=== PATIENT | female | born 1945 | race Caucasian/White ===

== ENCOUNTER → 2017-10-12 16:55 | Outpatient (CLI) | payer MEDICARE, SELFPAY | PROVIDERS: Visit Provider Physician Assistant | DX: N39.0 Urinary tract infection, site not specified (principal) | CPT/HCPCS: 87077; 87086; 87186 ==

== ENCOUNTER → 2018-02-18 16:15 | Outpatient (CLI) | payer MEDICARE, SELFPAY | PROVIDERS: Visit Provider Physician Assistant | DX: R52 Pain, unspecified (principal) | CPT/HCPCS: 87077; 87086; 87186 ==

== ENCOUNTER 2018-09-14 14:30 | Outpatient (RCR) | payer MEDICARE, SELFPAY ==
--- NOTE | 2018-06-19 09:57 | PT.OIE ---
Current Diagnoses Lymphedema, not elsewhere classified (06/19/18) Difficulty in walking, not elsewhere classified (06/19/18) Dizziness and giddiness (06/19/18) Provider Visit Care Team Role Provider Type Amadeo Jaimes Primary Care Provider Non-Staff Specialty: Internal Medicine Address: [address] [place] [address], [facility] Email: Attending Provider Specialty: Address: Phone: Fax: Email: Physical Therapy Initial Evaluation PT-OP-A Visit Information Start: 06/21/18 09:09 Freq: Status: Active Protocol: Document 06/19/18 08:15 [facility] (Rec: 06/21/18 09:54 [facility] [id number]) Out-Patient Physical Therapy Visit Information Visit Information Visit Type Initial Evaluation Visit Start Time 08:15 Visit Stop Time 09:00 Total Visit Minutes 45 Visit Number 1 Number of PROPERTY HANDLER Visits 0 Evaluation Information Evaluation Date 06/19/18 Precautions Precautions hx breast cancer with lumpectomy left. PT-OP-B Current Condition Start: 06/21/18 09:09 Freq: Status: Active Protocol: Document 06/19/18 08:15 [facility]AK (Rec: 06/21/18 09:54 [facility] [id number]) Current Condition History of Current Condition Onset Date 1 yr Current Complaints c/o front/back balance difficulty x 1 yr History of Current Condition No known cause, denies falls, but reports she feels her balance has been worsening. Had brain scan (negative), hearing test (WNL), eye motion test (negative). Denies sensation of spinning with change in position. Additionally patient reports recent sensation of numbness and tightness left armpit and has some concerns about lymphedema. 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 History of sinus surgery 2017, breast surgery 2018, scoliosis. Prior Treatments and Tests as above Future Testing and Treatments Planned non planned at this time Treatment Goals Patient/Caregiver Goals Improve balance, screen for lymphedema and receive treatment as indicated. Prior Functional Status Baseline Function- ADL's Independent Baseline Function- Mobility Independent Baseline Function- Work/School retired Baseline Function- Recreation/Hobbies no limitations Current Functional Impairments (Reported) Functional Limitations- ADL's reports balance difficulty, has to sit to put pans on Functional Limitations- Mobility/Gait independent Functional Limitations- Work/School retired Functional Limitations- Recreation/ States has to be more careful, Hobbies fearful of falling PT-OP-C Subjective Start: 06/21/18 09:09 Freq: Status: Active Protocol: Document 06/19/18 08:15 [facility] (Rec: 06/21/18 09:54 [facility] [id number]) Patient Questionnaires ABC- Activity Specific Balance Confidence Scale ABC Score 63% OP-PT Pain Assessment Pain Assessment Grid Paper Pain Assessment Grid Completed Yes Location left axilla Intensity 2 Description Aching Tightness PT-OP-E Functional Tests Start: 06/21/18 09:09 Freq: Status: Active Protocol: Document 06/19/18 08:15 [facility] (Rec: 06/21/18 09:54 [facility] [id number]) Functional Tests Dynamic Gait Index (DGI) Score 16 Timed Up and Go (TUG) Score 9 Tinetti Balance and Gait Assessment Balance Score 25 Other De Los Santos Balance Score Score 41/56 PT-OP-G Mobility & Gait Start: 06/21/18 09:09 Freq: Status: Active Protocol: Document 06/19/18 08:15 [facility] (Rec: 06/21/18 09:54 [facility] [id number]) OP Mobility Evaluation Bed Mobility Rolling indep no dizziness Supine to and from Sit indep no dizziness Transfers Sit to Stand indep Bed to Chair Transfers indep OP Gait Assessment Gait Gait Assistance Required: Independent Distance (Feet) 100 Assistive Devices Assistive Device None Gait Deviations General Gait Pattern Decreased Stride Length Decreased Feet Clearance Stair Climbing Evaluation Devices Stair Climbing Assistive Devices Left Railing Right Railing Technique/Endurance Stair Climbing Technique Step Over Step PT-OP-J Posture/Palpation/Skin Start: 06/21/18 09:09 Freq: Status: Active Protocol: Document 06/19/18 08:15 [facility] (Rec: 06/21/18 09:54 [facility] [id number]) Palpation Assessment Location left axilla Palpation Details axillary cording left axilla 3 long with mild tenderness reported PT-OP-K Range of Motion Start: 06/21/18 09:09 Freq: Status: Active Protocol: Document 06/19/18 08:15 [facility] (Rec: 06/21/18 09:54 [facility] [id number]) Cervical Spine Range of Motion Cervical Spine Active Comments WNL Shoulder Goniometric Range of Motion Shoulder Measured in Degrees left Shoulder ROM WFL No Shoulder ROM Limitations Shoulder ROM Limitations Soft Tissue Tightness Comments tightness with elevation, limited to 170 flex PT-OP-N Lymphedema Start: 06/21/18 09:09 Freq: Status: Active Protocol: Document 06/19/18 08:15 [facility] (Rec: 06/21/18 09:54 [facility] [id number]) Lymphedema Measurements Upper Extremity Circumference Measurements left MCP 17.2 cm Wrist 15.2 cm 5 cm From Distal Crease 17.1 cm 10 cm From Distal Crease 20 cm 15 cm From Distal Crease 22.4 cm 20 cm From Distal Crease 23.6 cm 25 cm From Distal Crease 25.2 cm 30 cm From Distal Crease 27.8 cm 35 cm From Distal Crease 30.3 cm 40 cm From Distal Crease 31.2 cm 45 cm From Distal Crease 31 cm Axilla 33.5 cm right MCP 17.9 cm Wrist 15.5 cm 5 cm From Distal Crease 17.4 cm 10 cm From Distal Crease 20.6 cm 15 cm From Distal Crease 22.5 cm 20 cm From Distal Crease 23.8 cm 25 cm From Distal Crease 25 cm 30 cm From Distal Crease 27 cm 35 cm From Distal Crease 29.2 cm 40 cm From Distal Crease 30.1 cm 45 cm From Distal Crease 30.2 cm Axilla 32 cm Comments Lymphedema Comments axillary cording 3 left axilla PT-OP-T Assessment and Plan Start: 06/21/18 09:09 Freq: Status: Active Protocol: Document 06/19/18 08:15 [facility] (Rec: 06/21/18 09:54 [facility] [id number]) Physical Therapy Assessment Rehab Potential Rehabilitation Potential Good Evaluation Complexity Number of Personal Factors/Comorbidities 3 or More Number of Body Systems Impaired 3 Clinical Presentation at Evaluation Evolving Impairments Impairments Activity Tolerance Balance Edema Goals lymphedema with axillary cording left Short Term Goal (STG) Decrease circumferential measurements left upper arm and axilla by 1/2 cm and axillary cording by 50%. Instruct in self-massage, sequential lymphedema exercises, and give information about compression sleeves. STG Duration 4 wks Fire Fighter Goal (LTG) Eliminate axillary cording, patient to be independent with self care for lymphedema to include self-massage, sequential lymphedema exercises, and wearing of appropriate compression garment LTG Duration 12 wks 2 Impairment activity tolerance Snf Goal (LTG) Patient able to resume all usual activities without balance difficulty LTG Duration 12 wks 1 Impairment balance dysfunction: De [place] Santos Balance score 41/56 Short Term Goal (STG) Decrease fall risk by improving De [place] Balance score to 47/56 STG Duration 4 wks Fire Fighter Goal (LTG) Decrease fall risk by improving De [place] Balance score to 54/56 LTG Duration 12 wks Assessment Summary Assessment Patient presents with balance dysfunction of unknown origin but demonstrates difficulty with high level balance tasks. No numbness or tingling or other evidence for neurological involvement. She is highly motivated and would benefit from PT for balance- focused therapeutic exercises. Additionally patient presents today with signs and symptoms consistent with lymphedema left UE with circumferential measurements larger by at least 1 cm left upper arm and axilla as well as the presence of axillary cording. She would benefit from PT for lymphedema management. Physical Therapy Plan Frequency and Duration Frequency of Treatment 2-3x/wk Duration of Treatment 12 wks Plan of Care Start Date 06/19/18 Plan of Care End Date 09/18/18 Therapeutic Interventions Therapeutic Interventions Home Exercise Program Lymphedema Management Manual Therapy Neuromuscular Re-education Patient/Caregiver Education Self-Care/Home Management Therapeutic Activities Therapeutic Exercises Next Visit Focus/Plan Next Note Type Treatment Note Next Visit Plan Review HEP, progress balance ex. Initiate treatment for lymphedema
--- NOTE | 2018-06-19 09:57 | PT.OPPOC ---
Current Diagnoses Lymphedema, not elsewhere classified (06/19/18) Difficulty in walking, not elsewhere classified (06/19/18) Dizziness and giddiness (06/19/18) Provider Visit Care Team Role Provider Type Amadeo Jaimes Primary Care Provider Non-Staff Specialty: Internal Medicine Address: [address] [place] [address], [facility] Email: Attending Provider Specialty: Address: Phone: Fax: Email: Plan Of Care PT-OP-T Assessment and Plan Start: 06/21/18 09:09 Freq: Status: Active Protocol: Document 06/19/18 08:15 [facility] (Rec: 06/21/18 09:54 [facility] [id number]) Physical Therapy Assessment Rehab Potential Rehabilitation Potential Good Evaluation Complexity Number of Personal Factors/Comorbidities 3 or More Number of Body Systems Impaired 3 Clinical Presentation at Evaluation Evolving Impairments Impairments Activity Tolerance Balance Edema Goals lymphedema with axillary cording left Short Term Goal (STG) Decrease circumferential measurements left upper arm and axilla by 1/2 cm and axillary cording by 50%. Instruct in self-massage, sequential lymphedema exercises, and give information about compression sleeves. STG Duration 4 wks Chcf Goal (LTG) Eliminate axillary cording, patient to be independent with self care for lymphedema to include self-massage, sequential lymphedema exercises, and wearing of appropriate compression garment LTG Duration 12 wks 2 Impairment activity tolerance Services Clerk Goal (LTG) Patient able to resume all usual activities without balance difficulty LTG Duration 12 wks 1 Impairment balance dysfunction: De [place] Santos Balance score 41/56 Short Term Goal (STG) Decrease fall risk by improving De [place] Balance score to 47/56 STG Duration 4 wks Services Clerk Goal (LTG) Decrease fall risk by improving De [place] Santos Balance score to 54/56 LTG Duration 12 wks Assessment Summary Assessment Patient presents with balance dysfunction of unknown origin but demonstrates difficulty with high level balance tasks. No numbness or tingling or other evidence for neurological involvement. She is highly motivated and would benefit from PT for balance- focused therapeutic exercises. Additionally patient presents today with signs and symptoms consistent with lymphedema left UE with circumferential measurements larger by at least 1 cm left upper arm and axilla as well as the presence of axillary cording. She would benefit from PT for lymphedema management. Physical Therapy Plan Frequency and Duration Frequency of Treatment 2-3x/wk Duration of Treatment 12 wks Plan of Care Start Date 06/19/18 Plan of Care End Date 09/18/18 Therapeutic Interventions Therapeutic Interventions Home Exercise Program Lymphedema Management Manual Therapy Neuromuscular Re-education Patient/Caregiver Education Self-Care/Home Management Therapeutic Activities Therapeutic Exercises Next Visit Focus/Plan Next Note Type Treatment Note Next Visit Plan Review HEP, progress balance ex. Initiate treatment for lymphedema Plan of Care Dates Plan of Care Start Date 06/19/18 Plan of Care End Date 09/18/18 Please Sign and Return: I have reviewed this Plan of Care and certify that the skilled therapy services above are required to meet the patient?s needs. Physician Signature Date Printed Name and Credentials Clinical Instructor Signature Printed Name and Credentials
--- NOTE | 2018-06-22 10:11 | PT.OTN ---
Current Diagnoses Dizziness and giddiness (06/22/18) Physical Therapy Treatment Note PT-OP-A Visit Information Start: 06/21/18 09:09 Freq: Status: Active Protocol: Document 06/22/18 08:57 [facility] (Rec: 06/22/18 08:58 [facility] [id number]) Out-Patient Physical Therapy Visit Information Visit Information Visit Type Initial Evaluation Visit Start Time 09:00 Visit Stop Time 09:47 Total Visit Minutes 47 Visit Number 2 Number of SIGNAL OPERATOR TECHNICAL Visits 0 Evaluation Information Evaluation Date 06/19/18 Precautions Precautions hx breast cancer with lumpectomy left. PT-OP-B Current Condition Start: 06/21/18 09:09 Freq: Status: Active Protocol: Document 06/19/18 08:15 [facility] (Rec: 06/21/18 09:54 [facility] [id number]) Current Condition History of Current Condition Onset Date 1 yr Current Complaints c/o front/back balance difficulty x 1 yr History of Current Condition No known cause, denies falls, but reports she feels her balance has been worsening. Had brain scan (negative), hearing test (WNL), eye motion test (negative). Denies sensation of spinning with change in position. Additionally patient reports recent sensation of numbness and tightness left armpit and has some concerns about lymphedema. 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 History of sinus surgery 2017, breast surgery 2018, scoliosis. Prior Treatments and Tests as above Future Testing and Treatments Planned non planned at this time Treatment Goals Patient/Caregiver Goals Improve balance, screen for lymphedema and receive treatment as indicated. Prior Functional Status Baseline Function- ADL's Independent Baseline Function- Mobility Independent Baseline Function- Work/School retired Baseline Function- Recreation/Hobbies no limitations Current Functional Impairments (Reported) Functional Limitations- ADL's reports balance difficulty, has to sit to put pans on Functional Limitations- Mobility/Gait independent Functional Limitations- Work/School retired Functional Limitations- Recreation/ States has to be more careful, Hobbies fearful of falling PT-OP-C Subjective Start: 06/21/18 09:09 Freq: Status: Active Protocol: Document 06/22/18 08:57 [facility] (Rec: 06/22/18 10:11 [facility] [id number]) OP-PT Subjective Patient Comments Patient Comments States she now remembers that my eye doctor wanted a PT to look at my vestibular system related to my front to back balance difficulty. Has looked at compression sleeves online, wants to discuss. PT-OP-E Functional Tests Start: 06/21/18 09:09 Freq: Status: Active Protocol: Document 06/19/18 08:15 [facility] (Rec: 06/21/18 09:54 [facility] [id number]) Functional Tests Dynamic Gait Index (DGI) Score 16 Timed Up and Go (TUG) Score 9 Tinetti Balance and Gait Assessment Balance Score 25 Other De [place] Santos Balance Score Score 41/56 PT-OP-G Mobility & Gait Start: 06/21/18 09:09 Freq: Status: Active Protocol: Document 06/19/18 08:15 [facility] (Rec: 06/21/18 09:54 [facility] [id number]) OP Mobility Evaluation Bed Mobility Rolling indep no dizziness Supine to and from Sit indep no dizziness Transfers Sit to Stand indep Bed to Chair Transfers indep OP Gait Assessment Gait Gait Assistance Required: Independent Distance (Feet) 100 Assistive Devices Assistive Device None Gait Deviations General Gait Pattern Decreased Stride Length Decreased Feet Clearance Stair Climbing Evaluation Devices Stair Climbing Assistive Devices Left Railing Right Railing Technique/Endurance Stair Climbing Technique Step Over Step PT-OP-J Posture/Palpation/Skin Start: 06/21/18 09:09 Freq: Status: Active Protocol: Document 06/19/18 08:15 [facility] (Rec: 06/21/18 09:54 [facility] [id number]) Palpation Assessment Location left axilla Palpation Details axillary cording left axilla 3 long with mild tenderness reported PT-OP-K Range of Motion Start: 06/21/18 09:09 Freq: Status: Active Protocol: Document 06/19/18 08:15 [facility] (Rec: 06/21/18 09:54 [facility] [id number]) Cervical Spine Range of Motion Cervical Spine Active Comments WNL Shoulder Goniometric Range of Motion Shoulder Measured in Degrees left Shoulder ROM WFL No Shoulder ROM Limitations Shoulder ROM Limitations Soft Tissue Tightness Comments tightness with elevation, limited to 170 flex PT-OP-N Lymphedema Start: 06/21/18 09:09 Freq: Status: Active Protocol: Document 06/19/18 08:15 [facility] (Rec: 06/21/18 09:54 [facility] [id number]) Lymphedema Measurements Upper Extremity Circumference Measurements left MCP 17.2 cm Wrist 15.2 cm 5 cm From Distal Crease 17.1 cm 10 cm From Distal Crease 20 cm 15 cm From Distal Crease 22.4 cm 20 cm From Distal Crease 23.6 cm 25 cm From Distal Crease 25.2 cm 30 cm From Distal Crease 27.8 cm 35 cm From Distal Crease 30.3 cm 40 cm From Distal Crease 31.2 cm 45 cm From Distal Crease 31 cm Axilla 33.5 cm right MCP 17.9 cm Wrist 15.5 cm 5 cm From Distal Crease 17.4 cm 10 cm From Distal Crease 20.6 cm 15 cm From Distal Crease 22.5 cm 20 cm From Distal Crease 23.8 cm 25 cm From Distal Crease 25 cm 30 cm From Distal Crease 27 cm 35 cm From Distal Crease 29.2 cm 40 cm From Distal Crease 30.1 cm 45 cm From Distal Crease 30.2 cm Axilla 32 cm Comments Lymphedema Comments axillary cording 3 left axilla PT-OP-Q Treatments Start: 06/21/18 09:09 Freq: Status: Active Protocol: Document 06/22/18 08:57 [facility] (Rec: 06/22/18 10:11 [facility] [id number]) Gym Equipment Shuttle Balance chains green Details with perturbations Comments START NEXT SESSION chains red Details EO front/back bal WBOS, staggered, EC Reps/Duration 10 min Neuro Re-Education Treatment Balance Activities tandem stand Details EO, with head turns SLS Details EO, with head turns Surface level Lymphedema Treatment Manual Lymphatic Drainage Location left UE Duration 10 min Patient Education Lymphedema Pathology verbally, with use of posters Lymphedema Prevention handout issued and discussed Lymphedema Precautions handout issued and discussed Compression Garments type discussed, patient to look further at options online Self Manual Lymphatic Drainage instructed and handout issued Sequential Lymphedema Exercises instructed and handout issued PT-OP-T Assessment and Plan Start: 06/21/18 09:09 Freq: Status: Active Protocol: Document 06/22/18 08:57 [facility] (Rec: 06/22/18 10:11 [facility] [id number]) Physical Therapy Assessment Goals lymphedema with axillary cording left Short Term Goal (STG) Decrease circumferential measurements left upper arm and axilla by 1/2 cm and axillary cording by 50%. Instruct in self-massage, sequential lymphedema exercises, and give information about compression sleeves. STG Duration 4 wks Labor Representative Goal (LTG) Eliminate axillary cording, patient to be independent with self care for lymphedema to include self-massage, sequential lymphedema exercises, and wearing of appropriate compression garment LTG Duration 12 wks 2 Impairment activity tolerance Labor Representative Goal (LTG) Patient able to resume all usual activities without balance difficulty LTG Duration 12 wks 1 Impairment balance dysfunction: De [place] Balance score 41/56 Short Term Goal (STG) Decrease fall risk by improving De [place] Balance score to 47/56 STG Duration 4 wks Labor Representative Goal (LTG) Decrease fall risk by improving [place] Balance score to 54/56 LTG Duration 12 wks Assessment Summary Assessment Demonstrated good understanding of advancement of HEP balance exercises by adding head turns. Initiated shuttle balance with emphasis on AP balance. Noted while standing to show patient lymphedema education posters patient flailed a couple times due to feeling off balance but was able to self-correct. Will benefit from screening by PT with vestibular specialization. Physical Therapy Plan Frequency and Duration Frequency of Treatment 2-3x/wk Duration of Treatment 12 wks Plan of Care Start Date 06/19/18 Plan of Care End Date 09/18/18 Therapeutic Interventions Therapeutic Interventions Home Exercise Program Lymphedema Management Manual Therapy Neuromuscular Re-education Patient/Caregiver Education Self-Care/Home Management Therapeutic Activities Therapeutic Exercises Next Visit Focus/Plan Next Note Type Treatment Note Next Visit Plan Progress with balance retraining and lymphedema treatment. Patient to schedule for screening with vestibular specialist PT.
--- NOTE | 2018-06-27 16:51 | PT.OTN ---
Current Diagnoses Dizziness and giddiness (06/27/18) Physical Therapy Treatment Note PT-OP-A Visit Information Start: 06/21/18 09:09 Freq: Status: Active Protocol: Document 06/27/18 09:56 [facility] (Rec: 06/27/18 09:58 [facility] [id number]) Out-Patient Physical Therapy Visit Information Visit Information Visit Type Treatment Note Visit Start Time 09:00 Visit Stop Time 09:45 Total Visit Minutes 45 Visit Number 2 Number of FIRE CONTROLMAN Visits 0 Evaluation Information Evaluation Date 06/19/18 Precautions Precautions hx breast cancer with lumpectomy left. PT-OP-B Current Condition Start: 06/21/18 09:09 Freq: Status: Active Protocol: Document 06/19/18 08:15 [facility] (Rec: 06/21/18 09:54 [facility] [id number]) Current Condition History of Current Condition Onset Date 1 yr Current Complaints c/o front/back balance difficulty x 1 yr History of Current Condition No known cause, denies falls, but reports she feels her balance has been worsening. Had brain scan (negative), hearing test (WNL), eye motion test (negative). Denies sensation of spinning with change in position. Additionally patient reports recent sensation of numbness and tightness left armpit and has some concerns about lymphedema. 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 History of sinus surgery 2017, breast surgery 2018, scoliosis. Prior Treatments and Tests as above Future Testing and Treatments Planned non planned at this time Treatment Goals Patient/Caregiver Goals Improve balance, screen for lymphedema and receive treatment as indicated. Prior Functional Status Baseline Function- ADL's Independent Baseline Function- Mobility Independent Baseline Function- Work/School retired Baseline Function- Recreation/Hobbies no limitations Current Functional Impairments (Reported) Functional Limitations- ADL's reports balance difficulty, has to sit to put pans on Functional Limitations- Mobility/Gait independent Functional Limitations- Work/School retired Functional Limitations- Recreation/ States has to be more careful, Hobbies fearful of falling PT-OP-C Subjective Start: 06/21/18 09:09 Freq: Status: Active Protocol: Document 06/27/18 09:56 [facility] (Rec: 06/27/18 09:58 [facility] [id number]) OP-PT Subjective Patient Comments Patient Comments Reports she measured her arm but wants some help in assuring measurements are correct. Was shown a maneuver of laying on bed with head hanging over for a few minutes and reports she feels she has a little less dizziness PT-OP-E Functional Tests Start: 06/21/18 09:09 Freq: Status: Active Protocol: Document 06/19/18 08:15 [facility] (Rec: 06/21/18 09:54 [facility] [id number]) Functional Tests Dynamic Gait Index (DGI) Score 16 Timed Up and Go (TUG) Score 9 Tinetti Balance and Gait Assessment Balance Score 25 Other De Los Santos Balance Score Score 41/56 PT-OP-G Mobility & Gait Start: 06/21/18 09:09 Freq: Status: Active Protocol: Document 06/19/18 08:15 [facility] (Rec: 06/21/18 09:54 [facility] [id number]) OP Mobility Evaluation Bed Mobility Rolling indep no dizziness Supine to and from Sit indep no dizziness Transfers Sit to Stand indep Bed to Chair Transfers indep OP Gait Assessment Gait Gait Assistance Required: Independent Distance (Feet) 100 Assistive Devices Assistive Device None Gait Deviations General Gait Pattern Decreased Stride Length Decreased Feet Clearance Stair Climbing Evaluation Devices Stair Climbing Assistive Devices Left Railing Right Railing Technique/Endurance Stair Climbing Technique Step Over Step PT-OP-J Posture/Palpation/Skin Start: 06/21/18 09:09 Freq: Status: Active Protocol: Document 06/19/18 08:15 [facility] (Rec: 06/21/18 09:54 [facility] [id number]) Palpation Assessment Location left axilla Palpation Details axillary cording left axilla 3 long with mild tenderness reported PT-OP-K Range of Motion Start: 06/21/18 09:09 Freq: Status: Active Protocol: Document 06/19/18 08:15 [facility] (Rec: 06/21/18 09:54 [facility] [id number]) Cervical Spine Range of Motion Cervical Spine Active Comments WNL Shoulder Goniometric Range of Motion Shoulder Measured in Degrees left Shoulder ROM WFL No Shoulder ROM Limitations Shoulder ROM Limitations Soft Tissue Tightness Comments tightness with elevation, limited to 170 flex PT-OP-N Lymphedema Start: 06/21/18 09:09 Freq: Status: Active Protocol: Document 06/19/18 08:15 [facility] (Rec: 06/21/18 09:54 [facility] [id number]) Lymphedema Measurements Upper Extremity Circumference Measurements left MCP 17.2 cm Wrist 15.2 cm 5 cm From Distal Crease 17.1 cm 10 cm From Distal Crease 20 cm 15 cm From Distal Crease 22.4 cm 20 cm From Distal Crease 23.6 cm 25 cm From Distal Crease 25.2 cm 30 cm From Distal Crease 27.8 cm 35 cm From Distal Crease 30.3 cm 40 cm From Distal Crease 31.2 cm 45 cm From Distal Crease 31 cm Axilla 33.5 cm right MCP 17.9 cm Wrist 15.5 cm 5 cm From Distal Crease 17.4 cm 10 cm From Distal Crease 20.6 cm 15 cm From Distal Crease 22.5 cm 20 cm From Distal Crease 23.8 cm 25 cm From Distal Crease 25 cm 30 cm From Distal Crease 27 cm 35 cm From Distal Crease 29.2 cm 40 cm From Distal Crease 30.1 cm 45 cm From Distal Crease 30.2 cm Axilla 32 cm Comments Lymphedema Comments axillary cording 3 left axilla PT-OP-Q Treatments Start: 06/21/18 09:09 Freq: Status: Active Protocol: Document 06/27/18 09:56 [facility] (Rec: 06/27/18 16:51 [facility] [id number]) Lymphedema Treatment Manual Lymphatic Drainage Location left UE Duration 35 min Comments minimal axillary cording palpable; dec to 1/2 Other Other Circumferential measurements for compression sleeve taken. PT-OP-T Assessment and Plan Start: 06/21/18 09:09 Freq: Status: Active Protocol: Document 06/27/18 09:56 [facility] (Rec: 06/27/18 16:51 [facility] [id number]) Physical Therapy Assessment Goals lymphedema with axillary cording left Short Term Goal (STG) Decrease circumferential measurements left upper arm and axilla by 1/2 cm and axillary cording by 50%. Instruct in self-massage, sequential lymphedema exercises, and give information about compression sleeves. STG Duration 4 wks [facility] Goal (LTG) Eliminate axillary cording, patient to be independent with self care for lymphedema to include self-massage, sequential lymphedema exercises, and wearing of appropriate compression garment LTG Duration 12 wks 2 Impairment activity tolerance Multi Share Program Coordinator Goal (LTG) Patient able to resume all usual activities without balance difficulty LTG Duration 12 wks 1 Impairment balance dysfunction: De [place] Santos Balance score 41/56 Short Term Goal (STG) Decrease fall risk by improving De [place] Santos Balance score to 47/56 STG Duration 4 wks [facility] Goal (LTG) Decrease fall risk by improving De [place] Santos Balance score to 54/56 LTG Duration 12 wks Assessment Summary Assessment Urged caution with self- treatment for vestibular issues; patient agreeable. Significant decrease in axillary cording, patient compliant to self-massage and sequential lymphedema exercises and is planning to order compression sleeve. Physical Therapy Plan Frequency and Duration Frequency of Treatment 2-3x/wk Duration of Treatment 12 wks Plan of Care Start Date 06/19/18 Plan of Care End Date 09/18/18 Therapeutic Interventions Therapeutic Interventions Home Exercise Program Lymphedema Management Manual Therapy Neuromuscular Re-education Patient/Caregiver Education Self-Care/Home Management Therapeutic Activities Therapeutic Exercises Next Visit Focus/Plan Next Note Type Treatment Note Next Visit Plan Remeasure upper arm circumferential measurements as compared to evaluation, continue treatment for lymphedema, balance retraining . Patient has future appointments scheduled with vestibular specialist PT.
--- NOTE | 2018-07-03 19:16 | PT.OTN ---
Current Diagnoses Dizziness and giddiness (06/30/18) Physical Therapy Treatment Note PT-OP-A Visit Information Start: 06/21/18 09:09 Freq: Status: Active Protocol: Document 06/30/18 09:00 [facility] (Rec: 06/30/18 15:11 [facility] [id number]) Out-Patient Physical Therapy Visit Information Visit Information Visit Type Treatment Note Visit Start Time 09:00 Visit Stop Time 09:45 Total Visit Minutes 45 Visit Number 3 Number of NIGHT AUDITOR Visits 0 Evaluation Information Evaluation Date 06/19/18 Precautions Precautions hx breast cancer with lumpectomy left. PT-OP-B Current Condition Start: 06/21/18 09:09 Freq: Status: Active Protocol: Document 06/19/18 08:15 [facility] (Rec: 06/21/18 09:54 [facility] [id number]) Current Condition History of Current Condition Onset Date 1 yr Current Complaints c/o front/back balance difficulty x 1 yr History of Current Condition No known cause, denies falls, but reports she feels her balance has been worsening. Had brain scan (negative), hearing test (WNL), eye motion test (negative). Denies sensation of spinning with change in position. Additionally patient reports recent sensation of numbness and tightness left armpit and has some concerns about lymphedema. 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 History of sinus surgery 2017, breast surgery 2018, scoliosis. Prior Treatments and Tests as above Future Testing and Treatments Planned non planned at this time Treatment Goals Patient/Caregiver Goals Improve balance, screen for lymphedema and receive treatment as indicated. Prior Functional Status Baseline Function- ADL's Independent Baseline Function- Mobility Independent Baseline Function- Work/School retired Baseline Function- Recreation/Hobbies no limitations Current Functional Impairments (Reported) Functional Limitations- ADL's reports balance difficulty, has to sit to put pans on Functional Limitations- Mobility/Gait independent Functional Limitations- Work/School retired Functional Limitations- Recreation/ States has to be more careful, Hobbies fearful of falling PT-OP-C Subjective Start: 06/21/18 09:09 Freq: Status: Active Protocol: Document 06/30/18 09:00 [facility] (Rec: 06/30/18 15:11 [facility] [id number]) OP-PT Subjective Patient Comments Patient Comments Hasn't ordered compression sleeve yet. States she feels her dizziness and balance is getting some better, PT-OP-E Functional Tests Start: 06/21/18 09:09 Freq: Status: Active Protocol: Document 06/19/18 08:15 [facility] (Rec: 06/21/18 09:54 [facility] [id number]) Functional Tests Dynamic Gait Index (DGI) Score 16 Timed Up and Go (TUG) Score 9 Tinetti Balance and Gait Assessment Balance Score 25 Other De [place] Balance Score Score 41/56 PT-OP-G Mobility & Gait Start: 06/21/18 09:09 Freq: Status: Active Protocol: Document 06/19/18 08:15 [facility] (Rec: 06/21/18 09:54 [facility] [id number]) OP Mobility Evaluation Bed Mobility Rolling indep no dizziness Supine to and from Sit indep no dizziness Transfers Sit to Stand indep Bed to Chair Transfers indep OP Gait Assessment Gait Gait Assistance Required: Independent Distance (Feet) 100 Assistive Devices Assistive Device None Gait Deviations General Gait Pattern Decreased Stride Length Decreased Feet Clearance Stair Climbing Evaluation Devices Stair Climbing Assistive Devices Left Railing Right Railing Technique/Endurance Stair Climbing Technique Step Over Step PT-OP-J Posture/Palpation/Skin Start: 06/21/18 09:09 Freq: Status: Active Protocol: Document 06/19/18 08:15 [facility] (Rec: 06/21/18 09:54 [facility] [id number]) Palpation Assessment Location left axilla Palpation Details axillary cording left axilla 3 long with mild tenderness reported PT-OP-K Range of Motion Start: 06/21/18 09:09 Freq: Status: Active Protocol: Document 06/19/18 08:15 [facility] (Rec: 06/21/18 09:54 [facility] [id number]) Cervical Spine Range of Motion Cervical Spine Active Comments WNL Shoulder Goniometric Range of Motion Shoulder Measured in Degrees left Shoulder ROM WFL No Shoulder ROM Limitations Shoulder ROM Limitations Soft Tissue Tightness Comments tightness with elevation, limited to 170 flex PT-OP-N Lymphedema Start: 06/21/18 09:09 Freq: Status: Active Protocol: Document 06/19/18 08:15 [facility] (Rec: 06/21/18 09:54 [facility] [id number]) Lymphedema Measurements Upper Extremity Circumference Measurements left MCP 17.2 cm Wrist 15.2 cm 5 cm From Distal Crease 17.1 cm 10 cm From Distal Crease 20 cm 15 cm From Distal Crease 22.4 cm 20 cm From Distal Crease 23.6 cm 25 cm From Distal Crease 25.2 cm 30 cm From Distal Crease 27.8 cm 35 cm From Distal Crease 30.3 cm 40 cm From Distal Crease 31.2 cm 45 cm From Distal Crease 31 cm Axilla 33.5 cm right MCP 17.9 cm Wrist 15.5 cm 5 cm From Distal Crease 17.4 cm 10 cm From Distal Crease 20.6 cm 15 cm From Distal Crease 22.5 cm 20 cm From Distal Crease 23.8 cm 25 cm From Distal Crease 25 cm 30 cm From Distal Crease 27 cm 35 cm From Distal Crease 29.2 cm 40 cm From Distal Crease 30.1 cm 45 cm From Distal Crease 30.2 cm Axilla 32 cm Comments Lymphedema Comments axillary cording 3 left axilla PT-OP-Q Treatments Start: 06/21/18 09:09 Freq: Status: Active Protocol: Document 06/30/18 09:00 [facility] (Rec: 06/30/18 15:11 [facility] [id number]) Gym Equipment Shuttle Balance chains green Details with perturbations chains red Details EO front/back bal WBOS, staggered, EC Reps/Duration 10 min Comments added head turns, nods, head and arm turns Neuro Re-Education Treatment Balance Activities foam stand Details EC Equipment grullon foam Comments CGA heel toe walk Comments CGA tandem stand Details EO, with head turns Lymphedema Treatment Manual Lymphatic Drainage Location left UE Duration 20 min PT-OP-T Assessment and Plan Start: 06/21/18 09:09 Freq: Status: Active Protocol: Document 06/30/18 09:00 [facility] (Rec: 07/03/18 19:16 [facility] [id number]) Physical Therapy Assessment Goals lymphedema with axillary cording left Short Term Goal (STG) Decrease circumferential measurements left upper arm and axilla by 1/2 cm and axillary cording by 50%. Instruct in self-massage, sequential lymphedema exercises, and give information about compression sleeves. STG Duration 4 wks Print Production Coordinator Goal (LTG) Eliminate axillary cording, patient to be independent with self care for lymphedema to include self-massage, sequential lymphedema exercises, and wearing of appropriate compression garment LTG Duration 12 wks 2 Impairment activity tolerance Care Home Goal (LTG) Patient able to resume all usual activities without balance difficulty LTG Duration 12 wks 1 Impairment balance dysfunction: De [place] Santos Balance score 41/56 Short Term Goal (STG) Decrease fall risk by improving De [place] Balance score to 47/56 STG Duration 4 wks Care Home Goal (LTG) Decrease fall risk by improving De [place] Balance score to 54/56 LTG Duration 12 wks Assessment Summary Assessment Good compliance to HEP, self- massage. No further chance in axillary cording, initially, though noted decrease at end of session. Patient has not ordered compression sleeve yet but is planning to. Physical Therapy Plan Frequency and Duration Frequency of Treatment 2-3x/wk Duration of Treatment 12 wks Plan of Care Start Date 06/19/18 Plan of Care End Date 09/18/18 Therapeutic Interventions Therapeutic Interventions Home Exercise Program Lymphedema Management Manual Therapy Neuromuscular Re-education Patient/Caregiver Education Self-Care/Home Management Therapeutic Activities Therapeutic Exercises Next Visit Focus/Plan Next Note Type Treatment Note Next Visit Plan Continue PT per POC
--- NOTE | 2018-07-04 13:34 | PT.OTN ---
Current Diagnoses Lymphedema, not elsewhere classified (07/04/18) Dizziness and giddiness (07/04/18) Physical Therapy Treatment Note PT-OP-A Visit Information Start: 06/21/18 09:09 Freq: Status: Active Protocol: Document 07/04/18 08:13 [facility] (Rec: 07/04/18 09:00 [facility] [id number]) Out-Patient Physical Therapy Visit Information Visit Information Visit Type Treatment Note Visit Start Time 08:15 Visit Stop Time 09:00 Total Visit Minutes 45 Visit Number 4 Number of CAFE HELPER Visits 0 Evaluation Information Evaluation Date 06/19/18 Precautions Precautions hx breast cancer with lumpectomy left. PT-OP-B Current Condition Start: 06/21/18 09:09 Freq: Status: Active Protocol: Document 06/19/18 08:15 [facility] (Rec: 06/21/18 09:54 [facility] [id number]) Current Condition History of Current Condition Onset Date 1 yr Current Complaints c/o front/back balance difficulty x 1 yr History of Current Condition No known cause, denies falls, but reports she feels her balance has been worsening. Had brain scan (negative), hearing test (WNL), eye motion test (negative). Denies sensation of spinning with change in position. Additionally patient reports recent sensation of numbness and tightness left armpit and has some concerns about lymphedema. 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 History of sinus surgery 2017, breast surgery 2018, scoliosis. Prior Treatments and Tests as above Future Testing and Treatments Planned non planned at this time Treatment Goals Patient/Caregiver Goals Improve balance, screen for lymphedema and receive treatment as indicated. Prior Functional Status Baseline Function- ADL's Independent Baseline Function- Mobility Independent Baseline Function- Work/School retired Baseline Function- Recreation/Hobbies no limitations Current Functional Impairments (Reported) Functional Limitations- ADL's reports balance difficulty, has to sit to put pans on Functional Limitations- Mobility/Gait independent Functional Limitations- Work/School retired Functional Limitations- Recreation/ States has to be more careful, Hobbies fearful of falling PT-OP-C Subjective Start: 06/21/18 09:09 Freq: Status: Active Protocol: Document 07/04/18 08:13 SAK (Rec: 07/04/18 09:00 [facility] [id number]) OP-PT Subjective Patient Comments Patient Comments Reports she had some spinning sensations with her dizziness recently, hoping to get into the vestibular specialist PT sooner. Has ordered 2 compression sleeves; 1 with and 1 without gauntlet. PT-OP-E Functional Tests Start: 06/21/18 09:09 Freq: Status: Active Protocol: Document 06/19/18 08:15 SAK (Rec: 06/21/18 09:54 [facility] [id number]) Functional Tests Dynamic Gait Index (DGI) Score 16 Timed Up and Go (TUG) Score 9 Tinetti Balance and Gait Assessment Balance Score 25 Other De Los Santos Balance Score Score 41/56 PT-OP-G Mobility & Gait Start: 06/21/18 09:09 Freq: Status: Active Protocol: Document 06/19/18 08:15 SAK (Rec: 06/21/18 09:54 [facility] [id number]) OP Mobility Evaluation Bed Mobility Rolling indep no dizziness Supine to and from Sit indep no dizziness Transfers Sit to Stand indep Bed to Chair Transfers indep OP Gait Assessment Gait Gait Assistance Required: Independent Distance (Feet) 100 Assistive Devices Assistive Device None Gait Deviations General Gait Pattern Decreased Stride Length Decreased Feet Clearance Stair Climbing Evaluation Devices Stair Climbing Assistive Devices Left Railing Right Railing Technique/Endurance Stair Climbing Technique Step Over Step PT-OP-J Posture/Palpation/Skin Start: 06/21/18 09:09 Freq: Status: Active Protocol: Document 06/19/18 08:15 [facility] (Rec: 06/21/18 09:54 [facility] [id number]) Palpation Assessment Location left axilla Palpation Details axillary cording left axilla 3 long with mild tenderness reported PT-OP-K Range of Motion Start: 06/21/18 09:09 Freq: Status: Active Protocol: Document 06/19/18 08:15 [facility] (Rec: 06/21/18 09:54 [facility] [id number]) Cervical Spine Range of Motion Cervical Spine Active Comments WNL Shoulder Goniometric Range of Motion Shoulder Measured in Degrees left Shoulder ROM WFL No Shoulder ROM Limitations Shoulder ROM Limitations Soft Tissue Tightness Comments tightness with elevation, limited to 170 flex PT-OP-N Lymphedema Start: 06/21/18 09:09 Freq: Status: Active Protocol: Document 06/19/18 08:15 SAK (Rec: 06/21/18 09:54 [facility] [id number]) Lymphedema Measurements Upper Extremity Circumference Measurements left MCP 17.2 cm Wrist 15.2 cm 5 cm From Distal Crease 17.1 cm 10 cm From Distal Crease 20 cm 15 cm From Distal Crease 22.4 cm 20 cm From Distal Crease 23.6 cm 25 cm From Distal Crease 25.2 cm 30 cm From Distal Crease 27.8 cm 35 cm From Distal Crease 30.3 cm 40 cm From Distal Crease 31.2 cm 45 cm From Distal Crease 31 cm Axilla 33.5 cm right MCP 17.9 cm Wrist 15.5 cm 5 cm From Distal Crease 17.4 cm 10 cm From Distal Crease 20.6 cm 15 cm From Distal Crease 22.5 cm 20 cm From Distal Crease 23.8 cm 25 cm From Distal Crease 25 cm 30 cm From Distal Crease 27 cm 35 cm From Distal Crease 29.2 cm 40 cm From Distal Crease 30.1 cm 45 cm From Distal Crease 30.2 cm Axilla 32 cm Comments Lymphedema Comments axillary cording 3 left axilla PT-OP-Q Treatments Start: 06/21/18 09:09 Freq: Status: Active Protocol: Document 07/04/18 08:13 [facility] (Rec: 07/04/18 09:00 [facility] [id number]) Therapeutic Exercises Sidelying Exercises shoulder abd from 90 to full abd Sidelying Exercise Name end-range stretch Reps/Minutes 5x ea Comments manual facilitation reach and roll Sidelying Exercise Name end-range stretch Reps/Minutes 5x each side Comments manual facilitation Sitting Exercises pulleys shoulder flex and scaption Reps/Minutes 10x ea Lymphedema Treatment Manual Lymphatic Drainage Location left UE Duration 30 min PT-OP-T Assessment and Plan Start: 06/21/18 09:09 Freq: Status: Active Protocol: Document 07/04/18 08:13 [facility] (Rec: 07/04/18 09:00 [facility] [id number]) Physical Therapy Assessment Goals lymphedema with axillary cording left Short Term Goal (STG) Decrease circumferential measurements left upper arm and axilla by 1/2 cm and axillary cording by 50%. Instruct in self-massage, sequential lymphedema exercises, and give information about compression sleeves. STG Duration 4 wks Automatic Packer Operator Goal (LTG) Eliminate axillary cording, patient to be independent with self care for lymphedema to include self-massage, sequential lymphedema exercises, and wearing of appropriate compression garment LTG Duration 12 wks 2 Impairment activity tolerance Chcf Goal (LTG) Patient able to resume all usual activities without balance difficulty LTG Duration 12 wks 1 Impairment balance dysfunction: De Los Santos Balance score 41/56 Short Term Goal (STG) Decrease fall risk by improving De Los Santos Balance score to 47/56 STG Duration 4 wks Chcf Goal (LTG) Decrease fall risk by improving De Los Santos Balance score to 54/56 LTG Duration 12 wks Assessment Summary Assessment Axillary cording present but decreased. Has ordered compression sleeves. Compliant to self-massage and sequential lymphedema exercises. Should have compression sleeves by next session. Physical Therapy Plan Frequency and Duration Frequency of Treatment 2-3x/wk Duration of Treatment 12 wks Plan of Care Start Date 06/19/18 Plan of Care End Date 09/18/18 Therapeutic Interventions Therapeutic Interventions Home Exercise Program Lymphedema Management Manual Therapy Neuromuscular Re-education Patient/Caregiver Education Self-Care/Home Management Therapeutic Activities Therapeutic Exercises Next Visit Focus/Plan Next Note Type Treatment Note Next Visit Plan Continue PT per POC
--- NOTE | 2018-07-11 08:15 | PT.OTRE ---
Current Diagnoses Other abnormalities of gait and mobility (07/13/18) Dizziness and giddiness (07/13/18) Provider Visit Care Team Role Provider Type Amadeo Jaimes Primary Care Provider Non-Staff Specialty: Internal Medicine Address: [address] [place] [address], [facility] Email: Attending Provider Specialty: Address: Phone: Fax: Email: Physical Therapy Re-Evaluation PT-OP-A Visit Information Start: 06/21/18 09:09 Freq: Status: Active Protocol: Document 07/11/18 08:15 DLM (Rec: 07/13/18 09:32 DLM [id number]) Out-Patient Physical Therapy Visit Information Visit Information Visit Type Re-Evaluation Visit Note For dizziness and decreased balance Visit Start Time 08:15 Visit Stop Time 09:05 Total Visit Minutes 50 Visit Number 5 Number of BUSINESS CONTINUITY PLANNER Visits 0 Evaluation Information Evaluation Date 06/19/18 Precautions Precautions hx breast cancer with lumpectomy left. PT-OP-B Current Condition Start: 06/21/18 09:09 Freq: Status: Active Protocol: Document 07/11/18 08:15 DLM (Rec: 07/13/18 09:32 DLM [id number]) Current Condition History of Current Condition Onset Date 1 yr Current Complaints c/o front/back balance difficulty x 1 yr History of Current Condition No known cause, denies falls, but reports she feels her balance has been worsening. Had brain scan (negative), hearing test (WNL), eye motion test (negative). Denies sensation of spinning with change in position. Additionally patient reports recent sensation of numbness and tightness left armpit and has some concerns about lymphedema. 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 History of sinus surgery 2017, breast surgery 2018, scoliosis. Prior Treatments and Tests as above Future Testing and Treatments Planned non planned at this time Treatment Goals Patient/Caregiver Goals resolve her dizziness Personal Factors Other Personal Factors That May Effect She has difficulty sleeping at Therapy/Recovery night, takes sleeping pill intermittently when gets too tired. She has tendonitis in lower legs for which she is seeing an MD. PT-OP-C Subjective Start: 06/21/18 09:09 Freq: Status: Active Protocol: Document 07/11/18 08:15 DLM (Rec: 07/13/18 09:32 DL [id number]) OP-PT Subjective Patient Comments Patient Comments She has received her compression sleeve for left UE . She describes her dizziness as typically a ant/post sense of motion and decreased balance. Her dizziness started around the time of her breast surgery and radiation. Her dizziness gets worse when she is tired or stressed. PT-OP-D Balance Start: 06/21/18 09:09 Freq: Status: Active Protocol: Document 07/11/18 08:15 DLM (Rec: 07/13/18 09:32 DLM [id number]) OP-PT Balance Assessment Sitting Balance Static Sitting Balance Ability Normal Dynamic Sitting Balance Ability Normal Balance Tests De Los Santos Balance Test De Los Santos Balance Test Score 54/56 De Los Santos Impairment Rating 1 to 19% Impaired (Score 45-55 ) Romberg Romberg losses of balance right Single Limb Standing Single Limb- Right 5 seconds Single Limb- Left 9 seconds Tandem Tandem Standing needs UE support to get into tandem position PT-OP-E Functional Tests Start: 06/21/18 09:09 Freq: Status: Active Protocol: Document 07/11/18 08:15 DLM (Rec: 07/13/18 09:42 DLM [id number]) Functional Tests Dynamic Gait Index (DGI) Score 17/24 DGI Impairment Rating 20 to <40% Impaired (Score 15- 19) PT-OP-G Mobility & Gait Start: 06/21/18 09:09 Freq: Status: Active Protocol: Document 06/19/18 08:15 SAK (Rec: 06/21/18 09:54 SAK [id number]) OP Mobility Evaluation Bed Mobility Rolling indep no dizziness Supine to and from Sit indep no dizziness Transfers Sit to Stand indep Bed to Chair Transfers indep OP Gait Assessment Gait Gait Assistance Required: Independent Distance (Feet) 100 Assistive Devices Assistive Device None Gait Deviations General Gait Pattern Decreased Stride Length Decreased Feet Clearance Stair Climbing Evaluation Devices Stair Climbing Assistive Devices Left Railing Right Railing Technique/Endurance Stair Climbing Technique Step Over Step PT-OP-J Posture/Palpation/Skin Start: 06/21/18 09:09 Freq: Status: Active Protocol: Document 06/19/18 08:15 SAK (Rec: 06/21/18 09:54 SAK [id number]) Palpation Assessment Location left axilla Palpation Details axillary cording left axilla 3 long with mild tenderness reported PT-OP-K Range of Motion Start: 06/21/18 09:09 Freq: Status: Active Protocol: Document 06/19/18 08:15 SAK (Rec: 06/21/18 09:54 SAK [id number]) Cervical Spine Range of Motion Cervical Spine Active Comments WNL Shoulder Goniometric Range of Motion Shoulder Measured in Degrees left Shoulder ROM WFL No Shoulder ROM Limitations Shoulder ROM Limitations Soft Tissue Tightness Comments tightness with elevation, limited to 170 flex PT-OP-M Strength Start: 06/21/18 09:09 Freq: Status: Active Protocol: Document 07/11/18 08:15 DLM (Rec: 07/13/18 09:47 DLM [id number]) Hip Strength Hip Manual Muscle Testing Right Flexion (L2) 5 Normal Left Flexion (L2) 5 Normal Knee Strength Knee Manual Muscle Testing Right Flexion (S2) 5 Normal Extension (L3) 5 Normal Left Flexion (S2) 5 Normal Extension (L3) 5 Normal Ankle/Foot Strength Ankle and Foot Manual Muscle Testing Right Dorsiflexion (L4) 5 Normal Left Dorsiflexion (L4) 5 Normal PT-OP-N Lymphedema Start: 06/21/18 09:09 Freq: Status: Active Protocol: Document 06/19/18 08:15 SAK (Rec: 06/21/18 09:54 SAK [id number]) Lymphedema Measurements Upper Extremity Circumference Measurements left MCP 17.2 cm Wrist 15.2 cm 5 cm From Distal Crease 17.1 cm 10 cm From Distal Crease 20 cm 15 cm From Distal Crease 22.4 cm 20 cm From Distal Crease 23.6 cm 25 cm From Distal Crease 25.2 cm 30 cm From Distal Crease 27.8 cm 35 cm From Distal Crease 30.3 cm 40 cm From Distal Crease 31.2 cm 45 cm From Distal Crease 31 cm Axilla 33.5 cm right MCP 17.9 cm Wrist 15.5 cm 5 cm From Distal Crease 17.4 cm 10 cm From Distal Crease 20.6 cm 15 cm From Distal Crease 22.5 cm 20 cm From Distal Crease 23.8 cm 25 cm From Distal Crease 25 cm 30 cm From Distal Crease 27 cm 35 cm From Distal Crease 29.2 cm 40 cm From Distal Crease 30.1 cm 45 cm From Distal Crease 30.2 cm Axilla 32 cm Comments Lymphedema Comments axillary cording 3 left axilla PT-OP-O Vestibular Start: 06/21/18 09:09 Freq: Status: Active Protocol: Document 07/11/18 08:15 DLM (Rec: 07/13/18 16:22 DLM [id number]) Vestibular Assessment Screening Tests Vestibular Artery Screen Negative Visual Testing Smooth Pursuits Horizontal WNL Smooth Pursuits Vertical WNL Saccades Horizontal WNL Saccades Vertical WNL Gaze Evoked Nystagmus With Fixation Negative Gaze Evoked Nystagmus Without Fixation Negative Spontaneous Nystagmus Negative Vestibulo-Ocular Reflex (VOR1) Negative Vestibulo-Ocular Reflex (VOR2) Negative Positional Testing Ricki-Hallpike Negative Left Negative Right Rolling Test Negative Left Negative Right Sidelying Test Negative Left Negative Right Supine to Sit Negative Sit to Supine Negative Vestibular Function Tests Fukuda Test positive with right turn Comments Vestibular Comments Mild sense of ant/post motion with roll to right side (no nystagmus) that resolves, symptoms decrease with 3 repetitions of the motion. She describes her dizziness as an ant/post motion when upright but no spinning. She had a dizzy episode when she was about 40 years old that was treated as left BPPV. The symptoms fully resolved at that time. PT-OP-Q Treatments Start: 06/21/18 09:09 Freq: Status: Active Protocol: Document 07/11/18 08:15 DLM (Rec: 07/13/18 16:30 DLM [id number]) Neuro Re-Education Treatment Balance Activities SLS Details single limb standing, eyes open Surface firm Reps/Duration x 3 reps bilaterally Other Activities 1 Details rolling on bed Reps/Duration 3 each side Comments mild symptoms with right roll that decrease in intensity by 3rd reps Self-Care/Home Management Treatment Education Patient Education Home Exercise Program Other Education pt has been hanging her head off the end of the bed, requested she stop this home exercise PT-OP-T Assessment and Plan Start: 06/21/18 09:09 Freq: Status: Active Protocol: Document 07/11/18 08:15 DLM (Rec: 07/13/18 16:45 DLM [id number]) Physical Therapy Assessment Impairments Impairments Activity Tolerance Balance Edema Other Impairments vestibular hypofunction Goals Four Impairment Dynamic gait Index score 17/24 Short Term Goal (STG) Improve DGI score to 20/24 STG Duration 08/08/18 Intermediate Goal (LTG) Improve DGI score to 22/24 to decrease her fall risks. LTG Duration 09/18/18 Three Impairment Dizziness Short Term Goal (STG) Resolve dizziness when rolling right in bed STG Duration 08/08/18 Intermediate Goal (LTG) Resolve her dizziness when upright LTG Duration 09/18/18 lymphedema with axillary cording left Short Term Goal (STG) Decrease circumferential measurements left upper arm and axilla by 1/2 cm and axillary cording by 50%. Instruct in self-massage, sequential lymphedema exercises, and give information about compression sleeves. STG Duration 4 wks Intermediate Goal (LTG) Eliminate axillary cording, patient to be independent with self care for lymphedema to include self-massage, sequential lymphedema exercises, and wearing of appropriate compression garment LTG Duration 12 wks 2 Impairment activity tolerance Intermediate Goal (LTG) Patient able to resume all usual activities without balance difficulty LTG Duration 12 wks 1 Intermediate Goal (LTG) Met Goal: De Los Santos score is 54/56 Progress Towards Goals Progress Towards Goals Progressing Toward Goals Progress Comments Added vestibular/balance goals this visit following vestibular assessment Assessment Summary Assessment Vestibular assessment completed this visit. Clinical testing is negative for BPPV at this time but positive for a vestibular hypofunction. She presents with right sided losses of balance with balance challenges. She demonstrates increased visual dependence for her balance. Able to reproduce her dizziness with rolling to her right side with mild symptoms that resolve quickly. She is a good candidate for vestibular rehab at this time in addition to her lymphadema treatments. Will continue with her current POC timeline set on initial evaluation. Physical Therapy Plan Frequency and Duration Frequency of Treatment 2-3x/wk Duration of Treatment 12 wks Plan of Care Start Date 06/19/18 Plan of Care End Date 09/18/18 Therapeutic Interventions Therapeutic Interventions Balance Training Home Exercise Program Lymphedema Management Manual Therapy Neuromuscular Re-education Patient/Caregiver Education Self-Care/Home Management Therapeutic Activities Therapeutic Exercises Vestibular Rehabilitation Next Visit Focus/Plan Next Note Type Treatment Note Next Visit Plan add vestibular rehab activities to treatment
--- NOTE | 2018-07-11 08:15 | PT.OPPOC ---
Current Diagnoses Other abnormalities of gait and mobility (07/13/18) Dizziness and giddiness (07/13/18) Provider Visit Care Team Role Provider Type Amadeo Jaimes Primary Care Provider Non-Staff Specialty: Internal Medicine Address: [address] [place] [address], [place], [address] Email: Attending Provider Specialty: Address: Phone: Fax: Email: Plan Of Care PT-OP-T Assessment and Plan Start: 06/21/18 09:09 Freq: Status: Active Protocol: Document 07/11/18 08:15 DLM (Rec: 07/13/18 16:45 DLM [id number]) Physical Therapy Assessment Impairments Impairments Activity Tolerance Balance Edema Other Impairments vestibular hypofunction Goals Four Impairment Dynamic gait Index score 17/24 Short Term Goal (STG) Improve DGI score to 20/24 STG Duration 08/08/18 Field Artillery Officer Goal (LTG) Improve DGI score to 22/24 to decrease her fall risks. LTG Duration 09/18/18 Three Impairment Dizziness Short Term Goal (STG) Resolve dizziness when rolling right in bed STG Duration 08/08/18 Field Artillery Officer Goal (LTG) Resolve her dizziness when upright LTG Duration 09/18/18 lymphedema with axillary cording left Short Term Goal (STG) Decrease circumferential measurements left upper arm and axilla by 1/2 cm and axillary cording by 50%. Instruct in self-massage, sequential lymphedema exercises, and give information about compression sleeves. STG Duration 4 wks Field Artillery Officer Goal (LTG) Eliminate axillary cording, patient to be independent with self care for lymphedema to include self-massage, sequential lymphedema exercises, and wearing of appropriate compression garment LTG Duration 12 wks 2 Impairment activity tolerance Senior Care Goal (LTG) Patient able to resume all usual activities without balance difficulty LTG Duration 12 wks 1 Field Artillery Officer Goal (LTG) Met Goal: De Los Santos score is 54/56 Progress Towards Goals Progress Towards Goals Progressing Toward Goals Progress Comments Added vestibular/balance goals this visit following vestibular assessment Assessment Summary Assessment Vestibular assessment completed this visit. Clinical testing is negative for BPPV at this time but positive for a vestibular hypofunction. She presents with right sided losses of balance with balance challenges. She demonstrates increased visual dependence for her balance. Able to reproduce her dizziness with rolling to her right side with mild symptoms that resolve quickly. She is a good candidate for vestibular rehab at this time in addition to her lymphedema treatments. Will continue with her current POC timeline set on initial evaluation. Physical Therapy Plan Frequency and Duration Frequency of Treatment 2-3x/wk Duration of Treatment 12 wks Plan of Care Start Date 06/19/18 Plan of Care End Date 09/18/18 Therapeutic Interventions Therapeutic Interventions Balance Training Home Exercise Program Lymphedema Management Manual Therapy Neuromuscular Re-education Patient/Caregiver Education Self-Care/Home Management Therapeutic Activities Therapeutic Exercises Vestibular Rehabilitation Next Visit Focus/Plan Next Note Type Treatment Note Next Visit Plan add vestibular rehab activities to treatment Plan of Care Dates Plan of Care Start Date 06/19/18 Plan of Care End Date 09/18/18 Please Sign and Return: I have reviewed this Plan of Care and certify that the skilled therapy services above are required to meet the patient?s needs. Physician Signature Date
--- NOTE | 2018-07-13 08:15 | PT.OTN ---
Current Diagnoses Other abnormalities of gait and mobility (07/13/18) Dizziness and giddiness (07/13/18) Physical Therapy Treatment Note PT-OP-A Visit Information Start: 06/21/18 09:09 Freq: Status: Active Protocol: Document 07/13/18 08:15 DLM (Rec: 07/13/18 17:10 DLM [id number]) Out-Patient Physical Therapy Visit Information Visit Information Visit Type Treatment Note Visit Note vestibular/balance treatment Visit Start Time 08:15 Visit Stop Time 09:00 Total Visit Minutes 45 Visit Number 6 Number of PRESS TECHNICIAN Visits 0 Evaluation Information Evaluation Date 06/19/18 Precautions Precautions hx breast cancer with lumpectomy left, tendonitis in distal LE's PT-OP-B Current Condition Start: 06/21/18 09:09 Freq: Status: Active Protocol: Document 07/11/18 08:15 DLM (Rec: 07/13/18 09:32 DLM [id number]) Current Condition History of Current Condition Onset Date 1 yr Current Complaints c/o front/back balance difficulty x 1 yr History of Current Condition No known cause, denies falls, but reports she feels her balance has been worsening. Had brain scan (negative), hearing test (WNL), eye motion test (negative). Denies sensation of spinning with change in position. Additionally patient reports recent sensation of numbness and tightness left armpit and has some concerns about lymphedema. 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 History of sinus surgery 2017, breast surgery 2018, scoliosis. Prior Treatments and Tests as above Future Testing and Treatments Planned non planned at this time Treatment Goals Patient/Caregiver Goals resolve her dizziness Personal Factors Other Personal Factors That May Effect She has difficulty sleeping at Therapy/Recovery night, takes sleeping pill intermittently when gets too tired. She has tendonitis in lower legs for which she is seeing an MD. PT-OP-C Subjective Start: 06/21/18 09:09 Freq: Status: Active Protocol: Document 07/13/18 08:15 DLM (Rec: 07/13/18 17:10 DLM [id number]) OP-PT Subjective Patient Comments Patient Comments She has been doing her rolling at home with good tolerance. She wore her compression sleeve while working out at the gym and it helped. PT-OP-D Balance Start: 06/21/18 09:09 Freq: Status: Active Protocol: Document 07/11/18 08:15 DLM (Rec: 07/13/18 09:32 DLM [id number]) OP-PT Balance Assessment Sitting Balance Static Sitting Balance Ability Normal Dynamic Sitting Balance Ability Normal Balance Tests De Los Santos Balance Test [place] Balance Test Score 54/56 [place] Impairment Rating 1 to 19% Impaired (Score 45-55 ) Romberg Romberg losses of balance right Single Limb Standing Single Limb- Right 5 seconds Single Limb- Left 9 seconds Tandem Tandem Standing needs UE support to get into tandem position Nura Fall Scale Copyright Permission Nura JM, Nura RM, Guanaco SJ. Development of a scale to identify the fall- prone patient. Can J Aging 1989;8;366-7. Starr Lyman (2009). Preventing patient falls. (2nd ed). [place]: [place]. PT-OP-E Functional Tests Start: 06/21/18 09:09 Freq: Status: Active Protocol: Document 07/11/18 08:15 DLM (Rec: 07/13/18 09:42 DLM [id number]) Functional Tests Dynamic Gait Index (DGI) Score 17/24 DGI Impairment Rating 20 to <40% Impaired (Score 15- 19) PT-OP-G Mobility & Gait Start: 06/21/18 09:09 Freq: Status: Active Protocol: Document 06/19/18 08:15 SAK (Rec: 06/21/18 09:54 SAK [id number]) OP Mobility Evaluation Bed Mobility Rolling indep no dizziness Supine to and from Sit indep no dizziness Transfers Sit to Stand indep Bed to Chair Transfers indep OP Gait Assessment Gait Gait Assistance Required: Independent Distance (Feet) 100 Assistive Devices Assistive Device None Gait Deviations General Gait Pattern Decreased Stride Length Decreased Feet Clearance Stair Climbing Evaluation Devices Stair Climbing Assistive Devices Left Railing Right Railing Technique/Endurance Stair Climbing Technique Step Over Step PT-OP-J Posture/Palpation/Skin Start: 06/21/18 09:09 Freq: Status: Active Protocol: Document 06/19/18 08:15 SAK (Rec: 06/21/18 09:54 SAK [id number]) Palpation Assessment Location left axilla Palpation Details axillary cording left axilla 3 long with mild tenderness reported PT-OP-K Range of Motion Start: 06/21/18 09:09 Freq: Status: Active Protocol: Document 06/19/18 08:15 SAK (Rec: 06/21/18 09:54 SAK [id number]) Cervical Spine Range of Motion Cervical Spine Active Comments WNL Shoulder Goniometric Range of Motion Shoulder Measured in Degrees left Shoulder ROM WFL No Shoulder ROM Limitations Shoulder ROM Limitations Soft Tissue Tightness Comments tightness with elevation, limited to 170 flex PT-OP-M Strength Start: 06/21/18 09:09 Freq: Status: Active Protocol: Document 07/11/18 08:15 DLM (Rec: 07/13/18 09:47 DLM [id number]) Hip Strength Hip Manual Muscle Testing Right Flexion (L2) 5 Normal Left Flexion (L2) 5 Normal Knee Strength Knee Manual Muscle Testing Right Flexion (S2) 5 Normal Extension (L3) 5 Normal Left Flexion (S2) 5 Normal Extension (L3) 5 Normal Ankle/Foot Strength Ankle and Foot Manual Muscle Testing Right Dorsiflexion (L4) 5 Normal Left Dorsiflexion (L4) 5 Normal PT-OP-N Lymphedema Start: 06/21/18 09:09 Freq: Status: Active Protocol: Document 06/19/18 08:15 SAK (Rec: 06/21/18 09:54 SAK [id number]) Lymphedema Measurements Upper Extremity Circumference Measurements left MCP 17.2 cm Wrist 15.2 cm 5 cm From Distal Crease 17.1 cm 10 cm From Distal Crease 20 cm 15 cm From Distal Crease 22.4 cm 20 cm From Distal Crease 23.6 cm 25 cm From Distal Crease 25.2 cm 30 cm From Distal Crease 27.8 cm 35 cm From Distal Crease 30.3 cm 40 cm From Distal Crease 31.2 cm 45 cm From Distal Crease 31 cm Axilla 33.5 cm right MCP 17.9 cm Wrist 15.5 cm 5 cm From Distal Crease 17.4 cm 10 cm From Distal Crease 20.6 cm 15 cm From Distal Crease 22.5 cm 20 cm From Distal Crease 23.8 cm 25 cm From Distal Crease 25 cm 30 cm From Distal Crease 27 cm 35 cm From Distal Crease 29.2 cm 40 cm From Distal Crease 30.1 cm 45 cm From Distal Crease 30.2 cm Axilla 32 cm Comments Lymphedema Comments axillary cording 3 left axilla PT-OP-O Vestibular Start: 06/21/18 09:09 Freq: Status: Active Protocol: Document 07/11/18 08:15 [facility] (Rec: 07/13/18 16:22 [facility] [id number]) Vestibular Assessment Screening Tests Vestibular Artery Screen Negative Visual Testing Smooth Pursuits Horizontal WNL Smooth Pursuits Vertical WNL Saccades Horizontal WNL Saccades Vertical WNL Gaze Evoked Nystagmus With Fixation Negative Gaze Evoked Nystagmus Without Fixation Negative Spontaneous Nystagmus Negative Vestibulo-Ocular Reflex (VOR1) Negative Vestibulo-Ocular Reflex (VOR2) Negative Positional Testing [place]-Hallpike Negative Left Negative Right Rolling Test Negative Left Negative Right Sidelying Test Negative Left Negative Right Supine to Sit Negative Sit to Supine Negative Vestibular Function Tests Fukuda Test positive with right turn Comments Vestibular Comments Mild sense of ant/post motion with roll to right side (no nystagmus) that resolves, symptoms decrease with 3 repetitions of the motion. She describes her dizziness as an ant/post motion when upright but no spinning. She had a dizzy episode when she was about 40 years old that was treated as left BPPV. The symptoms fully resolved at that time. PT-OP-Q Treatments Start: 06/21/18 09:09 Freq: Status: Active Protocol: Document 07/13/18 08:15 [facility] (Rec: 07/13/18 17:10 [facility] [id number]) Neuro Re-Education Treatment Balance Activities Staggered Stance Details one foot on 6 Step Equipment parallel bars Reps/Duration 5 reps each, 2 sets Comments head motions (rotation and up/ down), eyes closed Stepping Details placing foot on/off 6 step Equipment parallel bars Reps/Duration x 10 reps, 2 sets Balance Board Details eyes open and closed Equipment parallel bars, wobble board Reps/Duration 3 reps each Comments ant/post and left/right, right drift noted tandem stand Details eyes open Surface firm Equipment parallel bars Reps/Duration x 3 bilateral Comments needs UE support to get into position SLS Details single limb standing, eyes open Surface firm Reps/Duration x 3 reps bilaterally Comments eyes open Other Activities 3 Details Seated bounce with horizontal VOR Reps/Duration 2 x 10 reps Comments slow pace, mild symptoms at end of each set that resolve with rest 2 Details Seated bounce on ball Reps/Duration 2 x 10 reps Comments habituation activity, added gaze fixation 1 Details rolling on bed Reps/Duration 3 each side Comments mild symptoms with right roll that decrease in intensity by 3rd reps Self-Care/Home Management Treatment Education Patient Education Home Exercise Program Other Education HEP:rolling in bed and standing in doorway with eyes closed to balance PT-OP-T Assessment and Plan Start: 06/21/18 09:09 Freq: Status: Active Protocol: Document 07/13/18 08:15 DLM (Rec: 07/13/18 17:10 DLM [id number]) Physical Therapy Assessment Goals Four Impairment Dynamic gait Index score Short Term Goal (STG) Improve DGI score to 20/24 STG Duration 08/08/18 Shelter Goal (LTG) Improve DGI score to 22/24 to decrease her fall risks. LTG Duration 09/18/18 Three Impairment Dizziness Short Term Goal (STG) Resolve dizziness when rolling right in bed STG Duration 08/08/18 Assistant Curator Goal (LTG) Resolve her dizziness when upright LTG Duration 09/18/18 lymphedema with axillary cording left Short Term Goal (STG) Decrease circumferential measurements left upper arm and axilla by 1/2 cm and axillary cording by 50%. Instruct in self-massage, sequential lymphedema exercises, and give information about compression sleeves. STG Duration 4 wks Shelter Goal (LTG) Eliminate axillary cording, patient to be independent with self care for lymphedema to include self-massage, sequential lymphedema exercises, and wearing of appropriate compression garment LTG Duration 12 wks 2 Impairment activity tolerance Assistant Curator Goal (LTG) Patient able to resume all usual activities without balance difficulty LTG Duration 12 wks 1 Assistant Curator Goal (LTG) Met Goal: [place] score is 54/56 Progress Towards Goals Progress Towards Goals Progressing Toward Goals Assessment Summary Assessment She tolerated new vestibular rehab activities well this visit. Mild dizziness stimulated this visit with good recovery with rest breaks . Her balance shows improvement with repetition of activities. Physical Therapy Plan Frequency and Duration Frequency of Treatment 2-3x/wk Duration of Treatment 12 wks Plan of Care Start Date 06/19/18 Plan of Care End Date 09/18/18 Next Visit Focus/Plan Next Note Type Treatment Note Next Visit Plan slowly progress vestibular exercises
--- NOTE | 2018-07-18 08:15 | PT.OTN ---
Current Diagnoses Dizziness and giddiness (07/18/18) lymphedema left UE Physical Therapy Treatment Note PT-OP-A Visit Information Start: 06/21/18 09:09 Freq: Status: Active Protocol: Document 07/18/18 08:15 DLM (Rec: 07/18/18 10:16 DLM [id number]) Out-Patient Physical Therapy Visit Information Visit Information Visit Type Treatment Note Visit Start Time 08:15 Visit Stop Time 09:00 Total Visit Minutes 45 Visit Number 7 Number of CHEMICAL TREATMENT OPERATOR Visits 0 Evaluation Information Evaluation Date 06/19/18 Precautions Precautions hx breast cancer with lumpectomy left, tendonitis in distal LE's PT-OP-B Current Condition Start: 06/21/18 09:09 Freq: Status: Active Protocol: Document 07/11/18 08:15 DLM (Rec: 07/13/18 09:32 DLM [id number]) Current Condition History of Current Condition Onset Date 1 yr Current Complaints c/o front/back balance difficulty x 1 yr History of Current Condition No known cause, denies falls, but reports she feels her balance has been worsening. Had brain scan (negative), hearing test (WNL), eye motion test (negative). Denies sensation of spinning with change in position. Additionally patient reports recent sensation of numbness and tightness left armpit and has some concerns about lymphedema. 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 History of sinus surgery 2017, breast surgery 2018, scoliosis. Prior Treatments and Tests as above Future Testing and Treatments Planned non planned at this time Treatment Goals Patient/Caregiver Goals resolve her dizziness Personal Factors Other Personal Factors That May Effect She has difficulty sleeping at Therapy/Recovery night, takes sleeping pill intermittently when gets too tired. She has tendonitis in lower legs for which she is seeing an MD. PT-OP-C Subjective Start: 06/21/18 09:09 Freq: Status: Active Protocol: Document 07/18/18 08:15 DLM (Rec: 07/18/18 10:16 DLM [id number]) OP-PT Subjective Patient Comments Patient Comments She is careful when she first gets up out of bed to sit on the edge and make sure she feels ok before getting up. Minimal symptoms when rolling at home now. PT-OP-D Balance Start: 06/21/18 09:09 Freq: Status: Active Protocol: Document 07/11/18 08:15 DLM (Rec: 07/13/18 09:32 DLM [id number]) OP-PT Balance Assessment Sitting Balance Static Sitting Balance Ability Normal Dynamic Sitting Balance Ability Normal Balance Tests De Los Santos Balance Test [place] Balance Test Score 54/56 [place] Impairment Rating 1 to 19% Impaired (Score 45-55 ) Romberg Romberg losses of balance right Single Limb Standing Single Limb- Right 5 seconds Single Limb- Left 9 seconds Tandem Tandem Standing needs UE support to get into tandem position Lyman Fall Scale Copyright Permission Nura JM, Nura RM, [place] SJ. Development of a scale to identify the fall- prone patient. Can J Aging 1989;8;366-7. Starr Lyman (2009). Preventing patient falls. (2nd ed). [place]: [place]. PT-OP-E Functional Tests Start: 06/21/18 09:09 Freq: Status: Active Protocol: Document 07/11/18 08:15 DLM (Rec: 07/13/18 09:42 DLM [id number]) Functional Tests Dynamic Gait Index (DGI) Score 17/24 DGI Impairment Rating 20 to <40% Impaired (Score 15- 19) PT-OP-G Mobility & Gait Start: 06/21/18 09:09 Freq: Status: Active Protocol: Document 06/19/18 08:15 SAK (Rec: 06/21/18 09:54 SAK [id number]) OP Mobility Evaluation Bed Mobility Rolling indep no dizziness Supine to and from Sit indep no dizziness Transfers Sit to Stand indep Bed to Chair Transfers indep OP Gait Assessment Gait Gait Assistance Required: Independent Distance (Feet) 100 Assistive Devices Assistive Device None Gait Deviations General Gait Pattern Decreased Stride Length Decreased Feet Clearance Stair Climbing Evaluation Devices Stair Climbing Assistive Devices Left Railing Right Railing Technique/Endurance Stair Climbing Technique Step Over Step PT-OP-J Posture/Palpation/Skin Start: 06/21/18 09:09 Freq: Status: Active Protocol: Document 06/19/18 08:15 SAK (Rec: 06/21/18 09:54 SAK [id number]) Palpation Assessment Location left axilla Palpation Details axillary cording left axilla 3 long with mild tenderness reported PT-OP-K Range of Motion Start: 06/21/18 09:09 Freq: Status: Active Protocol: Document 06/19/18 08:15 SAK (Rec: 06/21/18 09:54 SAK [id number]) Cervical Spine Range of Motion Cervical Spine Active Comments WNL Shoulder Goniometric Range of Motion Shoulder Measured in Degrees left Shoulder ROM WFL No Shoulder ROM Limitations Shoulder ROM Limitations Soft Tissue Tightness Comments tightness with elevation, limited to 170 flex PT-OP-M Strength Start: 06/21/18 09:09 Freq: Status: Active Protocol: Document 07/11/18 08:15 DLM (Rec: 07/13/18 09:47 DLM [id number]) Hip Strength Hip Manual Muscle Testing Right Flexion (L2) 5 Normal Left Flexion (L2) 5 Normal Knee Strength Knee Manual Muscle Testing Right Flexion (S2) 5 Normal Extension (L3) 5 Normal Left Flexion (S2) 5 Normal Extension (L3) 5 Normal Ankle/Foot Strength Ankle and Foot Manual Muscle Testing Right Dorsiflexion (L4) 5 Normal Left Dorsiflexion (L4) 5 Normal PT-OP-N Lymphedema Start: 06/21/18 09:09 Freq: Status: Active Protocol: Document 06/19/18 08:15 SAK (Rec: 06/21/18 09:54 SAK [id number]) Lymphedema Measurements Upper Extremity Circumference Measurements left MCP 17.2 cm Wrist 15.2 cm 5 cm From Distal Crease 17.1 cm 10 cm From Distal Crease 20 cm 15 cm From Distal Crease 22.4 cm 20 cm From Distal Crease 23.6 cm 25 cm From Distal Crease 25.2 cm 30 cm From Distal Crease 27.8 cm 35 cm From Distal Crease 30.3 cm 40 cm From Distal Crease 31.2 cm 45 cm From Distal Crease 31 cm Axilla 33.5 cm right MCP 17.9 cm Wrist 15.5 cm 5 cm From Distal Crease 17.4 cm 10 cm From Distal Crease 20.6 cm 15 cm From Distal Crease 22.5 cm 20 cm From Distal Crease 23.8 cm 25 cm From Distal Crease 25 cm 30 cm From Distal Crease 27 cm 35 cm From Distal Crease 29.2 cm 40 cm From Distal Crease 30.1 cm 45 cm From Distal Crease 30.2 cm Axilla 32 cm Comments Lymphedema Comments axillary cording 3 left axilla PT-OP-O Vestibular Start: 06/21/18 09:09 Freq: Status: Active Protocol: Document 07/11/18 08:15 [facility] (Rec: 07/13/18 16:22 [facility] [id number]) Vestibular Assessment Screening Tests Vestibular Artery Screen Negative Visual Testing Smooth Pursuits Horizontal WNL Smooth Pursuits Vertical WNL Saccades Horizontal WNL Saccades Vertical WNL Gaze Evoked Nystagmus With Fixation Negative Gaze Evoked Nystagmus Without Fixation Negative Spontaneous Nystagmus Negative Vestibulo-Ocular Reflex (VOR1) Negative Vestibulo-Ocular Reflex (VOR2) Negative Positional Testing [place]-Hallpike Negative Left Negative Right Rolling Test Negative Left Negative Right Sidelying Test Negative Left Negative Right Supine to Sit Negative Sit to Supine Negative Vestibular Function Tests Fukuda Test positive with right turn Comments Vestibular Comments Mild sense of ant/post motion with roll to right side (no nystagmus) that resolves, symptoms decrease with 3 repetitions of the motion. She describes her dizziness as an ant/post motion when upright but no spinning. She had a dizzy episode when she was about 40 years old that was treated as left BPPV. The symptoms fully resolved at that time. PT-OP-Q Treatments Start: 06/21/18 09:09 Freq: Status: Active Protocol: Document 07/18/18 08:15 [facility] (Rec: 07/18/18 10:16 [facility] [id number]) Therapeutic Exercises Sitting Exercises pulleys shoulder flex and scaption Sitting Exercise Name seated with back to wall Side left Equipment Used wall pulleys Reps/Minutes 10x ea Neuro Re-Education Treatment Balance Activities Staggered Stance Details one foot on 6 Step Equipment parallel bars Reps/Duration 5 reps each, 2 sets Comments head motions (rotation and up/ down), eyes closed Stepping Details placing foot on/off 6 step Equipment parallel bars Reps/Duration x 10 reps, 2 sets Balance Board Details eyes open and closed Equipment parallel bars, wobble board Reps/Duration 3 reps each Comments ant/post and left/right, right drift noted foam stand Details Eyes open/eyes closed Equipment grullon foam Comments // bars tandem stand Details eyes open Surface firm Equipment parallel bars Reps/Duration x 3 bilateral Comments without UE support to get into position Other Activities 3 Details Seated bounce with horizontal VOR Reps/Duration 2 x 10 reps Comments slow pace, mild symptoms at end of each set that resolve with rest 2 Details Seated bounce on ball Reps/Duration 2 x 10 reps Comments habituation activity, added gaze fixation 1 Details rolling on bed Comments pt doing as HEP PT-OP-T Assessment and Plan Start: 06/21/18 09:09 Freq: Status: Active Protocol: Document 07/18/18 08:15 DLM (Rec: 07/18/18 10:16 DLM [id number]) Physical Therapy Assessment Goals Four Impairment Dynamic gait Index score 17/24 Short Term Goal (STG) Improve DGI score to 20/24 STG Duration 08/08/18 Prison Goal (LTG) Improve DGI score to 22/24 to decrease her fall risks. LTG Duration 09/18/18 Three Impairment Dizziness Short Term Goal (STG) Resolve dizziness when rolling right in bed STG Duration 08/08/18 Prison Goal (LTG) Resolve her dizziness when upright LTG Duration 09/18/18 lymphedema with axillary cording left Short Term Goal (STG) Decrease circumferential measurements left upper arm and axilla by 1/2 cm and axillary cording by 50%. Instruct in self-massage, sequential lymphedema exercises, and give information about compression sleeves. STG Duration 4 wks Prison Goal (LTG) Eliminate axillary cording, patient to be independent with self care for lymphedema to include self-massage, sequential lymphedema exercises, and wearing of appropriate compression garment LTG Duration 12 wks 2 Impairment activity tolerance Prison Goal (LTG) Patient able to resume all usual activities without balance difficulty LTG Duration 12 wks 1 Frickertron Checker Goal (LTG) Met Goal: De [place] Santos score is 54/56 Progress Towards Goals Progress Towards Goals Progressing Toward Goals Assessment Summary Assessment She tolerated treatment session well. She reports she has been wearing her lymphedema sleeve with good tolerance. Mild increase staggering noted during balance training today. Less dizziness after ball activities. Right drift continues in standing. Physical Therapy Plan Frequency and Duration Frequency of Treatment 2-3x/wk Duration of Treatment 12 wks Plan of Care Start Date 06/19/18 Plan of Care End Date 09/18/18 Therapeutic Interventions Therapeutic Interventions Balance Training Home Exercise Program Lymphedema Management Manual Therapy Neuromuscular Re-education Patient/Caregiver Education Self-Care/Home Management Therapeutic Activities Therapeutic Exercises Vestibular Rehabilitation Next Visit Focus/Plan Next Note Type Treatment Note Next Visit Plan slowly progress vestibular exercises, include UE exercises for lymphema
--- NOTE | 2018-07-27 10:29 | PT.OTN ---
Current Diagnoses Dizziness and giddiness (07/27/18) Physical Therapy Treatment Note PT-OP-A Visit Information Start: 06/21/18 09:09 Freq: Status: Active Protocol: Document 07/27/18 09:45 DCW (Rec: 07/27/18 10:29 DCW [id number]) Out-Patient Physical Therapy Visit Information Visit Information Visit Type Treatment Note Visit Start Time 09:45 Visit Stop Time 10:30 Total Visit Minutes 45 Visit Number 8 Number of BOILER TENDER Visits 0 Evaluation Information Evaluation Date 06/19/18 Precautions Precautions hx breast cancer with lumpectomy left, tendonitis in distal LE's PT-OP-B Current Condition Start: 06/21/18 09:09 Freq: Status: Active Protocol: Document 07/11/18 08:15 DLM (Rec: 07/13/18 09:32 DLM [id number]) Current Condition History of Current Condition Onset Date 1 yr Current Complaints c/o front/back balance difficulty x 1 yr History of Current Condition No known cause, denies falls, but reports she feels her balance has been worsening. Had brain scan (negative), hearing test (WNL), eye motion test (negative). Denies sensation of spinning with change in position. Additionally patient reports recent sensation of numbness and tightness left armpit and has some concerns about lymphedema. 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 History of sinus surgery 2017, breast surgery 2018, scoliosis. Prior Treatments and Tests as above Future Testing and Treatments Planned non planned at this time Treatment Goals Patient/Caregiver Goals resolve her dizziness Personal Factors Other Personal Factors That May Effect She has difficulty sleeping at Therapy/Recovery night, takes sleeping pill intermittently when gets too tired. She has tendonitis in lower legs for which she is seeing an MD. PT-OP-C Subjective Start: 06/21/18 09:09 Freq: Status: Active Protocol: Document 07/27/18 09:45 DCW (Rec: 07/27/18 10:29 DCW [id number]) OP-PT Subjective Patient Comments Patient Comments I'm pretty much my normal right now, a little wobbly. PT-OP-D Balance Start: 06/21/18 09:09 Freq: Status: Active Protocol: Document 07/11/18 08:15 DLM (Rec: 07/13/18 09:32 DLM [id number]) OP-PT Balance Assessment Sitting Balance Static Sitting Balance Ability Normal Dynamic Sitting Balance Ability Normal Balance Tests De Los Santos Balance Test De Los Santos Balance Test Score 54/56 De Los Santos Impairment Rating 1 to 19% Impaired (Score 45-55 ) Romberg Romberg losses of balance right Single Limb Standing Single Limb- Right 5 seconds Single Limb- Left 9 seconds Tandem Tandem Standing needs UE support to get into tandem position Lyman Fall Scale Copyright Permission Nura JM, Nura RM, [place] SJ. Development of a scale to identify the fall- prone patient. Can J Aging 1989;8;366-7. Starr Lyman (2009). Preventing patient falls. (2nd ed). [place]: [place]. PT-OP-E Functional Tests Start: 06/21/18 09:09 Freq: Status: Active Protocol: Document 07/11/18 08:15 DLM (Rec: 07/13/18 09:42 DLM [id number]) Functional Tests Dynamic Gait Index (DGI) Score 17/24 DGI Impairment Rating 20 to <40% Impaired (Score 15- 19) PT-OP-G Mobility & Gait Start: 06/21/18 09:09 Freq: Status: Active Protocol: Document 06/19/18 08:15 SAK (Rec: 06/21/18 09:54 SAK [id number]) OP Mobility Evaluation Bed Mobility Rolling indep no dizziness Supine to and from Sit indep no dizziness Transfers Sit to Stand indep Bed to Chair Transfers indep OP Gait Assessment Gait Gait Assistance Required: Independent Distance (Feet) 100 Assistive Devices Assistive Device None Gait Deviations General Gait Pattern Decreased Stride Length Decreased Feet Clearance Stair Climbing Evaluation Devices Stair Climbing Assistive Devices Left Railing Right Railing Technique/Endurance Stair Climbing Technique Step Over Step PT-OP-J Posture/Palpation/Skin Start: 06/21/18 09:09 Freq: Status: Active Protocol: Document 06/19/18 08:15 SAK (Rec: 06/21/18 09:54 SAK [id number]) Palpation Assessment Location left axilla Palpation Details axillary cording left axilla 3 long with mild tenderness reported PT-OP-K Range of Motion Start: 06/21/18 09:09 Freq: Status: Active Protocol: Document 06/19/18 08:15 SAK (Rec: 06/21/18 09:54 SAK [id number]) Cervical Spine Range of Motion Cervical Spine Active Comments WNL Shoulder Goniometric Range of Motion Shoulder Measured in Degrees left Shoulder ROM WFL No Shoulder ROM Limitations Shoulder ROM Limitations Soft Tissue Tightness Comments tightness with elevation, limited to 170 flex PT-OP-M Strength Start: 06/21/18 09:09 Freq: Status: Active Protocol: Document 07/11/18 08:15 DLM (Rec: 07/13/18 09:47 DLM [id number]) Hip Strength Hip Manual Muscle Testing Right Flexion (L2) 5 Normal Left Flexion (L2) 5 Normal Knee Strength Knee Manual Muscle Testing Right Flexion (S2) 5 Normal Extension (L3) 5 Normal Left Flexion (S2) 5 Normal Extension (L3) 5 Normal Ankle/Foot Strength Ankle and Foot Manual Muscle Testing Right Dorsiflexion (L4) 5 Normal Left Dorsiflexion (L4) 5 Normal PT-OP-N Lymphedema Start: 06/21/18 09:09 Freq: Status: Active Protocol: Document 06/19/18 08:15 SAK (Rec: 06/21/18 09:54 SAK [id number]) Lymphedema Measurements Upper Extremity Circumference Measurements left MCP 17.2 cm Wrist 15.2 cm 5 cm From Distal Crease 17.1 cm 10 cm From Distal Crease 20 cm 15 cm From Distal Crease 22.4 cm 20 cm From Distal Crease 23.6 cm 25 cm From Distal Crease 25.2 cm 30 cm From Distal Crease 27.8 cm 35 cm From Distal Crease 30.3 cm 40 cm From Distal Crease 31.2 cm 45 cm From Distal Crease 31 cm Axilla 33.5 cm right MCP 17.9 cm Wrist 15.5 cm 5 cm From Distal Crease 17.4 cm 10 cm From Distal Crease 20.6 cm 15 cm From Distal Crease 22.5 cm 20 cm From Distal Crease 23.8 cm 25 cm From Distal Crease 25 cm 30 cm From Distal Crease 27 cm 35 cm From Distal Crease 29.2 cm 40 cm From Distal Crease 30.1 cm 45 cm From Distal Crease 30.2 cm Axilla 32 cm Comments Lymphedema Comments axillary cording 3 left axilla PT-OP-O Vestibular Start: 06/21/18 09:09 Freq: Status: Active Protocol: Document 07/11/18 08:15 DLM (Rec: 07/13/18 16:22 [facility] [id number]) Vestibular Assessment Screening Tests Vestibular Artery Screen Negative Visual Testing Smooth Pursuits Horizontal WNL Smooth Pursuits Vertical WNL Saccades Horizontal WNL Saccades Vertical WNL Gaze Evoked Nystagmus With Fixation Negative Gaze Evoked Nystagmus Without Fixation Negative Spontaneous Nystagmus Negative Vestibulo-Ocular Reflex (VOR1) Negative Vestibulo-Ocular Reflex (VOR2) Negative Positional Testing Blackstone-Hallpike Negative Left Negative Right Rolling Test Negative Left Negative Right Sidelying Test Negative Left Negative Right Supine to Sit Negative Sit to Supine Negative Vestibular Function Tests Fukuda Test positive with right turn Comments Vestibular Comments Mild sense of ant/post motion with roll to right side (no nystagmus) that resolves, symptoms decrease with 3 repetitions of the motion. She describes her dizziness as an ant/post motion when upright but no spinning. She had a dizzy episode when she was about 40 years old that was treated as left BPPV. The symptoms fully resolved at that time. PT-OP-Q Treatments Start: 06/21/18 09:09 Freq: Status: Active Protocol: Document 07/27/18 09:45 DCW (Rec: 07/27/18 10:29 DCW [id number]) Gym Equipment Shuttle Balance chains red Details Wide DARNELL (EO/EC, HEad Turns), Staggered Stance, Lateral Weight Shift Therapeutic Exercises Sitting Exercises pulleys shoulder flex and scaption Sitting Exercise Name seated with back to wall Side left Equipment Used wall pulleys Reps/Minutes 10x ea Neuro Re-Education Treatment Balance Activities Turning to target Details Turn to target with eyes closed Eyes closed amb Details Eyes closed ambulation Staggered Stance Details one foot on 6 Step Equipment parallel bars Reps/Duration 5 reps each, 2 sets Comments head motions (rotation and up/ down), eyes closed foam stand Details Long stride stance Surface Blue foam heel toe walk Details Heel-toe ambulation Surface firm tandem stand Details eyes open, head turns Surface firm Equipment parallel bars Reps/Duration x 3 bilateral Comments without UE support to get into position PT-OP-T Assessment and Plan Start: 06/21/18 09:09 Freq: Status: Active Protocol: Document 07/27/18 09:45 DCW (Rec: 07/27/18 10:29 DCW [id number]) Physical Therapy Assessment Impairments Impairments Activity Tolerance Balance Edema Other Impairments vestibular hypofunction Goals Four Impairment Dynamic gait Index score 17/24 Short Term Goal (STG) Improve DGI score to 20/24 STG Duration 08/08/18 Poultry Eviscerator Goal (LTG) Improve DGI score to 22/24 to decrease her fall risks. LTG Duration 09/18/18 Three Impairment Dizziness Short Term Goal (STG) Resolve dizziness when rolling right in bed STG Duration 08/08/18 Poultry Eviscerator Goal (LTG) Resolve her dizziness when upright LTG Duration 09/18/18 lymphedema with axillary cording left Short Term Goal (STG) Decrease circumferential measurements left upper arm and axilla by 1/2 cm and axillary cording by 50%. Instruct in self-massage, sequential lymphedema exercises, and give information about compression sleeves. STG Duration 4 wks Poultry Eviscerator Goal (LTG) Eliminate axillary cording, patient to be independent with self care for lymphedema to include self-massage, sequential lymphedema exercises, and wearing of appropriate compression garment LTG Duration 12 wks 2 Impairment activity tolerance Poultry Eviscerator Goal (LTG) Patient able to resume all usual activities without balance difficulty LTG Duration 12 wks 1 Intermediate Goal (LTG) Met Goal: De Los Santos score is 54/56 Progress Towards Goals Progress Towards Goals Progressing Toward Goals Progress Comments Added vestibular/balance goals this visit following vestibular assessment Assessment Summary Assessment Pt will likely benefit from increased visits focusing on vestibular treatment. Pt's thrust/heave tests suggestive of mild decrease in right vestibular function, will likely benefit from further vestibular rehabilitation. Physical Therapy Plan Frequency and Duration Frequency of Treatment 2-3x/wk Duration of Treatment 12 wks Plan of Care Start Date 06/19/18 Plan of Care End Date 09/18/18 Therapeutic Interventions Therapeutic Interventions Balance Training Home Exercise Program Lymphedema Management Manual Therapy Neuromuscular Re-education Patient/Caregiver Education Self-Care/Home Management Therapeutic Activities Therapeutic Exercises Vestibular Rehabilitation Next Visit Focus/Plan Next Note Type Treatment Note Next Visit Plan slowly progress vestibular exercises, include UE exercises for lymphedema
--- NOTE | 2018-08-15 17:35 | PT.OTN ---
Current Diagnoses Dizziness and giddiness (08/15/18) Physical Therapy Treatment Note PT-OP-A Visit Information Start: 06/21/18 09:09 Freq: Status: Active Protocol: Document 08/15/18 16:45 DCW (Rec: 08/15/18 17:33 DCW [id number]) Out-Patient Physical Therapy Visit Information Visit Information Visit Type Treatment Note Visit Start Time 16:45 Visit Stop Time 17:30 Total Visit Minutes 45 Visit Number 9 Number of INSPECTOR RETURNED MATERIALS Visits 0 Evaluation Information Evaluation Date 06/19/18 Precautions Precautions hx breast cancer with lumpectomy left, tendonitis in distal LE's PT-OP-B Current Condition Start: 06/21/18 09:09 Freq: Status: Active Protocol: Document 07/11/18 08:15 DLM (Rec: 07/13/18 09:32 DLM [id number]) Current Condition History of Current Condition Onset Date 1 yr Current Complaints c/o front/back balance difficulty x 1 yr History of Current Condition No known cause, denies falls, but reports she feels her balance has been worsening. Had brain scan (negative), hearing test (WNL), eye motion test (negative). Denies sensation of spinning with change in position. Additionally patient reports recent sensation of numbness and tightness left armpit and has some concerns about lymphedema. 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 History of sinus surgery 2017, breast surgery 2018, scoliosis. Prior Treatments and Tests as above Future Testing and Treatments Planned non planned at this time Treatment Goals Patient/Caregiver Goals resolve her dizziness Personal Factors Other Personal Factors That May Effect She has difficulty sleeping at Therapy/Recovery night, takes sleeping pill intermittently when gets too tired. She has tendonitis in lower legs for which she is seeing an MD. PT-OP-C Subjective Start: 06/21/18 09:09 Freq: Status: Active Protocol: Document 08/15/18 16:45 DCW (Rec: 08/15/18 17:35 DCW [id number]) OP-PT Subjective Patient Comments Patient Comments Pt reports he dizziness has been pretty well controlled, but is normally worse when she is tired, so she doesn't know how she'll do with this later appointment time. PT-OP-D Balance Start: 06/21/18 09:09 Freq: Status: Active Protocol: Document 07/11/18 08:15 DLM (Rec: 07/13/18 09:32 DL [id number]) OP-PT Balance Assessment Sitting Balance Static Sitting Balance Ability Normal Dynamic Sitting Balance Ability Normal Balance Tests De Los Santos Balance Test De Los Santos Balance Test Score 54/56 De [place] Impairment Rating 1 to 19% Impaired (Score 45-55 ) Romberg Romberg losses of balance right Single Limb Standing Single Limb- Right 5 seconds Single Limb- Left 9 seconds Tandem Tandem Standing needs UE support to get into tandem position Lmyan Fall Scale Copyright Permission PT-OP-E Functional Tests Start: 06/21/18 09:09 Freq: Status: Active Protocol: Document 07/11/18 08:15 DL (Rec: 07/13/18 09:42 DL [id number]) Functional Tests Dynamic Gait Index (DGI) Score 17/24 DGI Impairment Rating 20 to <40% Impaired (Score 15- 19) PT-OP-G Mobility & Gait Start: 06/21/18 09:09 Freq: Status: Active Protocol: Document 06/19/18 08:15 [facility] (Rec: 06/21/18 09:54 [facility] [id number]) OP Mobility Evaluation Bed Mobility Rolling indep no dizziness Supine to and from Sit indep no dizziness Transfers Sit to Stand indep Bed to Chair Transfers indep OP Gait Assessment Gait Gait Assistance Required: Independent Distance (Feet) 100 Assistive Devices Assistive Device None Gait Deviations General Gait Pattern Decreased Stride Length Decreased Feet Clearance Stair Climbing Evaluation Devices Stair Climbing Assistive Devices Left Railing Right Railing Technique/Endurance Stair Climbing Technique Step Over Step PT-OP-J Posture/Palpation/Skin Start: 06/21/18 09:09 Freq: Status: Active Protocol: Document 06/19/18 08:15 SAK (Rec: 06/21/18 09:54 [facility] [id number]) Palpation Assessment Location left axilla Palpation Details axillary cording left axilla 3 long with mild tenderness reported PT-OP-K Range of Motion Start: 06/21/18 09:09 Freq: Status: Active Protocol: Document 06/19/18 08:15 SAK (Rec: 06/21/18 09:54 SAK [id number]) Cervical Spine Range of Motion Cervical Spine Active Comments WNL Shoulder Goniometric Range of Motion Shoulder left Shoulder ROM WFL No Shoulder ROM Limitations Shoulder ROM Limitations Soft Tissue Tightness Comments tightness with elevation, limited to 170 flex PT-OP-M Strength Start: 06/21/18 09:09 Freq: Status: Active Protocol: Document 07/11/18 08:15 DLM (Rec: 07/13/18 09:47 DLM [id number]) Hip Strength Hip Manual Muscle Testing Right Flexion (L2) 5 Normal Left Flexion (L2) 5 Normal Knee Strength Knee Manual Muscle Testing Right Flexion (S2) 5 Normal Extension (L3) 5 Normal Left Flexion (S2) 5 Normal Extension (L3) 5 Normal Ankle/Foot Strength Ankle and Foot Manual Muscle Testing Right Dorsiflexion (L4) 5 Normal Left Dorsiflexion (L4) 5 Normal PT-OP-N Lymphedema Start: 06/21/18 09:09 Freq: Status: Active Protocol: Document 06/19/18 08:15 SAK (Rec: 06/21/18 09:54 SAK [id number]) Lymphedema Measurements Upper Extremity Circumference Measurements left MCP 17.2 cm Wrist 15.2 cm 5 cm From Distal Crease 17.1 cm 10 cm From Distal Crease 20 cm 15 cm From Distal Crease 22.4 cm 20 cm From Distal Crease 23.6 cm 25 cm From Distal Crease 25.2 cm 30 cm From Distal Crease 27.8 cm 35 cm From Distal Crease 30.3 cm 40 cm From Distal Crease 31.2 cm 45 cm From Distal Crease 31 cm Axilla 33.5 cm right MCP 17.9 cm Wrist 15.5 cm 5 cm From Distal Crease 17.4 cm 10 cm From Distal Crease 20.6 cm 15 cm From Distal Crease 22.5 cm 20 cm From Distal Crease 23.8 cm 25 cm From Distal Crease 25 cm 30 cm From Distal Crease 27 cm 35 cm From Distal Crease 29.2 cm 40 cm From Distal Crease 30.1 cm 45 cm From Distal Crease 30.2 cm Axilla 32 cm Comments Lymphedema Comments axillary cording 3 left axilla PT-OP-O Vestibular Start: 06/21/18 09:09 Freq: Status: Active Protocol: Document 07/11/18 08:15 DLM (Rec: 07/13/18 16:22 DLM [id number]) Vestibular Assessment Screening Tests Vestibular Artery Screen Negative Visual Testing Smooth Pursuits Horizontal WNL Smooth Pursuits Vertical WNL Saccades Horizontal WNL Saccades Vertical WNL Gaze Evoked Nystagmus With Fixation Negative Gaze Evoked Nystagmus Without Fixation Negative Spontaneous Nystagmus Negative Vestibulo-Ocular Reflex (VOR1) Negative Vestibulo-Ocular Reflex (VOR2) Negative Positional Testing Vancourt-Hallpike Negative Left Negative Right Rolling Test Negative Left Negative Right Sidelying Test Negative Left Negative Right Supine to Sit Negative Sit to Supine Negative Vestibular Function Tests Fukuda Test positive with right turn Comments Vestibular Comments Mild sense of ant/post motion with roll to right side (no nystagmus) that resolves, symptoms decrease with 3 repetitions of the motion. She describes her dizziness as an ant/post motion when upright but no spinning. She had a dizzy episode when she was about 40 years old that was treated as left BPPV. The symptoms fully resolved at that time. PT-OP-Q Treatments Start: 06/21/18 09:09 Freq: Status: Active Protocol: Document 08/15/18 16:45 DCW (Rec: 08/15/18 17:33 DCW [id number]) Gym Equipment Shuttle Balance chains red Details Wide DARNELL (EO/EC, Head Turns), Staggered Stance, Lateral Weight Shift Therapeutic Exercises Sitting Exercises pulleys shoulder flex and scaption Sitting Exercise Name seated with back to wall Side left Equipment Used wall pulleys Reps/Minutes 10x ea Neuro Re-Education Treatment Balance Activities Visual Conflict Details Foam stance /c visual conflict board Surface Marcano foam Turning to target Details Turn to target with eyes closed Eyes closed amb Details Eyes closed ambulation foam stand Details Long stride stance Surface Blue foam heel toe walk Details Heel-toe ambulation Surface firm tandem stand Details eyes open, head turns Surface firm Equipment parallel bars Reps/Duration x 3 bilateral Comments without UE support to get into position PT-OP-T Assessment and Plan Start: 06/21/18 09:09 Freq: Status: Active Protocol: Document 08/15/18 16:45 DCW (Rec: 08/15/18 17:33 DCW [id number]) Physical Therapy Assessment Impairments Impairments Activity Tolerance Balance Edema Other Impairments vestibular hypofunction Goals Four Impairment Dynamic gait Index score 17/24 Short Term Goal (STG) Improve DGI score to 20/24 STG Duration 08/08/18 Mcc Goal (LTG) Improve DGI score to 22/24 to decrease her fall risks. LTG Duration 09/18/18 Three Impairment Dizziness Short Term Goal (STG) Resolve dizziness when rolling right in bed STG Duration 08/08/18 Car Wiper Goal (LTG) Resolve her dizziness when upright LTG Duration 09/18/18 lymphedema with axillary cording left Short Term Goal (STG) Decrease circumferential measurements left upper arm and axilla by 1/2 cm and axillary cording by 50%. Instruct in self-massage, sequential lymphedema exercises, and give information about compression sleeves. STG Duration 4 wks Car Wiper Goal (LTG) Eliminate axillary cording, patient to be independent with self care for lymphedema to include self-massage, sequential lymphedema exercises, and wearing of appropriate compression garment LTG Duration 12 wks 2 Impairment activity tolerance Mcc Goal (LTG) Patient able to resume all usual activities without balance difficulty LTG Duration 12 wks 1 Car Wiper Goal (LTG) Met Goal: De Los Santos score is 54/56 Progress Towards Goals Progress Towards Goals Progressing Toward Goals Progress Comments Added vestibular/balance goals this visit following vestibular assessment Assessment Summary Assessment Pt did very well, despite being worried that her balance would be poor due to a later appointment time. Pt may be approaching discharge if she continues to display improved balance with no complaints of dizziness. Physical Therapy Plan Frequency and Duration Frequency of Treatment 2-3x/wk Duration of Treatment 12 wks Plan of Care Start Date 06/19/18 Plan of Care End Date 09/18/18 Therapeutic Interventions Therapeutic Interventions Balance Training Home Exercise Program Lymphedema Management Manual Therapy Neuromuscular Re-education Patient/Caregiver Education Self-Care/Home Management Therapeutic Activities Therapeutic Exercises Vestibular Rehabilitation Next Visit Focus/Plan Next Note Type Treatment Note Next Visit Plan slowly progress vestibular exercises, include UE exercises for lymphema
--- NOTE | 2018-08-22 14:29 | PT.OTN ---
Current Diagnoses Dizziness and giddiness (08/22/18) Physical Therapy Treatment Note PT-OP-A Visit Information Start: 06/21/18 09:09 Freq: Status: Active Protocol: Document 08/22/18 13:45 DCW (Rec: 08/22/18 14:28 DCW [id number]) Out-Patient Physical Therapy Visit Information Visit Information Visit Type Treatment Note Visit Start Time 13:45 Visit Stop Time 14:30 Total Visit Minutes 45 Visit Number 10 Number of INDUSTRIAL MACHINERY MECHANIC Visits 0 Evaluation Information Evaluation Date 06/19/18 Precautions Precautions hx breast cancer with lumpectomy left, tendonitis in distal LE's PT-OP-B Current Condition Start: 06/21/18 09:09 Freq: Status: Active Protocol: Document 07/11/18 08:15 DLM (Rec: 07/13/18 09:32 DLM [id number]) Current Condition History of Current Condition Onset Date 1 yr Current Complaints c/o front/back balance difficulty x 1 yr History of Current Condition No known cause, denies falls, but reports she feels her balance has been worsening. Had brain scan (negative), hearing test (WNL), eye motion test (negative). Denies sensation of spinning with change in position. Additionally patient reports recent sensation of numbness and tightness left armpit and has some concerns about lymphedema. 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 History of sinus surgery 2017, breast surgery 2018, scoliosis. Prior Treatments and Tests as above Future Testing and Treatments Planned non planned at this time Treatment Goals Patient/Caregiver Goals resolve her dizziness Personal Factors Other Personal Factors That May Effect She has difficulty sleeping at Therapy/Recovery night, takes sleeping pill intermittently when gets too tired. She has tendonitis in lower legs for which she is seeing an MD. PT-OP-C Subjective Start: 06/21/18 09:09 Freq: Status: Active Protocol: Document 08/22/18 13:45 DCW (Rec: 08/22/18 14:29 DCW [id number]) OP-PT Subjective Patient Comments Patient Comments Pt notes she may have tweaked something in her back earlier today at the gym, but thinks she'll be okay for her PT session. PT-OP-D Balance Start: 06/21/18 09:09 Freq: Status: Active Protocol: Document 07/11/18 08:15 DLM (Rec: 07/13/18 09:32 DL [id number]) OP-PT Balance Assessment Sitting Balance Static Sitting Balance Ability Normal Dynamic Sitting Balance Ability Normal Balance Tests De Los Santos Balance Test De Los Santos Balance Test Score 54/56 De [place] Impairment Rating 1 to 19% Impaired (Score 45-55 ) Romberg Romberg losses of balance right Single Limb Standing Single Limb- Right 5 seconds Single Limb- Left 9 seconds Tandem Tandem Standing needs UE support to get into tandem position Lyman Fall Scale Copyright Permission PT-OP-E Functional Tests Start: 06/21/18 09:09 Freq: Status: Active Protocol: Document 07/11/18 08:15 DL (Rec: 07/13/18 09:42 DL [id number]) Functional Tests Dynamic Gait Index (DGI) Score 17/24 DGI Impairment Rating 20 to <40% Impaired (Score 15- 19) PT-OP-G Mobility & Gait Start: 06/21/18 09:09 Freq: Status: Active Protocol: Document 06/19/18 08:15 [facility] (Rec: 06/21/18 09:54 [facility] [id number]) OP Mobility Evaluation Bed Mobility Rolling indep no dizziness Supine to and from Sit indep no dizziness Transfers Sit to Stand indep Bed to Chair Transfers indep OP Gait Assessment Gait Gait Assistance Required: Independent Distance (Feet) 100 Assistive Devices Assistive Device None Gait Deviations General Gait Pattern Decreased Stride Length Decreased Feet Clearance Stair Climbing Evaluation Devices Stair Climbing Assistive Devices Left Railing Right Railing Technique/Endurance Stair Climbing Technique Step Over Step PT-OP-J Posture/Palpation/Skin Start: 06/21/18 09:09 Freq: Status: Active Protocol: Document 06/19/18 08:15 [facility] (Rec: 06/21/18 09:54 [facility] [id number]) Palpation Assessment Location left axilla Palpation Details axillary cording left axilla 3 long with mild tenderness reported PT-OP-K Range of Motion Start: 06/21/18 09:09 Freq: Status: Active Protocol: Document 06/19/18 08:15 SAK (Rec: 06/21/18 09:54 [facility] [id number]) Cervical Spine Range of Motion Cervical Spine Active Comments WNL Shoulder Goniometric Range of Motion Shoulder left Shoulder ROM WFL No Shoulder ROM Limitations Shoulder ROM Limitations Soft Tissue Tightness Comments tightness with elevation, limited to 170 flex PT-OP-M Strength Start: 06/21/18 09:09 Freq: Status: Active Protocol: Document 07/11/18 08:15 DLM (Rec: 07/13/18 09:47 DLM [id number]) Hip Strength Hip Manual Muscle Testing Right Flexion (L2) 5 Normal Left Flexion (L2) 5 Normal Knee Strength Knee Manual Muscle Testing Right Flexion (S2) 5 Normal Extension (L3) 5 Normal Left Flexion (S2) 5 Normal Extension (L3) 5 Normal Ankle/Foot Strength Ankle and Foot Manual Muscle Testing Right Dorsiflexion (L4) 5 Normal Left Dorsiflexion (L4) 5 Normal PT-OP-N Lymphedema Start: 06/21/18 09:09 Freq: Status: Active Protocol: Document 06/19/18 08:15 SAK (Rec: 06/21/18 09:54 SAK [id number]) Lymphedema Measurements Upper Extremity Circumference Measurements left MCP 17.2 cm Wrist 15.2 cm 5 cm From Distal Crease 17.1 cm 10 cm From Distal Crease 20 cm 15 cm From Distal Crease 22.4 cm 20 cm From Distal Crease 23.6 cm 25 cm From Distal Crease 25.2 cm 30 cm From Distal Crease 27.8 cm 35 cm From Distal Crease 30.3 cm 40 cm From Distal Crease 31.2 cm 45 cm From Distal Crease 31 cm Axilla 33.5 cm right MCP 17.9 cm Wrist 15.5 cm 5 cm From Distal Crease 17.4 cm 10 cm From Distal Crease 20.6 cm 15 cm From Distal Crease 22.5 cm 20 cm From Distal Crease 23.8 cm 25 cm From Distal Crease 25 cm 30 cm From Distal Crease 27 cm 35 cm From Distal Crease 29.2 cm 40 cm From Distal Crease 30.1 cm 45 cm From Distal Crease 30.2 cm Axilla 32 cm Comments Lymphedema Comments axillary cording 3 left axilla PT-OP-O Vestibular Start: 06/21/18 09:09 Freq: Status: Active Protocol: Document 07/11/18 08:15 DLM (Rec: 07/13/18 16:22 DLM [id number]) Vestibular Assessment Screening Tests Vestibular Artery Screen Negative Visual Testing Smooth Pursuits Horizontal WNL Smooth Pursuits Vertical WNL Saccades Horizontal WNL Saccades Vertical WNL Gaze Evoked Nystagmus With Fixation Negative Gaze Evoked Nystagmus Without Fixation Negative Spontaneous Nystagmus Negative Vestibulo-Ocular Reflex (VOR1) Negative Vestibulo-Ocular Reflex (VOR2) Negative Positional Testing Ricki-Hallpike Negative Left Negative Right Rolling Test Negative Left Negative Right Sidelying Test Negative Left Negative Right Supine to Sit Negative Sit to Supine Negative Vestibular Function Tests Fukuda Test positive with right turn Comments Vestibular Comments Mild sense of ant/post motion with roll to right side (no nystagmus) that resolves, symptoms decrease with 3 repetitions of the motion. She describes her dizziness as an ant/post motion when upright but no spinning. She had a dizzy episode when she was about 40 years old that was treated as left BPPV. The symptoms fully resolved at that time. PT-OP-Q Treatments Start: 06/21/18 09:09 Freq: Status: Active Protocol: Document 08/22/18 13:45 DCW (Rec: 08/22/18 14:28 DCW [id number]) Gym Equipment Shuttle Balance chains red Details Wide DARNELL (EO/EC, Head Turns), Staggered Stance, Lateral Weight Shift Neuro Re-Education Treatment Balance Activities Balance Beam Details Fwd, Bkwd, Side-stepping, Turns Visual Conflict Details Foam stance /c visual conflict board Surface Marcano foam Balance Board Details SLS Equipment // Bars foam stand Details Long stride stance Surface Blue foam heel toe walk Details Heel-toe ambulation Surface firm Comments /c bow and head turns tandem stand Details eyes open, head turns Surface firm Equipment parallel bars Reps/Duration x 3 bilateral Comments without UE support to get into position SLS Details single limb standing, eyes open Surface firm/ blue foam Reps/Duration x 3 reps bilaterally Comments eyes open PT-OP-T Assessment and Plan Start: 06/21/18 09:09 Freq: Status: Active Protocol: Document 08/22/18 13:45 DCW (Rec: 08/22/18 14:28 DCW [id number]) Physical Therapy Assessment Impairments Impairments Activity Tolerance Balance Edema Other Impairments vestibular hypofunction Goals Four Impairment Dynamic gait Index score 17/24 Short Term Goal (STG) Improve DGI score to 20/24 STG Duration 08/08/18 [facility] Goal (LTG) Improve DGI score to 22/24 to decrease her fall risks. LTG Duration 09/18/18 Three Impairment Dizziness Short Term Goal (STG) Resolve dizziness when rolling right in bed STG Duration 08/08/18 Wholesaler Goal (LTG) Resolve her dizziness when upright LTG Duration 09/18/18 lymphedema with axillary cording left Short Term Goal (STG) Decrease circumferential measurements left upper arm and axilla by 1/2 cm and axillary cording by 50%. Instruct in self-massage, sequential lymphedema exercises, and give information about compression sleeves. STG Duration 4 wks Wholesaler Goal (LTG) Eliminate axillary cording, patient to be independent with self care for lymphedema to include self-massage, sequential lymphedema exercises, and wearing of appropriate compression garment LTG Duration 12 wks 2 Impairment activity tolerance [facility] Goal (LTG) Patient able to resume all usual activities without balance difficulty LTG Duration 12 wks 1 Wholesaler Goal (LTG) Met Goal: De Los Santos score is 54/56 Progress Towards Goals Progress Towards Goals Progressing Toward Goals Progress Comments Added vestibular/balance goals this visit following vestibular assessment Assessment Summary Assessment Pt tolerated treatment well, appears to be starting to be limited more from her LE injuries than her balance. Physical Therapy Plan Frequency and Duration Frequency of Treatment 2-3x/wk Duration of Treatment 12 wks Plan of Care Start Date 06/19/18 Plan of Care End Date 09/18/18 Therapeutic Interventions Therapeutic Interventions Balance Training Home Exercise Program Lymphedema Management Manual Therapy Neuromuscular Re-education Patient/Caregiver Education Self-Care/Home Management Therapeutic Activities Therapeutic Exercises Vestibular Rehabilitation Next Visit Focus/Plan Next Note Type Treatment Note Next Visit Plan slowly progress vestibular exercises, include UE exercises for lymphema
--- NOTE | 2018-08-29 14:29 | PT.OTN ---
Current Diagnoses Dizziness and giddiness (08/29/18) Physical Therapy Treatment Note PT-OP-A Visit Information Start: 06/21/18 09:09 Freq: Status: Active Protocol: Document 08/29/18 13:45 DCW (Rec: 08/29/18 14:29 DCW [id number]) Out-Patient Physical Therapy Visit Information Visit Information Visit Type Treatment Note Visit Start Time 13:45 Visit Stop Time 14:30 Total Visit Minutes 45 Visit Number 11 Number of TABLE OPERATOR Visits 0 Evaluation Information Evaluation Date 06/19/18 Precautions Precautions hx breast cancer with lumpectomy left, tendonitis in distal LE's PT-OP-B Current Condition Start: 06/21/18 09:09 Freq: Status: Active Protocol: Document 07/11/18 08:15 DLM (Rec: 07/13/18 09:32 DLM [id number]) Current Condition History of Current Condition Onset Date 1 yr Current Complaints c/o front/back balance difficulty x 1 yr History of Current Condition No known cause, denies falls, but reports she feels her balance has been worsening. Had brain scan (negative), hearing test (WNL), eye motion test (negative). Denies sensation of spinning with change in position. Additionally patient reports recent sensation of numbness and tightness left armpit and has some concerns about lymphedema. 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 History of sinus surgery 2017, breast surgery 2018, scoliosis. Prior Treatments and Tests as above Future Testing and Treatments Planned non planned at this time Treatment Goals Patient/Caregiver Goals resolve her dizziness Personal Factors Other Personal Factors That May Effect She has difficulty sleeping at Therapy/Recovery night, takes sleeping pill intermittently when gets too tired. She has tendonitis in lower legs for which she is seeing an MD. PT-OP-C Subjective Start: 06/21/18 09:09 Freq: Status: Active Protocol: Document 08/29/18 13:45 DCW (Rec: 08/29/18 14:29 DCW [id number]) OP-PT Subjective Patient Comments Patient Comments Pt continues to report that her balance seems to be at its worst when she is tired, and potentially when her allergies are bad. PT-OP-D Balance Start: 06/21/18 09:09 Freq: Status: Active Protocol: Document 07/11/18 08:15 DLM (Rec: 07/13/18 09:32 DL [id number]) OP-PT Balance Assessment Sitting Balance Static Sitting Balance Ability Normal Dynamic Sitting Balance Ability Normal Balance Tests De Los Santos Balance Test De Los Santos Balance Test Score 54/56 [place] Impairment Rating 1 to 19% Impaired (Score 45-55 ) Romberg Romberg losses of balance right Single Limb Standing Single Limb- Right 5 seconds Single Limb- Left 9 seconds Tandem Tandem Standing needs UE support to get into tandem position Lyman Fall Scale Copyright Permission PT-OP-E Functional Tests Start: 06/21/18 09:09 Freq: Status: Active Protocol: Document 07/11/18 08:15 DLM (Rec: 07/13/18 09:42 DL [id number]) Functional Tests Dynamic Gait Index (DGI) Score 17/24 DGI Impairment Rating 20 to <40% Impaired (Score 15- 19) PT-OP-G Mobility & Gait Start: 06/21/18 09:09 Freq: Status: Active Protocol: Document 06/19/18 08:15 [facility] (Rec: 06/21/18 09:54 [facility] [id number]) OP Mobility Evaluation Bed Mobility Rolling indep no dizziness Supine to and from Sit indep no dizziness Transfers Sit to Stand indep Bed to Chair Transfers indep OP Gait Assessment Gait Gait Assistance Required: Independent Distance (Feet) 100 Assistive Devices Assistive Device None Gait Deviations General Gait Pattern Decreased Stride Length Decreased Feet Clearance Stair Climbing Evaluation Devices Stair Climbing Assistive Devices Left Railing Right Railing Technique/Endurance Stair Climbing Technique Step Over Step PT-OP-J Posture/Palpation/Skin Start: 06/21/18 09:09 Freq: Status: Active Protocol: Document 06/19/18 08:15 [facility] (Rec: 06/21/18 09:54 [facility] [id number]) Palpation Assessment Location left axilla Palpation Details axillary cording left axilla 3 long with mild tenderness reported PT-OP-K Range of Motion Start: 06/21/18 09:09 Freq: Status: Active Protocol: Document 06/19/18 08:15 SAK (Rec: 06/21/18 09:54 [facility] [id number]) Cervical Spine Range of Motion Cervical Spine Active Comments WNL Shoulder Goniometric Range of Motion Shoulder left Shoulder ROM WFL No Shoulder ROM Limitations Shoulder ROM Limitations Soft Tissue Tightness Comments tightness with elevation, limited to 170 flex PT-OP-M Strength Start: 06/21/18 09:09 Freq: Status: Active Protocol: Document 07/11/18 08:15 DLM (Rec: 07/13/18 09:47 DLM [id number]) Hip Strength Hip Manual Muscle Testing Right Flexion (L2) 5 Normal Left Flexion (L2) 5 Normal Knee Strength Knee Manual Muscle Testing Right Flexion (S2) 5 Normal Extension (L3) 5 Normal Left Flexion (S2) 5 Normal Extension (L3) 5 Normal Ankle/Foot Strength Ankle and Foot Manual Muscle Testing Right Dorsiflexion (L4) 5 Normal Left Dorsiflexion (L4) 5 Normal PT-OP-N Lymphedema Start: 06/21/18 09:09 Freq: Status: Active Protocol: Document 06/19/18 08:15 SAK (Rec: 06/21/18 09:54 SAK [id number]) Lymphedema Measurements Upper Extremity Circumference Measurements left MCP 17.2 cm Wrist 15.2 cm 5 cm From Distal Crease 17.1 cm 10 cm From Distal Crease 20 cm 15 cm From Distal Crease 22.4 cm 20 cm From Distal Crease 23.6 cm 25 cm From Distal Crease 25.2 cm 30 cm From Distal Crease 27.8 cm 35 cm From Distal Crease 30.3 cm 40 cm From Distal Crease 31.2 cm 45 cm From Distal Crease 31 cm Axilla 33.5 cm right MCP 17.9 cm Wrist 15.5 cm 5 cm From Distal Crease 17.4 cm 10 cm From Distal Crease 20.6 cm 15 cm From Distal Crease 22.5 cm 20 cm From Distal Crease 23.8 cm 25 cm From Distal Crease 25 cm 30 cm From Distal Crease 27 cm 35 cm From Distal Crease 29.2 cm 40 cm From Distal Crease 30.1 cm 45 cm From Distal Crease 30.2 cm Axilla 32 cm Comments Lymphedema Comments axillary cording 3 left axilla PT-OP-O Vestibular Start: 06/21/18 09:09 Freq: Status: Active Protocol: Document 07/11/18 08:15 DLM (Rec: 07/13/18 16:22 DLM [id number]) Vestibular Assessment Screening Tests Vestibular Artery Screen Negative Visual Testing Smooth Pursuits Horizontal WNL Smooth Pursuits Vertical WNL Saccades Horizontal WNL Saccades Vertical WNL Gaze Evoked Nystagmus With Fixation Negative Gaze Evoked Nystagmus Without Fixation Negative Spontaneous Nystagmus Negative Vestibulo-Ocular Reflex (VOR1) Negative Vestibulo-Ocular Reflex (VOR2) Negative Positional Testing Rciki-Hallpike Negative Left Negative Right Rolling Test Negative Left Negative Right Sidelying Test Negative Left Negative Right Supine to Sit Negative Sit to Supine Negative Vestibular Function Tests Fukuda Test positive with right turn Comments Vestibular Comments Mild sense of ant/post motion with roll to right side (no nystagmus) that resolves, symptoms decrease with 3 repetitions of the motion. She describes her dizziness as an ant/post motion when upright but no spinning. She had a dizzy episode when she was about 40 years old that was treated as left BPPV. The symptoms fully resolved at that time. PT-OP-Q Treatments Start: 06/21/18 09:09 Freq: Status: Active Protocol: Document 08/29/18 13:45 DCW (Rec: 08/29/18 14:29 DCW [id number]) Gym Equipment Shuttle Balance chains red Details Wide DARNELL (EO/EC, Head Turns), Staggered Stance, Ball toss Neuro Re-Education Treatment Balance Activities Balance Beam Details Ball-cone transfer, backward stepping Visual Conflict Details Foam stance /c visual conflict board Surface Marcano foam foam stand Details Long stride stance Surface Green/Black foam SLS Details SLS Surface Marcano foam Comments EO PT-OP-T Assessment and Plan Start: 06/21/18 09:09 Freq: Status: Active Protocol: Document 08/29/18 13:45 DCW (Rec: 08/29/18 14:29 DCW [id number]) Physical Therapy Assessment Impairments Impairments Activity Tolerance Balance Edema Other Impairments vestibular hypofunction Goals Four Impairment Dynamic gait Index score 17/24 Short Term Goal (STG) Improve DGI score to 20/24 STG Duration 08/08/18 Mental Health Worker Goal (LTG) Improve DGI score to 22/24 to decrease her fall risks. LTG Duration 09/18/18 Three Impairment Dizziness Short Term Goal (STG) Resolve dizziness when rolling right in bed STG Duration 08/08/18 Mental Health Worker Goal (LTG) Resolve her dizziness when upright LTG Duration 09/18/18 lymphedema with axillary cording left Short Term Goal (STG) Decrease circumferential measurements left upper arm and axilla by 1/2 cm and axillary cording by 50%. Instruct in self-massage, sequential lymphedema exercises, and give information about compression sleeves. STG Duration 4 wks Mental Health Worker Goal (LTG) Eliminate axillary cording, patient to be independent with self care for lymphedema to include self-massage, sequential lymphedema exercises, and wearing of appropriate compression garment LTG Duration 12 wks 2 Impairment activity tolerance Mental Health Worker Goal (LTG) Patient able to resume all usual activities without balance difficulty LTG Duration 12 wks 1 Mental Health Worker Goal (LTG) Met Goal: De Los Santos score is 54/56 Progress Towards Goals Progress Towards Goals Progressing Toward Goals Progress Comments Added vestibular/balance goals this visit following vestibular assessment Assessment Summary Assessment Pt balance showing improvement overall Physical Therapy Plan Frequency and Duration Frequency of Treatment 2-3x/wk Duration of Treatment 12 wks Plan of Care Start Date 06/19/18 Plan of Care End Date 09/18/18 Therapeutic Interventions Therapeutic Interventions Balance Training Home Exercise Program Lymphedema Management Manual Therapy Neuromuscular Re-education Patient/Caregiver Education Self-Care/Home Management Therapeutic Activities Therapeutic Exercises Vestibular Rehabilitation Next Visit Focus/Plan Next Note Type Treatment Note Next Visit Plan slowly progress vestibular exercises, include UE exercises for lymphema
--- NOTE | 2018-09-01 15:13 | PT.OTN ---
Current Diagnoses Dizziness and giddiness (09/01/18) Physical Therapy Treatment Note PT-OP-A Visit Information Start: 06/21/18 09:09 Freq: Status: Active Protocol: Document 09/01/18 14:30 DCW (Rec: 09/01/18 15:13 DCW [id number]) Out-Patient Physical Therapy Visit Information Visit Information Visit Type Treatment Note Visit Start Time 14:30 Visit Stop Time 15:15 Total Visit Minutes 45 Visit Number 12 Number of INSPECTOR COLD WORKING Visits 0 Evaluation Information Evaluation Date 06/19/18 Precautions Precautions hx breast cancer with lumpectomy left, tendonitis in distal LE's PT-OP-B Current Condition Start: 06/21/18 09:09 Freq: Status: Active Protocol: Document 07/11/18 08:15 DLM (Rec: 07/13/18 09:32 DLM [id number]) Current Condition History of Current Condition Onset Date 1 yr Current Complaints c/o front/back balance difficulty x 1 yr History of Current Condition No known cause, denies falls, but reports she feels her balance has been worsening. Had brain scan (negative), hearing test (WNL), eye motion test (negative). Denies sensation of spinning with change in position. Additionally patient reports recent sensation of numbness and tightness left armpit and has some concerns about lymphedema. 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 History of sinus surgery 2017, breast surgery 2018, scoliosis. Prior Treatments and Tests as above Future Testing and Treatments Planned non planned at this time Treatment Goals Patient/Caregiver Goals resolve her dizziness Personal Factors Other Personal Factors That May Effect She has difficulty sleeping at Therapy/Recovery night, takes sleeping pill intermittently when gets too tired. She has tendonitis in lower legs for which she is seeing an MD. PT-OP-C Subjective Start: 06/21/18 09:09 Freq: Status: Active Protocol: Document 09/01/18 14:30 DCW (Rec: 09/01/18 15:13 DCW [id number]) OP-PT Subjective Patient Comments Patient Comments Pt notes that she is not too bad today. PT-OP-D Balance Start: 06/21/18 09:09 Freq: Status: Active Protocol: Document 07/11/18 08:15 DLM (Rec: 07/13/18 09:32 DLM [id number]) OP-PT Balance Assessment Sitting Balance Static Sitting Balance Ability Normal Dynamic Sitting Balance Ability Normal Balance Tests De Los Santos Balance Test De [place] Balance Test Score 54/56 [place] Impairment Rating 1 to 19% Impaired (Score 45-55 ) Romberg Romberg losses of balance right Single Limb Standing Single Limb- Right 5 seconds Single Limb- Left 9 seconds Tandem Tandem Standing needs UE support to get into tandem position Lyman Fall Scale Copyright Permission PT-OP-E Functional Tests Start: 06/21/18 09:09 Freq: Status: Active Protocol: Document 07/11/18 08:15 DLM (Rec: 07/13/18 09:42 DLM [id number]) Functional Tests Dynamic Gait Index (DGI) Score 17/24 DGI Impairment Rating 20 to <40% Impaired (Score 15- 19) PT-OP-G Mobility & Gait Start: 06/21/18 09:09 Freq: Status: Active Protocol: Document 06/19/18 08:15 SAK (Rec: 06/21/18 09:54 SAK [id number]) OP Mobility Evaluation Bed Mobility Rolling indep no dizziness Supine to and from Sit indep no dizziness Transfers Sit to Stand indep Bed to Chair Transfers indep OP Gait Assessment Gait Gait Assistance Required: Independent Distance (Feet) 100 Assistive Devices Assistive Device None Gait Deviations General Gait Pattern Decreased Stride Length Decreased Feet Clearance Stair Climbing Evaluation Devices Stair Climbing Assistive Devices Left Railing Right Railing Technique/Endurance Stair Climbing Technique Step Over Step PT-OP-J Posture/Palpation/Skin Start: 06/21/18 09:09 Freq: Status: Active Protocol: Document 06/19/18 08:15 SAK (Rec: 06/21/18 09:54 [facility] [id number]) Palpation Assessment Location left axilla Palpation Details axillary cording left axilla 3 long with mild tenderness reported PT-OP-K Range of Motion Start: 06/21/18 09:09 Freq: Status: Active Protocol: Document 06/19/18 08:15 SAK (Rec: 06/21/18 09:54 SAK [id number]) Cervical Spine Range of Motion Cervical Spine Active Comments WNL Shoulder Goniometric Range of Motion Shoulder left Shoulder ROM WFL No Shoulder ROM Limitations Shoulder ROM Limitations Soft Tissue Tightness Comments tightness with elevation, limited to 170 flex PT-OP-M Strength Start: 06/21/18 09:09 Freq: Status: Active Protocol: Document 07/11/18 08:15 DLM (Rec: 07/13/18 09:47 DLM [id number]) Hip Strength Hip Manual Muscle Testing Right Flexion (L2) 5 Normal Left Flexion (L2) 5 Normal Knee Strength Knee Manual Muscle Testing Right Flexion (S2) 5 Normal Extension (L3) 5 Normal Left Flexion (S2) 5 Normal Extension (L3) 5 Normal Ankle/Foot Strength Ankle and Foot Manual Muscle Testing Right Dorsiflexion (L4) 5 Normal Left Dorsiflexion (L4) 5 Normal PT-OP-N Lymphedema Start: 06/21/18 09:09 Freq: Status: Active Protocol: Document 06/19/18 08:15 SAK (Rec: 06/21/18 09:54 SAK [id number]) Lymphedema Measurements Upper Extremity Circumference Measurements left MCP 17.2 cm Wrist 15.2 cm 5 cm From Distal Crease 17.1 cm 10 cm From Distal Crease 20 cm 15 cm From Distal Crease 22.4 cm 20 cm From Distal Crease 23.6 cm 25 cm From Distal Crease 25.2 cm 30 cm From Distal Crease 27.8 cm 35 cm From Distal Crease 30.3 cm 40 cm From Distal Crease 31.2 cm 45 cm From Distal Crease 31 cm Axilla 33.5 cm right MCP 17.9 cm Wrist 15.5 cm 5 cm From Distal Crease 17.4 cm 10 cm From Distal Crease 20.6 cm 15 cm From Distal Crease 22.5 cm 20 cm From Distal Crease 23.8 cm 25 cm From Distal Crease 25 cm 30 cm From Distal Crease 27 cm 35 cm From Distal Crease 29.2 cm 40 cm From Distal Crease 30.1 cm 45 cm From Distal Crease 30.2 cm Axilla 32 cm Comments Lymphedema Comments axillary cording 3 left axilla PT-OP-O Vestibular Start: 06/21/18 09:09 Freq: Status: Active Protocol: Document 07/11/18 08:15 DLM (Rec: 07/13/18 16:22 DLM [id number]) Vestibular Assessment Screening Tests Vestibular Artery Screen Negative Visual Testing Smooth Pursuits Horizontal WNL Smooth Pursuits Vertical WNL Saccades Horizontal WNL Saccades Vertical WNL Gaze Evoked Nystagmus With Fixation Negative Gaze Evoked Nystagmus Without Fixation Negative Spontaneous Nystagmus Negative Vestibulo-Ocular Reflex (VOR1) Negative Vestibulo-Ocular Reflex (VOR2) Negative Positional Testing Ransom-Hallpike Negative Left Negative Right Rolling Test Negative Left Negative Right Sidelying Test Negative Left Negative Right Supine to Sit Negative Sit to Supine Negative Vestibular Function Tests Fukuda Test positive with right turn Comments Vestibular Comments Mild sense of ant/post motion with roll to right side (no nystagmus) that resolves, symptoms decrease with 3 repetitions of the motion. She describes her dizziness as an ant/post motion when upright but no spinning. She had a dizzy episode when she was about 40 years old that was treated as left BPPV. The symptoms fully resolved at that time. PT-OP-Q Treatments Start: 06/21/18 09:09 Freq: Status: Active Protocol: Document 09/01/18 14:30 DCW (Rec: 09/01/18 15:13 DCW [id number]) Gym Equipment Shuttle Balance chains red Details Wide DARNELL (EO/EC, Head Turns), Staggered Stance, Ball toss Neuro Re-Education Treatment Balance Activities Laser targeting on Visual conflict board Details Signing name, moving between targets, X1 viewing Surface Marcano Foam Balance Beam Details Ball-cone transfer, backward stepping Visual Conflict Details Foam stance /c visual conflict board Surface Marcano foam SLS Details SLS Surface Marcano foam Comments EO PT-OP-T Assessment and Plan Start: 06/21/18 09:09 Freq: Status: Active Protocol: Document 09/01/18 14:30 DCW (Rec: 09/01/18 15:13 DCW [id number]) Physical Therapy Assessment Impairments Impairments Activity Tolerance Balance Edema Other Impairments vestibular hypofunction Goals Four Impairment Dynamic gait Index score 17/24 Short Term Goal (STG) Improve DGI score to 20/24 STG Duration 08/08/18 [facility] Goal (LTG) Improve DGI score to 22/24 to decrease her fall risks. LTG Duration 09/18/18 Three Impairment Dizziness Short Term Goal (STG) Resolve dizziness when rolling right in bed STG Duration 08/08/18 [facility] Goal (LTG) Resolve her dizziness when upright LTG Duration 09/18/18 lymphedema with axillary cording left Short Term Goal (STG) Decrease circumferential measurements left upper arm and axilla by 1/2 cm and axillary cording by 50%. Instruct in self-massage, sequential lymphedema exercises, and give information about compression sleeves. STG Duration 4 wks Application Design Engineer Goal (LTG) Eliminate axillary cording, patient to be independent with self care for lymphedema to include self-massage, sequential lymphedema exercises, and wearing of appropriate compression garment LTG Duration 12 wks 2 Impairment activity tolerance [facility] Goal (LTG) Patient able to resume all usual activities without balance difficulty LTG Duration 12 wks 1 [facility] Goal (LTG) Met Goal: De Los Santos score is 54/56 Progress Towards Goals Progress Towards Goals Progressing Toward Goals Progress Comments Added vestibular/balance goals this visit following vestibular assessment Assessment Summary Assessment Pt had increased difficulty today with bending over to hop picker ball off cones when standing on the balance beam today, notes she felt her increased allergies were making her feel more off balance today. Physical Therapy Plan Frequency and Duration Frequency of Treatment 2-3x/wk Duration of Treatment 12 wks Plan of Care Start Date 06/19/18 Plan of Care End Date 09/18/18 Therapeutic Interventions Therapeutic Interventions Balance Training Home Exercise Program Lymphedema Management Manual Therapy Neuromuscular Re-education Patient/Caregiver Education Self-Care/Home Management Therapeutic Activities Therapeutic Exercises Vestibular Rehabilitation Next Visit Focus/Plan Next Note Type Treatment Note Next Visit Plan slowly progress vestibular exercises, include UE exercises for lymphema
--- NOTE | 2018-09-05 14:31 | PT.OTN ---
Current Diagnoses Dizziness and giddiness (09/05/18) Physical Therapy Treatment Note PT-OP-A Visit Information Start: 06/21/18 09:09 Freq: Status: Active Protocol: Document 09/05/18 13:45 DCW (Rec: 09/05/18 14:31 DCW [id number]) Out-Patient Physical Therapy Visit Information Visit Information Visit Type Treatment Note Visit Start Time 14:30 Visit Stop Time 15:15 Total Visit Minutes 45 Visit Number 12 Number of NIGHTCLUB MANAGER Visits 0 Evaluation Information Evaluation Date 06/19/18 Precautions Precautions hx breast cancer with lumpectomy left, tendonitis in distal LE's PT-OP-B Current Condition Start: 06/21/18 09:09 Freq: Status: Active Protocol: Document 07/11/18 08:15 DLM (Rec: 07/13/18 09:32 DLM [id number]) Current Condition History of Current Condition Onset Date 1 yr Current Complaints c/o front/back balance difficulty x 1 yr History of Current Condition No known cause, denies falls, but reports she feels her balance has been worsening. Had brain scan (negative), hearing test (WNL), eye motion test (negative). Denies sensation of spinning with change in position. Additionally patient reports recent sensation of numbness and tightness left armpit and has some concerns about lymphedema. 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 History of sinus surgery 2017, breast surgery 2018, scoliosis. Prior Treatments and Tests as above Future Testing and Treatments Planned non planned at this time Treatment Goals Patient/Caregiver Goals resolve her dizziness Personal Factors Other Personal Factors That May Effect She has difficulty sleeping at Therapy/Recovery night, takes sleeping pill intermittently when gets too tired. She has tendonitis in lower legs for which she is seeing an MD. PT-OP-C Subjective Start: 06/21/18 09:09 Freq: Status: Active Protocol: Document 09/05/18 13:45 DCW (Rec: 09/05/18 14:31 DCW [id number]) OP-PT Subjective Patient Comments Patient Comments Pt reports she was working out at the gym earlier today. PT-OP-D Balance Start: 06/21/18 09:09 Freq: Status: Active Protocol: Document 07/11/18 08:15 DLM (Rec: 07/13/18 09:32 DLM [id number]) OP-PT Balance Assessment Sitting Balance Static Sitting Balance Ability Normal Dynamic Sitting Balance Ability Normal Balance Tests De Los Santos Balance Test De [place] Balance Test Score 54/56 [place] Impairment Rating 1 to 19% Impaired (Score 45-55 ) Romberg Romberg losses of balance right Single Limb Standing Single Limb- Right 5 seconds Single Limb- Left 9 seconds Tandem Tandem Standing needs UE support to get into tandem position Lyman Fall Scale Copyright Permission PT-OP-E Functional Tests Start: 06/21/18 09:09 Freq: Status: Active Protocol: Document 07/11/18 08:15 DLM (Rec: 07/13/18 09:42 DLM [id number]) Functional Tests Dynamic Gait Index (DGI) Score 17/24 DGI Impairment Rating 20 to <40% Impaired (Score 15- 19) PT-OP-G Mobility & Gait Start: 06/21/18 09:09 Freq: Status: Active Protocol: Document 06/19/18 08:15 SAK (Rec: 06/21/18 09:54 [facility] [id number]) OP Mobility Evaluation Bed Mobility Rolling indep no dizziness Supine to and from Sit indep no dizziness Transfers Sit to Stand indep Bed to Chair Transfers indep OP Gait Assessment Gait Gait Assistance Required: Independent Distance (Feet) 100 Assistive Devices Assistive Device None Gait Deviations General Gait Pattern Decreased Stride Length Decreased Feet Clearance Stair Climbing Evaluation Devices Stair Climbing Assistive Devices Left Railing Right Railing Technique/Endurance Stair Climbing Technique Step Over Step PT-OP-J Posture/Palpation/Skin Start: 06/21/18 09:09 Freq: Status: Active Protocol: Document 06/19/18 08:15 SAK (Rec: 06/21/18 09:54 [facility] [id number]) Palpation Assessment Location left axilla Palpation Details axillary cording left axilla 3 long with mild tenderness reported PT-OP-K Range of Motion Start: 06/21/18 09:09 Freq: Status: Active Protocol: Document 06/19/18 08:15 SAK (Rec: 06/21/18 09:54 [facility] [id number]) Cervical Spine Range of Motion Cervical Spine Active Comments WNL Shoulder Goniometric Range of Motion Shoulder left Shoulder ROM WFL No Shoulder ROM Limitations Shoulder ROM Limitations Soft Tissue Tightness Comments tightness with elevation, limited to 170 flex PT-OP-M Strength Start: 05/01/19 09:09 Freq: Status: Active Protocol: Document 07/11/18 08:15 DLM (Rec: 07/13/18 09:47 DLM [id number]) Hip Strength Hip Manual Muscle Testing Right Flexion (L2) 5 Normal Left Flexion (L2) 5 Normal Knee Strength Knee Manual Muscle Testing Right Flexion (S2) 5 Normal Extension (L3) 5 Normal Left Flexion (S2) 5 Normal Extension (L3) 5 Normal Ankle/Foot Strength Ankle and Foot Manual Muscle Testing Right Dorsiflexion (L4) 5 Normal Left Dorsiflexion (L4) 5 Normal PT-OP-N Lymphedema Start: 06/21/18 09:09 Freq: Status: Active Protocol: Document 06/19/18 08:15 SAK (Rec: 06/21/18 09:54 SAK [id number]) Lymphedema Measurements Upper Extremity Circumference Measurements left MCP 17.2 cm Wrist 15.2 cm 5 cm From Distal Crease 17.1 cm 10 cm From Distal Crease 20 cm 15 cm From Distal Crease 22.4 cm 20 cm From Distal Crease 23.6 cm 25 cm From Distal Crease 25.2 cm 30 cm From Distal Crease 27.8 cm 35 cm From Distal Crease 30.3 cm 40 cm From Distal Crease 31.2 cm 45 cm From Distal Crease 31 cm Axilla 33.5 cm right MCP 17.9 cm Wrist 15.5 cm 5 cm From Distal Crease 17.4 cm 10 cm From Distal Crease 20.6 cm 15 cm From Distal Crease 22.5 cm 20 cm From Distal Crease 23.8 cm 25 cm From Distal Crease 25 cm 30 cm From Distal Crease 27 cm 35 cm From Distal Crease 29.2 cm 40 cm From Distal Crease 30.1 cm 45 cm From Distal Crease 30.2 cm Axilla 32 cm Comments Lymphedema Comments axillary cording 3 left axilla PT-OP-O Vestibular Start: 06/21/18 09:09 Freq: Status: Active Protocol: Document 07/11/18 08:15 DLM (Rec: 07/13/18 16:22 DLM [id number]) Vestibular Assessment Screening Tests Vestibular Artery Screen Negative Visual Testing Smooth Pursuits Horizontal WNL Smooth Pursuits Vertical WNL Saccades Horizontal WNL Saccades Vertical WNL Gaze Evoked Nystagmus With Fixation Negative Gaze Evoked Nystagmus Without Fixation Negative Spontaneous Nystagmus Negative Vestibulo-Ocular Reflex (VOR1) Negative Vestibulo-Ocular Reflex (VOR2) Negative Positional Testing Chestnut-Hallpike Negative Left Negative Right Rolling Test Negative Left Negative Right Sidelying Test Negative Left Negative Right Supine to Sit Negative Sit to Supine Negative Vestibular Function Tests Fukuda Test positive with right turn Comments Vestibular Comments Mild sense of ant/post motion with roll to right side (no nystagmus) that resolves, symptoms decrease with 3 repetitions of the motion. She describes her dizziness as an ant/post motion when upright but no spinning. She had a dizzy episode when she was about 40 years old that was treated as left BPPV. The symptoms fully resolved at that time. PT-OP-Q Treatments Start: 06/21/18 09:09 Freq: Status: Active Protocol: Document 09/05/18 13:45 DCW (Rec: 09/05/18 14:31 DCW [id number]) Gym Equipment Shuttle Balance chains red Details Wide DARNELL (EO/EC, Head Turns, Perturbations), Staggered Stance, Ball toss Neuro Re-Education Treatment Balance Activities Laser targeting on Visual conflict board Details X1 viewing at visualconflict board Surface Marcano Foam Balance Beam Details Ball-cone transfer, backward stepping Visual Conflict Details Foam stance /c visual conflict board Surface Marcano foam SLS Details SLS Surface Marcano foam Comments EO/EC PT-OP-T Assessment and Plan Start: 06/21/18 09:09 Freq: Status: Active Protocol: Document 09/05/18 13:45 DCW (Rec: 09/05/18 14:31 DCW [id number]) Physical Therapy Assessment Impairments Impairments Activity Tolerance Balance Edema Other Impairments vestibular hypofunction Goals Four Impairment Dynamic gait Index score 17/24 Short Term Goal (STG) Improve DGI score to 20/24 STG Duration 08/08/18 Assisted Goal (LTG) Improve DGI score to 22/24 to decrease her fall risks. LTG Duration 09/18/18 Three Impairment Dizziness Short Term Goal (STG) Resolve dizziness when rolling right in bed STG Duration 08/08/18 [facility] Goal (LTG) Resolve her dizziness when upright LTG Duration 09/18/18 lymphedema with axillary cording left Short Term Goal (STG) Decrease circumferential measurements left upper arm and axilla by 1/2 cm and axillary cording by 50%. Instruct in self-massage, sequential lymphedema exercises, and give information about compression sleeves. STG Duration 4 wks Assisted Goal (LTG) Eliminate axillary cording, patient to be independent with self care for lymphedema to include self-massage, sequential lymphedema exercises, and wearing of appropriate compression garment LTG Duration 12 wks 2 Impairment activity tolerance [facility] Goal (LTG) Patient able to resume all usual activities without balance difficulty LTG Duration 12 wks 1 Assisted Goal (LTG) Met Goal: De Los Santos score is 54/56 Progress Towards Goals Progress Towards Goals Progressing Toward Goals Progress Comments Added vestibular/balance goals this visit following vestibular assessment Assessment Summary Assessment Pt did very well today, much improvement with her stability on the balance beam and with visual conflict. Physical Therapy Plan Frequency and Duration Frequency of Treatment 2-3x/wk Duration of Treatment 12 wks Plan of Care Start Date 06/19/18 Plan of Care End Date 09/18/18 Therapeutic Interventions Therapeutic Interventions Balance Training Home Exercise Program Lymphedema Management Manual Therapy Neuromuscular Re-education Patient/Caregiver Education Self-Care/Home Management Therapeutic Activities Therapeutic Exercises Vestibular Rehabilitation Next Visit Focus/Plan Next Note Type Treatment Note Next Visit Plan slowly progress vestibular exercises, include UE exercises for lymphema
--- NOTE | 2018-09-07 14:30 | PT.OTN ---
Current Diagnoses Dizziness and giddiness (09/07/18) Physical Therapy Treatment Note PT-OP-A Visit Information Start: 06/21/18 09:09 Freq: Status: Active Protocol: Document 09/07/18 13:45 DCW (Rec: 09/07/18 14:30 DCW [id number]) Out-Patient Physical Therapy Visit Information Visit Information Visit Type Treatment Note Visit Start Time 13:45 Visit Stop Time 14:30 Total Visit Minutes 45 Visit Number 13 Number of INSECTICIDE SUPERVISOR Visits 0 Evaluation Information Evaluation Date 06/19/18 Precautions Precautions hx breast cancer with lumpectomy left, tendonitis in distal LE's PT-OP-B Current Condition Start: 06/21/18 09:09 Freq: Status: Active Protocol: Document 07/11/18 08:15 DLM (Rec: 07/13/18 09:32 DLM [id number]) Current Condition History of Current Condition Onset Date 1 yr Current Complaints c/o front/back balance difficulty x 1 yr History of Current Condition No known cause, denies falls, but reports she feels her balance has been worsening. Had brain scan (negative), hearing test (WNL), eye motion test (negative). Denies sensation of spinning with change in position. Additionally patient reports recent sensation of numbness and tightness left armpit and has some concerns about lymphedema. 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 History of sinus surgery 2017, breast surgery 2018, scoliosis. Prior Treatments and Tests as above Future Testing and Treatments Planned non planned at this time Treatment Goals Patient/Caregiver Goals resolve her dizziness Personal Factors Other Personal Factors That May Effect She has difficulty sleeping at Therapy/Recovery night, takes sleeping pill intermittently when gets too tired. She has tendonitis in lower legs for which she is seeing an MD. PT-OP-C Subjective Start: 06/21/18 09:09 Freq: Status: Active Protocol: Document 09/07/18 13:45 DCW (Rec: 09/07/18 14:30 DCW [id number]) OP-PT Subjective Patient Comments Patient Comments Pt notes she is very tired today after staying up too late last night. PT-OP-D Balance Start: 06/21/18 09:09 Freq: Status: Active Protocol: Document 07/11/18 08:15 DLM (Rec: 07/13/18 09:32 DLM [id number]) OP-PT Balance Assessment Sitting Balance Static Sitting Balance Ability Normal Dynamic Sitting Balance Ability Normal Balance Tests De Los Santos Balance Test [place] Balance Test Score 54/56 [place] Impairment Rating 1 to 19% Impaired (Score 45-55 ) Romberg Romberg losses of balance right Single Limb Standing Single Limb- Right 5 seconds Single Limb- Left 9 seconds Tandem Tandem Standing needs UE support to get into tandem position Lyman Fall Scale Copyright Permission PT-OP-E Functional Tests Start: 06/21/18 09:09 Freq: Status: Active Protocol: Document 07/11/18 08:15 DLM (Rec: 07/13/18 09:42 DL [id number]) Functional Tests Dynamic Gait Index (DGI) Score 17/24 DGI Impairment Rating 20 to <40% Impaired (Score 15- 19) PT-OP-G Mobility & Gait Start: 06/21/18 09:09 Freq: Status: Active Protocol: Document 06/19/18 08:15 [facility] (Rec: 06/21/18 09:54 [facility] [id number]) OP Mobility Evaluation Bed Mobility Rolling indep no dizziness Supine to and from Sit indep no dizziness Transfers Sit to Stand indep Bed to Chair Transfers indep OP Gait Assessment Gait Gait Assistance Required: Independent Distance (Feet) 100 Assistive Devices Assistive Device None Gait Deviations General Gait Pattern Decreased Stride Length Decreased Feet Clearance Stair Climbing Evaluation Devices Stair Climbing Assistive Devices Left Railing Right Railing Technique/Endurance Stair Climbing Technique Step Over Step PT-OP-J Posture/Palpation/Skin Start: 06/21/18 09:09 Freq: Status: Active Protocol: Document 06/19/18 08:15 [facility] (Rec: 06/21/18 09:54 [facility] [id number]) Palpation Assessment Location left axilla Palpation Details axillary cording left axilla 3 long with mild tenderness reported PT-OP-K Range of Motion Start: 06/21/18 09:09 Freq: Status: Active Protocol: Document 06/19/18 08:15 SAK (Rec: 06/21/18 09:54 [facility] [id number]) Cervical Spine Range of Motion Cervical Spine Active Comments WNL Shoulder Goniometric Range of Motion Shoulder left Shoulder ROM WFL No Shoulder ROM Limitations Shoulder ROM Limitations Soft Tissue Tightness Comments tightness with elevation, limited to 170 flex PT-OP-M Strength Start: 06/21/18 09:09 Freq: Status: Active Protocol: Document 07/11/18 08:15 DLM (Rec: 07/13/18 09:47 DLM [id number]) Hip Strength Hip Manual Muscle Testing Right Flexion (L2) 5 Normal Left Flexion (L2) 5 Normal Knee Strength Knee Manual Muscle Testing Right Flexion (S2) 5 Normal Extension (L3) 5 Normal Left Flexion (S2) 5 Normal Extension (L3) 5 Normal Ankle/Foot Strength Ankle and Foot Manual Muscle Testing Right Dorsiflexion (L4) 5 Normal Left Dorsiflexion (L4) 5 Normal PT-OP-N Lymphedema Start: 06/21/18 09:09 Freq: Status: Active Protocol: Document 06/19/18 08:15 SAK (Rec: 06/21/18 09:54 SAK [id number]) Lymphedema Measurements Upper Extremity Circumference Measurements left MCP 17.2 cm Wrist 15.2 cm 5 cm From Distal Crease 17.1 cm 10 cm From Distal Crease 20 cm 15 cm From Distal Crease 22.4 cm 20 cm From Distal Crease 23.6 cm 25 cm From Distal Crease 25.2 cm 30 cm From Distal Crease 27.8 cm 35 cm From Distal Crease 30.3 cm 40 cm From Distal Crease 31.2 cm 45 cm From Distal Crease 31 cm Axilla 33.5 cm right MCP 17.9 cm Wrist 15.5 cm 5 cm From Distal Crease 17.4 cm 10 cm From Distal Crease 20.6 cm 15 cm From Distal Crease 22.5 cm 20 cm From Distal Crease 23.8 cm 25 cm From Distal Crease 25 cm 30 cm From Distal Crease 27 cm 35 cm From Distal Crease 29.2 cm 40 cm From Distal Crease 30.1 cm 45 cm From Distal Crease 30.2 cm Axilla 32 cm Comments Lymphedema Comments axillary cording 3 left axilla PT-OP-O Vestibular Start: 06/21/18 09:09 Freq: Status: Active Protocol: Document 07/11/18 08:15 DLM (Rec: 07/13/18 16:22 DLM [id number]) Vestibular Assessment Screening Tests Vestibular Artery Screen Negative Visual Testing Smooth Pursuits Horizontal WNL Smooth Pursuits Vertical WNL Saccades Horizontal WNL Saccades Vertical WNL Gaze Evoked Nystagmus With Fixation Negative Gaze Evoked Nystagmus Without Fixation Negative Spontaneous Nystagmus Negative Vestibulo-Ocular Reflex (VOR1) Negative Vestibulo-Ocular Reflex (VOR2) Negative Positional Testing [place]-Hallpike Negative Left Negative Right Rolling Test Negative Left Negative Right Sidelying Test Negative Left Negative Right Supine to Sit Negative Sit to Supine Negative Vestibular Function Tests Fukuda Test positive with right turn Comments Vestibular Comments Mild sense of ant/post motion with roll to right side (no nystagmus) that resolves, symptoms decrease with 3 repetitions of the motion. She describes her dizziness as an ant/post motion when upright but no spinning. She had a dizzy episode when she was about 40 years old that was treated as left BPPV. The symptoms fully resolved at that time. PT-OP-Q Treatments Start: 06/21/18 09:09 Freq: Status: Active Protocol: Document 09/07/18 13:45 DCW (Rec: 09/07/18 14:30 DCW [id number]) Gym Equipment Shuttle Balance chains red Details Wide DARNELL (EO/EC, Head Turns, Perturbations), Staggered Stance, Ball toss Neuro Re-Education Treatment Balance Activities Toe-taps Details Stance leg on Blue foam Equipment 16 step Balance Beam Details Ball-cone transfer, backward stepping Eyes closed amb Details Eyes closed ambulation Balance Board Details Lateral tilt /c EC heel toe walk Details Heel-toe ambulation Surface firm Comments /c bow and head turns tandem stand Details eyes open, head turns Surface firm Equipment parallel bars Reps/Duration x 3 bilateral Comments without UE support to get into position SLS Details SLS Surface Blue foam Comments EO PT-OP-T Assessment and Plan Start: 06/21/18 09:09 Freq: Status: Active Protocol: Document 09/07/18 13:45 DCW (Rec: 09/07/18 14:30 DCW [id number]) Physical Therapy Assessment Impairments Impairments Activity Tolerance Balance Edema Other Impairments vestibular hypofunction Goals Four Impairment Dynamic gait Index score 17/24 Short Term Goal (STG) Improve DGI score to 20/24 STG Duration 08/08/18 Longterm Goal (LTG) Improve DGI score to 22/24 to decrease her fall risks. LTG Duration 09/18/18 Three Impairment Dizziness Short Term Goal (STG) Resolve dizziness when rolling right in bed STG Duration 08/08/18 Longterm Goal (LTG) Resolve her dizziness when upright LTG Duration 09/18/18 lymphedema with axillary cording left Short Term Goal (STG) Decrease circumferential measurements left upper arm and axilla by 1/2 cm and axillary cording by 50%. Instruct in self-massage, sequential lymphedema exercises, and give information about compression sleeves. STG Duration 4 wks Longterm Goal (LTG) Eliminate axillary cording, patient to be independent with self care for lymphedema to include self-massage, sequential lymphedema exercises, and wearing of appropriate compression garment LTG Duration 12 wks 2 Impairment activity tolerance Longterm Goal (LTG) Patient able to resume all usual activities without balance difficulty LTG Duration 12 wks 1 Longterm Goal (LTG) Met Goal: De Los Santos score is 54/56 Progress Towards Goals Progress Towards Goals Progressing Toward Goals Assessment Summary Assessment Pt continues to show progress with her balance, will reassess next week to determine objective progress. Physical Therapy Plan Frequency and Duration Frequency of Treatment 2-3x/wk Duration of Treatment 12 wks Plan of Care Start Date 06/19/18 Plan of Care End Date 09/18/18 Therapeutic Interventions Therapeutic Interventions Balance Training Home Exercise Program Lymphedema Management Manual Therapy Neuromuscular Re-education Patient/Caregiver Education Self-Care/Home Management Therapeutic Activities Therapeutic Exercises Vestibular Rehabilitation Next Visit Focus/Plan Next Note Type Treatment Note Next Visit Plan slowly progress vestibular exercises, include UE exercises for lymphema
--- NOTE | 2018-09-11 15:15 | PT.OTN ---
Current Diagnoses Dizziness and giddiness (09/11/18) Physical Therapy Treatment Note PT-OP-A Visit Information Start: 06/21/18 09:09 Freq: Status: Active Protocol: Document 09/11/18 14:30 DCW (Rec: 09/11/18 15:15 DCW [id number]) Out-Patient Physical Therapy Visit Information Visit Information Visit Type Treatment Note Visit Start Time 13:45 Visit Stop Time 14:30 Total Visit Minutes 45 Visit Number 13 Number of STONEWORK SUPERVISOR Visits 0 Evaluation Information Evaluation Date 06/19/18 Precautions Precautions hx breast cancer with lumpectomy left, tendonitis in distal LE's PT-OP-B Current Condition Start: 06/21/18 09:09 Freq: Status: Active Protocol: Document 07/11/18 08:15 DLM (Rec: 07/13/18 09:32 DLM [id number]) Current Condition History of Current Condition Onset Date 1 yr Current Complaints c/o front/back balance difficulty x 1 yr History of Current Condition No known cause, denies falls, but reports she feels her balance has been worsening. Had brain scan (negative), hearing test (WNL), eye motion test (negative). Denies sensation of spinning with change in position. Additionally patient reports recent sensation of numbness and tightness left armpit and has some concerns about lymphedema. 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 History of sinus surgery 2017, breast surgery 2018, scoliosis. Prior Treatments and Tests as above Future Testing and Treatments Planned non planned at this time Treatment Goals Patient/Caregiver Goals resolve her dizziness Personal Factors Other Personal Factors That May Effect She has difficulty sleeping at Therapy/Recovery night, takes sleeping pill intermittently when gets too tired. She has tendonitis in lower legs for which she is seeing an MD. PT-OP-C Subjective Start: 06/21/18 09:09 Freq: Status: Active Protocol: Document 09/11/18 14:30 DCW (Rec: 09/11/18 15:15 DCW [id number]) OP-PT Subjective Patient Comments Patient Comments Pt complains that she has constantly been very tired recently, and is planning on going to see her PCP in a few weeks to discuss. Pt also notes an increase in posterior left hip pain when trying to perform her balance HEP. PT-OP-D Balance Start: 06/21/18 09:09 Freq: Status: Active Protocol: Document 07/11/18 08:15 DLM (Rec: 07/13/18 09:32 DLM [id number]) OP-PT Balance Assessment Sitting Balance Static Sitting Balance Ability Normal Dynamic Sitting Balance Ability Normal Balance Tests De Los Santos Balance Test [place] Balance Test Score 54/56 [place] Impairment Rating 1 to 19% Impaired (Score 45-55 ) Romberg Romberg losses of balance right Single Limb Standing Single Limb- Right 5 seconds Single Limb- Left 9 seconds Tandem Tandem Standing needs UE support to get into tandem position Lyman Fall Scale Copyright Permission PT-OP-E Functional Tests Start: 06/21/18 09:09 Freq: Status: Active Protocol: Document 07/11/18 08:15 DLM (Rec: 07/13/18 09:42 DLM [id number]) Functional Tests Dynamic Gait Index (DGI) Score 17/24 DGI Impairment Rating 20 to <40% Impaired (Score 15- 19) PT-OP-G Mobility & Gait Start: 06/21/18 09:09 Freq: Status: Active Protocol: Document 06/19/18 08:15 SAK (Rec: 06/21/18 09:54 [facility] [id number]) OP Mobility Evaluation Bed Mobility Rolling indep no dizziness Supine to and from Sit indep no dizziness Transfers Sit to Stand indep Bed to Chair Transfers indep OP Gait Assessment Gait Gait Assistance Required: Independent Distance (Feet) 100 Assistive Devices Assistive Device None Gait Deviations General Gait Pattern Decreased Stride Length Decreased Feet Clearance Stair Climbing Evaluation Devices Stair Climbing Assistive Devices Left Railing Right Railing Technique/Endurance Stair Climbing Technique Step Over Step PT-OP-J Posture/Palpation/Skin Start: 06/21/18 09:09 Freq: Status: Active Protocol: Document 06/19/18 08:15 SAK (Rec: 06/21/18 09:54 SAK [id number]) Palpation Assessment Location left axilla Palpation Details axillary cording left axilla 3 long with mild tenderness reported PT-OP-K Range of Motion Start: 06/21/18 09:09 Freq: Status: Active Protocol: Document 06/19/18 08:15 SAK (Rec: 06/21/18 09:54 SAK [id number]) Cervical Spine Range of Motion Cervical Spine Active Comments WNL Shoulder Goniometric Range of Motion Shoulder left Shoulder ROM WFL No Shoulder ROM Limitations Shoulder ROM Limitations Soft Tissue Tightness Comments tightness with elevation, limited to 170 flex PT-OP-M Strength Start: 06/21/18 09:09 Freq: Status: Active Protocol: Document 07/11/18 08:15 DLM (Rec: 07/13/18 09:47 DLM [id number]) Hip Strength Hip Manual Muscle Testing Right Flexion (L2) 5 Normal Left Flexion (L2) 5 Normal Knee Strength Knee Manual Muscle Testing Right Flexion (S2) 5 Normal Extension (L3) 5 Normal Left Flexion (S2) 5 Normal Extension (L3) 5 Normal Ankle/Foot Strength Ankle and Foot Manual Muscle Testing Right Dorsiflexion (L4) 5 Normal Left Dorsiflexion (L4) 5 Normal PT-OP-N Lymphedema Start: 06/21/18 09:09 Freq: Status: Active Protocol: Document 06/19/18 08:15 SAK (Rec: 06/21/18 09:54 SAK [id number]) Lymphedema Measurements Upper Extremity Circumference Measurements left MCP 17.2 cm Wrist 15.2 cm 5 cm From Distal Crease 17.1 cm 10 cm From Distal Crease 20 cm 15 cm From Distal Crease 22.4 cm 20 cm From Distal Crease 23.6 cm 25 cm From Distal Crease 25.2 cm 30 cm From Distal Crease 27.8 cm 35 cm From Distal Crease 30.3 cm 40 cm From Distal Crease 31.2 cm 45 cm From Distal Crease 31 cm Axilla 33.5 cm right MCP 17.9 cm Wrist 15.5 cm 5 cm From Distal Crease 17.4 cm 10 cm From Distal Crease 20.6 cm 15 cm From Distal Crease 22.5 cm 20 cm From Distal Crease 23.8 cm 25 cm From Distal Crease 25 cm 30 cm From Distal Crease 27 cm 35 cm From Distal Crease 29.2 cm 40 cm From Distal Crease 30.1 cm 45 cm From Distal Crease 30.2 cm Axilla 32 cm Comments Lymphedema Comments axillary cording 3 left axilla PT-OP-O Vestibular Start: 06/21/18 09:09 Freq: Status: Active Protocol: Document 07/11/18 08:15 DLM (Rec: 07/13/18 16:22 DLM [id number]) Vestibular Assessment Screening Tests Vestibular Artery Screen Negative Visual Testing Smooth Pursuits Horizontal WNL Smooth Pursuits Vertical WNL Saccades Horizontal WNL Saccades Vertical WNL Gaze Evoked Nystagmus With Fixation Negative Gaze Evoked Nystagmus Without Fixation Negative Spontaneous Nystagmus Negative Vestibulo-Ocular Reflex (VOR1) Negative Vestibulo-Ocular Reflex (VOR2) Negative Positional Testing [place]-Hallpike Negative Left Negative Right Rolling Test Negative Left Negative Right Sidelying Test Negative Left Negative Right Supine to Sit Negative Sit to Supine Negative Vestibular Function Tests Fukuda Test positive with right turn Comments Vestibular Comments Mild sense of ant/post motion with roll to right side (no nystagmus) that resolves, symptoms decrease with 3 repetitions of the motion. She describes her dizziness as an ant/post motion when upright but no spinning. She had a dizzy episode when she was about 40 years old that was treated as left BPPV. The symptoms fully resolved at that time. PT-OP-Q Treatments Start: 06/21/18 09:09 Freq: Status: Active Protocol: Document 09/11/18 14:30 DCW (Rec: 09/11/18 15:15 DCW [id number]) Gym Equipment Shuttle Balance chains red Details Wide DARNELL (EO/EC, Head Turns, Perturbations), Staggered Stance, Ball toss Therapeutic Exercises Supine Exercises Piriformis Stretch Supine Exercise Name [id number] shoulder, Figure 4 Side left Sitting Exercises Piriformis Stretch Sitting Exercise Name Seated Figure-4 Neuro Re-Education Treatment Balance Activities Gait with head turns Details Horiz/Vert head turns Balance Beam Details Ball-cone transfer, backward stepping heel toe walk Details Heel-toe ambulation Surface firm Comments horizontal head turns PT-OP-T Assessment and Plan Start: 06/21/18 09:09 Freq: Status: Active Protocol: Document 09/11/18 14:30 DCW (Rec: 09/11/18 15:15 DCW [id number]) Physical Therapy Assessment Impairments Impairments Activity Tolerance Balance Edema Other Impairments vestibular hypofunction Goals Four Impairment Dynamic gait Index score 17/24 Short Term Goal (STG) Improve DGI score to 20/24 STG Duration 08/08/18 Field Machinist Goal (LTG) Improve DGI score to 22/24 to decrease her fall risks. LTG Duration 09/18/18 Three Impairment Dizziness Short Term Goal (STG) Resolve dizziness when rolling right in bed STG Duration 08/08/18 Field Machinist Goal (LTG) Resolve her dizziness when upright LTG Duration 09/18/18 lymphedema with axillary cording left Short Term Goal (STG) Decrease circumferential measurements left upper arm and axilla by 1/2 cm and axillary cording by 50%. Instruct in self-massage, sequential lymphedema exercises, and give information about compression sleeves. STG Duration 4 wks Long-Term Goal (LTG) Eliminate axillary cording, patient to be independent with self care for lymphedema to include self-massage, sequential lymphedema exercises, and wearing of appropriate compression garment LTG Duration 12 wks 2 Impairment activity tolerance Field Machinist Goal (LTG) Patient able to resume all usual activities without balance difficulty LTG Duration 12 wks 1 Field Machinist Goal (LTG) Met Goal: De [place] Santos score is 54/56 Progress Towards Goals Progress Towards Goals Progressing Toward Goals Assessment Summary Assessment Pt had sensitivity to palpation of L piriformis, noted substantial improvement after stretching, pt instructed in home Piriformis stretching techniques. Physical Therapy Plan Frequency and Duration Frequency of Treatment 2-3x/wk Duration of Treatment 12 wks Plan of Care Start Date 06/19/18 Plan of Care End Date 09/18/18 Therapeutic Interventions Therapeutic Interventions Balance Training Home Exercise Program Lymphedema Management Manual Therapy Neuromuscular Re-education Patient/Caregiver Education Self-Care/Home Management Therapeutic Activities Therapeutic Exercises Vestibular Rehabilitation Next Visit Focus/Plan Next Note Type Treatment Note Next Visit Plan slowly progress vestibular exercises, include UE exercises for lymphema
--- NOTE | 2018-09-14 15:20 | PT.OTN ---
Current Diagnoses Dizziness and giddiness (09/14/18) Physical Therapy Treatment Note PT-OP-A Visit Information Start: 06/21/18 09:09 Freq: Status: Active Protocol: Document 09/14/18 14:30 DCW (Rec: 09/14/18 15:19 DCW [id number]) Out-Patient Physical Therapy Visit Information Visit Information Visit Type Treatment Note Visit Start Time 13:45 Visit Stop Time 14:30 Total Visit Minutes 45 Visit Number 17 Number of SWAGING MACHINE ADJUSTER Visits 0 Evaluation Information Evaluation Date 06/19/18 Precautions Precautions hx breast cancer with lumpectomy left, tendonitis in distal LE's PT-OP-B Current Condition Start: 06/21/18 09:09 Freq: Status: Active Protocol: Document 07/11/18 08:15 DLM (Rec: 07/13/18 09:32 DLM [id number]) Current Condition History of Current Condition Onset Date 1 yr Current Complaints c/o front/back balance difficulty x 1 yr History of Current Condition No known cause, denies falls, but reports she feels her balance has been worsening. Had brain scan (negative), hearing test (WNL), eye motion test (negative). Denies sensation of spinning with change in position. Additionally patient reports recent sensation of numbness and tightness left armpit and has some concerns about lymphedema. 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 History of sinus surgery 2017, breast surgery 2018, scoliosis. Prior Treatments and Tests as above Future Testing and Treatments Planned non planned at this time Treatment Goals Patient/Caregiver Goals resolve her dizziness Personal Factors Other Personal Factors That May Effect She has difficulty sleeping at Therapy/Recovery night, takes sleeping pill intermittently when gets too tired. She has tendonitis in lower legs for which she is seeing an MD. PT-OP-C Subjective Start: 06/21/18 09:09 Freq: Status: Active Protocol: Document 09/14/18 14:30 DCW (Rec: 09/14/18 15:19 DCW [id number]) OP-PT Subjective Patient Comments Patient Comments Pt doing well today. PT-OP-D Balance Start: 06/21/18 09:09 Freq: Status: Active Protocol: Document 07/11/18 08:15 DLM (Rec: 07/13/18 09:32 DLM [id number]) OP-PT Balance Assessment Sitting Balance Static Sitting Balance Ability Normal Dynamic Sitting Balance Ability Normal Balance Tests De Los Santos Balance Test [place] Balance Test Score 54/56 [place] Impairment Rating 1 to 19% Impaired (Score 45-55 ) Romberg Romberg losses of balance right Single Limb Standing Single Limb- Right 5 seconds Single Limb- Left 9 seconds Tandem Tandem Standing needs UE support to get into tandem position Lyman Fall Scale Copyright Permission PT-OP-E Functional Tests Start: 06/21/18 09:09 Freq: Status: Active Protocol: Document 07/11/18 08:15 DLM (Rec: 07/13/18 09:42 DLM [id number]) Functional Tests Dynamic Gait Index (DGI) Score 17/24 DGI Impairment Rating 20 to <40% Impaired (Score 15- 19) PT-OP-G Mobility & Gait Start: 06/21/18 09:09 Freq: Status: Active Protocol: Document 06/19/18 08:15 SAK (Rec: 06/21/18 09:54 SAK [id number]) OP Mobility Evaluation Bed Mobility Rolling indep no dizziness Supine to and from Sit indep no dizziness Transfers Sit to Stand indep Bed to Chair Transfers indep OP Gait Assessment Gait Gait Assistance Required: Independent Distance (Feet) 100 Assistive Devices Assistive Device None Gait Deviations General Gait Pattern Decreased Stride Length Decreased Feet Clearance Stair Climbing Evaluation Devices Stair Climbing Assistive Devices Left Railing Right Railing Technique/Endurance Stair Climbing Technique Step Over Step PT-OP-J Posture/Palpation/Skin Start: 06/21/18 09:09 Freq: Status: Active Protocol: Document 06/19/18 08:15 SAK (Rec: 06/21/18 09:54 SAK [id number]) Palpation Assessment Location left axilla Palpation Details axillary cording left axilla 3 long with mild tenderness reported PT-OP-K Range of Motion Start: 06/21/18 09:09 Freq: Status: Active Protocol: Document 06/19/18 08:15 SAK (Rec: 06/21/18 09:54 SAK [id number]) Cervical Spine Range of Motion Cervical Spine Active Comments WNL Shoulder Goniometric Range of Motion Shoulder left Shoulder ROM WFL No Shoulder ROM Limitations Shoulder ROM Limitations Soft Tissue Tightness Comments tightness with elevation, limited to 170 flex PT-OP-M Strength Start: 06/21/18 09:09 Freq: Status: Active Protocol: Document 07/11/18 08:15 DLM (Rec: 07/13/18 09:47 DLM [id number]) Hip Strength Hip Manual Muscle Testing Right Flexion (L2) 5 Normal Left Flexion (L2) 5 Normal Knee Strength Knee Manual Muscle Testing Right Flexion (S2) 5 Normal Extension (L3) 5 Normal Left Flexion (S2) 5 Normal Extension (L3) 5 Normal Ankle/Foot Strength Ankle and Foot Manual Muscle Testing Right Dorsiflexion (L4) 5 Normal Left Dorsiflexion (L4) 5 Normal PT-OP-N Lymphedema Start: 06/21/18 09:09 Freq: Status: Active Protocol: Document 06/19/18 08:15 SAK (Rec: 06/21/18 09:54 SAK [id number]) Lymphedema Measurements Upper Extremity Circumference Measurements left MCP 17.2 cm Wrist 15.2 cm 5 cm From Distal Crease 17.1 cm 10 cm From Distal Crease 20 cm 15 cm From Distal Crease 22.4 cm 20 cm From Distal Crease 23.6 cm 25 cm From Distal Crease 25.2 cm 30 cm From Distal Crease 27.8 cm 35 cm From Distal Crease 30.3 cm 40 cm From Distal Crease 31.2 cm 45 cm From Distal Crease 31 cm Axilla 33.5 cm right MCP 17.9 cm Wrist 15.5 cm 5 cm From Distal Crease 17.4 cm 10 cm From Distal Crease 20.6 cm 15 cm From Distal Crease 22.5 cm 20 cm From Distal Crease 23.8 cm 25 cm From Distal Crease 25 cm 30 cm From Distal Crease 27 cm 35 cm From Distal Crease 29.2 cm 40 cm From Distal Crease 30.1 cm 45 cm From Distal Crease 30.2 cm Axilla 32 cm Comments Lymphedema Comments axillary cording 3 left axilla PT-OP-O Vestibular Start: 06/21/18 09:09 Freq: Status: Active Protocol: Document 07/11/18 08:15 DLM (Rec: 07/13/18 16:22 DLM [id number]) Vestibular Assessment Screening Tests Vestibular Artery Screen Negative Visual Testing Smooth Pursuits Horizontal WNL Smooth Pursuits Vertical WNL Saccades Horizontal WNL Saccades Vertical WNL Gaze Evoked Nystagmus With Fixation Negative Gaze Evoked Nystagmus Without Fixation Negative Spontaneous Nystagmus Negative Vestibulo-Ocular Reflex (VOR1) Negative Vestibulo-Ocular Reflex (VOR2) Negative Positional Testing [place]-Hallpike Negative Left Negative Right Rolling Test Negative Left Negative Right Sidelying Test Negative Left Negative Right Supine to Sit Negative Sit to Supine Negative Vestibular Function Tests Fukuda Test positive with right turn Comments Vestibular Comments Mild sense of ant/post motion with roll to right side (no nystagmus) that resolves, symptoms decrease with 3 repetitions of the motion. She describes her dizziness as an ant/post motion when upright but no spinning. She had a dizzy episode when she was about 40 years old that was treated as left BPPV. The symptoms fully resolved at that time. PT-OP-Q Treatments Start: 06/21/18 09:09 Freq: Status: Active Protocol: Document 09/14/18 14:30 DCW (Rec: 09/14/18 15:19 DCW [id number]) Gym Equipment Shuttle Balance chains red Details Wide DARNELL (EO/EC, Head Turns, Perturbations), Staggered Stance, Ball toss Neuro Re-Education Treatment Balance Activities Gait with head turns Details Horiz/Vert head turns Balance Beam Details Ball-cone transfer, backward stepping Eyes closed amb Details Eyes closed ambulation tandem stand Details eyes open Surface blue foam Reps/Duration x 3 bilateral Comments without UE support to get into position SLS Details SLS Surface Blue foam Comments EO PT-OP-T Assessment and Plan Start: 06/21/18 09:09 Freq: Status: Active Protocol: Document 09/14/18 14:30 DCW (Rec: 09/14/18 15:19 DCW [id number]) Physical Therapy Assessment Impairments Impairments Activity Tolerance Balance Edema Other Impairments vestibular hypofunction Goals Four Impairment Dynamic gait Index score 17/24 Short Term Goal (STG) Improve DGI score to 20/24 STG Duration 08/08/18 Slot Machine Key Person Goal (LTG) Improve DGI score to 22/24 to decrease her fall risks. LTG Duration 09/18/18 Three Impairment Dizziness Short Term Goal (STG) Resolve dizziness when rolling right in bed STG Duration 08/08/18 Slot Machine Key Person Goal (LTG) Resolve her dizziness when upright LTG Duration 09/18/18 lymphedema with axillary cording left Short Term Goal (STG) Decrease circumferential measurements left upper arm and axilla by 1/2 cm and axillary cording by 50%. Instruct in self-massage, sequential lymphedema exercises, and give information about compression sleeves. STG Duration 4 wks Slot Machine Key Person Goal (LTG) Eliminate axillary cording, patient to be independent with self care for lymphedema to include self-massage, sequential lymphedema exercises, and wearing of appropriate compression garment LTG Duration 12 wks 2 Impairment activity tolerance Slot Machine Key Person Goal (LTG) Patient able to resume all usual activities without balance difficulty LTG Duration 12 wks 1 Senior Living Goal (LTG) Met Goal: De Los Santos score is 54/56 Progress Towards Goals Progress Towards Goals Progressing Toward Goals Assessment Summary Assessment Pt doing very well, today is likely her last visit, however therapist agreeable to leaving her chart open for the next month before actual discharge. Physical Therapy Plan Frequency and Duration Frequency of Treatment 2-3x/wk Duration of Treatment 12 wks Plan of Care Start Date 06/19/18 Plan of Care End Date 09/18/18 Therapeutic Interventions Therapeutic Interventions Balance Training Home Exercise Program Lymphedema Management Manual Therapy Neuromuscular Re-education Patient/Caregiver Education Self-Care/Home Management Therapeutic Activities Therapeutic Exercises Vestibular Rehabilitation Next Visit Focus/Plan Next Note Type Treatment Note Next Visit Plan slowly progress vestibular exercises, include UE exercises for lymphema
--- NOTE | 2018-10-19 15:38 | PT.OPDS ---
Current Diagnoses Dizziness and giddiness (09/14/18) Visit Care Team Role Provider Type Amadeo Theodore Primary Care Provider Non-Staff Specialty: Internal Medicine Address: [address] [place] [address], [place], [place], [facility] Email: Attending Provider Specialty: Address: Phone: Fax: Email: Visit Number Visit Number 17 Discharge Summary PT-OP-B Current Condition Start: 06/21/18 09:09 Freq: Status: Active Protocol: Document 07/11/18 08:15 DLM (Rec: 07/13/18 09:32 DLM [id number]) Current Condition History of Current Condition Onset Date 1 yr Current Complaints c/o front/back balance difficulty x 1 yr History of Current Condition No known cause, denies falls, but reports she feels her balance has been worsening. Had brain scan (negative), hearing test (WNL), eye motion test (negative). Denies sensation of spinning with change in position. Additionally patient reports recent sensation of numbness and tightness left armpit and has some concerns about lymphedema. 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 History of sinus surgery 2017, breast surgery 2018, scoliosis. Prior Treatments and Tests as above Future Testing and Treatments Planned non planned at this time Treatment Goals Patient/Caregiver Goals resolve her dizziness Personal Factors Other Personal Factors That May Effect She has difficulty sleeping at Therapy/Recovery night, takes sleeping pill intermittently when gets too tired. She has tendonitis in lower legs for which she is seeing an MD. PT-OP-C Subjective Start: 06/21/18 09:09 Freq: Status: Active Protocol: Document 09/14/18 14:30 DCW (Rec: 09/14/18 15:19 DCW [id number]) OP-PT Subjective Patient Comments Patient Comments Pt doing well today. PT-OP-D Balance Start: 06/21/18 09:09 Freq: Status: Active Protocol: Document 07/11/18 08:15 DLM (Rec: 07/13/18 09:32 DLM [id number]) OP-PT Balance Assessment Sitting Balance Static Sitting Balance Ability Normal Dynamic Sitting Balance Ability Normal Balance Tests De Los Santos Balance Test [place] Balance Test Score 54/56 [place] Impairment Rating 1 to 19% Impaired (Score 45-55 ) Romberg Romberg losses of balance right Single Limb Standing Single Limb- Right 5 seconds Single Limb- Left 9 seconds Tandem Tandem Standing needs UE support to get into tandem position Lyman Fall Scale Copyright Permission PT-OP-E Functional Tests Start: 06/21/18 09:09 Freq: Status: Active Protocol: Document 07/11/18 08:15 DLM (Rec: 07/13/18 09:42 DLM [id number]) Functional Tests Dynamic Gait Index (DGI) Score 17/24 DGI Impairment Rating 20 to <40% Impaired (Score 15- 19) PT-OP-G Mobility & Gait Start: 06/21/18 09:09 Freq: Status: Active Protocol: Document 06/19/18 08:15 SAK (Rec: 06/21/18 09:54 SAK [id number]) OP Mobility Evaluation Bed Mobility Rolling indep no dizziness Supine to and from Sit indep no dizziness Transfers Sit to Stand indep Bed to Chair Transfers indep OP Gait Assessment Gait Gait Assistance Required: Independent Distance (Feet) 100 Assistive Devices Assistive Device None Gait Deviations General Gait Pattern Decreased Stride Length, Decreased Feet Clearance Stair Climbing Evaluation Devices Stair Climbing Assistive Devices Left Railing,Right Railing Technique/Endurance Stair Climbing Technique Step Over Step PT-OP-J Posture/Palpation/Skin Start: 06/21/18 09:09 Freq: Status: Active Protocol: Document 06/19/18 08:15 SAK (Rec: 06/21/18 09:54 SAK [id number]) Palpation Assessment Location left axilla Palpation Details axillary cording left axilla 3 long with mild tenderness reported PT-OP-K Range of Motion Start: 06/21/18 09:09 Freq: Status: Active Protocol: Document 06/19/18 08:15 SAK (Rec: 06/21/18 09:54 SAK [id number]) Cervical Spine Range of Motion Cervical Spine Active Comments WNL Shoulder Goniometric Range of Motion Shoulder left Shoulder ROM WFL No Shoulder ROM Limitations Shoulder ROM Limitations Soft Tissue Tightness Comments tightness with elevation, limited to 170 flex PT-OP-M Strength Start: 06/21/18 09:09 Freq: Status: Active Protocol: Document 07/11/18 08:15 DLM (Rec: 07/13/18 09:47 DLM [id number]) Hip Strength Hip Manual Muscle Testing Right Flexion (L2) 5 Normal Left Flexion (L2) 5 Normal Knee Strength Knee Manual Muscle Testing Right Flexion (S2) 5 Normal Extension (L3) 5 Normal Left Flexion (S2) 5 Normal Extension (L3) 5 Normal Ankle/Foot Strength Ankle and Foot Manual Muscle Testing Right Dorsiflexion (L4) 5 Normal Left Dorsiflexion (L4) 5 Normal PT-OP-N Lymphedema Start: 06/21/18 09:09 Freq: Status: Active Protocol: Document 06/19/18 08:15 SAK (Rec: 06/21/18 09:54 SAK [id number]) Lymphedema Measurements Upper Extremity Circumference Measurements left MCP 17.2 cm Wrist 15.2 cm 5 cm From Distal Crease 17.1 cm 10 cm From Distal Crease 20 cm 15 cm From Distal Crease 22.4 cm 20 cm From Distal Crease 23.6 cm 25 cm From Distal Crease 25.2 cm 30 cm From Distal Crease 27.8 cm 35 cm From Distal Crease 30.3 cm 40 cm From Distal Crease 31.2 cm 45 cm From Distal Crease 31 cm Axilla 33.5 cm right MCP 17.9 cm Wrist 15.5 cm 5 cm From Distal Crease 17.4 cm 10 cm From Distal Crease 20.6 cm 15 cm From Distal Crease 22.5 cm 20 cm From Distal Crease 23.8 cm 25 cm From Distal Crease 25 cm 30 cm From Distal Crease 27 cm 35 cm From Distal Crease 29.2 cm 40 cm From Distal Crease 30.1 cm 45 cm From Distal Crease 30.2 cm Axilla 32 cm Comments Lymphedema Comments axillary cording 3 left axilla PT-OP-O Vestibular Start: 06/21/18 09:09 Freq: Status: Active Protocol: Document 07/11/18 08:15 DLM (Rec: 07/13/18 16:22 DLM [id number]) Vestibular Assessment Screening Tests Vestibular Artery Screen Negative Visual Testing Smooth Pursuits Horizontal WNL Smooth Pursuits Vertical WNL Saccades Horizontal WNL Saccades Vertical WNL Gaze Evoked Nystagmus With Fixation Negative Gaze Evoked Nystagmus Without Fixation Negative Spontaneous Nystagmus Negative Vestibulo-Ocular Reflex (VOR1) Negative Vestibulo-Ocular Reflex (VOR2) Negative Positional Testing [place]i-Hallpike Negative Left,Negative Right Rolling Test Negative Left,Negative Right Sidelying Test Negative Left,Negative Right Supine to Sit Negative Sit to Supine Negative Vestibular Function Tests Fukuda Test positive with right turn Comments Vestibular Comments Mild sense of ant/post motion with roll to right side (no nystagmus) that resolves, symptoms decrease with 3 repetitions of the motion. She describes her dizziness as an ant/post motion when upright but no spinning. She had a dizzy episode when she was about 40 years old that was treated as left BPPV. The symptoms fully resolved at that time. PT-OP-T Assessment and Plan Start: 06/21/18 09:09 Freq: Status: Active Protocol: Document 10/19/18 15:34 DCW (Rec: 10/19/18 15:38 DCW [id number]) Physical Therapy Assessment Goals Four Impairment Dynamic gait Index score 17/24 Short Term Goal (STG) Improve DGI score to 20/24 STG Duration 08/08/18 Wireline Supervisor Goal (LTG) Improve DGI score to 22/24 to decrease her fall risks. LTG Duration 09/18/18 Three Impairment Dizziness Short Term Goal (STG) Resolve dizziness when rolling right in bed STG Duration 08/08/18 Wireline Supervisor Goal (LTG) Resolve her dizziness when upright LTG Duration 09/18/18 lymphedema with axillary cording left Short Term Goal (STG) Decrease circumferential measurements left upper arm and axilla by 1/2 cm and axillary cording by 50%. Instruct in self-massage, sequential lymphedema exercises, and give information about compression sleeves. STG Duration 4 wks Wireline Supervisor Goal (LTG) Eliminate axillary cording, patient to be independent with self care for lymphedema to include self-massage, sequential lymphedema exercises, and wearing of appropriate compression garment LTG Duration 12 wks 2 Impairment activity tolerance Senior Care Goal (LTG) Patient able to resume all usual activities without balance difficulty LTG Duration 12 wks 1 Senior Care Goal (LTG) Met Goal: De Los Santos score is 54/56 Assessment Summary Assessment Per pt request, chart remained open for one month following her final appointment. Pt has not called to schedule any further visits, and she will be discharged at this time. Pt will need a new referral in order to return to skilled therapy. Physical Therapy Plan Frequency and Duration Frequency of Treatment 2-3x/wk Duration of Treatment 12 wks Plan of Care Start Date 06/19/18 Plan of Care End Date 07/29/19 Therapeutic Interventions Therapeutic Interventions Balance Training,Home Exercise Program,Lymphedema Management ,Manual Therapy,Neuromuscular Re-education,Patient/Caregiver Education,Self-Care/Home Management,Therapeutic Activities,Therapeutic Exercises,Vestibular Rehabilitation Discharge Physical Therapy Discharge Reasons Goals Met Next Visit Focus/Plan Next Note Type Discharge Summary
== END 2018-10-20 08:13 | disposition home or self-care (01) ==
LOC: PHYS 14:30
PROVIDERS: PCP Internal Medicine
DX: R42 Dizziness and giddiness (principal)
CPT/HCPCS: 97110; 97112; 97140; 97162; 97164; 97535

== ENCOUNTER 2019-08-27 16:00 | Outpatient (RCR) | payer MEDICARE, SELFPAY ==
--- NOTE | 2019-03-27 14:30 | PT.OIE ---
Current Diagnoses Pain in right shoulder (03/27/19) Stiffness of right shoulder, not elsewhere classified (03/27/19) Unspecified rotator cuff tear or rupture of unspecified shoulder, not specified as traumatic (03/27/19) Visit Care Team Role Provider Type Amadeo Jaimes Attending Provider Non-Staff Primary Care Provider Referring Provider Specialty: Internal Medicine Address: [address] [place] [address], [facility] Email: Physical Therapy Initial Evaluation PT-OP-A Visit Information Start: 03/27/19 16:41 Freq: Status: Active Protocol: Document 03/27/19 13:45 DCW (Rec: 03/28/19 11:13 DCW [id number]) Out-Patient Physical Therapy Visit Information Visit Information Visit Type Initial Evaluation Visit Start Time 13:45 Visit Stop Time 14:30 Total Visit Minutes 45 Visit Number 1 Number of LANDSCAPE CREW LEADER Visits 0 Evaluation Information Evaluation Date 03/27/19 PT-OP-B Current Condition Start: 03/27/19 16:41 Freq: Status: Active Protocol: Document 03/27/19 13:45 DCW (Rec: 03/28/19 11:13 DCW [id number]) Current Condition History of Current Condition Onset Date s/p 4.5 months Current Complaints R shoulder injured in fall History of Current Condition Pt is a 73 year old female presenting with a 4.5 month history of right shoulder pain following a fall. Pt notes that near the end of October , [place], caught her toe on a little nub, and fell onto her outstretched right arm. Pt immediately had pain in her right shoulder, but ignored it because I had a 5 week cruise coming up in December. Pt reports she finally had it looked at last week at a sports medicine clinic in [place], and a diagnostic ultrasound uncovered multiple mild tears. Pt notes that her shoulder has been trending better over the last four months, and notes that she is already performing a lot of strengthening exercises with her Desk Clerk. Pt was told she should do PT for a few weeks, go back for an MRI, and figure out what to do from there. Prior Treatments and Tests Referral from [facility] : Dx is partial thickness SST and Subscap tear. - Igor Jean MD Treatment Goals Patient/Caregiver Goals Pt's goal is to improve strength and mobility, and decrease her current struggle with vacuuming, washing her car, performing housework, and decrease pain while stitching /writing. PT-OP-C Subjective Start: 03/27/19 16:41 Freq: Status: Active Protocol: Document 03/27/19 13:45 DCW (Rec: 03/28/19 11:13 DCW [id number]) OP-PT Subjective Patient Comments Patient Comments It's trending better. Patient Reported Progress Improving Patient Questionnaires Quick Dash- Upper Extremity Quick Dash UE Score 29.55% Quick Dash UE Impairment 20 to 39% Impaired (Score 20- 39) OP-PT Pain Assessment Pain Assessment Grid Paper Pain Assessment Grid Completed Yes Location Right superior shoulder Intensity 5 Scale Used Numeric (1 - 10) PT-OP-E Functional Tests Start: 03/27/19 16:41 Freq: Status: Active Protocol: Document 03/27/19 13:45 DCW (Rec: 03/28/19 11:13 DCW [id number]) Functional Tests Apley's Scratch Test Action 1- Left Posterior opposite shoulder Action 1- Right Posterior opposite shoulder Action 2- Left T4 Action 2- Right T4 Action 3- Left T6 Action 3- Right T12 PT-OP-F Manual Assessment Start: 03/27/19 16:41 Freq: Status: Active Protocol: Document 03/27/19 13:45 DCW (Rec: 03/28/19 11:13 DCW [id number]) Manual Assessments Soft Tissue Assessment Soft Tissue Mobility Assessment Increased tone along right upper trap, tenderness 2/4: pain with wincing along right supraspinatus and subscap PT-OP-K Range of Motion Start: 03/27/19 16:41 Freq: Status: Active Protocol: Document 03/27/19 13:45 DCW (Rec: 03/28/19 11:13 DCW [id number]) Shoulder Goniometric Range of Motion Shoulder Right Active Shoulder ROM WFL No Internal Rotation Behind Back (text) T12 left Shoulder ROM WFL Yes Shoulder ROM Limitations Comments R ROM all WNL except IR. Pt does exhibit painful arc of motion during abduction, between 40?-120? PT-OP-L Special Tests Start: 03/27/19 16:41 Freq: Status: Active Protocol: Document 03/27/19 13:45 DCW (Rec: 03/28/19 17:09 DCW [id number]) Special Tests Shoulder Special Tests Passive ER Rotator Cuff Test Results Positive R Painful Arc Test Results Positive R Lift-Off Rotator Cuff Test Results R pain Belly Press Test Results Positive R PT-OP-Q Treatments Start: 03/27/19 16:41 Freq: Status: Active Protocol: Document 03/27/19 13:45 DCW (Rec: 03/28/19 17:09 DCW [id number]) Therapeutic Exercises Sitting Exercises pulleys shoulder flex and scaption Sitting Exercise Name Shoulder PROM Side right Equipment Used wall pulleys Standing Exercises Walk walk Standing Exercise Name Finger wall walk-up Side right Comments Flexion, Abduction Pendulums Standing Exercise Name Pendulums Side right PT-OP-T Assessment and Plan Start: 03/27/19 16:41 Freq: Status: Active Protocol: Document 03/27/19 13:45 DCW (Rec: 03/28/19 17:09 [facility] [id number]) Physical Therapy Assessment Rehab Potential Rehabilitation Potential Good Evaluation Complexity Number of Personal Factors/Comorbidities 1-2 Number of Body Systems Impaired 1-2 Clinical Presentation at Evaluation Stable Impairments Impairments Pain,ROM,Soft Tissue Mobility, Strength Goals 2 Impairment Pt experiences increased pain with housework Short Term Goal (STG) Pt to be able to perform her hobbies of stitching and writing with <3/10 pain in her R shoulder STG Duration 04/26/19 Facilities Technician Goal (LTG) Pt to vacuum house with <3/10 pain in her R shoulder LTG Duration 05/27/19 1 Impairment Pt does not have an appropriate home exercise program Short Term Goal (STG) Pt will be independent and compliant with an appropriate HEP STG Duration 04/26/19 Assessment Summary Assessment Pt presents with signs and symptoms consistent with her referring diagnosis of mild supraspinatus and subscapularis tears. Pt has relatively WNL ROM, demonstrates some shoulder weakness secondary to pain, and is slightly limited with her daily function, especially with activities such as vacuuming, stitching, and housework. Pt has already made substantial progress since her initial injury in October, and should benefit from skilled therapy focusing on shoulder strengthening, ROM , decreased tone, and pain control. Physical Therapy Plan Frequency and Duration Frequency of Treatment 1x/Week Duration of Treatment 8 weeks Plan of Care Start Date 03/27/19 Plan of Care End Date 05/22/19 Therapeutic Interventions Therapeutic Interventions Home Exercise Program,Joint Mobilizations,Manual Therapy, Patient/Caregiver Education, Self-Care/Home Management,Soft Tissue Mobilization, Therapeutic Exercises Modalities Cold Pack/Ice Massage,Electric Stimulation,Hot Packs, Ultrasound Next Visit Focus/Plan Next Note Type Treatment Note Next Visit Plan Shoulder strengthening and ROM
--- NOTE | 2019-03-27 14:30 | PT.OPPOC ---
Physical, Occupational & Speech Therapy At [facility] Current Diagnoses Pain in right shoulder (03/27/19) Stiffness of right shoulder, not elsewhere classified (03/27/19) Unspecified rotator cuff tear or rupture of unspecified shoulder, not specified as traumatic (03/27/19) Visit Care Team Role Provider Type Amadeo Jaimes Attending Provider Non-Staff Primary Care Provider Referring Provider Specialty: Internal Medicine Address: [address] [place] [address], [facility] Email: Plan Of Care PT-OP-T Assessment and Plan Start: 03/27/19 16:41 Freq: Status: Active Protocol: Document 03/27/19 13:45 DCW (Rec: 03/28/19 17:09 DCW [id number]) Physical Therapy Assessment Rehab Potential Rehabilitation Potential Good Evaluation Complexity Number of Personal Factors/Comorbidities 1-2 Number of Body Systems Impaired 1-2 Clinical Presentation at Evaluation Stable Impairments Impairments Pain,ROM,Soft Tissue Mobility, Strength Goals 2 Impairment Pt experiences increased pain with housework Short Term Goal (STG) Pt to be able to perform her hobbies of stitching and writing with <3/10 pain in her R shoulder STG Duration 04/26/19 Racing Board Marker Goal (LTG) Pt to vacuum house with <3/10 pain in her R shoulder LTG Duration 05/27/19 1 Impairment Pt does not have an appropriate home exercise program Short Term Goal (STG) Pt will be independent and compliant with an appropriate HEP STG Duration 04/26/19 Assessment Summary Assessment Pt presents with signs and symptoms consistent with her referring diagnosis of mild supraspinatus and subscapularis tears. Pt has relatively WNL ROM, demonstrates some shoulder weakness secondary to pain, and is slightly limited with her daily function, especially with activities such as vacuuming, stitching, and housework. Pt has already made substantial progress since her initial injury in October, and should benefit from skilled therapy focusing on shoulder strengthening, ROM , decreased tone, and pain control. Physical Therapy Plan Frequency and Duration Frequency of Treatment 1x/Week Duration of Treatment 8 weeks Plan of Care Start Date 03/27/19 Plan of Care End Date 05/22/19 Therapeutic Interventions Therapeutic Interventions Home Exercise Program,Joint Mobilizations,Manual Therapy, Patient/Caregiver Education, Self-Care/Home Management,Soft Tissue Mobilization, Therapeutic Exercises Modalities Cold Pack/Ice Massage,Electric Stimulation,Hot Packs, Ultrasound Next Visit Focus/Plan Next Note Type Treatment Note Next Visit Plan Shoulder strengthening and ROM Plan of Care Dates Plan of Care Start Date 03/27/19 Plan of Care End Date 05/22/19 Electronically Signed by: Anibal Barker, PT 03/28/19 [id number] Please Sign and Return: I have reviewed this Plan of Care and certify that the skilled therapy services above are required to meet the patient?s needs. Physician Signature Date Printed Name and Credentials Clinical Instructor Signature Printed Name and Credentials
--- NOTE | 2019-04-10 16:22 | PT.OTN ---
Current Diagnoses Pain in right shoulder (04/10/19) Stiffness of right shoulder, not elsewhere classified (04/10/19) Unspecified rotator cuff tear or rupture of unspecified shoulder, not specified as traumatic (04/10/19) Physical Therapy Treatment Note PT-OP-A Visit Information Start: 03/27/19 16:41 Freq: Status: Active Protocol: Document 04/10/19 15:15 DCW (Rec: 04/10/19 16:22 DCW [id number]) Out-Patient Physical Therapy Visit Information Visit Information Visit Type Treatment Note Visit Start Time 15:15 Visit Stop Time 16:00 Total Visit Minutes 45 Visit Number 2 Number of ETL DATABASE DEVELOPER Visits 0 Evaluation Information Evaluation Date 03/27/19 PT-OP-B Current Condition Start: 03/27/19 16:41 Freq: Status: Active Protocol: Document 03/27/19 13:45 DCW (Rec: 03/28/19 11:13 DCW [id number]) Current Condition History of Current Condition Onset Date s/p 4.5 months Current Complaints R shoulder injured in fall History of Current Condition Pt is a 73 year old female presenting with a 4.5 month history of right shoulder pain following a fall. Pt notes that near the end of October , [place], caught her toe on a little nub, and fell onto her outstretched right arm. Pt immediately had pain in her right shoulder, but ignored it because I had a 5 week cruise coming up in December. Pt reports she finally had it looked at last week at a sports medicine clinic in [place], and a diagnostic ultrasound uncovered multiple mild tears. Pt notes that her shoulder has been trending better over the last four months, and notes that she is already performing a lot of strengthening exercises with her Behavioral Science Chair. Pt was told she should do PT for a few weeks, go back for an MRI, and figure out what to do from there. Prior Treatments and Tests Referral from [facility] : Dx is partial thickness SST and Subscap tear. - Igor Jean MD Treatment Goals Patient/Caregiver Goals Pt's goal is to improve strength and mobility, and decrease her current struggle with vacuuming, washing her car, performing housework, and decrease pain while stitching /writing. PT-OP-C Subjective Start: 03/27/19 16:41 Freq: Status: Active Protocol: Document 04/10/19 15:15 DCW (Rec: 04/10/19 16:22 DCW [id number]) OP-PT Subjective Patient Comments Patient Comments Pt reports that her shoulder has some pain with exercise, more like a muscle soreness, but it is improving. PT-OP-E Functional Tests Start: 03/27/19 16:41 Freq: Status: Active Protocol: Document 03/27/19 13:45 DCW (Rec: 03/28/19 11:13 DCW [id number]) Functional Tests Apley's Scratch Test Action 1- Left Posterior opposite shoulder Action 1- Right Posterior opposite shoulder Action 2- Left T4 Action 2- Right T4 Action 3- Left T6 Action 3- Right T12 PT-OP-F Manual Assessment Start: 03/27/19 16:41 Freq: Status: Active Protocol: Document 03/27/19 13:45 DCW (Rec: 03/28/19 11:13 DCW [id number]) Manual Assessments Soft Tissue Assessment Soft Tissue Mobility Assessment Increased tone along right upper trap, tenderness 2/4: pain with wincing along right supraspinatus and subscap PT-OP-K Range of Motion Start: 03/27/19 16:41 Freq: Status: Active Protocol: Document 03/27/19 13:45 DCW (Rec: 03/28/19 11:13 DCW [id number]) Shoulder Goniometric Range of Motion Shoulder Right Active Shoulder ROM WFL No Internal Rotation Behind Back (text) T12 left Shoulder ROM WFL Yes Shoulder ROM Limitations Comments R ROM all WNL except IR. Pt does exhibit painful arc of motion during abduction, between 40?-120? PT-OP-L Special Tests Start: 03/27/19 16:41 Freq: Status: Active Protocol: Document 03/27/19 13:45 DCW (Rec: 03/28/19 17:09 DCW [id number]) Special Tests Shoulder Special Tests Passive ER Rotator Cuff Test Results Positive R Painful Arc Test Results Positive R Lift-Off Rotator Cuff Test Results R pain Belly Press Test Results Positive R PT-OP-Q Treatments Start: 03/27/19 16:41 Freq: Status: Active Protocol: Document 04/10/19 15:15 DCW (Rec: 04/10/19 16:22 DCW [id number]) Cardio Equipment Upper Body Ergometer (UBE) Duration (Minutes) 5 RPM 60 Seat Position 12 Height 3 Therapeutic Exercises Supine Exercises Serratus Punch Supine Exercise Name Serratus Punch Side bilateral Flexion Supine Exercise Name Shoulder Flexion /c PVC Side bilateral Sitting Exercises pulleys shoulder flex and scaption Sitting Exercise Name Shoulder PROM Side right Equipment Used wall pulleys Standing Exercises Abduction Standing Exercise Name Shoulder Abduction Side bilateral Resistance 2# Flexion Standing Exercise Name Shoulder Flexion Side bilateral Resistance 2# Manual Therapy Treatment Soft Tissue Mobilization Parascapulars Body Location Parascapular musculature Mobilization Type Strumming,Sustained Pressure Body Position Supine Joint Mobilizations GH Joint GH Direction Inferior Grade III Scapulothoracic Joint Scapulothopracic Direction Lateral Grade III PT-OP-T Assessment and Plan Start: 03/27/19 16:41 Freq: Status: Active Protocol: Document 04/10/19 15:15 DCW (Rec: 04/10/19 16:22 DCW [id number]) Physical Therapy Assessment Impairments Impairments Pain,ROM,Soft Tissue Mobility, Strength Goals 2 Impairment Pt experiences increased pain with housework Short Term Goal (STG) Pt to be able to perform her hobbies of stitching and writing with <3/10 pain in her R shoulder STG Duration 04/26/19 Long-Term Goal (LTG) Pt to vacuum house with <3/10 pain in her R shoulder LTG Duration 05/27/19 1 Impairment Pt does not have an appropriate home exercise program Short Term Goal (STG) Pt will be independent and compliant with an appropriate HEP STG Duration 04/26/19 Assessment Summary Assessment Pt improving with function and mobility in right shoulder, improving pain levels. Pt doing well following HEP, working hard with her quality review trainer to increase strength and stability. Physical Therapy Plan Frequency and Duration Frequency of Treatment 1x/Week Duration of Treatment 8 weeks Plan of Care Start Date 03/27/19 Plan of Care End Date 05/22/19 Therapeutic Interventions Therapeutic Interventions Home Exercise Program,Joint Mobilizations,Manual Therapy, Patient/Caregiver Education, Self-Care/Home Management,Soft Tissue Mobilization, Therapeutic Exercises Modalities Cold Pack/Ice Massage,Electric Stimulation,Hot Packs, Ultrasound Next Visit Focus/Plan Next Note Type Treatment Note Next Visit Plan Shoulder strengthening and ROM
--- NOTE | 2019-04-17 17:11 | PT.OTN ---
Current Diagnoses Pain in right shoulder (04/17/19) Stiffness of right shoulder, not elsewhere classified (04/17/19) Unspecified rotator cuff tear or rupture of unspecified shoulder, not specified as traumatic (04/17/19) Physical Therapy Treatment Note PT-OP-A Visit Information Start: 03/27/19 16:41 Freq: Status: Active Protocol: Document 04/17/19 12:00 DCW (Rec: 04/17/19 17:11 DCW [id number]) Out-Patient Physical Therapy Visit Information Visit Information Visit Type Treatment Note Visit Start Time 12:00 Visit Stop Time 12:45 Total Visit Minutes 45 Visit Number 3 Number of RIP MACHINE OPERATOR Visits 0 Evaluation Information Evaluation Date 03/27/19 PT-OP-B Current Condition Start: 03/27/19 16:41 Freq: Status: Active Protocol: Document 03/27/19 13:45 DCW (Rec: 03/28/19 11:13 DCW [id number]) Current Condition History of Current Condition Onset Date s/p 4.5 months Current Complaints R shoulder injured in fall History of Current Condition Pt is a 73 year old female presenting with a 4.5 month history of right shoulder pain following a fall. Pt notes that near the end of October , [place] was [place], caught her toe on a little nub, and fell onto her outstretched right arm. Pt immediately had pain in her right shoulder, but ignored it because I had a 5 week cruise coming up in December. Pt reports she finally had it looked at last week at a sports medicine clinic in [place], and a diagnostic ultrasound uncovered multiple mild tears. Pt notes that her shoulder has been trending better over the last four months, and notes that she is already performing a lot of strengthening exercises with her Food Preparation Kitchen Aide. Pt was told she should do PT for a few weeks, go back for an MRI, and figure out what to do from there. Prior Treatments and Tests Referral from [facility] : Dx is partial thickness SST and Subscap tear. - Igor Jean MD Treatment Goals Patient/Caregiver Goals Pt's goal is to improve strength and mobility, and decrease her current struggle with vacuuming, washing her car, performing housework, and decrease pain while stitching /writing. PT-OP-C Subjective Start: 02/04/20 16:41 Freq: Status: Active Protocol: Document 04/17/19 12:00 DCW (Rec: 04/17/19 17:11 DCW [id number]) OP-PT Subjective Patient Comments Patient Comments Pt reports she is coming from a workout with her personal caregiver this morning. Notes she is doing well, but stil stiffnes up, mostly in the morning. PT-OP-E Functional Tests Start: 03/27/19 16:41 Freq: Status: Active Protocol: Document 03/27/19 13:45 DCW (Rec: 03/28/19 11:13 DCW [id number]) Functional Tests Apley's Scratch Test Action 1- Left Posterior opposite shoulder Action 1- Right Posterior opposite shoulder Action 2- Left T4 Action 2- Right T4 Action 3- Left T6 Action 3- Right T12 PT-OP-F Manual Assessment Start: 03/27/19 16:41 Freq: Status: Active Protocol: Document 03/27/19 13:45 DCW (Rec: 03/28/19 11:13 DCW [id number]) Manual Assessments Soft Tissue Assessment Soft Tissue Mobility Assessment Increased tone along right upper trap, tenderness 2/4: pain with wincing along right supraspinatus and subscap PT-OP-K Range of Motion Start: 03/27/19 16:41 Freq: Status: Active Protocol: Document 03/27/19 13:45 DCW (Rec: 03/28/19 11:13 DCW [id number]) Shoulder Goniometric Range of Motion Shoulder Right Active Shoulder ROM WFL No Internal Rotation Behind Back (text) T12 left Shoulder ROM WFL Yes Shoulder ROM Limitations Comments R ROM all WNL except IR. Pt does exhibit painful arc of motion during abduction, between 40?-120? PT-OP-L Special Tests Start: 03/27/19 16:41 Freq: Status: Active Protocol: Document 03/27/19 13:45 DCW (Rec: 03/28/19 17:09 DCW [id number]) Special Tests Shoulder Special Tests Passive ER Rotator Cuff Test Results Positive R Painful Arc Test Results Positive R Lift-Off Rotator Cuff Test Results R pain Belly Press Test Results Positive R PT-OP-Q Treatments Start: 03/27/19 16:41 Freq: Status: Active Protocol: Document 04/17/19 12:00 [facility] (Rec: 04/17/19 17:11 [facility] [id number]) Cardio Equipment Upper Body Ergometer (UBE) Duration (Minutes) 5 RPM 60 Seat Position 10 Height 3.5 Therapeutic Exercises Supine Exercises Serratus Punch Supine Exercise Name Serratus Punch Side bilateral Resistance 5# on PVC Flexion Supine Exercise Name Shoulder Flexion /c PVC Side bilateral Sitting Exercises pulleys shoulder flex and scaption Sitting Exercise Name Shoulder PROM Side right Equipment Used wall pulleys Standing Exercises IR/ER Standing Exercise Name IR/ER Side bilateral Resistance Lv 2 Equipment Used T-band Shoulder press Standing Exercise Name Shoulder press Side bilateral Resistance 2# Abduction Standing Exercise Name Shoulder Abduction Side bilateral Resistance 2# Flexion Standing Exercise Name Shoulder Flexion Side bilateral Resistance 2# Manual Therapy Treatment Joint Mobilizations Scapulothoracic Joint Scapulothopracic Direction Lateral Grade III PT-OP-T Assessment and Plan Start: 03/27/19 16:41 Freq: Status: Active Protocol: Document 04/17/19 12:00 [facility] (Rec: 04/17/19 17:11 [facility] [id number]) Physical Therapy Assessment Impairments Impairments Pain,ROM,Soft Tissue Mobility, Strength Goals 2 Impairment Pt experiences increased pain with housework Short Term Goal (STG) Pt to be able to perform her hobbies of stitching and writing with <3/10 pain in her R shoulder STG Duration 04/26/19 Interactive Developer Goal (LTG) Pt to vacuum house with <3/10 pain in her R shoulder LTG Duration 05/27/19 1 Impairment Pt does not have an appropriate home exercise program Short Term Goal (STG) Pt will be independent and compliant with an appropriate HEP STG Duration 04/26/19 Assessment Summary Assessment Pt showing improvement with pain levels and mobility. Appears to be performing all recommended HEP and tolerates personal caregiver activities well. Physical Therapy Plan Frequency and Duration Frequency of Treatment 1x/Week Duration of Treatment 8 weeks Plan of Care Start Date 03/27/19 Plan of Care End Date 05/22/19 Therapeutic Interventions Therapeutic Interventions Home Exercise Program,Joint Mobilizations,Manual Therapy, Patient/Caregiver Education, Self-Care/Home Management,Soft Tissue Mobilization, Therapeutic Exercises Modalities Cold Pack/Ice Massage,Electric Stimulation,Hot Packs, Ultrasound Next Visit Focus/Plan Next Note Type Treatment Note Next Visit Plan Shoulder strengthening and ROM
--- NOTE | 2019-04-24 12:46 | PT.OTN ---
Current Diagnoses Pain in right shoulder (04/24/19) Stiffness of right shoulder, not elsewhere classified (04/24/19) Unspecified rotator cuff tear or rupture of unspecified shoulder, not specified as traumatic (04/24/19) Physical Therapy Treatment Note PT-OP-A Visit Information Start: 03/27/19 16:41 Freq: Status: Active Protocol: Document 04/24/19 12:00 DCW (Rec: 04/24/19 12:46 DCW [id number]) Out-Patient Physical Therapy Visit Information Visit Information Visit Type Treatment Note Visit Start Time 12:00 Visit Stop Time 12:45 Total Visit Minutes 45 Visit Number 4 Number of ASIC VERIFICATION ENGINEER Visits 0 Evaluation Information Evaluation Date 03/27/19 PT-OP-B Current Condition Start: 03/27/19 16:41 Freq: Status: Active Protocol: Document 03/27/19 13:45 DCW (Rec: 03/28/19 11:13 DCW [id number]) Current Condition History of Current Condition Onset Date s/p 4.5 months Current Complaints R shoulder injured in fall History of Current Condition Pt is a 73 year old female presenting with a 4.5 month history of right shoulder pain following a fall. Pt notes that near the end of October , [place], caught her toe on a little nub, and fell onto her outstretched right arm. Pt immediately had pain in her right shoulder, but ignored it because I had a 5 week cruise coming up in December. Pt reports she finally had it looked at last week at a sports medicine clinic in [place], and a diagnostic ultrasound uncovered multiple mild tears. Pt notes that her shoulder has been trending better over the last four months, and notes that she is already performing a lot of strengthening exercises with her Spinning Mule Tender. Pt was told she should do PT for a few weeks, go back for an MRI, and figure out what to do from there. Prior Treatments and Tests Referral from [facility] : Dx is partial thickness SST and Subscap tear. - Igor Jean MD Treatment Goals Patient/Caregiver Goals Pt's goal is to improve strength and mobility, and decrease her current struggle with vacuuming, washing her car, performing housework, and decrease pain while stitching /writing. PT-OP-C Subjective Start: 03/27/19 16:41 Freq: Status: Active Protocol: Document 04/24/19 12:00 DCW (Rec: 04/24/19 12:46 DCW [id number]) OP-PT Subjective Patient Comments Patient Comments It's getting less sore. Pt spent quite a bit of time yesterday doing her stitching with no increased shoulder pain, although she still is unable to vacuum without increased pain. Patient Reported Progress Improving PT-OP-E Functional Tests Start: 03/27/19 16:41 Freq: Status: Active Protocol: Document 03/27/19 13:45 DCW (Rec: 03/28/19 11:13 DCW [id number]) Functional Tests Apley's Scratch Test Action 1- Left Posterior opposite shoulder Action 1- Right Posterior opposite shoulder Action 2- Left T4 Action 2- Right T4 Action 3- Left T6 Action 3- Right T12 PT-OP-F Manual Assessment Start: 03/27/19 16:41 Freq: Status: Active Protocol: Document 03/27/19 13:45 DCW (Rec: 03/28/19 11:13 DCW [id number]) Manual Assessments Soft Tissue Assessment Soft Tissue Mobility Assessment Increased tone along right upper trap, tenderness 2/4: pain with wincing along right supraspinatus and subscap PT-OP-K Range of Motion Start: 03/27/19 16:41 Freq: Status: Active Protocol: Document 03/27/19 13:45 DCW (Rec: 03/28/19 11:13 DCW [id number]) Shoulder Goniometric Range of Motion Shoulder Right Active Shoulder ROM WFL No Internal Rotation Behind Back (text) T12 left Shoulder ROM WFL Yes Shoulder ROM Limitations Comments R ROM all WNL except IR. Pt does exhibit painful arc of motion during abduction, between 40?-120? PT-OP-L Special Tests Start: 03/27/19 16:41 Freq: Status: Active Protocol: Document 03/27/19 13:45 DCW (Rec: 03/28/19 17:09 DCW [id number]) Special Tests Shoulder Special Tests Passive ER Rotator Cuff Test Results Positive R Painful Arc Test Results Positive R Lift-Off Rotator Cuff Test Results R pain Belly Press Test Results Positive R PT-OP-Q Treatments Start: 03/27/19 16:41 Freq: Status: Active Protocol: Document 04/24/19 12:00 DCW (Rec: 04/24/19 12:46 DCW [id number]) Cardio Equipment Upper Body Ergometer (UBE) Duration (Minutes) 5 RPM 60 Seat Position 10 Height 3.5 Therapeutic Exercises Supine Exercises Flexion Supine Exercise Name Shoulder Flexion /c PVC Side bilateral Sitting Exercises pulleys shoulder flex and scaption Sitting Exercise Name Shoulder PROM Side right Equipment Used wall pulleys Standing Exercises PNF D1/D2 Flexion Standing Exercise Name PNF D1/D2 Flexion Side right Resistance 2# Wall push-ups Standing Exercise Name Wall push-ups Comments <> and W hand positions Serratus Punch Standing Exercise Name Standing serratus punch Manual Therapy Treatment Soft Tissue Mobilization Parascapulars Body Location Parascapular musculature Mobilization Type Strumming,Sustained Pressure Body Position Supine Joint Mobilizations GH Joint GH Direction Inferior Grade III Scapulothoracic Joint Scapulothopracic Direction Lateral Grade III PT-OP-T Assessment and Plan Start: 03/27/19 16:41 Freq: Status: Active Protocol: Document 04/24/19 12:00 DCW (Rec: 04/24/19 12:46 DCW [id number]) Physical Therapy Assessment Impairments Impairments Pain,ROM,Soft Tissue Mobility, Strength Goals 2 Impairment Pt experiences increased pain with housework Short Term Goal (STG) Pt to be able to perform her hobbies of stitching and writing with <3/10 pain in her R shoulder STG Duration [place] Editor Goal (LTG) Pt to vacuum house with <3/10 pain in her R shoulder LTG Duration 05/27/19 1 Impairment Pt does not have an appropriate home exercise program Short Term Goal (STG) Pt will be independent and compliant with an appropriate HEP STG Duration 04/26/19 Assessment Summary Assessment Pt is now able to participate in her hobbies with no increased pain, still has some pain with it applications developer. Doing very well with her HEP and strengthening with her management trainer. Physical Therapy Plan Frequency and Duration Frequency of Treatment 1x/Week Duration of Treatment 8 weeks Plan of Care Start Date 03/27/19 Plan of Care End Date 05/22/19 Therapeutic Interventions Therapeutic Interventions Home Exercise Program,Joint Mobilizations,Manual Therapy, Patient/Caregiver Education, Self-Care/Home Management,Soft Tissue Mobilization, Therapeutic Exercises Modalities Cold Pack/Ice Massage,Electric Stimulation,Hot Packs, Ultrasound Next Visit Focus/Plan Next Note Type Treatment Note Next Visit Plan Shoulder strengthening and ROM
--- NOTE | 2019-05-08 16:01 | PT.OTN ---
Current Diagnoses Pain in right shoulder (05/08/19) Stiffness of right shoulder, not elsewhere classified (05/08/19) Unspecified rotator cuff tear or rupture of unspecified shoulder, not specified as traumatic (05/08/19) Physical Therapy Treatment Note PT-OP-A Visit Information Start: 03/27/19 16:41 Freq: Status: Active Protocol: Document 05/08/19 15:15 DCW (Rec: 05/08/19 16:01 DCW [id number]) Out-Patient Physical Therapy Visit Information Visit Information Visit Type Treatment Note Visit Start Time 15:15 Visit Stop Time 16:00 Total Visit Minutes 45 Visit Number 5 Number of PHARMACEUTICAL SALES REPRESENTATIVE Visits 0 Evaluation Information Evaluation Date 03/27/19 PT-OP-B Current Condition Start: 03/27/19 16:41 Freq: Status: Active Protocol: Document 03/27/19 13:45 DCW (Rec: 03/28/19 11:13 DCW [id number]) Current Condition History of Current Condition Onset Date s/p 4.5 months Current Complaints R shoulder injured in fall History of Current Condition Pt is a 73 year old female presenting with a 4.5 month history of right shoulder pain following a fall. Pt notes that near the end of October , she was [place] dock, caught her toe on a little nub, and fell onto her outstretched right arm. Pt immediately had pain in her right shoulder, but ignored it because I had a 5 week cruise coming up in December. Pt reports she finally had it looked at last week at a sports medicine clinic in [place], and a diagnostic ultrasound uncovered multiple mild tears. Pt notes that her shoulder has been trending better over the last four months, and notes that she is already performing a lot of strengthening exercises with her Asbestos Brake Lining Finisher. Pt was told she should do PT for a few weeks, go back for an MRI, and figure out what to do from there. Prior Treatments and Tests Referral from [facility] : Dx is partial thickness SST and Subscap tear. - Igor Jean MD Treatment Goals Patient/Caregiver Goals Pt's goal is to improve strength and mobility, and decrease her current struggle with vacuuming, washing her car, performing housework, and decrease pain while stitching /writing. PT-OP-C Subjective Start: 03/27/19 16:41 Freq: Status: Active Protocol: Document 05/08/19 15:15 DCW (Rec: 05/08/19 16:01 DCW [id number]) OP-PT Subjective Patient Comments Patient Comments Pt reports that she is a little stiff after sitting and stitching for the last hour, but other than that she is doing pretty well. PT-OP-E Functional Tests Start: 03/27/19 16:41 Freq: Status: Active Protocol: Document 03/27/19 13:45 DCW (Rec: 03/28/19 11:13 DCW [id number]) Functional Tests Apley's Scratch Test Action 1- Left Posterior opposite shoulder Action 1- Right Posterior opposite shoulder Action 2- Left T4 Action 2- Right T4 Action 3- Left T6 Action 3- Right T12 PT-OP-F Manual Assessment Start: 03/27/19 16:41 Freq: Status: Active Protocol: Document 03/27/19 13:45 DCW (Rec: 03/28/19 11:13 DCW [id number]) Manual Assessments Soft Tissue Assessment Soft Tissue Mobility Assessment Increased tone along right upper trap, tenderness 2/4: pain with wincing along right supraspinatus and subscap PT-OP-K Range of Motion Start: 03/27/19 16:41 Freq: Status: Active Protocol: Document 03/27/19 13:45 DCW (Rec: 03/28/19 11:13 DCW [id number]) Shoulder Goniometric Range of Motion Shoulder Right Active Shoulder ROM WFL No Internal Rotation Behind Back (text) T12 left Shoulder ROM WFL Yes Shoulder ROM Limitations Comments R ROM all WNL except IR. Pt does exhibit painful arc of motion during abduction, between 40?-120? PT-OP-L Special Tests Start: 03/27/19 16:41 Freq: Status: Active Protocol: Document 03/27/19 13:45 DCW (Rec: 03/28/19 17:09 DCW [id number]) Special Tests Shoulder Special Tests Passive ER Rotator Cuff Test Results Positive R Painful Arc Test Results Positive R Lift-Off Rotator Cuff Test Results R pain Belly Press Test Results Positive R PT-OP-Q Treatments Start: 03/27/19 16:41 Freq: Status: Active Protocol: Document 05/08/19 15:15 DCW (Rec: 03/17/20 16:01 NMW [id number]) Cardio Equipment Upper Body Ergometer (UBE) Duration (Minutes) 5 RPM 60 Seat Position 10 Height 3.5 Therapeutic Exercises Sitting Exercises pulleys shoulder flex and scaption Sitting Exercise Name Shoulder PROM Side right Equipment Used wall pulleys Standing Exercises PNF D1/D2 Flexion Standing Exercise Name PNF D1/D2 Flexion Side right Resistance 2# Wall push-ups Standing Exercise Name Wall push-ups Comments <> and W hand positions Shoulder press Standing Exercise Name Shoulder press Side bilateral Resistance 2# Abduction Standing Exercise Name Shoulder Abduction Side bilateral Resistance 2# Flexion Standing Exercise Name Shoulder Flexion Side bilateral Resistance 2# Manual Therapy Treatment Soft Tissue Mobilization Parascapulars Body Location Parascapular musculature Mobilization Type Strumming,Sustained Pressure Body Position Supine Joint Mobilizations GH Joint GH Direction Inferior Grade III Scapulothoracic Joint Scapulothopracic Direction Lateral Grade III PT-OP-T Assessment and Plan Start: 03/27/19 16:41 Freq: Status: Active Protocol: Document 05/08/19 15:15 DCW (Rec: 05/08/19 16:01 NMW [id number]) Physical Therapy Assessment Impairments Impairments Pain,ROM,Soft Tissue Mobility, Strength Goals 2 Impairment Pt experiences increased pain with housework Short Term Goal (STG) Pt to be able to perform her hobbies of stitching and writing with <3/10 pain in her R shoulder STG Duration Met Property Valuer Goal (LTG) Pt to vacuum house with <3/10 pain in her R shoulder LTG Duration 05/27/19 1 Impairment Pt does not have an appropriate home exercise program Short Term Goal (STG) Pt will be independent and compliant with an appropriate HEP STG Duration 04/26/19 Assessment Summary Assessment Pt continues to make progress. Much less pain with activity, not having any difficulty participating with dog handler or trainer. Physical Therapy Plan Frequency and Duration Frequency of Treatment 1x/Week Duration of Treatment 8 weeks Plan of Care Start Date 03/27/19 Plan of Care End Date 05/22/19 Therapeutic Interventions Therapeutic Interventions Home Exercise Program,Joint Mobilizations,Manual Therapy, Patient/Caregiver Education, Self-Care/Home Management,Soft Tissue Mobilization, Therapeutic Exercises Modalities Cold Pack/Ice Massage,Electric Stimulation,Hot Packs, Ultrasound Next Visit Focus/Plan Next Note Type Treatment Note Next Visit Plan Shoulder strengthening and ROM
--- NOTE | 2019-08-14 16:00 | PT.OPPN ---
Current Diagnoses Pain in right shoulder (08/14/19) Stiffness of right shoulder, not elsewhere classified (08/14/19) Unspecified rotator cuff tear or rupture of unspecified shoulder, not specified as traumatic (08/14/19) Physical Therapy Progress Note PT-OP-A Visit Information Start: 03/27/19 16:41 Freq: Status: Active Protocol: Document 08/14/19 15:15 DCW (Rec: 08/14/19 15:59 DCW [id number]) Out-Patient Physical Therapy Visit Information Visit Information Visit Type Treatment Note Visit Start Time 15:15 Visit Stop Time 16:00 Total Visit Minutes 45 Visit Number 6 Number of ROTATING EQUIPMENT ENGINEER Visits 0 Evaluation Information Evaluation Date 03/27/19 PT-OP-B Current Condition Start: 03/27/19 16:41 Freq: Status: Active Protocol: Document 03/27/19 13:45 DCW (Rec: 03/28/19 11:13 DCW [id number]) Current Condition History of Current Condition Onset Date s/p 4.5 months Current Complaints R shoulder injured in fall History of Current Condition Pt is a 73 year old female presenting with a 4.5 month history of right shoulder pain following a fall. Pt notes that near the end of October , she was [place] dock, caught her toe on a little nub, and fell onto her outstretched right arm. Pt immediately had pain in her right shoulder, but ignored it because I had a 5 week cruise coming up in December. Pt reports she finally had it looked at last week at a sports medicine clinic in [place], and a diagnostic ultrasound uncovered multiple mild tears. Pt notes that her shoulder has been trending better over the last four months, and notes that she is already performing a lot of strengthening exercises with her Senior Financial Analyst. Pt was told she should do PT for a few weeks, go back for an MRI, and figure out what to do from there. Prior Treatments and Tests Referral from [facility] : Dx is partial thickness SST and Subscap tear. - Igor Jean MD Treatment Goals Patient/Caregiver Goals Pt's goal is to improve strength and mobility, and decrease her current struggle with vacuuming, washing her car, performing housework, and decrease pain while stitching /writing. PT-OP-C Subjective Start: 03/27/19 16:41 Freq: Status: Active Protocol: Document 08/14/19 15:15 DCW (Rec: 08/14/19 15:59 DCW [id number]) OP-PT Subjective Patient Comments Patient Comments It has been feeling pretty good. Imagine that, give it three months without being able to do anything, and it starts to heal back up. 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 Pt is really only bothered with sleeping on her right side. PT-OP-E Functional Tests Start: 03/27/19 16:41 Freq: Status: Active Protocol: Document 08/14/19 15:15 DCW (Rec: 08/14/19 15:28 DCW [id number]) Functional Tests Apley's Scratch Test Action 1: The subject is instructed to touch the opposite shoulder with his/her hand. This motion checks Glenohumeral adduction, internal rotation , horizontal adduction and scapular protraction Action 2: The subject is instructed to place his/her arm overhead and reach behind the neck to touch his/her upper back. This motion checks Glenohumeral abduction, external rotation and scapular upward rotation and elevation. Action 3: The subject puts his/her hand on the lower back and reaches upward as far as possible. This motion checks glenohumeral adduction, internal rotation and scapular retraction with downward rotation Action 1- Left Posterior opposite shoulder Action 1- Right Posterior opposite shoulder Action 2- Left T4 Action 2- Right T4 Action 3- Left T4 Action 3- Right T8 PT-OP-F Manual Assessment Start: 03/27/19 16:41 Freq: Status: Active Protocol: Document 08/14/19 15:15 DCW (Rec: 08/14/19 15:28 DCW [id number]) Manual Assessments Soft Tissue Assessment Soft Tissue Mobility Assessment Increased tone along right upper trap, tenderness 2/4: pain with wincing along right supraspinatus and subscap PT-OP-K Range of Motion Start: 03/27/19 16:41 Freq: Status: Active Protocol: Document 08/14/19 15:15 DCW (Rec: 08/14/19 15:28 DCW [id number]) Shoulder Goniometric Range of Motion Shoulder Measured in Degrees Right Active Internal Rotation Behind Back (text) T8 Shoulder ROM Limitations Comments R ROM all WNL except IR. PT-OP-L Special Tests Start: 03/27/19 16:41 Freq: Status: Active Protocol: Document 08/14/19 15:15 DCW (Rec: 08/14/19 15:28 DCW [id number]) Special Tests Shoulder Special Tests Passive ER Rotator Cuff Test Results Negative Painful Arc Test Results Negative Lift-Off Rotator Cuff Test Results Mild R pain Belly Press Test Results Negative PT-OP-T Assessment and Plan Start: 03/27/19 16:41 Freq: Status: Active Protocol: Document 08/14/19 15:15 DCW (Rec: 08/14/19 15:59 DCW [id number]) Physical Therapy Assessment Impairments Impairments Pain,ROM,Soft Tissue Mobility, Strength Goals 2 Impairment Pt experiences increased pain with housework Short Term Goal (STG) Pt to be able to perform her hobbies of stitching and writing with <3/10 pain in her R shoulder STG Duration Met Annual Giving Manager Goal (LTG) Pt to vacuum house with <3/10 pain in her R shoulder LTG Duration 05/27/19 1 Impairment Pt does not have an appropriate home exercise program Short Term Goal (STG) Pt will be independent and compliant with an appropriate HEP STG Duration 04/26/19 Assessment Summary Assessment Pt doing very well following extended layoff secondary to Covid-19 shutdown. Pt shoulder largely WNL, improved strength and ROM, however pt still presenting with increased parascapular and upper trap tone. As pt is already back to working on strengthening with her radio personality, pt may benefit from 1-2 more visits to focus on STM to reduce tone , and then discharge for continued strengthening. Physical Therapy Plan Frequency and Duration Frequency of Treatment 1x/Week Duration of Treatment 4 weeks Plan of Care Start Date 08/14/19 Plan of Care End Date 09/11/19 Therapeutic Interventions Therapeutic Interventions Home Exercise Program,Joint Mobilizations,Manual Therapy, Patient/Caregiver Education, Self-Care/Home Management,Soft Tissue Mobilization, Therapeutic Exercises Modalities Cold Pack/Ice Massage,Electric Stimulation,Hot Packs, Ultrasound Next Visit Focus/Plan Next Note Type Treatment Note Next Visit Plan Shoulder strengthening and ROM
--- NOTE | 2019-08-14 16:00 | PT.OPPOC ---
Physical, Occupational & Speech Therapy At [facility] Current Diagnoses Pain in right shoulder (08/14/19) Stiffness of right shoulder, not elsewhere classified (08/14/19) Unspecified rotator cuff tear or rupture of unspecified shoulder, not specified as traumatic (08/14/19) Visit Care Team Role Provider Type Amadeo Jaimes Attending Provider Non-Staff Primary Care Provider Referring Provider Specialty: Internal Medicine Address: [address] [place] [address], [facility] Email: Plan Of Care PT-OP-T Assessment and Plan Start: 03/27/19 16:41 Freq: Status: Active Protocol: Document 08/14/19 15:15 DCW (Rec: 08/14/19 15:59 DCW [id number]) Physical Therapy Assessment Impairments Impairments Pain,ROM,Soft Tissue Mobility, Strength Goals 2 Impairment Pt experiences increased pain with housework Short Term Goal (STG) Pt to be able to perform her hobbies of stitching and writing with <3/10 pain in her R shoulder STG Duration Met Intermediate Goal (LTG) Pt to vacuum house with <3/10 pain in her R shoulder LTG Duration 05/27/19 1 Impairment Pt does not have an appropriate home exercise program Short Term Goal (STG) Pt will be independent and compliant with an appropriate HEP STG Duration 04/26/19 Assessment Summary Assessment Pt doing very well following extended layoff secondary to Covid-19 shutdown. Pt shoulder largely WNL, improved strength and ROM, however pt still presenting with increased parascapular and upper trap tone. As pt is already back to working on strengthening with her personal lines account executive, pt may benefit from 1-2 more visits to focus on STM to reduce tone , and then discharge for continued strengthening. Physical Therapy Plan Frequency and Duration Frequency of Treatment 1x/Week Duration of Treatment 4 weeks Plan of Care Start Date 08/14/19 Plan of Care End Date 09/11/19 Therapeutic Interventions Therapeutic Interventions Home Exercise Program,Joint Mobilizations,Manual Therapy, Patient/Caregiver Education, Self-Care/Home Management,Soft Tissue Mobilization, Therapeutic Exercises Modalities Cold Pack/Ice Massage,Electric Stimulation,Hot Packs, Ultrasound Next Visit Focus/Plan Next Note Type Treatment Note Next Visit Plan Shoulder strengthening and ROM Plan of Care Dates Plan of Care Start Date 08/14/19 Plan of Care End Date 09/11/19 Electronically Signed by: Anibal Barker, PT 08/14/19 1600 Please Sign and Return: I have reviewed this Plan of Care and certify that the skilled therapy services above are required to meet the patient?s needs. Physician Signature Date Printed Name and Credentials Clinical Instructor Signature Printed Name and Credentials
--- NOTE | 2019-08-23 15:13 | PT.OTN ---
Current Diagnoses Pain in right shoulder (08/23/19) Stiffness of right shoulder, not elsewhere classified (08/23/19) Unspecified rotator cuff tear or rupture of unspecified shoulder, not specified as traumatic (08/23/19) Physical Therapy Treatment Note PT-OP-A Visit Information Start: 03/27/19 16:41 Freq: Status: Active Protocol: Document 08/23/19 14:30 DCW (Rec: 08/23/19 15:13 DCW [id number]) Out-Patient Physical Therapy Visit Information Visit Information Visit Type Treatment Note Visit Start Time 14:30 Visit Stop Time 15:15 Total Visit Minutes 45 Visit Number 7 Number of PROTECTOR PLATE ATTACHER Visits 0 Evaluation Information Evaluation Date 03/27/19 PT-OP-B Current Condition Start: 03/27/19 16:41 Freq: Status: Active Protocol: Document 03/27/19 13:45 DCW (Rec: 03/28/19 11:13 DCW [id number]) Current Condition History of Current Condition Onset Date s/p 4.5 months Current Complaints R shoulder injured in fall History of Current Condition Pt is a 73 year old female presenting with a 4.5 month history of right shoulder pain following a fall. Pt notes that near the end of October , [place], caught her toe on a little nub, and fell onto her outstretched right arm. Pt immediately had pain in her right shoulder, but ignored it because I had a 5 week cruise coming up in December. Pt reports she finally had it looked at last week at a sports medicine clinic in [place], and a diagnostic ultrasound uncovered multiple mild tears. Pt notes that her shoulder has been trending better over the last four months, and notes that she is already performing a lot of strengthening exercises with her Paperhanger Supervisor. Pt was told she should do PT for a few weeks, go back for an MRI, and figure out what to do from there. Prior Treatments and Tests Referral from [facility] : Dx is partial thickness SST and Subscap tear. - Igor Jean MD Treatment Goals Patient/Caregiver Goals Pt's goal is to improve strength and mobility, and decrease her current struggle with vacuuming, washing her car, performing housework, and decrease pain while stitching /writing. PT-OP-C Subjective Start: 03/27/19 16:41 Freq: Status: Active Protocol: Document 08/23/19 14:30 DCW (Rec: 08/23/19 15:13 DCW [id number]) OP-PT Subjective Patient Comments Patient Comments Pt reports that her back is a little tight after doing a lot of strengthening with Andi ( household personal assistant). PT-OP-E Functional Tests Start: 03/27/19 16:41 Freq: Status: Active Protocol: Document 08/14/19 15:15 DCW (Rec: 08/14/19 15:28 DCW [id number]) Functional Tests Apley's Scratch Test Action 1- Left Posterior opposite shoulder Action 1- Right Posterior opposite shoulder Action 2- Left T4 Action 2- Right T4 Action 3- Left T4 Action 3- Right T8 PT-OP-F Manual Assessment Start: 03/27/19 16:41 Freq: Status: Active Protocol: Document 08/14/19 15:15 DCW (Rec: 08/14/19 15:28 DCW [id number]) Manual Assessments Soft Tissue Assessment Soft Tissue Mobility Assessment Increased tone along right upper trap, tenderness 2/4: pain with wincing along right supraspinatus and subscap PT-OP-K Range of Motion Start: 03/27/19 16:41 Freq: Status: Active Protocol: Document 08/14/19 15:15 DCW (Rec: 08/14/19 15:28 DCW [id number]) Shoulder Goniometric Range of Motion Shoulder Right Active Internal Rotation Behind Back (text) T8 Shoulder ROM Limitations Comments R ROM all WNL except IR. PT-OP-L Special Tests Start: 03/27/19 16:41 Freq: Status: Active Protocol: Document 08/14/19 15:15 DCW (Rec: 08/14/19 15:28 DCW [id number]) Special Tests Shoulder Special Tests Passive ER Rotator Cuff Test Results Negative Painful Arc Test Results Negative Lift-Off Rotator Cuff Test Results Mild R pain Belly Press Test Results Negative PT-OP-Q Treatments Start: 03/27/19 16:41 Freq: Status: Active Protocol: Document 08/23/19 14:30 DCW (Rec: 08/23/19 15:13 DCW [id number]) Manual Therapy Treatment Soft Tissue Mobilization Upper Trap Body Location R Upper trap Parascapulars Body Location Parascapular musculature Mobilization Type Strumming,Sustained Pressure Body Position Supine Joint Mobilizations GH Joint GH Direction Inferior Grade III Scapulothoracic Joint Scapulothopracic Direction Lateral Grade III PT-OP-T Assessment and Plan Start: 03/27/19 16:41 Freq: Status: Active Protocol: Document 08/23/19 14:30 DCW (Rec: 08/23/19 15:13 DCW [id number]) Physical Therapy Assessment Impairments Impairments Pain,ROM,Soft Tissue Mobility, Strength Goals 2 Impairment Pt experiences increased pain with housework Short Term Goal (STG) Pt to be able to perform her hobbies of stitching and writing with <3/10 pain in her R shoulder STG Duration Met Merchandise Clerk Goal (LTG) Pt to vacuum house with <3/10 pain in her R shoulder LTG Duration 05/27/19 1 Impairment Pt does not have an appropriate home exercise program Short Term Goal (STG) Pt will be independent and compliant with an appropriate HEP STG Duration 04/26/19 Assessment Summary Assessment Pt continues to do well, tolerated manual therapy today with no complaints of pain or difficulty. Pt will likely discharge following next week' s visit, and will continue to work on strengthening and shoulder stability with her regional sales trainer. Physical Therapy Plan Frequency and Duration Frequency of Treatment 1x/Week Duration of Treatment 4 weeks Plan of Care Start Date 08/14/19 Plan of Care End Date 09/11/19 Therapeutic Interventions Therapeutic Interventions Home Exercise Program,Joint Mobilizations,Manual Therapy, Patient/Caregiver Education, Self-Care/Home Management,Soft Tissue Mobilization, Therapeutic Exercises Modalities Cold Pack/Ice Massage,Electric Stimulation,Hot Packs, Ultrasound Next Visit Focus/Plan Next Note Type Treatment Note Next Visit Plan Shoulder strengthening and ROM
--- NOTE | 2019-08-27 16:47 | PT.OTN ---
Current Diagnoses Pain in right shoulder (08/27/19) Stiffness of right shoulder, not elsewhere classified (08/27/19) Unspecified rotator cuff tear or rupture of unspecified shoulder, not specified as traumatic (08/27/19) Physical Therapy Treatment Note PT-OP-A Visit Information Start: 03/27/19 16:41 Freq: Status: Active Protocol: Document 08/27/19 16:00 DCW (Rec: 08/27/19 16:47 DCW [id number]) Out-Patient Physical Therapy Visit Information Visit Information Visit Type Discharge Summary Visit Start Time 16:00 Visit Stop Time 16:45 Total Visit Minutes 45 Visit Number 8 Number of TARGET NETWORK ANALYST Visits 0 Evaluation Information Evaluation Date 03/27/19 PT-OP-B Current Condition Start: 03/27/19 16:41 Freq: Status: Active Protocol: Document 03/27/19 13:45 DCW (Rec: 03/28/19 11:13 DCW [id number]) Current Condition History of Current Condition Onset Date s/p 4.5 months Current Complaints R shoulder injured in fall History of Current Condition Pt is a 73 year old female presenting with a 4.5 month history of right shoulder pain following a fall. Pt notes that near the end of October , [place] was [place] dock, caught her toe on a little nub, and fell onto her outstretched right arm. Pt immediately had pain in her right shoulder, but ignored it because I had a 5 week cruise coming up in December. Pt reports she finally had it looked at last week at a sports medicine clinic in [place], and a diagnostic ultrasound uncovered multiple mild tears. Pt notes that her shoulder has been trending better over the last four months, and notes that she is already performing a lot of strengthening exercises with her Bird Tender. Pt was told she should do PT for a few weeks, go back for an MRI, and figure out what to do from there. Prior Treatments and Tests Referral from [facility] : Dx is partial thickness SST and Subscap tear. - Igor Jean MD Treatment Goals Patient/Caregiver Goals Pt's goal is to improve strength and mobility, and decrease her current struggle with vacuuming, washing her car, performing housework, and decrease pain while stitching /writing. PT-OP-C Subjective Start: 03/27/19 16:41 Freq: Status: Active Protocol: Document 08/27/19 16:00 DCW (Rec: 08/27/19 16:47 DCW [id number]) OP-PT Subjective Patient Comments Patient Comments Pt notes she has been working on stretching, and has been careful with how she is working out, and is therefore feeling pretty good. PT-OP-E Functional Tests Start: 03/27/19 16:41 Freq: Status: Active Protocol: Document 08/14/19 15:15 DCW (Rec: 08/14/19 15:28 DCW [id number]) Functional Tests Apley's Scratch Test Action 1- Left Posterior opposite shoulder Action 1- Right Posterior opposite shoulder Action 2- Left T4 Action 2- Right T4 Action 3- Left T4 Action 3- Right T8 PT-OP-F Manual Assessment Start: 03/27/19 16:41 Freq: Status: Active Protocol: Document 08/14/19 15:15 DCW (Rec: 08/14/19 15:28 DCW [id number]) Manual Assessments Soft Tissue Assessment Soft Tissue Mobility Assessment Increased tone along right upper trap, tenderness 2/4: pain with wincing along right supraspinatus and subscap PT-OP-K Range of Motion Start: 03/27/19 16:41 Freq: Status: Active Protocol: Document 08/14/19 15:15 DCW (Rec: 08/14/19 15:28 DCW [id number]) Shoulder Goniometric Range of Motion Shoulder Right Active Internal Rotation Behind Back (text) T8 Shoulder ROM Limitations Comments R ROM all WNL except IR. PT-OP-L Special Tests Start: 03/27/19 16:41 Freq: Status: Active Protocol: Document 08/14/19 15:15 DCW (Rec: 08/14/19 15:28 DCW [id number]) Special Tests Shoulder Special Tests Passive ER Rotator Cuff Test Results Negative Painful Arc Test Results Negative Lift-Off Rotator Cuff Test Results Mild R pain Belly Press Test Results Negative PT-OP-Q Treatments Start: 03/27/19 16:41 Freq: Status: Active Protocol: Document 08/27/19 16:00 DCW (Rec: 08/27/19 16:47 DCW [id number]) Manual Therapy Treatment Soft Tissue Mobilization Upper Trap Body Location R Upper trap Parascapulars Body Location Parascapular musculature Mobilization Type Strumming,Sustained Pressure Body Position Supine Joint Mobilizations GH Joint GH Direction Inferior Grade III Scapulothoracic Joint Scapulothopracic Direction Lateral Grade III Manual Traction Cervical Body Position Supine PT-OP-T Assessment and Plan Start: 03/27/19 16:41 Freq: Status: Active Protocol: Document 08/27/19 16:00 DCW (Rec: 08/27/19 16:47 DCW [id number]) Physical Therapy Assessment Impairments Impairments Pain,ROM,Soft Tissue Mobility, Strength Goals 2 Impairment Pt experiences increased pain with housework Short Term Goal (STG) Pt to be able to perform her hobbies of stitching and writing with <3/10 pain in her R shoulder STG Duration Met Chcf Goal (LTG) Pt to vacuum house with <3/10 pain in her R shoulder LTG Duration 05/27/19 1 Impairment Pt does not have an appropriate home exercise program Short Term Goal (STG) Pt will be independent and compliant with an appropriate HEP STG Duration 04/26/19 Progress Towards Goals Progress Towards Goals Goals Met Assessment Summary Assessment Pt doing very well, appropriate for discharge at this time, should continue to work on strengthening and stretching independently and with whale trainer. Physical Therapy Plan Frequency and Duration Frequency of Treatment 1x/Week Duration of Treatment 4 weeks Plan of Care Start Date 08/14/19 Plan of Care End Date 09/11/19 Therapeutic Interventions Therapeutic Interventions Home Exercise Program,Joint Mobilizations,Manual Therapy, Patient/Caregiver Education, Self-Care/Home Management,Soft Tissue Mobilization, Therapeutic Exercises Modalities Cold Pack/Ice Massage,Electric Stimulation,Hot Packs, Ultrasound Discharge Physical Therapy Discharge Reasons Goals Met Next Visit Focus/Plan Next Note Type Discharge Summary
== END 2019-08-28 09:10 ==
LOC: PHYS 16:00
PROVIDERS: PCP Internal Medicine; Referring Provider Internal Medicine; Visit Provider Internal Medicine
DX: M75.100 Unspecified rotator cuff tear or rupture of unspecified shoulder, not specified as traumatic (principal); M25.611 Stiffness of right shoulder, not elsewhere classified; M25.511 Pain in right shoulder
CPT/HCPCS: 97110; 97140; 97161

== ENCOUNTER 2020-06-12 10:30 | Outpatient (RCR) | payer MEDICARE, SELFPAY ==
--- NOTE | 2020-04-17 14:30 | PT.OIE ---
Current Diagnoses Other chronic pain (04/17/20) Pain in left hip (04/17/20) Other idiopathic scoliosis, thoracolumbar region (04/17/20) Spondylosis without myelopathy or radiculopathy, lumbar region (04/17/20) Other intervertebral disc degeneration, lumbar region (04/17/20) Lumbago with sciatica, left side (04/17/20) Trochanteric bursitis, right hip (04/17/20) Trochanteric bursitis, left hip (04/17/20) Visit Care Team Role Provider Type Dandy Jaimes MD Family Provider Non-Staff Primary Care Provider Specialty: Internal Medicine Address: [address] [place] [address], [facility] Email: Sushant Montero MD Attending Provider Non-Staff Referring Provider Specialty: Physical Medicine and Rehab Address: [address] [place] [address] Email: Physical Therapy Initial Evaluation PT-OP-A Visit Information Start: 04/17/20 16:19 Freq: Status: Active Protocol: Document 04/17/20 13:45 DCW (Rec: 04/17/20 16:36 DCW [id number]) Out-Patient Physical Therapy Visit Information Visit Information Visit Type Initial Evaluation Visit Start Time 13:45 Visit Stop Time 14:30 Total Visit Minutes 45 Visit Number 1 Number of CASH VAN SALESPERSON Visits 0 Evaluation Information Evaluation Date 04/17/20 PT-OP-B Current Condition Start: 04/17/20 16:19 Freq: Status: Active Protocol: Document 04/17/20 13:45 DCW (Rec: 04/17/20 16:36 DC [id number]) Current Condition History of Current Condition Onset Date 10 year history Current Complaints Lumbar and hip pain History of Current Condition Pt is a 74 year old female presenting to skilled therapy with a complaint of a ten year history of low back pain. Pt reports that her pain initially presented as left hip pain, and she thought she needed a hip replacement, however after assessment by her doctor, she was informed it was pain originating from her back, and she had worsening scoliosis. Pt reports her radicular pain goes from her low back/ posterior hip down her lateral thigh, and then anteriorly to her knee. Pt has increased pain bending over to pick things up, standing on hard surfaces longer than 20-30 minutes, and feels like her left leg is weaker when exercising at the gym. Laying down and icing helps decrease the pain. Prior Treatments and Tests Lumbar x-ray: 31? dextroconvex scoliosis of the lumbar spine. No thoracolumbar subluxation. per Jesús Santiago MD on 03/27/20 Left hip x-ray: 1. 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 per Wood Russo MD on 03/27/20 PT-OP-C Subjective Start: 04/17/20 16:19 Freq: Status: Active Protocol: Document 04/17/20 13:45 DCW (Rec: 04/17/20 16:36 DCW [id number]) OP-PT Subjective Patient Comments Patient Comments My leg curls are really giving me difficulty at the gym, I just feel weaker in my left leg. Patient Questionnaires Lower Extremity Functional Scale LEFS Score 43/80 = 53.75% LEFS Impairment 40 to 59% Impaired (Score 32- 47) OP-PT Pain Assessment Pain Assessment Grid Paper Pain Assessment Grid Completed Yes Location Left Lower Back Intensity 7 Scale Used Numeric (0 - 10) Radiating Location Low back to left bottock to lateral thigh to anterior knee PT-OP-F Manual Assessment Start: 04/17/20 16:19 Freq: Status: Active Protocol: Document 04/17/20 13:45 DCW (Rec: 04/17/20 17:51 DCW [id number]) Manual Assessments Soft Tissue Assessment Soft Tissue Mobility Assessment Moderate tone with tenderness to palpation 3/4: Wincing and withdraw left paraspinals, left QL, left piriformis, left ITB, left adductors, left psoas Mild-moderate tone with tenderness to palpation 2/4: Pain with Wincing right paraspinals, right QL, right piriformis, right ITB, right adductors, right psoas Joint Mobility Assessment Joint Mobility Assessment Hypomobility of lumbar sline, noticeable dextroconvex scoliosis through lumbar spine PT-OP-K Range of Motion Start: 04/17/20 16:19 Freq: Status: Active Protocol: Document 04/17/20 13:45 DCW (Rec: 04/17/20 17:51 DCW [id number]) Lumbar Spine Range of Motion Lumbar Spine Active Degrees Testing Position Standing Flexion 25 Extension 10 Lateral Flexion Left 51 Lateral Flexion Right 55 Comments lateral flexion measured in cm from tingertip to floor PT-OP-L Special Tests Start: 04/17/20 16:19 Freq: Status: Active Protocol: Document 04/17/20 13:45 DCW (Rec: 04/17/20 17:51 DCW [id number]) Special Tests Lumbar Spine Special Tests Lateral SI Compression Test Results Negative FIDEL Test Results Positive L Straight Leg Raise Test Results Positive L Slump Test Results Positive L Manual Traction Test Results Worsens pain A-P Shearing Test Results Negative Hip Special Tests Scour Test Test Results Negative PT-OP-M Strength Start: 04/17/20 16:19 Freq: Status: Active Protocol: Document 04/17/20 13:45 DCW (Rec: 04/17/20 17:51 DCW [id number]) Hip Strength Hip Manual Muscle Testing Right Flexion (L2) 4+ Good+ Extension (S1) 4+ Good+ Abduction 4+ Good+ Adduction 4+ Good+ External Rotation 4+ Good+ Internal Rotation 4+ Good+ Left Flexion (L2) 4- Good- Extension (S1) 4 Good Abduction 4+ Good+ Adduction 4+ Good+ External Rotation 4+ Good+ Internal Rotation 4+ Good+ Knee Strength Knee Manual Muscle Testing Right Flexion (S2) 4+ Good+ Extension (L3) 4+ Good+ Left Flexion (S2) 4+ Good+ Extension (L3) 4+ Good+ Ankle/Foot Strength Ankle and Foot Manual Muscle Testing Right Dorsiflexion (L4) 4+ Good+ Left Dorsiflexion (L4) 4 Good PT-OP-T Assessment and Plan Start: 04/17/20 16:19 Freq: Status: Active Protocol: Document 04/17/20 13:45 DCW (Rec: 04/18/20 08:49 DCW [id number]) Physical Therapy Assessment Rehab Potential Rehabilitation Potential Good Evaluation Complexity Number of Personal Factors/Comorbidities 1-2 Number of Body Systems Impaired 3 Clinical Presentation at Evaluation Evolving Impairments Impairments Activity Tolerance,Functional Activities,Functional Mobility ,Pain,ROM,Soft Tissue Mobility ,Strength,Tone Goals 3 Impairment 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 LTG Duration 06/15/20 1 Impairment Pt does not have an appropriate home exercise program Short Term Goal (STG) Pt will be independent and compliant with an appropriate HEP STG Duration 05/15/20 Assessment Summary Assessment Pt presents with signs and symptoms consistent with degenerative disc disease, scoliosis, and possible L4 nerve root impingement. Pt has substantial tone and tenderness throughout her low back and hip musculature, worse on the left. Pt radicular pain follows L4 dermatome. Pt also has a 31? dextroconvex scoliosis noted in her x-ray history, which will likely be somewhat of a barrier for rehab. Pt should benefit from skilled therapy focusing on LE strengthening, core strengthening, flexibility, improving ROM, STM to decrease tone, and pain -control modalities. Physical Therapy Plan Frequency and Duration Frequency of Treatment 2x/Week Duration of Treatment Two months Plan of Care Start Date 04/17/20 Plan of Care End Date 06/15/20 Therapeutic Interventions Therapeutic Interventions Home Exercise Program,Joint Mobilizations,Manual Therapy, Neuromuscular Re-education, Patient/Caregiver Education, Self-Care/Home Management,Soft Tissue Mobilization, Therapeutic Activities, Therapeutic Exercises Modalities Cold Pack/Ice Massage,Electric Stimulation,Hot Packs, Ultrasound Next Visit Focus/Plan Next Note Type Treatment Note Next Visit Plan STM, strengthening, joint mobilizations
--- NOTE | 2020-04-17 14:30 | PT.OPPOC ---
Physical, Occupational & Speech Therapy At [facility] Current Diagnoses Other chronic pain (04/17/20) Pain in left hip (04/17/20) Other idiopathic scoliosis, thoracolumbar region (04/17/20) Spondylosis without myelopathy or radiculopathy, lumbar region (04/17/20) Other intervertebral disc degeneration, lumbar region (04/17/20) Lumbago with sciatica, left side (04/17/20) Trochanteric bursitis, right hip (04/17/20) Trochanteric bursitis, left hip (04/17/20) Visit Care Team Role Provider Type Dandy Jaimes MD Family Provider Non-Staff Primary Care Provider Specialty: Internal Medicine Address: [address] [place] [address], [id number] Email: Sushant Montero MD Attending Provider Non-Staff Referring Provider Specialty: Physical Medicine and Rehab Address: [address] [place] [address], [id number] Email: Plan Of Care PT-OP-T Assessment and Plan Start: 04/17/20 16:19 Freq: Status: Active Protocol: Document 04/17/20 13:45 DCW (Rec: 04/18/20 08:49 DCW [id number]) Physical Therapy Assessment Rehab Potential Rehabilitation Potential Good Evaluation Complexity Number of Personal Factors/Comorbidities 1-2 Number of Body Systems Impaired 3 Clinical Presentation at Evaluation Evolving Impairments Impairments Activity Tolerance,Functional Activities,Functional Mobility ,Pain,ROM,Soft Tissue Mobility ,Strength,Tone Goals 3 Impairment 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 LTG Duration 06/15/20 1 Impairment Pt does not have an appropriate home exercise program Short Term Goal (STG) Pt will be independent and compliant with an appropriate HEP STG Duration 05/15/20 Assessment Summary Assessment Pt presents with signs and symptoms consistent with degenerative disc disease, scoliosis, and possible L4 nerve root impingement. Pt has substantial tone and tenderness throughout her low back and hip musculature, worse on the left. Pt radicular pain follows L4 dermatome. Pt also has a 31? dextroconvex scoliosis noted in her x-ray history, which will likely be somewhat of a barrier for rehab. Pt should benefit from skilled therapy focusing on LE strengthening, core strengthening, flexibility, improving ROM, STM to decrease tone, and pain -control modalities. Physical Therapy Plan Frequency and Duration Frequency of Treatment 2x/Week Duration of Treatment Two months Plan of Care Start Date 04/17/20 Plan of Care End Date 06/15/20 Therapeutic Interventions Therapeutic Interventions Home Exercise Program,Joint Mobilizations,Manual Therapy, Neuromuscular Re-education, Patient/Caregiver Education, Self-Care/Home Management,Soft Tissue Mobilization, Therapeutic Activities, Therapeutic Exercises Modalities Cold Pack/Ice Massage,Electric Stimulation,Hot Packs, Ultrasound Next Visit Focus/Plan Next Note Type Treatment Note Next Visit Plan STM, strengthening, joint mobilizations Plan of Care Dates Plan of Care Start Date 04/17/20 Plan of Care End Date 06/15/20 Electronically Signed by: Anibal Barker, PT 04/18/20 2099 Please Sign and Return: I have reviewed this Plan of Care and certify that the skilled therapy services above are required to meet the patient?s needs. Physician Signature Date Printed Name and Credentials Clinical Instructor Signature Printed Name and Credentials
--- NOTE | 2020-04-22 12:00 | PT.OTN ---
Current Diagnoses Other chronic pain (04/22/20) Pain in left hip (04/22/20) Other idiopathic scoliosis, thoracolumbar region (04/22/20) Spondylosis without myelopathy or radiculopathy, lumbar region (04/22/20) Other intervertebral disc degeneration, lumbar region (04/22/20) Lumbago with sciatica, left side (04/22/20) Trochanteric bursitis, right hip (04/22/20) Trochanteric bursitis, left hip (04/22/20) Physical Therapy Treatment Note PT-OP-A Visit Information Start: 04/17/20 16:19 Freq: Status: Active Protocol: Document 04/22/20 11:15 DCW (Rec: 04/22/20 11:59 DCW [id number]) Out-Patient Physical Therapy Visit Information Visit Information Visit Type Treatment Note Visit Start Time 11:15 Visit Stop Time 12:00 Total Visit Minutes 45 Visit Number 2 Number of [employer] HOLD Visits 0 Evaluation Information Evaluation Date 04/17/20 PT-OP-B Current Condition Start: 04/17/20 16:19 Freq: Status: Active Protocol: Document 04/17/20 13:45 DCW (Rec: 04/17/20 16:36 DCW [id number]) Current Condition History of Current Condition Onset Date 10 year history Current Complaints Lumbar and hip pain History of Current Condition Pt is a 74 year old female presenting to skilled therapy with a complaint of a ten year history of low back pain. Pt reports that her pain initially presented as left hip pain, and she thought she needed a hip replacement, however after assessment by her doctor, she was informed it was pain originating from her back, and she had worsening scoliosis. Pt reports her radiculat pain goes from her low back/ posterior hip down her lateral thigh, and then anteriorly to her knee. Pt has increased pain bending ovver to pick things up, standing on hard surfaces longer than 20-30 minutes, and feels like her left leg is weaker when exercising at the gym. Laying down and icing helps decrease the pain. Prior Treatments and Tests Lumbar x-ray: 31? dextroconvex scoliosis of the lumbar spine. No thoracolumbar subluxation. per Jesús Santiago MD on 03/27/20 Left hip x-ray: 1. 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 per Wood Russo MD on 03/27/20 PT-OP-C Subjective Start: 04/17/20 16:19 Freq: Status: Active Protocol: Document 04/22/20 11:15 DCW (Rec: 04/22/20 11:59 DCW [id number]) OP-PT Subjective Patient Comments Patient Comments Pt notes her back is overall doing well, she has been fairly careful, but notes she was busy yesterday. Admits her right knee has been bothering her more recently, and she has been icing it more. PT-OP-F Manual Assessment Start: 04/17/20 16:19 Freq: Status: Active Protocol: Document 04/17/20 13:45 DCW (Rec: 04/17/20 17:51 DCW [id number]) Manual Assessments Soft Tissue Assessment Soft Tissue Mobility Assessment Moderate tone with tenderness to palpation 3/4: Wincing and withdraw left paraspinals, left QL, left piriformis, left ITB, left adductors, left psoas Mild-moderate tone with tenderness to palpation 2/4: Pain with Wincing right paraspinals, right QL, right piriformis, right ITB, right adductors, right psoas Joint Mobility Assessment Joint Mobility Assessment Hypomobility of lumbar sline, noticeable dextroconvex scoliosis through lumbar spine PT-OP-K Range of Motion Start: 04/17/20 16:19 Freq: Status: Active Protocol: Document 04/17/20 13:45 DCW (Rec: 04/17/20 17:51 DCW [id number]) Lumbar Spine Range of Motion Lumbar Spine Active Degrees Testing Position Standing Flexion 25 Extension 10 Lateral Flexion Left 51 Lateral Flexion Right 55 Comments lateral flexion measured in cm from tingertip to floor PT-OP-L Special Tests Start: 04/17/20 16:19 Freq: Status: Active Protocol: Document 04/17/20 13:45 DCW (Rec: 04/17/20 17:51 DCW [id number]) Special Tests Lumbar Spine Special Tests Lateral SI Compression Test Results Negative FIDEL Test Results Positive L Straight Leg Raise Test Results Positive L Slump Test Results Positive L Manual Traction Test Results Worsens pain A-P Shearing Test Results Negative Hip Special Tests Scour Test Test Results Negative PT-OP-M Strength Start: 04/17/20 16:19 Freq: Status: Active Protocol: Document 04/17/20 13:45 DCW (Rec: 04/17/20 17:51 DCW [id number]) Hip Strength Hip Manual Muscle Testing Right Flexion (L2) 4+ Good+ Extension (S1) 4+ Good+ Abduction 4+ Good+ Adduction 4+ Good+ External Rotation 4+ Good+ Internal Rotation 4+ Good+ Left Flexion (L2) 4- Good- Extension (S1) 4 Good Abduction 4+ Good+ Adduction 4+ Good+ External Rotation 4+ Good+ Internal Rotation 4+ Good+ Knee Strength Knee Manual Muscle Testing Right Flexion (S2) 4+ Good+ Extension (L3) 4+ Good+ Left Flexion (S2) 4+ Good+ Extension (L3) 4+ Good+ Ankle/Foot Strength Ankle and Foot Manual Muscle Testing Right Dorsiflexion (L4) 4+ Good+ Left Dorsiflexion (L4) 4 Good PT-OP-Q Treatments Start: 04/17/20 16:19 Freq: Status: Active Protocol: Document 04/22/20 11:15 DCW (Rec: 04/22/20 11:59 DCW [id number]) Cardio Equipment Recumbent Elliptical ([employer]) Duration (Minutes) 5 Resistance 4 Seat Position 5 Gym Equipment Therapeutic Ball 1 Exercise Details Low Trunk Rotations Ball Size/Color Red - 55 cm Body Position Supine Therapeutic Exercises Supine Exercises 3 Supine Exercise Name PPT /c TrA - SLR 2 Supine Exercise Name PPT /c TrA - Marching 1 Supine Exercise Name PPT /c TrA contraction Sidelying Exercises 1 Sidelying Exercise Name Three-way Clamshells Side bilateral Manual Therapy Treatment Soft Tissue Mobilization 3 Body Location Psoas Mobilization Type Strumming,Sustained Pressure Intensity/Depth Moderate Body Position Supine 2 Body Location B Piriformis Mobilization Type Strumming,Sustained Pressure Intensity/Depth Moderate Body Position Sidelying 1 Body Location Lumbar paraspinals, B QL Mobilization Type Strumming,Sustained Pressure Intensity/Depth Moderate Body Position Sidelying PT-OP-T Assessment and Plan Start: 04/17/20 16:19 Freq: Status: Active Protocol: Document 04/22/20 11:15 DCW (Rec: 04/22/20 11:59 DCW [id number]) Physical Therapy Assessment Impairments Impairments Activity Tolerance,Functional Activities,Functional Mobility ,Pain,ROM,Soft Tissue Mobility ,Strength,Tone Goals 3 Impairment Pt unable to pear picker items heavier than 10 pounds due to low back pain Fruit Sprayer Goal (LTG) Pt to lift 20 pounds from ground to waist level using proper body mechanics with no increase in pain LTG Duration 06/15/20 2 Impairment Pt unable to stand more than 30 minutes without pain Fruit Sprayer Goal (LTG) Pt to report ability to stand and walk for 60 minutes without increased pain in order to improve ability to shop for groceries. LTG Duration 06/15/20 1 Impairment Pt does not have an appropriate home exercise program Short Term Goal (STG) Pt will be independent and compliant with an appropriate HEP STG Duration 05/15/20 Assessment Summary Assessment Pt tolerated treatment very well today, although admitted to tenderness with STM. Physical Therapy Plan Frequency and Duration Frequency of Treatment 2x/Week Duration of Treatment Two months Plan of Care Start Date 04/17/20 Plan of Care End Date 06/15/20 Therapeutic Interventions Therapeutic Interventions Home Exercise Program,Joint Mobilizations,Manual Therapy, Neuromuscular Re-education, Patient/Caregiver Education, Self-Care/Home Management,Soft Tissue Mobilization, Therapeutic Activities, Therapeutic Exercises Modalities Cold Pack/Ice Massage,Electric Stimulation,Hot Packs, Ultrasound Next Visit Focus/Plan Next Note Type Treatment Note Next Visit Plan STM, strengthening, joint mobilizations
--- NOTE | 2020-04-24 15:16 | PT.OTN ---
Current Diagnoses Other chronic pain (04/24/20) Pain in left hip (04/24/20) Other idiopathic scoliosis, thoracolumbar region (04/24/20) Spondylosis without myelopathy or radiculopathy, lumbar region (04/24/20) Other intervertebral disc degeneration, lumbar region (04/24/20) Lumbago with sciatica, left side (04/24/20) Trochanteric bursitis, right hip (04/24/20) Trochanteric bursitis, left hip (04/24/20) Physical Therapy Treatment Note PT-OP-A Visit Information Start: 04/17/20 16:19 Freq: Status: Active Protocol: Document 04/24/20 14:30 DCW (Rec: 04/24/20 15:16 DCW [id number]) Out-Patient Physical Therapy Visit Information Visit Information Visit Type Treatment Note Visit Start Time 14:30 Visit Stop Time 15:15 Total Visit Minutes 45 Visit Number 3 Number of AIR [employer] SUPERVISOR Visits 0 Evaluation Information Evaluation Date 04/17/20 PT-OP-B Current Condition Start: 04/17/20 16:19 Freq: Status: Active Protocol: Document 04/17/20 13:45 DCW (Rec: 04/17/20 16:36 DCW [id number]) Current Condition History of Current Condition Onset Date 10 year history Current Complaints Lumbar and hip pain History of Current Condition Pt is a 74 year old female presenting to skilled therapy with a complaint of a ten year history of low back pain. Pt reports that her pain initially presented as left hip pain, and she thought she needed a hip replacement, however after assessment by her doctor, she was informed it was pain originating from her back, and she had worsening scoliosis. Pt reports her radiculat pain goes from her low back/ posterior hip down her lateral thigh, and then anteriorly to her knee. Pt has increased pain bending ovver to pick things up, standing on hard surfaces longer than 20-30 minutes, and feels like her left leg is weaker when exercising at the gym. Laying down and icing helps decrease the pain. Prior Treatments and Tests Lumbar x-ray: 31? dextroconvex scoliosis of the lumbar spine. No thoracolumbar subluxation. per Jesús Santiago MD on 03/27/20 Left hip x-ray: 1. 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 per Wood Russo MD on 03/27/20 PT-OP-C Subjective Start: 04/17/20 16:19 Freq: Status: Active Protocol: Document 04/24/20 14:30 DCW (Rec: 04/24/20 15:16 DCW [id number]) OP-PT Subjective Patient Comments Patient Comments Pt notes she is tired, I didn 't sleep well last night. PT-OP-F Manual Assessment Start: 04/17/20 16:19 Freq: Status: Active Protocol: Document 04/17/20 13:45 DCW (Rec: 04/17/20 17:51 DCW [id number]) Manual Assessments Soft Tissue Assessment Soft Tissue Mobility Assessment Moderate tone with tenderness to palpation 3/4: Wincing and withdraw left paraspinals, left QL, left piriformis, left ITB, left adductors, left psoas Mild-moderate tone with tenderness to palpation 2/4: Pain with Wincing right paraspinals, right QL, right piriformis, right ITB, right adductors, right psoas Joint Mobility Assessment Joint Mobility Assessment Hypomobility of lumbar sline, noticeable dextroconvex scoliosis through lumbar spine PT-OP-K Range of Motion Start: 04/17/20 16:19 Freq: Status: Active Protocol: Document 04/17/20 13:45 DCW (Rec: 04/17/20 17:51 DCW [id number]) Lumbar Spine Range of Motion Lumbar Spine Active Degrees Testing Position Standing Flexion 25 Extension 10 Lateral Flexion Left 51 Lateral Flexion Right 55 Comments lateral flexion measured in cm from tingertip to floor PT-OP-L Special Tests Start: 04/17/20 16:19 Freq: Status: Active Protocol: Document 04/17/20 13:45 DCW (Rec: 04/17/20 17:51 DCW [id number]) Special Tests Lumbar Spine Special Tests Lateral SI Compression Test Results Negative FIDEL Test Results Positive L Straight Leg Raise Test Results Positive L Slump Test Results Positive L Manual Traction Test Results Worsens pain A-P Shearing Test Results Negative Hip Special Tests Scour Test Test Results Negative PT-OP-M Strength Start: 04/17/20 16:19 Freq: Status: Active Protocol: Document 04/17/20 13:45 DCW (Rec: 04/17/20 17:51 DCW [id number]) Hip Strength Hip Manual Muscle Testing Right Flexion (L2) 4+ Good+ Extension (S1) 4+ Good+ Abduction 4+ Good+ Adduction 4+ Good+ External Rotation 4+ Good+ Internal Rotation 4+ Good+ Left Flexion (L2) 4- Good- Extension (S1) 4 Good Abduction 4+ Good+ Adduction 4+ Good+ External Rotation 4+ Good+ Internal Rotation 4+ Good+ Knee Strength Knee Manual Muscle Testing Right Flexion (S2) 4+ Good+ Extension (L3) 4+ Good+ Left Flexion (S2) 4+ Good+ Extension (L3) 4+ Good+ Ankle/Foot Strength Ankle and Foot Manual Muscle Testing Right Dorsiflexion (L4) 4+ Good+ Left Dorsiflexion (L4) 4 Good PT-OP-Q Treatments Start: 04/17/20 16:19 Freq: Status: Active Protocol: Document 04/24/20 14:30 DCW (Rec: 04/24/20 15:16 DCW [id number]) Cardio Equipment Recumbent Elliptical ([employer]) Duration (Minutes) 5 Resistance 4 Seat Position 5 Gym Equipment Therapeutic Ball 2 Exercise Details Pelvic tilts, circles Ball Size/Color Red - 55 cm Body Position Sitting 1 Exercise Details Low Trunk Rotations Ball Size/Color Red - 55 cm Body Position Supine Therapeutic Exercises Supine Exercises 3 Supine Exercise Name PPT /c TrA - SLR 2 Supine Exercise Name PPT /c TrA - Marching 1 Supine Exercise Name PPT /c TrA contraction Sidelying Exercises 1 Sidelying Exercise Name Three-way Clamshells Side bilateral Standing Exercises 1 Standing Exercise Name Hip hiking Side bilateral Manual Therapy Treatment Soft Tissue Mobilization 3 Body Location Psoas Mobilization Type Strumming,Sustained Pressure Intensity/Depth Moderate Body Position Supine 2 Body Location B Piriformis Mobilization Type Strumming,Sustained Pressure Intensity/Depth Moderate Body Position Sidelying 1 Body Location Lumbar paraspinals, B QL Mobilization Type Strumming,Sustained Pressure Intensity/Depth Moderate Body Position Sidelying PT-OP-T Assessment and Plan Start: 04/17/20 16:19 Freq: Status: Active Protocol: Document 04/24/20 14:30 DCW (Rec: 04/24/20 15:16 DCW [id number]) Physical Therapy Assessment Impairments Impairments Activity Tolerance,Functional Activities,Functional Mobility ,Pain,ROM,Soft Tissue Mobility ,Strength,Tone Goals 3 Impairment Pt unable to picking tech items heavier than 10 pounds due to low back pain Group Home Goal (LTG) Pt to lift 20 pounds from ground to waist level using proper body mechanics with no increase in pain LTG Duration 06/15/20 2 Impairment Pt unable to stand more than 30 minutes without pain Foundry Equipment Mechanic Goal (LTG) Pt to report ability to stand and walk for 60 minutes without increased pain in order to improve ability to shop for groceries. LTG Duration 06/15/20 1 Impairment Pt does not have an appropriate home exercise program Short Term Goal (STG) Pt will be independent and compliant with an appropriate HEP STG Duration 05/15/20 Assessment Summary Assessment Pt following HEP closely, tolerating treatment well. Physical Therapy Plan Frequency and Duration Frequency of Treatment 2x/Week Duration of Treatment Two months Plan of Care Start Date 04/17/20 Plan of Care End Date 06/15/20 Therapeutic Interventions Therapeutic Interventions Home Exercise Program,Joint Mobilizations,Manual Therapy, Neuromuscular Re-education, Patient/Caregiver Education, Self-Care/Home Management,Soft Tissue Mobilization, Therapeutic Activities, Therapeutic Exercises Modalities Cold Pack/Ice Massage,Electric Stimulation,Hot Packs, Ultrasound Next Visit Focus/Plan Next Note Type Treatment Note Next Visit Plan STM, strengthening, joint mobilizations
--- NOTE | 2020-04-29 11:59 | PT.OTN ---
Current Diagnoses Other chronic pain (04/29/20) Pain in left hip (04/29/20) Other idiopathic scoliosis, thoracolumbar region (04/29/20) Spondylosis without myelopathy or radiculopathy, lumbar region (04/29/20) Other intervertebral disc degeneration, lumbar region (04/29/20) Lumbago with sciatica, left side (04/29/20) Trochanteric bursitis, right hip (04/29/20) Trochanteric bursitis, left hip (04/29/20) Physical Therapy Treatment Note PT-OP-A Visit Information Start: 04/17/20 16:19 Freq: Status: Active Protocol: Document 04/29/20 11:15 DCW (Rec: 04/29/20 11:59 DCW [id number]) Out-Patient Physical Therapy Visit Information Visit Information Visit Type Treatment Note Visit Start Time 11:15 Visit Stop Time 12:00 Total Visit Minutes 45 Visit Number 4 Number of MOLD CONSTRUCTION SUPERVISOR Visits 0 Evaluation Information Evaluation Date 04/17/20 PT-OP-B Current Condition Start: 04/17/20 16:19 Freq: Status: Active Protocol: Document 04/17/20 13:45 DCW (Rec: 04/17/20 16:36 DCW [id number]) Current Condition History of Current Condition Onset Date 10 year history Current Complaints Lumbar and hip pain History of Current Condition Pt is a 74 year old female presenting to skilled therapy with a complaint of a ten year history of low back pain. Pt reports that her pain initially presented as left hip pain, and she thought she needed a hip replacement, however after assessment by her doctor, she was informed it was pain originating from her back, and she had worsening scoliosis. Pt reports her radiculat pain goes from her low back/ posterior hip down her lateral thigh, and then anteriorly to her knee. Pt has increased pain bending ovver to pick things up, standing on hard surfaces longer than 20-30 minutes, and feels like her left leg is weaker when exercising at the gym. Laying down and icing helps decrease the pain. Prior Treatments and Tests Lumbar x-ray: 31? dextroconvex scoliosis of the lumbar spine. No thoracolumbar subluxation. per Jesús Santiago MD on 03/27/20 Left hip x-ray: 1. 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 per Wood Russo MD on 03/27/20 PT-OP-C Subjective Start: 04/17/20 16:19 Freq: Status: Active Protocol: Document 04/29/20 11:15 DCW (Rec: 04/29/20 11:59 DCW [id number]) OP-PT Subjective Patient Comments Patient Comments My back is really tight today . I had some desk work to do this morning, and my back wasn 't really happy about that. PT-OP-F Manual Assessment Start: 04/17/20 16:19 Freq: Status: Active Protocol: Document 04/17/20 13:45 DCW (Rec: 04/17/20 17:51 DCW [id number]) Manual Assessments Soft Tissue Assessment Soft Tissue Mobility Assessment Moderate tone with tenderness to palpation 3/4: Wincing and withdraw left paraspinals, left QL, left piriformis, left ITB, left adductors, left psoas Mild-moderate tone with tenderness to palpation 2/4: Pain with Wincing right paraspinals, right QL, right piriformis, right ITB, right adductors, right psoas Joint Mobility Assessment Joint Mobility Assessment Hypomobility of lumbar sline, noticeable dextroconvex scoliosis through lumbar spine PT-OP-K Range of Motion Start: 04/17/20 16:19 Freq: Status: Active Protocol: Document 04/17/20 13:45 DCW (Rec: 04/17/20 17:51 DCW [id number]) Lumbar Spine Range of Motion Lumbar Spine Active Degrees Testing Position Standing Flexion 25 Extension 10 Lateral Flexion Left 51 Lateral Flexion Right 55 Comments lateral flexion measured in cm from tingertip to floor PT-OP-L Special Tests Start: 04/17/20 16:19 Freq: Status: Active Protocol: Document 04/17/20 13:45 DCW (Rec: 04/17/20 17:51 DCW [id number]) Special Tests Lumbar Spine Special Tests Lateral SI Compression Test Results Negative FIDEL Test Results Positive L Straight Leg Raise Test Results Positive L Slump Test Results Positive L Manual Traction Test Results Worsens pain A-P Shearing Test Results Negative Hip Special Tests Scour Test Test Results Negative PT-OP-M Strength Start: 04/17/20 16:19 Freq: Status: Active Protocol: Document 04/17/20 13:45 DCW (Rec: 04/17/20 17:51 DCW [id number]) Hip Strength Hip Manual Muscle Testing Right Flexion (L2) 4+ Good+ Extension (S1) 4+ Good+ Abduction 4+ Good+ Adduction 4+ Good+ External Rotation 4+ Good+ Internal Rotation 4+ Good+ Left Flexion (L2) 4- Good- Extension (S1) 4 Good Abduction 4+ Good+ Adduction 4+ Good+ External Rotation 4+ Good+ Internal Rotation 4+ Good+ Knee Strength Knee Manual Muscle Testing Right Flexion (S2) 4+ Good+ Extension (L3) 4+ Good+ Left Flexion (S2) 4+ Good+ Extension (L3) 4+ Good+ Ankle/Foot Strength Ankle and Foot Manual Muscle Testing Right Dorsiflexion (L4) 4+ Good+ Left Dorsiflexion (L4) 4 Good PT-OP-Q Treatments Start: 04/17/20 16:19 Freq: Status: Active Protocol: Document 04/29/20 11:15 DCW (Rec: 04/29/20 11:59 DCW [id number]) Cardio Equipment Recumbent Elliptical ([employer]) Duration (Minutes) 5 Resistance 4 Seat Position 6 Gym Equipment Therapeutic Ball 3 Exercise Details Seated marching Ball Size/Color Red - 55 cm Body Position Sitting 2 Exercise Details Pelvic tilts, circles Ball Size/Color Red - 55 cm Body Position Sitting 1 Exercise Details Low Trunk Rotations Ball Size/Color Red - 55 cm Body Position Supine Manual Therapy Treatment Soft Tissue Mobilization 3 Body Location Psoas Mobilization Type Strumming,Sustained Pressure Intensity/Depth Moderate Body Position Supine 2 Body Location B Piriformis Mobilization Type Strumming,Sustained Pressure Intensity/Depth Moderate Body Position Sidelying 1 Body Location Lumbar paraspinals, B QL Mobilization Type Strumming,Sustained Pressure Intensity/Depth Moderate Body Position Sidelying PT-OP-T Assessment and Plan Start: 04/17/20 16:19 Freq: Status: Active Protocol: Document 04/29/20 11:15 DCW (Rec: 04/29/20 11:59 DCW [id number]) Physical Therapy Assessment Impairments Impairments Activity Tolerance,Functional Activities,Functional Mobility ,Pain,ROM,Soft Tissue Mobility ,Strength,Tone Goals 3 Impairment Pt unable to brain picker items heavier than 10 pounds due to low back pain Alf Goal (LTG) Pt to lift 20 pounds from ground to waist level using proper body mechanics with no increase in pain LTG Duration 06/15/20 2 Impairment Pt unable to stand more than 30 minutes without pain Alf Goal (LTG) Pt to report ability to stand and walk for 60 minutes without increased pain in order to improve ability to shop for groceries. LTG Duration 06/15/20 1 Impairment Pt does not have an appropriate home exercise program Short Term Goal (STG) Pt will be independent and compliant with an appropriate HEP STG Duration 05/15/20 Assessment Summary Assessment Pt reported some increased soreness/stiffness today with STM, however more mobile with less pain afterward. Physical Therapy Plan Frequency and Duration Frequency of Treatment 2x/Week Duration of Treatment Two months Plan of Care Start Date 04/17/20 Plan of Care End Date 06/15/20 Therapeutic Interventions Therapeutic Interventions Home Exercise Program,Joint Mobilizations,Manual Therapy, Neuromuscular Re-education, Patient/Caregiver Education, Self-Care/Home Management,Soft Tissue Mobilization, Therapeutic Activities, Therapeutic Exercises Modalities Cold Pack/Ice Massage,Electric Stimulation,Hot Packs, Ultrasound Next Visit Focus/Plan Next Note Type Treatment Note Next Visit Plan STM, strengthening, joint mobilizations
--- NOTE | 2020-05-01 14:33 | PT.OTN ---
Current Diagnoses Other chronic pain (05/01/20) Pain in left hip (05/01/20) Other idiopathic scoliosis, thoracolumbar region (05/01/20) Spondylosis without myelopathy or radiculopathy, lumbar region (05/01/20) Other intervertebral disc degeneration, lumbar region (05/01/20) Lumbago with sciatica, left side (05/01/20) Trochanteric bursitis, right hip (05/01/20) Trochanteric bursitis, left hip (05/01/20) Physical Therapy Treatment Note PT-OP-A Visit Information Start: 04/17/20 16:19 Freq: Status: Active Protocol: Document 05/01/20 13:45 DCW (Rec: 05/01/20 14:33 DCW [id number]) Out-Patient Physical Therapy Visit Information Visit Information Visit Type Treatment Note Visit Start Time 13:45 Visit Stop Time 14:30 Total Visit Minutes 45 Visit Number 5 Number of COMPLIANCE PROFESSIONAL Visits 0 Evaluation Information Evaluation Date 04/17/20 PT-OP-B Current Condition Start: 04/17/20 16:19 Freq: Status: Active Protocol: Document 04/17/20 13:45 DCW (Rec: 04/17/20 16:36 DCW [id number]) Current Condition History of Current Condition Onset Date 10 year history Current Complaints Lumbar and hip pain History of Current Condition Pt is a 74 year old female presenting to skilled therapy with a complaint of a ten year history of low back pain. Pt reports that her pain initially presented as left hip pain, and she thought she needed a hip replacement, however after assessment by her doctor, she was informed it was pain originating from her back, and she had worsening scoliosis. Pt reports her radiculat pain goes from her low back/ posterior hip down her lateral thigh, and then anteriorly to her knee. Pt has increased pain bending ovver to pick things up, standing on hard surfaces longer than 20-30 minutes, and feels like her left leg is weaker when exercising at the gym. Laying down and icing helps decrease the pain. Prior Treatments and Tests Lumbar x-ray: 31? dextroconvex scoliosis of the lumbar spine. No thoracolumbar subluxation. per Jesús Santiago MD on 03/27/20 Left hip x-ray: 1. 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 per Wood Russo MD on 03/27/20 PT-OP-C Subjective Start: 04/17/20 16:19 Freq: Status: Active Protocol: Document 05/01/20 13:45 DCW (Rec: 05/01/20 14:33 DCW [id number]) OP-PT Subjective Patient Comments Patient Comments Pt notes she is a little sore , but I've been working at my desk more recently. Pt brings in some pictures from her MRI results, reports that her PCP told her to continue with therapy, work on core and back strengthening. PT-OP-F Manual Assessment Start: 04/17/20 16:19 Freq: Status: Active Protocol: Document 04/17/20 13:45 DCW (Rec: 04/17/20 17:51 DCW [id number]) Manual Assessments Soft Tissue Assessment Soft Tissue Mobility Assessment Moderate tone with tenderness to palpation 3/4: Wincing and withdraw left paraspinals, left QL, left piriformis, left ITB, left adductors, left psoas Mild-moderate tone with tenderness to palpation 2/4: Pain with Wincing right paraspinals, right QL, right piriformis, right ITB, right adductors, right psoas Joint Mobility Assessment Joint Mobility Assessment Hypomobility of lumbar sline, noticeable dextroconvex scoliosis through lumbar spine PT-OP-K Range of Motion Start: 04/17/20 16:19 Freq: Status: Active Protocol: Document 04/17/20 13:45 DCW (Rec: 04/17/20 17:51 DCW [id number]) Lumbar Spine Range of Motion Lumbar Spine Active Degrees Testing Position Standing Flexion 25 Extension 10 Lateral Flexion Left 51 Lateral Flexion Right 55 Comments lateral flexion measured in cm from tingertip to floor PT-OP-L Special Tests Start: 04/17/20 16:19 Freq: Status: Active Protocol: Document 04/17/20 13:45 DCW (Rec: 04/17/20 17:51 DCW [id number]) Special Tests Lumbar Spine Special Tests Lateral SI Compression Test Results Negative FIDEL Test Results Positive L Straight Leg Raise Test Results Positive L Slump Test Results Positive L Manual Traction Test Results Worsens pain A-P Shearing Test Results Negative Hip Special Tests Scour Test Test Results Negative PT-OP-M Strength Start: 04/17/20 16:19 Freq: Status: Active Protocol: Document 04/17/20 13:45 DCW (Rec: 04/17/20 17:51 DCW [id number]) Hip Strength Hip Manual Muscle Testing Right Flexion (L2) 4+ Good+ Extension (S1) 4+ Good+ Abduction 4+ Good+ Adduction 4+ Good+ External Rotation 4+ Good+ Internal Rotation 4+ Good+ Left Flexion (L2) 4- Good- Extension (S1) 4 Good Abduction 4+ Good+ Adduction 4+ Good+ External Rotation 4+ Good+ Internal Rotation 4+ Good+ Knee Strength Knee Manual Muscle Testing Right Flexion (S2) 4+ Good+ Extension (L3) 4+ Good+ Left Flexion (S2) 4+ Good+ Extension (L3) 4+ Good+ Ankle/Foot Strength Ankle and Foot Manual Muscle Testing Right Dorsiflexion (L4) 4+ Good+ Left Dorsiflexion (L4) 4 Good PT-OP-Q Treatments Start: 04/17/20 16:19 Freq: Status: Active Protocol: Document 05/01/20 13:45 DCW (Rec: 05/01/20 14:33 DCW [id number]) Cardio Equipment Recumbent Elliptical ([employer]) Duration (Minutes) 5 Resistance 4 Seat Position 6 Gym Equipment Therapeutic Ball 5 Exercise Details Resisted hip/knee flexion Ball Size/Color Red - 55 cm Lv 2 T-band 4 Exercise Details Resisted Trunk Rotation Ball Size/Color Red - 55 cm Lv 2 T-band 2 Exercise Details Pelvic tilts, circles Ball Size/Color Red - 55 cm Body Position Sitting 1 Exercise Details Low Trunk Rotations Ball Size/Color Red - 55 cm Body Position Supine Therapeutic Exercises Standing Exercises 2 Standing Exercise Name Pallof press Side bilateral Resistance Lv 2 Equipment Used T-band Manual Therapy Treatment Soft Tissue Mobilization 2 Body Location B Piriformis Mobilization Type Strumming,Sustained Pressure Intensity/Depth Moderate Body Position Sidelying 1 Body Location Lumbar paraspinals, B QL Mobilization Type Strumming,Sustained Pressure Intensity/Depth Moderate Body Position Sidelying PT-OP-T Assessment and Plan Start: 04/17/20 16:19 Freq: Status: Active Protocol: Document 05/01/20 13:45 DCW (Rec: 05/01/20 14:33 DCW [id number]) Physical Therapy Assessment Impairments Impairments Activity Tolerance,Functional Activities,Functional Mobility ,Pain,ROM,Soft Tissue Mobility ,Strength,Tone Goals 3 Impairment 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 LTG Duration 06/15/20 1 Impairment Pt does not have an appropriate home exercise program Short Term Goal (STG) Pt will be independent and compliant with an appropriate HEP STG Duration 05/15/20 Assessment Summary Assessment Pt worried about her overall activity level after discussing her MRI results with her PCP, but motivated to improve strength and mobility and avoid surgery. Physical Therapy Plan Frequency and Duration Frequency of Treatment 2x/Week Duration of Treatment Two months Plan of Care Start Date 04/17/20 Plan of Care End Date 06/15/20 Therapeutic Interventions Therapeutic Interventions Home Exercise Program,Joint Mobilizations,Manual Therapy, Neuromuscular Re-education, Patient/Caregiver Education, Self-Care/Home Management,Soft Tissue Mobilization, Therapeutic Activities, Therapeutic Exercises Modalities Cold Pack/Ice Massage,Electric Stimulation,Hot Packs, Ultrasound Next Visit Focus/Plan Next Note Type Treatment Note Next Visit Plan STM, strengthening, joint mobilizations
--- NOTE | 2020-05-06 12:04 | PT.OTN ---
Current Diagnoses Other chronic pain (05/06/20) Pain in left hip (05/06/20) Other idiopathic scoliosis, thoracolumbar region (05/06/20) Spondylosis without myelopathy or radiculopathy, lumbar region (05/06/20) Other intervertebral disc degeneration, lumbar region (05/06/20) Lumbago with sciatica, left side (05/06/20) Trochanteric bursitis, right hip (05/06/20) Trochanteric bursitis, left hip (05/06/20) Physical Therapy Treatment Note PT-OP-A Visit Information Start: 04/17/20 16:19 Freq: Status: Active Protocol: Document 05/06/20 11:15 DCW (Rec: 05/06/20 12:04 DCW [id number]) Out-Patient Physical Therapy Visit Information Visit Information Visit Type Treatment Note Visit Start Time 11:15 Visit Stop Time 12:00 Total Visit Minutes 45 Visit Number 6 Number of PROGRAM SCHEDULE CLERK Visits 0 Evaluation Information Evaluation Date 04/17/20 PT-OP-B Current Condition Start: 04/17/20 16:19 Freq: Status: Active Protocol: Document 04/17/20 13:45 DCW (Rec: 04/17/20 16:36 DCW [id number]) Current Condition History of Current Condition Onset Date 10 year history Current Complaints Lumbar and hip pain History of Current Condition Pt is a 74 year old female presenting to skilled therapy with a complaint of a ten year history of low back pain. Pt reports that her pain initially presented as left hip pain, and she thought she needed a hip replacement, however after assessment by her doctor, she was informed it was pain originating from her back, and she had worsening scoliosis. Pt reports her radiculat pain goes from her low back/ posterior hip down her lateral thigh, and then anteriorly to her knee. Pt has increased pain bending ovver to pick things up, standing on hard surfaces longer than 20-30 minutes, and feels like her left leg is weaker when exercising at the gym. Laying down and icing helps decrease the pain. Prior Treatments and Tests Lumbar x-ray: 31? dextroconvex scoliosis of the lumbar spine. No thoracolumbar subluxation. per Jesús Santiago MD on 03/27/20 Left hip x-ray: 1. 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 per Wood Russo MD on 03/27/20 PT-OP-C Subjective Start: 04/17/20 16:19 Freq: Status: Active Protocol: Document 05/06/20 11:15 DCW (Rec: 05/06/20 12:04 DCW [id number]) OP-PT Subjective Patient Comments Patient Comments I woke up a little sore, but after doing my stretching and exercises, I'm feeling better. PT-OP-F Manual Assessment Start: 04/17/20 16:19 Freq: Status: Active Protocol: Document 04/17/20 13:45 DCW (Rec: 04/17/20 17:51 DCW [id number]) Manual Assessments Soft Tissue Assessment Soft Tissue Mobility Assessment Moderate tone with tenderness to palpation 3/4: Wincing and withdraw left paraspinals, left QL, left piriformis, left ITB, left adductors, left psoas Mild-moderate tone with tenderness to palpation 2/4: Pain with Wincing right paraspinals, right QL, right piriformis, right ITB, right adductors, right psoas Joint Mobility Assessment Joint Mobility Assessment Hypomobility of lumbar sline, noticeable dextroconvex scoliosis through lumbar spine PT-OP-K Range of Motion Start: 04/17/20 16:19 Freq: Status: Active Protocol: Document 04/17/20 13:45 DCW (Rec: 04/17/20 17:51 DCW [id number]) Lumbar Spine Range of Motion Lumbar Spine Active Degrees Testing Position Standing Flexion 25 Extension 10 Lateral Flexion Left 51 Lateral Flexion Right 55 Comments lateral flexion measured in cm from tingertip to floor PT-OP-L Special Tests Start: 04/17/20 16:19 Freq: Status: Active Protocol: Document 04/17/20 13:45 DCW (Rec: 04/17/20 17:51 DCW [id number]) Special Tests Lumbar Spine Special Tests Lateral SI Compression Test Results Negative FIDEL Test Results Positive L Straight Leg Raise Test Results Positive L Slump Test Results Positive L Manual Traction Test Results Worsens pain A-P Shearing Test Results Negative Hip Special Tests Scour Test Test Results Negative PT-OP-M Strength Start: 04/17/20 16:19 Freq: Status: Active Protocol: Document 04/17/20 13:45 DCW (Rec: 04/17/20 17:51 DCW [id number]) Hip Strength Hip Manual Muscle Testing Right Flexion (L2) 4+ Good+ Extension (S1) 4+ Good+ Abduction 4+ Good+ Adduction 4+ Good+ External Rotation 4+ Good+ Internal Rotation 4+ Good+ Left Flexion (L2) 4- Good- Extension (S1) 4 Good Abduction 4+ Good+ Adduction 4+ Good+ External Rotation 4+ Good+ Internal Rotation 4+ Good+ Knee Strength Knee Manual Muscle Testing Right Flexion (S2) 4+ Good+ Extension (L3) 4+ Good+ Left Flexion (S2) 4+ Good+ Extension (L3) 4+ Good+ Ankle/Foot Strength Ankle and Foot Manual Muscle Testing Right Dorsiflexion (L4) 4+ Good+ Left Dorsiflexion (L4) 4 Good PT-OP-Q Treatments Start: 04/17/20 16:19 Freq: Status: Active Protocol: Document 05/06/20 11:15 DCW (Rec: 05/06/20 12:04 DCW [id number]) Cardio Equipment Recumbent Elliptical ([employer]) Duration (Minutes) 5 Resistance 4 Seat Position 6 Gym Equipment Therapeutic Ball 6 Exercise Details Bridging /c feet on ball Ball Size/Color Red - 55 cm Body Position Supine 4 Exercise Details Resisted Trunk Rotation Ball Size/Color Red - 55 cm Lv 2 T-band 2 Exercise Details Pelvic tilts, circles Ball Size/Color Red - 55 cm Body Position Sitting 1 Exercise Details Low Trunk Rotations Ball Size/Color Red - 55 cm Body Position Supine Therapeutic Exercises Supine Exercises 3 Supine Exercise Name PPT /c TrA - SLR 2 Supine Exercise Name PPT /c TrA - Marching 1 Supine Exercise Name PPT /c TrA contraction Manual Therapy Treatment Soft Tissue Mobilization 3 Body Location Psoas Mobilization Type Strumming,Sustained Pressure Intensity/Depth Moderate Body Position Supine 2 Body Location B Piriformis Mobilization Type Strumming,Sustained Pressure Intensity/Depth Moderate Body Position Sidelying 1 Body Location Lumbar paraspinals, B QL Mobilization Type Strumming,Sustained Pressure Intensity/Depth Moderate Body Position Sidelying PT-OP-T Assessment and Plan Start: 04/17/20 16:19 Freq: Status: Active Protocol: Document 05/06/20 11:15 DCW (Rec: 05/06/20 12:04 DCW [id number]) Physical Therapy Assessment Impairments Impairments Activity Tolerance,Functional Activities,Functional Mobility ,Pain,ROM,Soft Tissue Mobility ,Strength,Tone Goals 3 Impairment 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 LTG Duration 06/15/20 1 Impairment Pt does not have an appropriate home exercise program Short Term Goal (STG) Pt will be independent and compliant with an appropriate HEP STG Duration 05/15/20 Assessment Summary Assessment Pt feeling like she is moving better and overall having less pain. Improving her core contraction. Physical Therapy Plan Frequency and Duration Frequency of Treatment 2x/Week Duration of Treatment Two months Plan of Care Start Date 04/17/20 Plan of Care End Date 06/15/20 Therapeutic Interventions Therapeutic Interventions Home Exercise Program,Joint Mobilizations,Manual Therapy, Neuromuscular Re-education, Patient/Caregiver Education, Self-Care/Home Management,Soft Tissue Mobilization, Therapeutic Activities, Therapeutic Exercises Modalities Cold Pack/Ice Massage,Electric Stimulation,Hot Packs, Ultrasound Next Visit Focus/Plan Next Note Type Treatment Note Next Visit Plan STM, strengthening, joint mobilizations
--- NOTE | 2020-05-08 14:31 | PT.OTN ---
Current Diagnoses Other chronic pain (05/08/20) Pain in left hip (05/08/20) Other idiopathic scoliosis, thoracolumbar region (05/08/20) Spondylosis without myelopathy or radiculopathy, lumbar region (05/08/20) Other intervertebral disc degeneration, lumbar region (05/08/20) Lumbago with sciatica, left side (05/08/20) Trochanteric bursitis, right hip (05/08/20) Trochanteric bursitis, left hip (05/08/20) Physical Therapy Treatment Note PT-OP-A Visit Information Start: 04/17/20 16:19 Freq: Status: Active Protocol: Document 05/08/20 13:45 DCW (Rec: 05/08/20 14:31 DCW [id number]) Out-Patient Physical Therapy Visit Information Visit Information Visit Type Treatment Note Visit Start Time 13:45 Visit Stop Time 14:30 Total Visit Minutes 45 Visit Number 7 Number of SLOT FLOOR ATTENDANT Visits 0 Evaluation Information Evaluation Date 04/17/20 PT-OP-B Current Condition Start: 04/17/20 16:19 Freq: Status: Active Protocol: Document 04/17/20 13:45 DCW (Rec: 04/17/20 16:36 DCW [id number]) Current Condition History of Current Condition Onset Date 10 year history Current Complaints Lumbar and hip pain History of Current Condition Pt is a 74 year old female presenting to skilled therapy with a complaint of a ten year history of low back pain. Pt reports that her pain initially presented as left hip pain, and she thought she needed a hip replacement, however after assessment by her doctor, she was informed it was pain originating from her back, and she had worsening scoliosis. Pt reports her radiculat pain goes from her low back/ posterior hip down her lateral thigh, and then anteriorly to her knee. Pt has increased pain bending ovver to pick things up, standing on hard surfaces longer than 20-30 minutes, and feels like her left leg is weaker when exercising at the gym. Laying down and icing helps decrease the pain. Prior Treatments and Tests Lumbar x-ray: 31? dextroconvex scoliosis of the lumbar spine. No thoracolumbar subluxation. per Jesús Santiago MD on 03/27/20 Left hip x-ray: 1. 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 per Wood Russo MD on 03/27/20 PT-OP-C Subjective Start: 04/17/20 16:19 Freq: Status: Active Protocol: Document 05/08/20 13:45 DCW (Rec: 05/08/20 14:31 DCW [id number]) OP-PT Subjective Patient Comments Patient Comments Pt reports her back was a little sore earlier today after spending time sitting at her desk, but she is overall feeling much better. PT-OP-F Manual Assessment Start: 04/17/20 16:19 Freq: Status: Active Protocol: Document 04/17/20 13:45 DCW (Rec: 04/17/20 17:51 DCW [id number]) Manual Assessments Soft Tissue Assessment Soft Tissue Mobility Assessment Moderate tone with tenderness to palpation 3/4: Wincing and withdraw left paraspinals, left QL, left piriformis, left ITB, left adductors, left psoas Mild-moderate tone with tenderness to palpation 2/4: Pain with Wincing right paraspinals, right QL, right piriformis, right ITB, right adductors, right psoas Joint Mobility Assessment Joint Mobility Assessment Hypomobility of lumbar sline, noticeable dextroconvex scoliosis through lumbar spine PT-OP-K Range of Motion Start: 04/17/20 16:19 Freq: Status: Active Protocol: Document 04/17/20 13:45 DCW (Rec: 04/17/20 17:51 DCW [id number]) Lumbar Spine Range of Motion Lumbar Spine Active Degrees Testing Position Standing Flexion 25 Extension 10 Lateral Flexion Left 51 Lateral Flexion Right 55 Comments lateral flexion measured in cm from tingertip to floor PT-OP-L Special Tests Start: 04/17/20 16:19 Freq: Status: Active Protocol: Document 04/17/20 13:45 DCW (Rec: 04/17/20 17:51 DCW [id number]) Special Tests Lumbar Spine Special Tests Lateral SI Compression Test Results Negative FIDEL Test Results Positive L Straight Leg Raise Test Results Positive L Slump Test Results Positive L Manual Traction Test Results Worsens pain A-P Shearing Test Results Negative Hip Special Tests Scour Test Test Results Negative PT-OP-M Strength Start: 04/17/20 16:19 Freq: Status: Active Protocol: Document 04/17/20 13:45 DCW (Rec: 04/17/20 17:51 DCW [id number]) Hip Strength Hip Manual Muscle Testing Right Flexion (L2) 4+ Good+ Extension (S1) 4+ Good+ Abduction 4+ Good+ Adduction 4+ Good+ External Rotation 4+ Good+ Internal Rotation 4+ Good+ Left Flexion (L2) 4- Good- Extension (S1) 4 Good Abduction 4+ Good+ Adduction 4+ Good+ External Rotation 4+ Good+ Internal Rotation 4+ Good+ Knee Strength Knee Manual Muscle Testing Right Flexion (S2) 4+ Good+ Extension (L3) 4+ Good+ Left Flexion (S2) 4+ Good+ Extension (L3) 4+ Good+ Ankle/Foot Strength Ankle and Foot Manual Muscle Testing Right Dorsiflexion (L4) 4+ Good+ Left Dorsiflexion (L4) 4 Good PT-OP-Q Treatments Start: 04/17/20 16:19 Freq: Status: Active Protocol: Document 05/08/20 13:45 DCW (Rec: 05/08/20 14:31 DCW [id number]) Cardio Equipment Recumbent Elliptical ([employer]) Duration (Minutes) 5 Resistance 4 Seat Position 6 Gym Equipment Shuttle Balance chains red Details WBOS, Staggered Therapeutic Ball 2 Exercise Details Pelvic tilts, circles Ball Size/Color Red - 55 cm Body Position Sitting Therapeutic Exercises Standing Exercises 1 Standing Exercise Name Hip hiking Side bilateral Manual Therapy Treatment Soft Tissue Mobilization 3 Body Location Psoas Mobilization Type Strumming,Sustained Pressure Intensity/Depth Moderate Body Position Supine 2 Body Location B Piriformis Mobilization Type Strumming,Sustained Pressure Intensity/Depth Moderate Body Position Sidelying 1 Body Location Lumbar paraspinals, B QL Mobilization Type Strumming,Sustained Pressure Intensity/Depth Moderate Body Position Sidelying PT-OP-T Assessment and Plan Start: 04/17/20 16:19 Freq: Status: Active Protocol: Document 05/08/20 13:45 DCW (Rec: 05/08/20 14:31 DCW [id number]) Physical Therapy Assessment Impairments Impairments Activity Tolerance,Functional Activities,Functional Mobility ,Pain,ROM,Soft Tissue Mobility ,Strength,Tone Goals 3 Impairment 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 LTG Duration 06/15/20 1 Impairment Pt does not have an appropriate home exercise program Short Term Goal (STG) Pt will be independent and compliant with an appropriate HEP STG Duration 05/15/20 Assessment Summary Assessment Pt responding well to treatment, some continued tenderness with STM, but improved mobility. Physical Therapy Plan Frequency and Duration Frequency of Treatment 2x/Week Duration of Treatment Two months Plan of Care Start Date 04/17/20 Plan of Care End Date 06/15/20 Therapeutic Interventions Therapeutic Interventions Home Exercise Program,Joint Mobilizations,Manual Therapy, Neuromuscular Re-education, Patient/Caregiver Education, Self-Care/Home Management,Soft Tissue Mobilization, Therapeutic Activities, Therapeutic Exercises Modalities Cold Pack/Ice Massage,Electric Stimulation,Hot Packs, Ultrasound Next Visit Focus/Plan Next Note Type Treatment Note Next Visit Plan STM, strengthening, joint mobilizations
--- NOTE | 2020-05-13 11:18 | PT.OTN ---
Current Diagnoses Other chronic pain (05/13/20) Pain in left hip (05/13/20) Other idiopathic scoliosis, thoracolumbar region (05/13/20) Spondylosis without myelopathy or radiculopathy, lumbar region (05/13/20) Other intervertebral disc degeneration, lumbar region (05/13/20) Lumbago with sciatica, left side (05/13/20) Trochanteric bursitis, right hip (05/13/20) Trochanteric bursitis, left hip (05/13/20) Physical Therapy Treatment Note PT-OP-A Visit Information Start: 04/17/20 16:19 Freq: Status: Active Protocol: Document 05/13/20 10:30 DCW (Rec: 05/13/20 11:18 DCW [id number]) Out-Patient Physical Therapy Visit Information Visit Information Visit Type Treatment Note Visit Start Time 10:30 Visit Stop Time 11:15 Total Visit Minutes 45 Visit Number 8 Number of SHACTOR HELPER Visits 0 Evaluation Information Evaluation Date 04/17/20 PT-OP-B Current Condition Start: 04/17/20 16:19 Freq: Status: Active Protocol: Document 04/17/20 13:45 DCW (Rec: 04/17/20 16:36 DCW [id number]) Current Condition History of Current Condition Onset Date 10 year history Current Complaints Lumbar and hip pain History of Current Condition Pt is a 74 year old female presenting to skilled therapy with a complaint of a ten year history of low back pain. Pt reports that her pain initially presented as left hip pain, and she thought she needed a hip replacement, however after assessment by her doctor, she was informed it was pain originating from her back, and she had worsening scoliosis. Pt reports her radiculat pain goes from her low back/ posterior hip down her lateral thigh, and then anteriorly to her knee. Pt has increased pain bending ovver to pick things up, standing on hard surfaces longer than 20-30 minutes, and feels like her left leg is weaker when exercising at the gym. Laying down and icing helps decrease the pain. Prior Treatments and Tests Lumbar x-ray: 31? dextroconvex scoliosis of the lumbar spine. No thoracolumbar subluxation. per Jesús Santiago MD on 03/27/20 Left hip x-ray: 1. 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 per Wood Russo MD on 03/27/20 PT-OP-C Subjective Start: 04/17/20 16:19 Freq: Status: Active Protocol: Document 05/13/20 10:30 DCW (Rec: 05/13/20 11:18 DCW [id number]) OP-PT Subjective Patient Comments Patient Comments Pt was sore after sleeping weird last night, but feels better after rolling her back out. PT-OP-F Manual Assessment Start: 04/17/20 16:19 Freq: Status: Active Protocol: Document 04/17/20 13:45 DCW (Rec: 04/17/20 17:51 DCW [id number]) Manual Assessments Soft Tissue Assessment Soft Tissue Mobility Assessment Moderate tone with tenderness to palpation 3/4: Wincing and withdraw left paraspinals, left QL, left piriformis, left ITB, left adductors, left psoas Mild-moderate tone with tenderness to palpation 2/4: Pain with Wincing right paraspinals, right QL, right piriformis, right ITB, right adductors, right psoas Joint Mobility Assessment Joint Mobility Assessment Hypomobility of lumbar sline, noticeable dextroconvex scoliosis through lumbar spine PT-OP-K Range of Motion Start: 04/17/20 16:19 Freq: Status: Active Protocol: Document 04/17/20 13:45 DCW (Rec: 04/17/20 17:51 DCW [id number]) Lumbar Spine Range of Motion Lumbar Spine Active Degrees Testing Position Standing Flexion 25 Extension 10 Lateral Flexion Left 51 Lateral Flexion Right 55 Comments lateral flexion measured in cm from tingertip to floor PT-OP-L Special Tests Start: 04/17/20 16:19 Freq: Status: Active Protocol: Document 04/17/20 13:45 DCW (Rec: 04/17/20 17:51 DCW [id number]) Special Tests Lumbar Spine Special Tests Lateral SI Compression Test Results Negative FIDEL Test Results Positive L Straight Leg Raise Test Results Positive L Slump Test Results Positive L Manual Traction Test Results Worsens pain A-P Shearing Test Results Negative Hip Special Tests Scour Test Test Results Negative PT-OP-M Strength Start: 04/17/20 16:19 Freq: Status: Active Protocol: Document 04/17/20 13:45 DCW (Rec: 04/17/20 17:51 DCW [id number]) Hip Strength Hip Manual Muscle Testing Right Flexion (L2) 4+ Good+ Extension (S1) 4+ Good+ Abduction 4+ Good+ Adduction 4+ Good+ External Rotation 4+ Good+ Internal Rotation 4+ Good+ Left Flexion (L2) 4- Good- Extension (S1) 4 Good Abduction 4+ Good+ Adduction 4+ Good+ External Rotation 4+ Good+ Internal Rotation 4+ Good+ Knee Strength Knee Manual Muscle Testing Right Flexion (S2) 4+ Good+ Extension (L3) 4+ Good+ Left Flexion (S2) 4+ Good+ Extension (L3) 4+ Good+ Ankle/Foot Strength Ankle and Foot Manual Muscle Testing Right Dorsiflexion (L4) 4+ Good+ Left Dorsiflexion (L4) 4 Good PT-OP-Q Treatments Start: 04/17/20 16:19 Freq: Status: Active Protocol: Document 05/13/20 10:30 DCW (Rec: 05/13/20 11:18 DCW [id number]) Cardio Equipment Recumbent Elliptical (G-mode) Duration (Minutes) 5 Resistance 4 Seat Position 6 Gym Equipment Shuttle Balance chains red Details Staggered Therapeutic Ball 1 Exercise Details Low Trunk Rotations Ball Size/Color Red - 55 cm Body Position Supine Therapeutic Exercises Standing Exercises 3 Standing Exercise Name Skaters Side bilateral Resistance Yellow Equipment Used T-band 2 Standing Exercise Name Pallof press Side bilateral Resistance 10# Manual Therapy Treatment Soft Tissue Mobilization 3 Body Location Psoas Mobilization Type Strumming,Sustained Pressure Intensity/Depth Moderate Body Position Supine 2 Body Location B Piriformis Mobilization Type Strumming,Sustained Pressure Intensity/Depth Moderate Body Position Sidelying 1 Body Location Lumbar paraspinals, B QL Mobilization Type Strumming,Sustained Pressure Intensity/Depth Moderate Body Position Sidelying PT-OP-T Assessment and Plan Start: 04/17/20 16:19 Freq: Status: Active Protocol: Document 05/13/20 10:30 DCW (Rec: 05/13/20 11:18 DCW [id number]) Physical Therapy Assessment Impairments Impairments Activity Tolerance,Functional Activities,Functional Mobility ,Pain,ROM,Soft Tissue Mobility ,Strength,Tone Goals 3 Impairment Pt unable to excelsior picker items heavier than 10 pounds due to low back pain Chief Digital Media Officer Goal (LTG) Pt to lift 20 pounds from ground to waist level using proper body mechanics with no increase in pain LTG Duration 06/15/20 2 Impairment Pt unable to stand more than 30 minutes without pain Snf Goal (LTG) Pt to report ability to stand and walk for 60 minutes without increased pain in order to improve ability to shop for groceries. LTG Duration 06/15/20 1 Impairment Pt does not have an appropriate home exercise program Short Term Goal (STG) Pt will be independent and compliant with an appropriate HEP STG Duration 05/15/20 Assessment Summary Assessment Pt overall improving with treatment, doing well using HEP to limit back pain and stiffness. Physical Therapy Plan Frequency and Duration Frequency of Treatment 2x/Week Duration of Treatment Two months Plan of Care Start Date 04/17/20 Plan of Care End Date 06/15/20 Therapeutic Interventions Therapeutic Interventions Home Exercise Program,Joint Mobilizations,Manual Therapy, Neuromuscular Re-education, Patient/Caregiver Education, Self-Care/Home Management,Soft Tissue Mobilization, Therapeutic Activities, Therapeutic Exercises Modalities Cold Pack/Ice Massage,Electric Stimulation,Hot Packs, Ultrasound Next Visit Focus/Plan Next Note Type Treatment Note Next Visit Plan STM, strengthening, joint mobilizations
--- NOTE | 2020-05-15 14:29 | PT.OTN ---
Current Diagnoses Other chronic pain (05/15/20) Pain in left hip (05/15/20) Other idiopathic scoliosis, thoracolumbar region (05/15/20) Spondylosis without myelopathy or radiculopathy, lumbar region (05/15/20) Other intervertebral disc degeneration, lumbar region (05/15/20) Lumbago with sciatica, left side (05/15/20) Trochanteric bursitis, right hip (05/15/20) Trochanteric bursitis, left hip (05/15/20) Physical Therapy Treatment Note PT-OP-A Visit Information Start: 04/17/20 16:19 Freq: Status: Active Protocol: Document 05/15/20 13:45 DCW (Rec: 05/15/20 14:29 DCW [id number]) Out-Patient Physical Therapy Visit Information Visit Information Visit Type Treatment Note Visit Start Time 13:45 Visit Stop Time 14:30 Total Visit Minutes 45 Visit Number 9 Number of PEPPER PICKER Visits 0 Evaluation Information Evaluation Date 04/17/20 PT-OP-B Current Condition Start: 04/17/20 16:19 Freq: Status: Active Protocol: Document 04/17/20 13:45 DCW (Rec: 04/17/20 16:36 DCW [id number]) Current Condition History of Current Condition Onset Date 10 year history Current Complaints Lumbar and hip pain History of Current Condition Pt is a 74 year old female presenting to skilled therapy with a complaint of a ten year history of low back pain. Pt reports that her pain initially presented as left hip pain, and she thought she needed a hip replacement, however after assessment by her doctor, she was informed it was pain originating from her back, and she had worsening scoliosis. Pt reports her radiculat pain goes from her low back/ posterior hip down her lateral thigh, and then anteriorly to her knee. Pt has increased pain bending ovver to pick things up, standing on hard surfaces longer than 20-30 minutes, and feels like her left leg is weaker when exercising at the gym. Laying down and icing helps decrease the pain. Prior Treatments and Tests Lumbar x-ray: 31? dextroconvex scoliosis of the lumbar spine. No thoracolumbar subluxation. per Jesús Santiago MD on 03/27/20 Left hip x-ray: 1. 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 per Wood Russo MD on 03/27/20 PT-OP-C Subjective Start: 04/17/20 16:19 Freq: Status: Active Protocol: Document 05/15/20 13:45 DCW (Rec: 05/15/20 14:29 DCW [id number]) OP-PT Subjective Patient Comments Patient Comments Pt notes her back is somewhat happier now after doing her stretches this morning. PT-OP-F Manual Assessment Start: 04/17/20 16:19 Freq: Status: Active Protocol: Document 04/17/20 13:45 DCW (Rec: 04/17/20 17:51 DCW [id number]) Manual Assessments Soft Tissue Assessment Soft Tissue Mobility Assessment Moderate tone with tenderness to palpation 3/4: Wincing and withdraw left paraspinals, left QL, left piriformis, left ITB, left adductors, left psoas Mild-moderate tone with tenderness to palpation 2/4: Pain with Wincing right paraspinals, right QL, right piriformis, right ITB, right adductors, right psoas Joint Mobility Assessment Joint Mobility Assessment Hypomobility of lumbar sline, noticeable dextroconvex scoliosis through lumbar spine PT-OP-K Range of Motion Start: 04/17/20 16:19 Freq: Status: Active Protocol: Document 04/17/20 13:45 DCW (Rec: 04/17/20 17:51 DCW [id number]) Lumbar Spine Range of Motion Lumbar Spine Active Degrees Testing Position Standing Flexion 25 Extension 10 Lateral Flexion Left 51 Lateral Flexion Right 55 Comments lateral flexion measured in cm from tingertip to floor PT-OP-L Special Tests Start: 04/17/20 16:19 Freq: Status: Active Protocol: Document 04/17/20 13:45 DCW (Rec: 04/17/20 17:51 DCW [id number]) Special Tests Lumbar Spine Special Tests Lateral SI Compression Test Results Negative FIDEL Test Results Positive L Straight Leg Raise Test Results Positive L Slump Test Results Positive L Manual Traction Test Results Worsens pain A-P Shearing Test Results Negative Hip Special Tests Scour Test Test Results Negative PT-OP-M Strength Start: 04/17/20 16:19 Freq: Status: Active Protocol: Document 04/17/20 13:45 DCW (Rec: 04/17/20 17:51 DCW [id number]) Hip Strength Hip Manual Muscle Testing Right Flexion (L2) 4+ Good+ Extension (S1) 4+ Good+ Abduction 4+ Good+ Adduction 4+ Good+ External Rotation 4+ Good+ Internal Rotation 4+ Good+ Left Flexion (L2) 4- Good- Extension (S1) 4 Good Abduction 4+ Good+ Adduction 4+ Good+ External Rotation 4+ Good+ Internal Rotation 4+ Good+ Knee Strength Knee Manual Muscle Testing Right Flexion (S2) 4+ Good+ Extension (L3) 4+ Good+ Left Flexion (S2) 4+ Good+ Extension (L3) 4+ Good+ Ankle/Foot Strength Ankle and Foot Manual Muscle Testing Right Dorsiflexion (L4) 4+ Good+ Left Dorsiflexion (L4) 4 Good PT-OP-Q Treatments Start: 04/17/20 16:19 Freq: Status: Active Protocol: Document 05/15/20 13:45 DCW (Rec: 05/15/20 14:29 DCW [id number]) Cardio Equipment Recumbent Elliptical (Hara) Duration (Minutes) 5 Resistance 4 Seat Position 6 Gym Equipment Shuttle Balance chains red Details Staggered Therapeutic Ball 2 Exercise Details Pelvic tilts, circles Ball Size/Color Red - 55 cm Body Position Sitting Therapeutic Exercises Standing Exercises 3 Standing Exercise Name Skaters Side bilateral Resistance Yellow Equipment Used T-band 2 Standing Exercise Name Pallof press Side bilateral Resistance 10# Manual Therapy Treatment Soft Tissue Mobilization 3 Body Location Psoas Mobilization Type Strumming,Sustained Pressure Intensity/Depth Moderate Body Position Supine 2 Body Location B Piriformis Mobilization Type Strumming,Sustained Pressure Intensity/Depth Moderate Body Position Sidelying 1 Body Location Lumbar paraspinals, B QL Mobilization Type Strumming,Sustained Pressure Intensity/Depth Moderate Body Position Sidelying PT-OP-T Assessment and Plan Start: 04/17/20 16:19 Freq: Status: Active Protocol: Document 05/15/20 13:45 DCW (Rec: 05/15/20 14:29 DCW [id number]) Physical Therapy Assessment Impairments Impairments Activity Tolerance,Functional Activities,Functional Mobility ,Pain,ROM,Soft Tissue Mobility ,Strength,Tone Goals 3 Impairment Pt unable to pepper picker items heavier than 10 pounds due to low back pain Linseed Oil Boiler Goal (LTG) Pt to lift 20 pounds from ground to waist level using proper body mechanics with no increase in pain LTG Duration 06/15/20 2 Impairment Pt unable to stand more than 30 minutes without pain Linseed Oil Boiler Goal (LTG) Pt to report ability to stand and walk for 60 minutes without increased pain in order to improve ability to shop for groceries. LTG Duration 06/15/20 1 Impairment Pt does not have an appropriate home exercise program Short Term Goal (STG) Pt will be independent and compliant with an appropriate HEP STG Duration 05/15/20 Assessment Summary Assessment Pt tolerating treatment well overall, still fairly tender with palpation along lumbar paraspinals. Physical Therapy Plan Frequency and Duration Frequency of Treatment 2x/Week Duration of Treatment Two months Plan of Care Start Date 04/17/20 Plan of Care End Date 06/15/20 Therapeutic Interventions Therapeutic Interventions Home Exercise Program,Joint Mobilizations,Manual Therapy, Neuromuscular Re-education, Patient/Caregiver Education, Self-Care/Home Management,Soft Tissue Mobilization, Therapeutic Activities, Therapeutic Exercises Modalities Cold Pack/Ice Massage,Electric Stimulation,Hot Packs, Ultrasound Next Visit Focus/Plan Next Note Type Treatment Note Next Visit Plan STM, strengthening, joint mobilizations
--- NOTE | 2020-05-23 15:15 | PT.OTN ---
Current Diagnoses Other chronic pain (05/23/20) Pain in left hip (05/23/20) Other idiopathic scoliosis, thoracolumbar region (05/23/20) Spondylosis without myelopathy or radiculopathy, lumbar region (05/23/20) Other intervertebral disc degeneration, lumbar region (05/23/20) Lumbago with sciatica, left side (05/23/20) Trochanteric bursitis, right hip (05/23/20) Trochanteric bursitis, left hip (05/23/20) Physical Therapy Treatment Note PT-OP-A Visit Information Start: 04/17/20 16:19 Freq: Status: Active Protocol: Document 05/23/20 14:30 DCW (Rec: 05/23/20 15:15 DCW [id number]) Out-Patient Physical Therapy Visit Information Visit Information Visit Type Treatment Note Visit Start Time 14:30 Visit Stop Time 15:15 Total Visit Minutes 45 Visit Number 10 Number of COLOR DIPPER Visits 0 Evaluation Information Evaluation Date 04/17/20 PT-OP-B Current Condition Start: 04/17/20 16:19 Freq: Status: Active Protocol: Document 04/17/20 13:45 DCW (Rec: 04/17/20 16:36 DCW [id number]) Current Condition History of Current Condition Onset Date 10 year history Current Complaints Lumbar and hip pain History of Current Condition Pt is a 74 year old female presenting to skilled therapy with a complaint of a ten year history of low back pain. Pt reports that her pain initially presented as left hip pain, and she thought she needed a hip replacement, however after assessment by her doctor, she was informed it was pain originating from her back, and she had worsening scoliosis. Pt reports her radiculat pain goes from her low back/ posterior hip down her lateral thigh, and then anteriorly to her knee. Pt has increased pain bending ovver to pick things up, standing on hard surfaces longer than 20-30 minutes, and feels like her left leg is weaker when exercising at the gym. Laying down and icing helps decrease the pain. Prior Treatments and Tests Lumbar x-ray: 31? dextroconvex scoliosis of the lumbar spine. No thoracolumbar subluxation. per Jesús Satniago MD on 03/27/20 Left hip x-ray: 1. 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 per Wood Russo MD on 03/27/20 PT-OP-C Subjective Start: 04/17/20 16:19 Freq: Status: Active Protocol: Document 05/23/20 14:30 DCW (Rec: 05/23/20 15:15 DCW [id number]) OP-PT Subjective Patient Comments Patient Comments Pt reports her back was sore yesterday after a long day of shopping in [place], still a little sore this morning, feeling better after taking a pain pill. PT-OP-F Manual Assessment Start: 04/17/20 16:19 Freq: Status: Active Protocol: Document 04/17/20 13:45 DCW (Rec: 04/17/20 17:51 DCW [id number]) Manual Assessments Soft Tissue Assessment Soft Tissue Mobility Assessment Moderate tone with tenderness to palpation 3/4: Wincing and withdraw left paraspinals, left QL, left piriformis, left ITB, left adductors, left psoas Mild-moderate tone with tenderness to palpation 2/4: Pain with Wincing right paraspinals, right QL, right piriformis, right ITB, right adductors, right psoas Joint Mobility Assessment Joint Mobility Assessment Hypomobility of lumbar sline, noticeable dextroconvex scoliosis through lumbar spine PT-OP-K Range of Motion Start: 04/17/20 16:19 Freq: Status: Active Protocol: Document 04/17/20 13:45 DCW (Rec: 04/17/20 17:51 DCW [id number]) Lumbar Spine Range of Motion Lumbar Spine Active Degrees Testing Position Standing Flexion 25 Extension 10 Lateral Flexion Left 51 Lateral Flexion Right 55 Comments lateral flexion measured in cm from tingertip to floor PT-OP-L Special Tests Start: 04/17/20 16:19 Freq: Status: Active Protocol: Document 04/17/20 13:45 DCW (Rec: 04/17/20 17:51 DCW [id number]) Special Tests Lumbar Spine Special Tests Lateral SI Compression Test Results Negative FIDEL Test Results Positive L Straight Leg Raise Test Results Positive L Slump Test Results Positive L Manual Traction Test Results Worsens pain A-P Shearing Test Results Negative Hip Special Tests Scour Test Test Results Negative PT-OP-M Strength Start: 04/17/20 16:19 Freq: Status: Active Protocol: Document 04/17/20 13:45 DCW (Rec: 04/17/20 17:51 DCW [id number]) Hip Strength Hip Manual Muscle Testing Right Flexion (L2) 4+ Good+ Extension (S1) 4+ Good+ Abduction 4+ Good+ Adduction 4+ Good+ External Rotation 4+ Good+ Internal Rotation 4+ Good+ Left Flexion (L2) 4- Good- Extension (S1) 4 Good Abduction 4+ Good+ Adduction 4+ Good+ External Rotation 4+ Good+ Internal Rotation 4+ Good+ Knee Strength Knee Manual Muscle Testing Right Flexion (S2) 4+ Good+ Extension (L3) 4+ Good+ Left Flexion (S2) 4+ Good+ Extension (L3) 4+ Good+ Ankle/Foot Strength Ankle and Foot Manual Muscle Testing Right Dorsiflexion (L4) 4+ Good+ Left Dorsiflexion (L4) 4 Good PT-OP-Q Treatments Start: 04/17/20 16:19 Freq: Status: Active Protocol: Document 05/23/20 14:30 DCW (Rec: 05/23/20 15:15 DCW [id number]) Cardio Equipment Recumbent Elliptical ([employer]) Duration (Minutes) 5 Resistance 5 Seat Position 6 Gym Equipment Shuttle Balance chains red Details Staggered Therapeutic Ball 2 Exercise Details Pelvic tilts, circles Ball Size/Color Red - 55 cm Body Position Sitting Therapeutic Exercises Standing Exercises 3 Standing Exercise Name Skaters Side bilateral Resistance Yellow Equipment Used T-band 2 Standing Exercise Name Pallof press Side bilateral Resistance 15# Manual Therapy Treatment Soft Tissue Mobilization 3 Body Location Psoas Mobilization Type Strumming,Sustained Pressure Intensity/Depth Moderate Body Position Supine 2 Body Location B Piriformis Mobilization Type Strumming,Sustained Pressure Intensity/Depth Moderate Body Position Sidelying 1 Body Location Lumbar paraspinals, B QL Mobilization Type Strumming,Sustained Pressure Intensity/Depth Moderate Body Position Sidelying PT-OP-T Assessment and Plan Start: 04/17/20 16:19 Freq: Status: Active Protocol: Document 05/23/20 14:30 DCW (Rec: 05/23/20 15:15 DCW [id number]) Physical Therapy Assessment Impairments Impairments Activity Tolerance,Functional Activities,Functional Mobility ,Pain,ROM,Soft Tissue Mobility ,Strength,Tone Goals 3 Impairment Pt unable to grain picker items heavier than 10 pounds due to low back pain Kelly Machine Operator Goal (LTG) Pt to lift 20 pounds from ground to waist level using proper body mechanics with no increase in pain LTG Duration 06/15/20 2 Impairment Pt unable to stand more than 30 minutes without pain Kelly Machine Operator Goal (LTG) Pt to report ability to stand and walk for 60 minutes without increased pain in order to improve ability to shop for groceries. LTG Duration 06/15/20 1 Impairment Pt does not have an appropriate home exercise program Short Term Goal (STG) Pt will be independent and compliant with an appropriate HEP STG Duration 05/15/20 Assessment Summary Assessment Pt showing improvement in low back tone and mobility. Doing well with HEP and gym workouts . Should continue to progress with ongoing skilled therapy Physical Therapy Plan Frequency and Duration Frequency of Treatment 2x/Week Duration of Treatment Two months Plan of Care Start Date 04/17/20 Plan of Care End Date 06/15/20 Therapeutic Interventions Therapeutic Interventions Home Exercise Program,Joint Mobilizations,Manual Therapy, Neuromuscular Re-education, Patient/Caregiver Education, Self-Care/Home Management,Soft Tissue Mobilization, Therapeutic Activities, Therapeutic Exercises Modalities Cold Pack/Ice Massage,Electric Stimulation,Hot Packs, Ultrasound Next Visit Focus/Plan Next Note Type Treatment Note Next Visit Plan STM, strengthening, joint mobilizations
--- NOTE | 2020-05-26 12:46 | PT.OTN ---
Current Diagnoses Other chronic pain (05/26/20) Pain in left hip (05/26/20) Other idiopathic scoliosis, thoracolumbar region (05/26/20) Spondylosis without myelopathy or radiculopathy, lumbar region (05/26/20) Other intervertebral disc degeneration, lumbar region (05/26/20) Lumbago with sciatica, left side (05/26/20) Trochanteric bursitis, right hip (05/26/20) Trochanteric bursitis, left hip (05/26/20) Physical Therapy Treatment Note PT-OP-A Visit Information Start: 04/17/20 16:19 Freq: Status: Active Protocol: Document 05/26/20 12:04 DCW (Rec: 05/26/20 12:46 DCW [id number]) Out-Patient Physical Therapy Visit Information Visit Information Visit Type Treatment Note Visit Start Time 12:04 Visit Stop Time 12:45 Total Visit Minutes 41 Visit Number 11 Number of TECHNICAL TESTING ENGINEER Visits 0 Evaluation Information Evaluation Date 04/17/20 PT-OP-B Current Condition Start: 04/17/20 16:19 Freq: Status: Active Protocol: Document 04/17/20 13:45 DCW (Rec: 04/17/20 16:36 DCW [id number]) Current Condition History of Current Condition Onset Date 10 year history Current Complaints Lumbar and hip pain History of Current Condition Pt is a 74 year old female presenting to skilled therapy with a complaint of a ten year history of low back pain. Pt reports that her pain initially presented as left hip pain, and she thought she needed a hip replacement, however after assessment by her doctor, she was informed it was pain originating from her back, and she had worsening scoliosis. Pt reports her radiculat pain goes from her low back/ posterior hip down her lateral thigh, and then anteriorly to her knee. Pt has increased pain bending ovver to pick things up, standing on hard surfaces longer than 20-30 minutes, and feels like her left leg is weaker when exercising at the gym. Laying down and icing helps decrease the pain. Prior Treatments and Tests Lumbar x-ray: 31? dextroconvex scoliosis of the lumbar spine. No thoracolumbar subluxation. per Jesús Santiago MD on 03/27/20 Left hip x-ray: 1. 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 per Wood Russo MD on 03/27/20 PT-OP-C Subjective Start: 04/17/20 16:19 Freq: Status: Active Protocol: Document 05/26/20 12:04 DCW (Rec: 05/26/20 12:46 DCW [id number]) OP-PT Subjective Patient Comments Patient Comments I've been on the move today, so I haven't really done my back exercises. PT-OP-F Manual Assessment Start: 04/17/20 16:19 Freq: Status: Active Protocol: Document 04/17/20 13:45 DCW (Rec: 04/17/20 17:51 DCW [id number]) Manual Assessments Soft Tissue Assessment Soft Tissue Mobility Assessment Moderate tone with tenderness to palpation 3/4: Wincing and withdraw left paraspinals, left QL, left piriformis, left ITB, left adductors, left psoas Mild-moderate tone with tenderness to palpation 2/4: Pain with Wincing right paraspinals, right QL, right piriformis, right ITB, right adductors, right psoas Joint Mobility Assessment Joint Mobility Assessment Hypomobility of lumbar sline, noticeable dextroconvex scoliosis through lumbar spine PT-OP-K Range of Motion Start: 04/17/20 16:19 Freq: Status: Active Protocol: Document 04/17/20 13:45 DCW (Rec: 04/17/20 17:51 DCW [id number]) Lumbar Spine Range of Motion Lumbar Spine Active Degrees Testing Position Standing Flexion 25 Extension 10 Lateral Flexion Left 51 Lateral Flexion Right 55 Comments lateral flexion measured in cm from tingertip to floor PT-OP-L Special Tests Start: 04/17/20 16:19 Freq: Status: Active Protocol: Document 04/17/20 13:45 DCW (Rec: 04/17/20 17:51 DCW [id number]) Special Tests Lumbar Spine Special Tests Lateral SI Compression Test Results Negative FIDEL Test Results Positive L Straight Leg Raise Test Results Positive L Slump Test Results Positive L Manual Traction Test Results Worsens pain A-P Shearing Test Results Negative Hip Special Tests Scour Test Test Results Negative PT-OP-M Strength Start: 04/17/20 16:19 Freq: Status: Active Protocol: Document 04/17/20 13:45 DCW (Rec: 04/17/20 17:51 DCW [id number]) Hip Strength Hip Manual Muscle Testing Right Flexion (L2) 4+ Good+ Extension (S1) 4+ Good+ Abduction 4+ Good+ Adduction 4+ Good+ External Rotation 4+ Good+ Internal Rotation 4+ Good+ Left Flexion (L2) 4- Good- Extension (S1) 4 Good Abduction 4+ Good+ Adduction 4+ Good+ External Rotation 4+ Good+ Internal Rotation 4+ Good+ Knee Strength Knee Manual Muscle Testing Right Flexion (S2) 4+ Good+ Extension (L3) 4+ Good+ Left Flexion (S2) 4+ Good+ Extension (L3) 4+ Good+ Ankle/Foot Strength Ankle and Foot Manual Muscle Testing Right Dorsiflexion (L4) 4+ Good+ Left Dorsiflexion (L4) 4 Good PT-OP-Q Treatments Start: 04/17/20 16:19 Freq: Status: Active Protocol: Document 05/26/20 12:04 DCW (Rec: 05/26/20 12:46 DCW [id number]) Cardio Equipment Recumbent Elliptical ([employer]) Duration (Minutes) 5 Resistance 5 Seat Position 6 Gym Equipment Shuttle Balance chains red Details Staggered Therapeutic Ball 2 Exercise Details Pelvic tilts, circles Ball Size/Color Red - 55 cm Body Position Sitting Therapeutic Exercises Standing Exercises 2 Standing Exercise Name Pallof press Side bilateral Resistance 15# Manual Therapy Treatment Soft Tissue Mobilization 3 Body Location Psoas Mobilization Type Strumming,Sustained Pressure Intensity/Depth Moderate Body Position Supine 2 Body Location B Piriformis Mobilization Type Strumming,Sustained Pressure Intensity/Depth Moderate Body Position Sidelying 1 Body Location Lumbar paraspinals, B QL Mobilization Type Strumming,Sustained Pressure Intensity/Depth Moderate Body Position Sidelying PT-OP-T Assessment and Plan Start: 04/17/20 16:19 Freq: Status: Active Protocol: Document 05/26/20 12:04 DCW (Rec: 05/26/20 12:46 DCW [id number]) Physical Therapy Assessment Assessment Summary Assessment Pt showing some decreased tone today, overall doing well, continues to progress. Physical Therapy Plan Frequency and Duration Frequency of Treatment 2x/Week Duration of Treatment Two months Plan of Care Start Date 04/17/20 Plan of Care End Date 06/15/20 Therapeutic Interventions Therapeutic Interventions Home Exercise Program,Joint Mobilizations,Manual Therapy, Neuromuscular Re-education, Patient/Caregiver Education, Self-Care/Home Management,Soft Tissue Mobilization, Therapeutic Activities, Therapeutic Exercises Modalities Cold Pack/Ice Massage,Electric Stimulation,Hot Packs, Ultrasound Next Visit Focus/Plan Next Note Type Treatment Note Next Visit Plan STM, strengthening, joint mobilizations
--- NOTE | 2020-06-03 11:17 | PT.OTN ---
Current Diagnoses Other chronic pain (06/03/20) Pain in left hip (06/03/20) Other idiopathic scoliosis, thoracolumbar region (06/03/20) Spondylosis without myelopathy or radiculopathy, lumbar region (06/03/20) Other intervertebral disc degeneration, lumbar region (06/03/20) Lumbago with sciatica, left side (06/03/20) Trochanteric bursitis, right hip (06/03/20) Trochanteric bursitis, left hip (06/03/20) Physical Therapy Treatment Note PT-OP-A Visit Information Start: 04/17/20 16:19 Freq: Status: Active Protocol: Document 06/03/20 10:30 DCW (Rec: 06/03/20 11:16 DCW [id number]) Out-Patient Physical Therapy Visit Information Visit Information Visit Type Treatment Note Visit Start Time 10:30 Visit Stop Time 11:15 Total Visit Minutes 45 Visit Number 12 Number of SOCK TURNER Visits 0 Evaluation Information Evaluation Date 04/17/20 PT-OP-B Current Condition Start: 04/17/20 16:19 Freq: Status: Active Protocol: Document 04/17/20 13:45 DCW (Rec: 04/17/20 16:36 DCW [id number]) Current Condition History of Current Condition Onset Date 10 year history Current Complaints Lumbar and hip pain History of Current Condition Pt is a 74 year old female presenting to skilled therapy with a complaint of a ten year history of low back pain. Pt reports that her pain initially presented as left hip pain, and she thought she needed a hip replacement, however after assessment by her doctor, she was informed it was pain originating from her back, and she had worsening scoliosis. Pt reports her radiculat pain goes from her low back/ posterior hip down her lateral thigh, and then anteriorly to her knee. Pt has increased pain bending ovver to pick things up, standing on hard surfaces longer than 20-30 minutes, and feels like her left leg is weaker when exercising at the gym. Laying down and icing helps decrease the pain. Prior Treatments and Tests Lumbar x-ray: 31? dextroconvex scoliosis of the lumbar spine. No thoracolumbar subluxation. per Jesús Santiago MD on 03/27/20 Left hip x-ray: 1. 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 per Wood Russo MD on 03/27/20 PT-OP-C Subjective Start: 04/17/20 16:19 Freq: Status: Active Protocol: Document 06/03/20 10:30 DCW (Rec: 06/03/20 11:16 DCW [id number]) OP-PT Subjective Patient Comments Patient Comments I think everything you're having me do, the stretches and exercises, are all helping . I'm still sore occasionally, but if I do them, I feel better pretty quickly. PT-OP-F Manual Assessment Start: 04/17/20 16:19 Freq: Status: Active Protocol: Document 04/17/20 13:45 DCW (Rec: 04/17/20 17:51 DCW [id number]) Manual Assessments Soft Tissue Assessment Soft Tissue Mobility Assessment Moderate tone with tenderness to palpation 3/4: Wincing and withdraw left paraspinals, left QL, left piriformis, left ITB, left adductors, left psoas Mild-moderate tone with tenderness to palpation 2/4: Pain with Wincing right paraspinals, right QL, right piriformis, right ITB, right adductors, right psoas Joint Mobility Assessment Joint Mobility Assessment Hypomobility of lumbar sline, noticeable dextroconvex scoliosis through lumbar spine PT-OP-K Range of Motion Start: 04/17/20 16:19 Freq: Status: Active Protocol: Document 04/17/20 13:45 DCW (Rec: 04/17/20 17:51 DCW [id number]) Lumbar Spine Range of Motion Lumbar Spine Active Degrees Testing Position Standing Flexion 25 Extension 10 Lateral Flexion Left 51 Lateral Flexion Right 55 Comments lateral flexion measured in cm from tingertip to floor PT-OP-L Special Tests Start: 04/17/20 16:19 Freq: Status: Active Protocol: Document 04/17/20 13:45 DCW (Rec: 04/17/20 17:51 DCW [id number]) Special Tests Lumbar Spine Special Tests Lateral SI Compression Test Results Negative FIDEL Test Results Positive L Straight Leg Raise Test Results Positive L Slump Test Results Positive L Manual Traction Test Results Worsens pain A-P Shearing Test Results Negative Hip Special Tests Scour Test Test Results Negative PT-OP-M Strength Start: 04/17/20 16:19 Freq: Status: Active Protocol: Document 04/17/20 13:45 DCW (Rec: 04/17/20 17:51 DCW [id number]) Hip Strength Hip Manual Muscle Testing Right Flexion (L2) 4+ Good+ Extension (S1) 4+ Good+ Abduction 4+ Good+ Adduction 4+ Good+ External Rotation 4+ Good+ Internal Rotation 4+ Good+ Left Flexion (L2) 4- Good- Extension (S1) 4 Good Abduction 4+ Good+ Adduction 4+ Good+ External Rotation 4+ Good+ Internal Rotation 4+ Good+ Knee Strength Knee Manual Muscle Testing Right Flexion (S2) 4+ Good+ Extension (L3) 4+ Good+ Left Flexion (S2) 4+ Good+ Extension (L3) 4+ Good+ Ankle/Foot Strength Ankle and Foot Manual Muscle Testing Right Dorsiflexion (L4) 4+ Good+ Left Dorsiflexion (L4) 4 Good PT-OP-Q Treatments Start: 04/17/20 16:19 Freq: Status: Active Protocol: Document 06/03/20 10:30 DCW (Rec: 06/03/20 11:16 DCW [id number]) Cardio Equipment Recumbent Elliptical ([employer]) Duration (Minutes) 5 Resistance 5 Seat Position 6 Gym Equipment Shuttle Balance chains red Details Staggered Therapeutic Ball 2 Exercise Details Pelvic tilts, circles Ball Size/Color Red - 55 cm Body Position Sitting Therapeutic Exercises Standing Exercises 2 Standing Exercise Name Pallof press Side bilateral Resistance 15# Manual Therapy Treatment Soft Tissue Mobilization 3 Body Location Psoas Mobilization Type Strumming,Sustained Pressure Intensity/Depth Moderate Body Position Supine 2 Body Location B Piriformis Mobilization Type Strumming,Sustained Pressure Intensity/Depth Moderate Body Position Sidelying 1 Body Location Lumbar paraspinals, B QL Mobilization Type Strumming,Sustained Pressure Intensity/Depth Moderate Body Position Sidelying PT-OP-T Assessment and Plan Start: 04/17/20 16:19 Freq: Status: Active Protocol: Document 06/03/20 10:30 DCW (Rec: 06/03/20 11:16 DCW [id number]) Physical Therapy Assessment Impairments Impairments Activity Tolerance,Functional Activities,Functional Mobility ,Pain,ROM,Soft Tissue Mobility ,Strength,Tone Goals 3 Impairment 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 LTG Duration 06/15/20 1 Impairment Pt does not have an appropriate home exercise program Short Term Goal (STG) Pt will be independent and compliant with an appropriate HEP STG Duration 05/15/20 Assessment Summary Assessment Pt displaying improved mobility with hip circles on T -ball, improved segmental control of L-spine. Physical Therapy Plan Frequency and Duration Frequency of Treatment 2x/Week Duration of Treatment Two months Plan of Care Start Date 04/17/20 Plan of Care End Date 06/15/20 Therapeutic Interventions Therapeutic Interventions Home Exercise Program,Joint Mobilizations,Manual Therapy, Neuromuscular Re-education, Patient/Caregiver Education, Self-Care/Home Management,Soft Tissue Mobilization, Therapeutic Activities, Therapeutic Exercises Modalities Cold Pack/Ice Massage,Electric Stimulation,Hot Packs, Ultrasound Next Visit Focus/Plan Next Note Type Treatment Note Next Visit Plan STM, strengthening, joint mobilizations
--- NOTE | 2020-06-05 14:30 | PT.OTN ---
Current Diagnoses Other chronic pain (06/05/20) Pain in left hip (06/05/20) Other idiopathic scoliosis, thoracolumbar region (06/05/20) Spondylosis without myelopathy or radiculopathy, lumbar region (06/05/20) Other intervertebral disc degeneration, lumbar region (06/05/20) Lumbago with sciatica, left side (06/05/20) Trochanteric bursitis, right hip (06/05/20) Trochanteric bursitis, left hip (06/05/20) Physical Therapy Treatment Note PT-OP-A Visit Information Start: 04/17/20 16:19 Freq: Status: Active Protocol: Document 06/05/20 13:45 DCW (Rec: 06/05/20 14:29 DCW [id number]) Out-Patient Physical Therapy Visit Information Visit Information Visit Type Treatment Note Visit Start Time 13:45 Visit Stop Time 14:30 Total Visit Minutes 45 Visit Number 13 Number of FIELD MARKETER Visits 0 Evaluation Information Evaluation Date 04/17/20 PT-OP-B Current Condition Start: 04/17/20 16:19 Freq: Status: Active Protocol: Document 04/17/20 13:45 DCW (Rec: 04/17/20 16:36 DCW [id number]) Current Condition History of Current Condition Onset Date 10 year history Current Complaints Lumbar and hip pain History of Current Condition Pt is a 74 year old female presenting to skilled therapy with a complaint of a ten year history of low back pain. Pt reports that her pain initially presented as left hip pain, and she thought she needed a hip replacement, however after assessment by her doctor, she was informed it was pain originating from her back, and she had worsening scoliosis. Pt reports her radiculat pain goes from her low back/ posterior hip down her lateral thigh, and then anteriorly to her knee. Pt has increased pain bending ovver to pick things up, standing on hard surfaces longer than 20-30 minutes, and feels like her left leg is weaker when exercising at the gym. Laying down and icing helps decrease the pain. Prior Treatments and Tests Lumbar x-ray: 31? dextroconvex scoliosis of the lumbar spine. No thoracolumbar subluxation. per Jesús Santiago MD on 03/27/20 Left hip x-ray: 1. 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 per Wood Russo MD on 03/27/20 PT-OP-C Subjective Start: 04/17/20 16:19 Freq: Status: Active Protocol: Document 06/05/20 13:45 DCW (Rec: 06/05/20 14:29 DCW [id number]) OP-PT Subjective Patient Comments Patient Comments Pt notes she is sore today after woring out this morning. PT-OP-F Manual Assessment Start: 04/17/20 16:19 Freq: Status: Active Protocol: Document 04/17/20 13:45 DCW (Rec: 04/17/20 17:51 DCW [id number]) Manual Assessments Soft Tissue Assessment Soft Tissue Mobility Assessment Moderate tone with tenderness to palpation 3/4: Wincing and withdraw left paraspinals, left QL, left piriformis, left ITB, left adductors, left psoas Mild-moderate tone with tenderness to palpation 2/4: Pain with Wincing right paraspinals, right QL, right piriformis, right ITB, right adductors, right psoas Joint Mobility Assessment Joint Mobility Assessment Hypomobility of lumbar sline, noticeable dextroconvex scoliosis through lumbar spine PT-OP-K Range of Motion Start: 04/17/20 16:19 Freq: Status: Active Protocol: Document 04/17/20 13:45 DCW (Rec: 04/17/20 17:51 DCW [id number]) Lumbar Spine Range of Motion Lumbar Spine Active Degrees Testing Position Standing Flexion 25 Extension 10 Lateral Flexion Left 51 Lateral Flexion Right 55 Comments lateral flexion measured in cm from tingertip to floor PT-OP-L Special Tests Start: 04/17/20 16:19 Freq: Status: Active Protocol: Document 04/17/20 13:45 DCW (Rec: 04/17/20 17:51 DCW [id number]) Special Tests Lumbar Spine Special Tests Lateral SI Compression Test Results Negative FIDEL Test Results Positive L Straight Leg Raise Test Results Positive L Slump Test Results Positive L Manual Traction Test Results Worsens pain A-P Shearing Test Results Negative Hip Special Tests Scour Test Test Results Negative PT-OP-M Strength Start: 04/17/20 16:19 Freq: Status: Active Protocol: Document 04/17/20 13:45 DCW (Rec: 04/17/20 17:51 DCW [id number]) Hip Strength Hip Manual Muscle Testing Right Flexion (L2) 4+ Good+ Extension (S1) 4+ Good+ Abduction 4+ Good+ Adduction 4+ Good+ External Rotation 4+ Good+ Internal Rotation 4+ Good+ Left Flexion (L2) 4- Good- Extension (S1) 4 Good Abduction 4+ Good+ Adduction 4+ Good+ External Rotation 4+ Good+ Internal Rotation 4+ Good+ Knee Strength Knee Manual Muscle Testing Right Flexion (S2) 4+ Good+ Extension (L3) 4+ Good+ Left Flexion (S2) 4+ Good+ Extension (L3) 4+ Good+ Ankle/Foot Strength Ankle and Foot Manual Muscle Testing Right Dorsiflexion (L4) 4+ Good+ Left Dorsiflexion (L4) 4 Good PT-OP-Q Treatments Start: 04/17/20 16:19 Freq: Status: Active Protocol: Document 06/05/20 13:45 DCW (Rec: 06/05/20 14:29 DCW [id number]) Cardio Equipment Recumbent Elliptical ([employer]) Duration (Minutes) 5 Resistance 5 Seat Position 6 Gym Equipment Shuttle Balance chains red Details Staggered Therapeutic Ball 2 Exercise Details Pelvic tilts, circles Ball Size/Color Red - 55 cm Body Position Sitting Therapeutic Exercises Standing Exercises 2 Standing Exercise Name Pallof press Side bilateral Resistance 15# Manual Therapy Treatment Soft Tissue Mobilization 3 Body Location Psoas Mobilization Type Strumming,Sustained Pressure Intensity/Depth Moderate Body Position Supine 2 Body Location B Piriformis Mobilization Type Strumming,Sustained Pressure Intensity/Depth Moderate Body Position Sidelying 1 Body Location Lumbar paraspinals, B QL Mobilization Type Strumming,Sustained Pressure Intensity/Depth Moderate Body Position Sidelying PT-OP-T Assessment and Plan Start: 04/17/20 16:19 Freq: Status: Active Protocol: Document 06/05/20 13:45 DCW (Rec: 06/05/20 14:29 DCW [id number]) Physical Therapy Assessment Impairments Impairments Activity Tolerance,Functional Activities,Functional Mobility ,Pain,ROM,Soft Tissue Mobility ,Strength,Tone Goals 3 Impairment 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 LTG Duration 06/15/20 1 Impairment Pt does not have an appropriate home exercise program Short Term Goal (STG) Pt will be independent and compliant with an appropriate HEP STG Duration 05/15/20 Assessment Summary Assessment Pt reporting noticeable improvement with core and back stability, still has increased stiffness/pain with increased activity and walking . Physical Therapy Plan Frequency and Duration Frequency of Treatment 2x/Week Duration of Treatment Two months Plan of Care Start Date 04/17/20 Plan of Care End Date 06/15/20 Therapeutic Interventions Therapeutic Interventions Home Exercise Program,Joint Mobilizations,Manual Therapy, Neuromuscular Re-education, Patient/Caregiver Education, Self-Care/Home Management,Soft Tissue Mobilization, Therapeutic Activities, Therapeutic Exercises Modalities Cold Pack/Ice Massage,Electric Stimulation,Hot Packs, Ultrasound Next Visit Focus/Plan Next Note Type Treatment Note Next Visit Plan STM, strengthening, joint mobilizations
--- NOTE | 2020-06-12 11:08 | PT.OTN ---
Current Diagnoses Other chronic pain (06/12/20) Pain in left hip (06/12/20) Other idiopathic scoliosis, thoracolumbar region (06/12/20) Spondylosis without myelopathy or radiculopathy, lumbar region (06/12/20) Other intervertebral disc degeneration, lumbar region (06/12/20) Lumbago with sciatica, left side (06/12/20) Trochanteric bursitis, right hip (06/12/20) Trochanteric bursitis, left hip (06/12/20) Physical Therapy Treatment Note PT-OP-A Visit Information Start: 04/17/20 16:19 Freq: Status: Active Protocol: Document 06/12/20 10:30 DCW (Rec: 06/12/20 10:36 DCW [id number]) Out-Patient Physical Therapy Visit Information Visit Information Visit Type Progress Note Visit Start Time 10:30 Visit Stop Time 11:00 Total Visit Minutes 30 Visit Number 14 Number of MATERIALS HANDLER Visits 0 Evaluation Information Evaluation Date 04/17/20 PT-OP-B Current Condition Start: 04/17/20 16:19 Freq: Status: Active Protocol: Document 04/17/20 13:45 DCW (Rec: 04/17/20 16:36 DCW [id number]) Current Condition History of Current Condition Onset Date 10 year history Current Complaints Lumbar and hip pain History of Current Condition Pt is a 74 year old female presenting to skilled therapy with a complaint of a ten year history of low back pain. Pt reports that her pain initially presented as left hip pain, and she thought she needed a hip replacement, however after assessment by her doctor, she was informed it was pain originating from her back, and she had worsening scoliosis. Pt reports her radiculat pain goes from her low back/ posterior hip down her lateral thigh, and then anteriorly to her knee. Pt has increased pain bending ovver to pick things up, standing on hard surfaces longer than 20-30 minutes, and feels like her left leg is weaker when exercising at the gym. Laying down and icing helps decrease the pain. Prior Treatments and Tests Lumbar x-ray: 31? dextroconvex scoliosis of the lumbar spine. No thoracolumbar subluxation. per Jesús Santiago MD on 03/27/20 Left hip x-ray: 1. 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 per Wood Russo MD on 03/27/20 PT-OP-C Subjective Start: 04/17/20 16:19 Freq: Status: Active Protocol: Document 06/12/20 10:30 DCW (Rec: 06/12/20 10:36 DCW [id number]) OP-PT Subjective Patient Comments Patient Comments Pt notes her back is much better, still finding her HEP is giving her relief if it does get sore. PT-OP-F Manual Assessment Start: 04/17/20 16:19 Freq: Status: Active Protocol: Document 06/12/20 10:30 DCW (Rec: 06/12/20 10:52 DCW [id number]) Manual Assessments Soft Tissue Assessment Soft Tissue Mobility Assessment Mild tone with tenderness to palpation 02/24: Complaint of Pain; bilateral QL, left piriformis, bilateral ITB, bilateral adductors, bilateral psoas Joint Mobility Assessment Joint Mobility Assessment Hypomobility of lumbar sline, noticeable dextroconvex scoliosis through lumbar spine PT-OP-K Range of Motion Start: 04/17/20 16:19 Freq: Status: Active Protocol: Document 06/12/20 10:30 DCW (Rec: 06/12/20 10:52 DCW [id number]) Lumbar Spine Range of Motion Lumbar Spine Active Degrees Testing Position Standing Flexion 45 Extension 20 Lateral Flexion Left 51 Lateral Flexion Right 55 Comments lateral flexion measured in cm from tingertip to floor PT-OP-L Special Tests Start: 04/17/20 16:19 Freq: Status: Active Protocol: Document 06/12/20 10:30 DCW (Rec: 06/12/20 10:52 DCW [id number]) Special Tests Lumbar Spine Special Tests FIDEL Test Results Negative Straight Leg Raise Test Results Negative Slump Test Results Negative PT-OP-M Strength Start: 04/17/20 16:19 Freq: Status: Active Protocol: Document 06/12/20 10:30 DCW (Rec: 06/12/20 10:52 DCW [id number]) Hip Strength Hip Manual Muscle Testing Right Flexion (L2) 5 Normal Extension (S1) 5 Normal Abduction 5 Normal Adduction 5 Normal External Rotation 5 Normal Internal Rotation 5 Normal Left Flexion (L2) 4 Good Extension (S1) 5 Normal Abduction 5 Normal Adduction 5 Normal External Rotation 5 Normal Internal Rotation 5 Normal Knee Strength Knee Manual Muscle Testing Right Flexion (S2) 5 Normal Extension (L3) 5 Normal Left Flexion (S2) 5 Normal Extension (L3) 5 Normal Ankle/Foot Strength Ankle and Foot Manual Muscle Testing Right Dorsiflexion (L4) 5 Normal Left Dorsiflexion (L4) 5 Normal PT-OP-Q Treatments Start: 04/17/20 16:19 Freq: Status: Active Protocol: Document 06/12/20 10:30 DCW (Rec: 06/12/20 11:08 DCW [id number]) Cardio Equipment Recumbent Elliptical (Biodex) Duration (Minutes) 5 Resistance 5 Seat Position 6 Manual Therapy Treatment Soft Tissue Mobilization 3 Body Location Psoas Mobilization Type Strumming,Sustained Pressure Intensity/Depth Moderate Body Position Supine 2 Body Location B Piriformis Mobilization Type Strumming,Sustained Pressure Intensity/Depth Moderate Body Position Sidelying 1 Body Location Lumbar paraspinals, B QL Mobilization Type Strumming,Sustained Pressure Intensity/Depth Moderate Body Position Sidelying Other Other Manual Treatments Testing PT-OP-T Assessment and Plan Start: 04/17/20 16:19 Freq: Status: Active Protocol: Document 06/12/20 10:30 DCW (Rec: 06/12/20 11:08 DCW [id number]) Physical Therapy Assessment Impairments Impairments Activity Tolerance,Functional Activities,Functional Mobility ,Pain,ROM,Soft Tissue Mobility ,Strength,Tone Goals 3 Impairment Pt unable to hot die picker items heavier than 10 pounds due to low back pain Snf Goal (LTG) Pt to lift 20 pounds from ground to waist level using proper body mechanics with no increase in pain LTG Duration 06/15/20 - Improving, minimal pain lifting 20# 2 Impairment Pt unable to stand more than 30 minutes without pain Snf Goal (LTG) Pt to report ability to stand and walk for 60 minutes without increased pain in order to improve ability to shop for groceries. LTG Duration Met 1 Impairment Pt does not have an appropriate home exercise program Short Term Goal (STG) Pt will be independent and compliant with an appropriate HEP STG Duration Met Progress Towards Goals Progress Towards Goals Progressing Toward Goals Assessment Summary Assessment Pt has met nearly all goals, doing very well with her HEP and working with her personal injury specialist. Pt will very likely continue to progress outside of skilled therapy, and will probably not benefit much from regular PT sessions. Pt is in agreement, and will be discharged from skilled PT at this time. Physical Therapy Plan Frequency and Duration Frequency of Treatment 2x/Week Duration of Treatment Two months Plan of Care Start Date 04/17/20 Plan of Care End Date 06/15/20 Therapeutic Interventions Therapeutic Interventions Home Exercise Program,Joint Mobilizations,Manual Therapy, Neuromuscular Re-education, Patient/Caregiver Education, Self-Care/Home Management,Soft Tissue Mobilization, Therapeutic Activities, Therapeutic Exercises Modalities Cold Pack/Ice Massage,Electric Stimulation,Hot Packs, Ultrasound Discharge Physical Therapy Discharge Reasons Goals Met Next Visit Focus/Plan Next Note Type Discharge Summary
== END 2020-06-12 12:33 | disposition home or self-care (01) ==
LOC: PHYS 10:30
PROVIDERS: Family Provider Internal Medicine; PCP Internal Medicine; Referring Provider Physical Medicine & Rehabilitation Pain Medicine; Visit Provider Physical Medicine & Rehabilitation Pain Medicine
DX: M51.36 Other intervertebral disc degeneration, lumbar region (principal); M47.816 Spondylosis without myelopathy or radiculopathy, lumbar region; M54.42 Lumbago with sciatica, left side; G89.29 Other chronic pain; M25.552 Pain in left hip; M41.25 Other idiopathic scoliosis, thoracolumbar region; M70.61 Trochanteric bursitis, right hip; M70.62 Trochanteric bursitis, left hip
CPT/HCPCS: 97110; 97140; 97162

== ENCOUNTER → 2020-07-05 10:29 | Outpatient (CLI) | payer MEDICARE, SELFPAY | PROVIDERS: Family Provider Internal Medicine; PCP Internal Medicine; Visit Provider Physician Assistant | DX: R30.0 Dysuria (principal) | CPT/HCPCS: 87077; 87086; 87186 ==

== ENCOUNTER 2020-10-20 16:00 | Outpatient (RCR) | payer MEDICARE, SELFPAY ==
--- NOTE | 2020-09-24 12:00 | PT.OPPOC ---
Physical, Occupational & Speech Therapy At [facility] Current Diagnoses Pain in left shoulder (09/24/20) Pain in thoracic spine (09/24/20) Other specified disorders of tendon, left shoulder (09/24/20) Impingement syndrome of left shoulder (09/24/20) Visit Care Team Role Provider Type Other Providers Specialty: Address: Phone: Fax: Email: Attending Provider Referring Provider Specialty: Address: Phone: Fax: Email: Plan Of Care PT-OP-T Assessment and Plan Start: 09/24/20 17:39 Freq: Status: Active Protocol: Document 09/24/20 11:15 DCW (Rec: 09/24/20 17:52 DCW [id number]) Physical Therapy Assessment Goals Three Impairment Pain has be limiting pt's sleep Snf Goal (LTG) Pt to present with shoulder and back pain at worst /10 to improve sleep LTG Duration 11/24/20 Two Impairment Overhead left shoulder pain and positive signs of impingement Snf Goal (LTG) Pt to presents with a negative Naidu-Sergio test and pain -free overhead motion in order to be able to place objects on shelves at her new home. LTG Duration 11/24/20 One Impairment Pt does not have an appropriate home exercise program Short Term Goal (STG) Pt ot be independent and compliant with an appropriate HEP STG Duration 10/25/20 Assessment Summary Assessment Pt presents with signs and symptoms consistent with referring diagnosis of left supraspinatus impingement and tendonosis, as well as newer symptoms of increased right lower trap and lat tone and tenderness, potentially due to compensatory movements with her shoulder injury. Pt should benefit from skilled therapy focusing on STM, joint mobilization, and strengthening, although pt does have a very good relationship with her personal fitness trainer, who she works with regularly and will likely work on shoulder strengthening outside of therapy, so PT can focus more on manual treatment . Physical Therapy Plan Frequency and Duration Frequency of Treatment 2x/Week Duration of Treatment Two months Plan of Care Start Date 09/24/20 Plan of Care End Date 11/24/20 Therapeutic Interventions Therapeutic Interventions Home Exercise Program,Joint Mobilizations,Manual Therapy, Patient/Caregiver Education, Self-Care/Home Management,Soft Tissue Mobilization, Therapeutic Activities, Therapeutic Exercises Modalities Cold Pack/Ice Massage,Electric Stimulation,Hot Packs, Ultrasound Next Visit Focus/Plan Next Note Type Treatment Note Next Visit Plan STM, Joint mobs, Strengthening Plan of Care Dates Plan of Care Start Date 09/24/20 Plan of Care End Date 11/24/20 Electronically Signed by: Anibal Barker, PT 09/25/20 0940 Please Sign and Return: I have reviewed this Plan of Care and certify that the skilled therapy services above are required to meet the patient?s needs. Physician Signature Date Printed Name and Credentials Clinical Instructor Signature Printed Name and Credentials
--- NOTE | 2020-09-24 12:00 | PT.OIE ---
Current Diagnoses Pain in left shoulder (09/24/20) Pain in thoracic spine (09/24/20) Other specified disorders of tendon, left shoulder (09/24/20) Impingement syndrome of left shoulder (09/24/20) Visit Care Team Role Provider Type Other Providers Specialty: Address: Phone: Fax: Email: Attending Provider Referring Provider Specialty: Address: Phone: Fax: Email: Physical Therapy Initial Evaluation PT-OP-A Visit Information Start: 09/24/20 17:39 Freq: Status: Active Protocol: Document 09/24/20 11:15 DCW (Rec: 09/24/20 17:41 [facility] [id number]) Out-Patient Physical Therapy Visit Information Visit Information Visit Type Initial Evaluation Visit Start Time 11:15 Visit Stop Time 12:00 Total Visit Minutes 45 Visit Number 1 Number of VEGETABLE VENDOR Visits 0 Evaluation Information Evaluation Date 09/24/20 PT-OP-B Current Condition Start: 09/24/20 17:39 Freq: Status: Active Protocol: Document 09/24/20 11:15 DCW (Rec: 09/25/20 09:34 [facility] [id number]) Current Condition History of Current Condition Onset Date Two month history Current Complaints L shoulder pain, R thoracic back pain History of Current Condition Pt is a 74 year old female well known to this clinic presenting with a two month history of left shoulder pain. Pt reports that she was moving into her new house and was trying to adjust a shelving unit when she started getting shoulder pain. Had been bothering her pretty constantly, however over the last few weeks as been better, but still hurts with end range flexion and abduction. Pt regularly works out with her strainer cleaner, which has helped some. Pt also notes that over the past few days, perhaps because of compensatory movements, she has been getting pain in her right thoracic area, which was really painful yesterday sitting in the car on the way to and from [place], but feels a bit better today. PT-OP-C Subjective Start: 09/24/20 17:39 Freq: Status: Active Protocol: Document 09/24/20 11:15 DCW (Rec: 09/25/20 09:34 [facility] [id number]) OP-PT Subjective Patient Comments Patient Comments I just can't stay away from here. I'm just breaking down one piece at a time. Patient Questionnaires Quick Dash- Upper Extremity Quick Dash UE Score 29.55% OP-PT Pain Assessment Location Left Shoulder Intensity 3 Scale Used Numeric (0 - 10) PT-OP-F Manual Assessment Start: 09/24/20 17:39 Freq: Status: Active Protocol: Document 09/24/20 11:15 DCW (Rec: 09/25/20 09:39 DCW [id number]) Manual Assessments Soft Tissue Assessment Soft Tissue Mobility Assessment Moderate Hypertonia and tenderness to palpation 2/4: Pain with wincing left upper trap, left supraspinatus, left rhomboids, right throacic paraspinals PT-OP-K Range of Motion Start: 09/24/20 17:39 Freq: Status: Active Protocol: Document 09/24/20 11:15 DCW (Rec: 09/25/20 09:39 DCW [id number]) Shoulder Goniometric Range of Motion Shoulder Left Active Shoulder ROM WFL Yes Comments WNL, increased left shoulder pain between 140?-180? in both flexion and abduction PT-OP-L Special Tests Start: 09/24/20 17:39 Freq: Status: Active Protocol: Document 09/24/20 11:15 DCW (Rec: 09/25/20 09:39 DCW [id number]) Special Tests Shoulder Special Tests Naidu Sergio Impingement Test Results Positive left Empty Can Test Results Negative Drop Arm Rotator Cuff Test Results Negative AC Joint Compression Test Results Negative Passive ER Rotator Cuff Test Results Negative Painful Arc Test Results Negative Lift-Off Rotator Cuff Test Results Mild difficulty bilaterally Belly Press Test Results Negative PT-OP-M Strength Start: 09/24/20 17:39 Freq: Status: Active Protocol: Document 09/24/20 11:15 DCW (Rec: 09/25/20 09:39 DCW [id number]) Shoulder Strength Shoulder Manual Muscle Testing Left Flexion 4+ Good+ Abduction (C5) 4+ Good+ External Rotation 5 Normal Internal Rotation 5 Normal Comments Mild pain with resisted motion in all planes PT-OP-Q Treatments Start: 09/24/20 17:39 Freq: Status: Active Protocol: Document 09/24/20 11:15 DCW (Rec: 09/24/20 17:52 DCW [id number]) Manual Therapy Treatment Soft Tissue Mobilization 1 Body Location R Thoracic paraspinals Mobilization Type Strumming,Sustained Pressure Intensity/Depth Moderate Body Position Sidelying Upper Trap Body Location Left UT Mobilization Type Strumming,Sustained Pressure Body Position Supine Parascapulars Body Location L Parascapular musculature Mobilization Type Strumming,Sustained Pressure Body Position Supine PT-OP-T Assessment and Plan Start: 09/24/20 17:39 Freq: Status: Active Protocol: Document 09/24/20 11:15 DCW (Rec: 09/24/20 17:52 DCW [id number]) Physical Therapy Assessment Goals Three Impairment Pain has be limiting pt's sleep Importer Exporter Goal (LTG) Pt to present with shoulder and back pain at worst 04/02 to improve sleep LTG Duration 11/24/20 Two Impairment Overhead left shoulder pain and positive signs of impingement Usp Goal (LTG) Pt to presents with a negative Naidu-Sergio test and pain -free overhead motion in order to be able to place objects on shelves at her new home. LTG Duration 11/24/20 One Impairment Pt does not have an appropriate home exercise program Short Term Goal (STG) Pt ot be independent and compliant with an appropriate HEP STG Duration 10/25/20 Assessment Summary Assessment Pt presents with signs and symptoms consistent with referring diagnosis of left supraspinatus impingement and tendonosis, as well as newer symptoms of increased right lower trap and lat tone and tenderness, potentially due to compensatory movements with her shoulder injury. Pt should benefit from skilled therapy focusing on STM, joint mobilization, and strengthening, although pt does have a very good relationship with her strainer cleaner, who she works with regularly and will likely work on shoulder strengthening outside of therapy, so PT can focus more on manual treatment . Physical Therapy Plan Frequency and Duration Frequency of Treatment 2x/Week Duration of Treatment Two months Plan of Care Start Date 09/24/20 Plan of Care End Date 11/24/20 Therapeutic Interventions Therapeutic Interventions Home Exercise Program,Joint Mobilizations,Manual Therapy, Patient/Caregiver Education, Self-Care/Home Management,Soft Tissue Mobilization, Therapeutic Activities, Therapeutic Exercises Modalities Cold Pack/Ice Massage,Electric Stimulation,Hot Packs, Ultrasound Next Visit Focus/Plan Next Note Type Treatment Note Next Visit Plan STM, Joint mobs, Strengthening
--- NOTE | 2020-09-26 09:44 | PT.OTN ---
Current Diagnoses Pain in left shoulder (09/26/20) Pain in thoracic spine (09/26/20) Other specified disorders of tendon, left shoulder (09/26/20) Impingement syndrome of left shoulder (09/26/20) Physical Therapy Treatment Note PT-OP-A Visit Information Start: 09/24/20 17:39 Freq: Status: Active Protocol: Document 09/26/20 09:00 DCW (Rec: 09/26/20 09:44 DCW [id number]) Out-Patient Physical Therapy Visit Information Visit Information Visit Type Treatment Note Visit Start Time 09:00 Visit Stop Time 09:45 Total Visit Minutes 45 Visit Number 2 Number of ROTARY SWAGING MACHINE OPERATOR Visits 0 Evaluation Information Evaluation Date 09/24/20 PT-OP-B Current Condition Start: 09/24/20 17:39 Freq: Status: Active Protocol: Document 09/24/20 11:15 DCW (Rec: 09/25/20 09:34 DCW [id number]) Current Condition History of Current Condition Onset Date Two month history Current Complaints L shoulder pain, R thoracic back pain History of Current Condition Pt is a 74 year old female well known to this clinic presenting with a two month history of left shoulder pain. Pt reports that she was moving into her new house and was trying to adjust a shelving unit when she started getting shoulder pain. Had been bothering her pretty constantly, however over the last few weeks as been better, but still hurts with end range flexion and abduction. Pt regularly works out with her personal care home administrator, which has helped some. Pt also notes that over the past few days, perhaps because of compensatory movements, she has been getting pain in her right thoracic area, which was really painful yesterday sitting in the car on the way to and from [place], but feels a bit better today. PT-OP-C Subjective Start: 09/24/20 17:39 Freq: Status: Active Protocol: Document 09/26/20 09:00 DCW (Rec: 09/26/20 09:44 DCW [id number]) OP-PT Subjective Patient Comments Patient Comments My spine is hurting again this morning. PT-OP-F Manual Assessment Start: 09/24/20 17:39 Freq: Status: Active Protocol: Document 09/24/20 11:15 DCW (Rec: 09/25/20 09:39 DCW [id number]) Manual Assessments Soft Tissue Assessment Soft Tissue Mobility Assessment Moderate Hypertonia and tenderness to palpation 2/4: Pain with wincing left upper trap, left supraspinatus, left rhomboids, right throacic paraspinals PT-OP-K Range of Motion Start: 09/24/20 17:39 Freq: Status: Active Protocol: Document 09/24/20 11:15 DCW (Rec: 09/25/20 09:39 DCW [id number]) Shoulder Goniometric Range of Motion Shoulder Left Active Shoulder ROM WFL Yes Comments WNL, increased left shoulder pain between 140?-180? in both flexion and abduction PT-OP-L Special Tests Start: 09/24/20 17:39 Freq: Status: Active Protocol: Document 09/24/20 11:15 DCW (Rec: 09/25/20 09:39 DCW [id number]) Special Tests Shoulder Special Tests Naidu Sergio Impingement Test Results Positive left Empty Can Test Results Negative Drop Arm Rotator Cuff Test Results Negative AC Joint Compression Test Results Negative Passive ER Rotator Cuff Test Results Negative Painful Arc Test Results Negative Lift-Off Rotator Cuff Test Results Mild difficulty bilaterally Belly Press Test Results Negative PT-OP-M Strength Start: 09/24/20 17:39 Freq: Status: Active Protocol: Document 09/24/20 11:15 DCW (Rec: 09/25/20 09:39 DCW [id number]) Shoulder Strength Shoulder Manual Muscle Testing Left Flexion 4+ Good+ Abduction (C5) 4+ Good+ External Rotation 5 Normal Internal Rotation 5 Normal Comments Mild pain with resisted motion in all planes PT-OP-Q Treatments Start: 09/24/20 17:39 Freq: Status: Active Protocol: Document 09/26/20 09:00 DCW (Rec: 09/26/20 09:44 DCW [id number]) Manual Therapy Treatment Soft Tissue Mobilization 1 Body Location R Thoracic paraspinals Mobilization Type Strumming,Sustained Pressure Intensity/Depth Moderate Body Position Sidelying Upper Trap Body Location Left UT Mobilization Type Strumming,Sustained Pressure Body Position Supine Parascapulars Body Location L Parascapular musculature Mobilization Type Strumming,Sustained Pressure Body Position Supine Joint Mobilizations GH Joint L GH Direction Inferior Grade III Scapulothoracic Joint L Scapulothopracic Direction Lateral Grade III PT-OP-T Assessment and Plan Start: 09/24/20 17:39 Freq: Status: Active Protocol: Document 09/26/20 09:00 DCW (Rec: 09/26/20 09:44 DCW [id number]) Physical Therapy Assessment Impairments Impairments Pain,Soft Tissue Mobility,Tone Goals Three Impairment Pain has be limiting pt's sleep Skilled Nursing Goal (LTG) Pt to present with shoulder and back pain at worst /10 to improve sleep LTG Duration 11/24/20 Two Impairment Overhead left shoulder pain and positive signs of impingement Strap Machine Operator Automatic Goal (LTG) Pt to presents with a negative Naidu-Sergio test and pain -free overhead motion in order to be able to place objects on shelves at her new home. LTG Duration 11/24/20 One Impairment Pt does not have an appropriate home exercise program Short Term Goal (STG) Pt ot be independent and compliant with an appropriate HEP STG Duration 10/25/20 Assessment Summary Assessment Pt tolerated treatment well today, noticeably improved tone and mobility following STM. Physical Therapy Plan Frequency and Duration Frequency of Treatment 2x/Week Duration of Treatment Two months Plan of Care Start Date 09/24/20 Plan of Care End Date 11/24/20 Therapeutic Interventions Therapeutic Interventions Home Exercise Program,Joint Mobilizations,Manual Therapy, Patient/Caregiver Education, Self-Care/Home Management,Soft Tissue Mobilization, Therapeutic Activities, Therapeutic Exercises Modalities Cold Pack/Ice Massage,Electric Stimulation,Hot Packs, Ultrasound Next Visit Focus/Plan Next Note Type Treatment Note Next Visit Plan STM, Joint mobs, Strengthening
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
--- NOTE | 2020-10-08 11:15 | PT.OTN ---
Current Diagnoses Pain in left shoulder (10/08/20) Pain in thoracic spine (10/08/20) Other specified disorders of tendon, left shoulder (10/08/20) Impingement syndrome of left shoulder (10/08/20) Physical Therapy Treatment Note PT-OP-A Visit Information Start: 09/24/20 17:39 Freq: Status: Active Protocol: Document 10/08/20 10:30 DCW (Rec: 10/08/20 11:15 DCW [id number]) Out-Patient Physical Therapy Visit Information Visit Information Visit Type Treatment Note Visit Start Time 10:30 Visit Stop Time 11:15 Total Visit Minutes 45 Visit Number 4 Number of FISHERY DIVISION CHIEF Visits 0 Evaluation Information Evaluation Date 09/24/20 PT-OP-B Current Condition Start: 09/24/20 17:39 Freq: Status: Active Protocol: Document 09/24/20 11:15 DCW (Rec: 09/25/20 09:34 DCW [id number]) Current Condition History of Current Condition Onset Date Two month history Current Complaints L shoulder pain, R thoracic back pain History of Current Condition Pt is a 74 year old female well known to this clinic presenting with a two month history of left shoulder pain. Pt reports that she was moving into her new house and was trying to adjust a shelving unit when she started getting shoulder pain. Had been bothering her pretty constantly, however over the last few weeks as been better, but still hurts with end range flexion and abduction. Pt regularly works out with her personal service representative, which has helped some. Pt also notes that over the past few days, perhaps because of compensatory movements, she has been getting pain in her right thoracic area, which was really painful yesterday sitting in the car on the way to and from [place], but feels a bit better today. PT-OP-C Subjective Start: 09/24/20 17:39 Freq: Status: Active Protocol: Document 10/08/20 10:30 DCW (Rec: 10/08/20 11:15 DCW [id number]) OP-PT Subjective Patient Comments Patient Comments We have some new developments . I went to my PCP because I' ve been having trouble breathing, and she found some areas where she was poking around that were really sore, and they took an x-ray of my lungs, which were fine, but they found a fracture on my vertebrae, I think L3. PT-OP-F Manual Assessment Start: 09/24/20 17:39 Freq: Status: Active Protocol: Document 09/24/20 11:15 DCW (Rec: 09/25/20 09:39 DCW [id number]) Manual Assessments Soft Tissue Assessment Soft Tissue Mobility Assessment Moderate Hypertonia and tenderness to palpation 2/4: Pain with wincing left upper trap, left supraspinatus, left rhomboids, right throacic paraspinals PT-OP-K Range of Motion Start: 09/24/20 17:39 Freq: Status: Active Protocol: Document 09/24/20 11:15 DCW (Rec: 09/25/20 09:39 DCW [id number]) Shoulder Goniometric Range of Motion Shoulder Left Active Shoulder ROM WFL Yes Comments WNL, increased left shoulder pain between 140?-180? in both flexion and abduction PT-OP-L Special Tests Start: 09/24/20 17:39 Freq: Status: Active Protocol: Document 09/24/20 11:15 DCW (Rec: 09/25/20 09:39 DCW [id number]) Special Tests Shoulder Special Tests Naidu Sergio Impingement Test Results Positive left Empty Can Test Results Negative Drop Arm Rotator Cuff Test Results Negative AC Joint Compression Test Results Negative Passive ER Rotator Cuff Test Results Negative Painful Arc Test Results Negative Lift-Off Rotator Cuff Test Results Mild difficulty bilaterally Belly Press Test Results Negative PT-OP-M Strength Start: 09/24/20 17:39 Freq: Status: Active Protocol: Document 09/24/20 11:15 DCW (Rec: 09/25/20 09:39 DCW [id number]) Shoulder Strength Shoulder Manual Muscle Testing Left Flexion 4+ Good+ Abduction (C5) 4+ Good+ External Rotation 5 Normal Internal Rotation 5 Normal Comments Mild pain with resisted motion in all planes PT-OP-Q Treatments Start: 09/24/20 17:39 Freq: Status: Active Protocol: Document 10/08/20 10:30 DCW (Rec: 10/08/20 11:15 DCW [id number]) Manual Therapy Treatment Soft Tissue Mobilization Upper Trap Body Location Left UT Mobilization Type Strumming,Sustained Pressure Body Position Supine Parascapulars Body Location L Parascapular musculature Mobilization Type Strumming,Sustained Pressure Body Position Supine Joint Mobilizations GH Joint L GH Direction Inferior Grade III Scapulothoracic Joint L Scapulothopracic Direction Lateral Grade III PT-OP-T Assessment and Plan Start: 09/24/20 17:39 Freq: Status: Active Protocol: Document 10/08/20 10:30 DCW (Rec: 10/08/20 11:15 DCW [id number]) Physical Therapy Assessment Impairments Impairments Pain,Soft Tissue Mobility,Tone Goals Three Impairment Pain has be limiting pt's sleep Insole Tacker Goal (LTG) Pt to present with shoulder and back pain at worst / to improve sleep LTG Duration 11/24/20 Two Impairment Overhead left shoulder pain and positive signs of impingement Insole Tacker Goal (LTG) Pt to presents with a negative Naidu-Sergio test and pain -free overhead motion in order to be able to place objects on shelves at her new home. LTG Duration 11/24/20 One Impairment Pt does not have an appropriate home exercise program Short Term Goal (STG) Pt ot be independent and compliant with an appropriate HEP STG Duration 10/25/20 Assessment Summary Assessment Focus remained on shoulders today, let T/L spine alone until more information is available other than just the knowledge that there is a fracture somewhere. Physical Therapy Plan Frequency and Duration Frequency of Treatment 2x/Week Duration of Treatment Two months Plan of Care Start Date 09/24/20 Plan of Care End Date 11/24/20 Therapeutic Interventions Therapeutic Interventions Home Exercise Program,Joint Mobilizations,Manual Therapy, Patient/Caregiver Education, Self-Care/Home Management,Soft Tissue Mobilization, Therapeutic Activities, Therapeutic Exercises Modalities Cold Pack/Ice Massage,Electric Stimulation,Hot Packs, Ultrasound Next Visit Focus/Plan Next Note Type Treatment Note Next Visit Plan STM, Joint mobs, Strengthening
--- NOTE | 2020-10-10 15:18 | PT.OTN ---
Current Diagnoses Pain in left shoulder (10/10/20) Pain in thoracic spine (10/10/20) Other specified disorders of tendon, left shoulder (10/10/20) Impingement syndrome of left shoulder (10/10/20) Physical Therapy Treatment Note PT-OP-A Visit Information Start: 09/24/20 17:39 Freq: Status: Active Protocol: Document 10/10/20 14:30 DCW (Rec: 10/10/20 15:18 DCW [id number]) Out-Patient Physical Therapy Visit Information Visit Information Visit Type Treatment Note Visit Start Time 14:30 Visit Stop Time 15:15 Total Visit Minutes 45 Visit Number 5 Number of MAT INSPECTOR Visits 0 Evaluation Information Evaluation Date 09/24/20 PT-OP-B Current Condition Start: 09/24/20 17:39 Freq: Status: Active Protocol: Document 09/24/20 11:15 DCW (Rec: 09/25/20 09:34 DCW [id number]) Current Condition History of Current Condition Onset Date Two month history Current Complaints L shoulder pain, R thoracic back pain History of Current Condition Pt is a 74 year old female well known to this clinic presenting with a two month history of left shoulder pain. Pt reports that she was moving into her new house and was trying to adjust a shelving unit when she started getting shoulder pain. Had been bothering her pretty constantly, however over the last few weeks as been better, but still hurts with end range flexion and abduction. Pt regularly works out with her personal attendant, which has helped some. Pt also notes that over the past few days, perhaps because of compensatory movements, she has been getting pain in her right thoracic area, which was really painful yesterday sitting in the car on the way to and from [place], but feels a bit better today. PT-OP-C Subjective Start: 09/24/20 17:39 Freq: Status: Active Protocol: Document 10/10/20 14:30 DCW (Rec: 10/10/20 15:18 DCW [id number]) OP-PT Subjective Patient Comments Patient Comments I've been icing my back, that seems to help. PT-OP-F Manual Assessment Start: 09/24/20 17:39 Freq: Status: Active Protocol: Document 09/24/20 11:15 DCW (Rec: 09/25/20 09:39 DCW [id number]) Manual Assessments Soft Tissue Assessment Soft Tissue Mobility Assessment Moderate Hypertonia and tenderness to palpation 2/4: Pain with wincing left upper trap, left supraspinatus, left rhomboids, right throacic paraspinals PT-OP-K Range of Motion Start: 09/24/20 17:39 Freq: Status: Active Protocol: Document 09/24/20 11:15 DCW (Rec: 09/25/20 09:39 DCW [id number]) Shoulder Goniometric Range of Motion Shoulder Left Active Shoulder ROM WFL Yes Comments WNL, increased left shoulder pain between 140?-180? in both flexion and abduction PT-OP-L Special Tests Start: 09/24/20 17:39 Freq: Status: Active Protocol: Document 09/24/20 11:15 DCW (Rec: 09/25/20 09:39 DCW [id number]) Special Tests Shoulder Special Tests Naidu Sergio Impingement Test Results Positive left Empty Can Test Results Negative Drop Arm Rotator Cuff Test Results Negative AC Joint Compression Test Results Negative Passive ER Rotator Cuff Test Results Negative Painful Arc Test Results Negative Lift-Off Rotator Cuff Test Results Mild difficulty bilaterally Belly Press Test Results Negative PT-OP-M Strength Start: 09/24/20 17:39 Freq: Status: Active Protocol: Document 09/24/20 11:15 DCW (Rec: 09/25/20 09:39 DCW [id number]) Shoulder Strength Shoulder Manual Muscle Testing Left Flexion 4+ Good+ Abduction (C5) 4+ Good+ External Rotation 5 Normal Internal Rotation 5 Normal Comments Mild pain with resisted motion in all planes PT-OP-Q Treatments Start: 09/24/20 17:39 Freq: Status: Active Protocol: Document 10/10/20 14:30 DCW (Rec: 10/10/20 15:18 DCW [id number]) Manual Therapy Treatment Soft Tissue Mobilization Upper Trap Body Location Left UT Mobilization Type Strumming,Sustained Pressure Body Position Supine Parascapulars Body Location L Parascapular musculature Mobilization Type Strumming,Sustained Pressure Body Position Supine Joint Mobilizations GH Joint L GH Direction Inferior Grade III Scapulothoracic Joint L Scapulothopracic Direction Lateral Grade III PT-OP-T Assessment and Plan Start: 09/24/20 17:39 Freq: Status: Active Protocol: Document 10/10/20 14:30 DCW (Rec: 10/10/20 15:18 DCW [id number]) Physical Therapy Assessment Impairments Impairments Pain,Soft Tissue Mobility,Tone Goals Three Impairment Pain has be limiting pt's sleep Jail Goal (LTG) Pt to present with shoulder and back pain at worst 2/10 to improve sleep LTG Duration 11/24/20 Two Impairment Overhead left shoulder pain and positive signs of impingement Jail Goal (LTG) Pt to presents with a negative Naidu-Sergio test and pain -free overhead motion in order to be able to place objects on shelves at her new home. LTG Duration 11/24/20 One Impairment Pt does not have an appropriate home exercise program Short Term Goal (STG) Pt ot be independent and compliant with an appropriate HEP STG Duration 10/25/20 Assessment Summary Assessment Pt still worried about her fractures, but has appointments scheduled, so she feels more optimistic Physical Therapy Plan Frequency and Duration Frequency of Treatment 2x/Week Duration of Treatment Two months Plan of Care Start Date 09/24/20 Plan of Care End Date 11/24/20 Therapeutic Interventions Therapeutic Interventions Home Exercise Program,Joint Mobilizations,Manual Therapy, Patient/Caregiver Education, Self-Care/Home Management,Soft Tissue Mobilization, Therapeutic Activities, Therapeutic Exercises Modalities Cold Pack/Ice Massage,Electric Stimulation,Hot Packs, Ultrasound Next Visit Focus/Plan Next Note Type Treatment Note Next Visit Plan STM, Joint mobs, Strengthening
--- NOTE | 2020-10-15 14:35 | PT.OTN ---
Current Diagnoses Pain in left shoulder (10/15/20) Pain in thoracic spine (10/15/20) Other specified disorders of tendon, left shoulder (10/15/20) Impingement syndrome of left shoulder (10/15/20) Physical Therapy Treatment Note PT-OP-A Visit Information Start: 09/24/20 17:39 Freq: Status: Active Protocol: Document 10/15/20 13:45 DCW (Rec: 10/15/20 14:35 DCW [id number]) Out-Patient Physical Therapy Visit Information Visit Information Visit Type Treatment Note Visit Start Time 13:45 Visit Stop Time 14:30 Total Visit Minutes 45 Visit Number 6 Number of PATIENT OBSERVATION ASSISTANT Visits 0 Evaluation Information Evaluation Date 09/24/20 PT-OP-B Current Condition Start: 09/24/20 17:39 Freq: Status: Active Protocol: Document 09/24/20 11:15 DCW (Rec: 09/25/20 09:34 DCW [id number]) Current Condition History of Current Condition Onset Date Two month history Current Complaints L shoulder pain, R thoracic back pain History of Current Condition Pt is a 74 year old female well known to this clinic presenting with a two month history of left shoulder pain. Pt reports that she was moving into her new house and was trying to adjust a shelving unit when she started getting shoulder pain. Had been bothering her pretty constantly, however over the last few weeks as been better, but still hurts with end range flexion and abduction. Pt regularly works out with her personal lines account executive, which has helped some. Pt also notes that over the past few days, perhaps because of compensatory movements, she has been getting pain in her right thoracic area, which was really painful yesterday sitting in the car on the way to and from [place], but feels a bit better today. PT-OP-C Subjective Start: 09/24/20 17:39 Freq: Status: Active Protocol: Document 10/15/20 13:45 DCW (Rec: 10/15/20 14:35 DCW [id number]) OP-PT Subjective Patient Comments Patient Comments My back hasn't been too bad, although I didn't sleep well last night, so I was icing it this morning. PT-OP-F Manual Assessment Start: 09/24/20 17:39 Freq: Status: Active Protocol: Document 09/24/20 11:15 DCW (Rec: 09/25/20 09:39 DCW [id number]) Manual Assessments Soft Tissue Assessment Soft Tissue Mobility Assessment Moderate Hypertonia and tenderness to palpation 2/4: Pain with wincing left upper trap, left supraspinatus, left rhomboids, right throacic paraspinals PT-OP-K Range of Motion Start: 09/24/20 17:39 Freq: Status: Active Protocol: Document 09/24/20 11:15 DCW (Rec: 09/25/20 09:39 DCW [id number]) Shoulder Goniometric Range of Motion Shoulder Left Active Shoulder ROM WFL Yes Comments WNL, increased left shoulder pain between 140?-180? in both flexion and abduction PT-OP-L Special Tests Start: 09/24/20 17:39 Freq: Status: Active Protocol: Document 09/24/20 11:15 DCW (Rec: 09/25/20 09:39 DCW [id number]) Special Tests Shoulder Special Tests Naidu Sergio Impingement Test Results Positive left Empty Can Test Results Negative Drop Arm Rotator Cuff Test Results Negative AC Joint Compression Test Results Negative Passive ER Rotator Cuff Test Results Negative Painful Arc Test Results Negative Lift-Off Rotator Cuff Test Results Mild difficulty bilaterally Belly Press Test Results Negative PT-OP-M Strength Start: 09/24/20 17:39 Freq: Status: Active Protocol: Document 09/24/20 11:15 DCW (Rec: 09/25/20 09:39 DCW [id number]) Shoulder Strength Shoulder Manual Muscle Testing Left Flexion 4+ Good+ Abduction (C5) 4+ Good+ External Rotation 5 Normal Internal Rotation 5 Normal Comments Mild pain with resisted motion in all planes PT-OP-Q Treatments Start: 09/24/20 17:39 Freq: Status: Active Protocol: Document 10/15/20 13:45 DCW (Rec: 10/15/20 14:35 DCW [id number]) Manual Therapy Treatment Soft Tissue Mobilization Upper Trap Body Location B UT Mobilization Type Strumming,Sustained Pressure Body Position Supine Parascapulars Body Location B Parascapular musculature Mobilization Type Strumming,Sustained Pressure Body Position Supine Joint Mobilizations GH Joint L GH Direction Inferior Grade III Scapulothoracic Joint L Scapulothopracic Direction Lateral Grade III PT-OP-T Assessment and Plan Start: 09/24/20 17:39 Freq: Status: Active Protocol: Document 10/15/20 13:45 DCW (Rec: 10/15/20 14:35 DCW [id number]) Physical Therapy Assessment Impairments Impairments Pain,Soft Tissue Mobility,Tone Goals Three Impairment Pain has be limiting pt's sleep [facility]ci Goal (LTG) Pt to present with shoulder and back pain at worst 2/10 to improve sleep LTG Duration 11/24/20 Two Impairment Overhead left shoulder pain and positive signs of impingement Mechanical Service Representative Goal (LTG) Pt to presents with a negative Naidu-Sergio test and pain -free overhead motion in order to be able to place objects on shelves at her new home. LTG Duration 11/24/20 One Impairment Pt does not have an appropriate home exercise program Short Term Goal (STG) Pt ot be independent and compliant with an appropriate HEP STG Duration 10/25/20 Assessment Summary Assessment Pt doing well today, feels her shoulder have improved quite a bit, likely nearing discharge to independent HEP and continued strengthening with personal lines account executive. Physical Therapy Plan Frequency and Duration Frequency of Treatment 2x/Week Duration of Treatment Two months Plan of Care Start Date 09/24/20 Plan of Care End Date 11/24/20 Therapeutic Interventions Therapeutic Interventions Home Exercise Program,Joint Mobilizations,Manual Therapy, Patient/Caregiver Education, Self-Care/Home Management,Soft Tissue Mobilization, Therapeutic Activities, Therapeutic Exercises Modalities Cold Pack/Ice Massage,Electric Stimulation,Hot Packs, Ultrasound Next Visit Focus/Plan Next Note Type Treatment Note Next Visit Plan STM, Joint mobs, Strengthening
--- NOTE | 2020-10-20 16:54 | PT.OTN ---
Current Diagnoses Pain in left shoulder (10/20/20) Pain in thoracic spine (10/20/20) Other specified disorders of tendon, left shoulder (10/20/20) Impingement syndrome of left shoulder (10/20/20) Physical Therapy Treatment Note PT-OP-A Visit Information Start: 09/24/20 17:39 Freq: Status: Active Protocol: Document 10/20/20 16:00 DCW (Rec: 10/20/20 16:53 DCW [id number]) Out-Patient Physical Therapy Visit Information Visit Information Visit Type Discharge Summary Visit Start Time 16:00 Visit Stop Time 16:45 Total Visit Minutes 45 Visit Number 7 Number of NURSE RESEARCHER Visits 0 Evaluation Information Evaluation Date 09/24/20 PT-OP-B Current Condition Start: 09/24/20 17:39 Freq: Status: Active Protocol: Document 09/24/20 11:15 DCW (Rec: 09/25/20 09:34 DCW [id number]) Current Condition History of Current Condition Onset Date Two month history Current Complaints L shoulder pain, R thoracic back pain History of Current Condition Pt is a 74 year old female well known to this clinic presenting with a two month history of left shoulder pain. Pt reports that she was moving into her new house and was trying to adjust a shelving unit when she started getting shoulder pain. Had been bothering her pretty constantly, however over the last few weeks as been better, but still hurts with end range flexion and abduction. Pt regularly works out with her certified personal chef, which has helped some. Pt also notes that over the past few days, perhaps because of compensatory movements, she has been getting pain in her right thoracic area, which was really painful yesterday sitting in the car on the way to and from [place], but feels a bit better today. PT-OP-C Subjective Start: 09/24/20 17:39 Freq: Status: Active Protocol: Document 10/20/20 16:00 DCW (Rec: 10/20/20 16:53 DCW [id number]) OP-PT Subjective Patient Comments Patient Comments Pt overall comfortable with where she's at, feels her shoulder has improved significantly. PT-OP-F Manual Assessment Start: 09/24/20 17:39 Freq: Status: Active Protocol: Document 09/24/20 11:15 DCW (Rec: 09/25/20 09:39 DCW [id number]) Manual Assessments Soft Tissue Assessment Soft Tissue Mobility Assessment Moderate Hypertonia and tenderness to palpation 2/4: Pain with wincing left upper trap, left supraspinatus, left rhomboids, right throacic paraspinals PT-OP-K Range of Motion Start: 09/24/20 17:39 Freq: Status: Active Protocol: Document 09/24/20 11:15 DCW (Rec: 09/25/20 09:39 DCW [id number]) Shoulder Goniometric Range of Motion Shoulder Left Active Shoulder ROM WFL Yes Comments WNL, increased left shoulder pain between 140?-180? in both flexion and abduction PT-OP-L Special Tests Start: 09/24/20 17:39 Freq: Status: Active Protocol: Document 09/24/20 11:15 DCW (Rec: 09/25/20 09:39 DCW [id number]) Special Tests Shoulder Special Tests Naidu Sergio Impingement Test Results Positive left Empty Can Test Results Negative Drop Arm Rotator Cuff Test Results Negative AC Joint Compression Test Results Negative Passive ER Rotator Cuff Test Results Negative Painful Arc Test Results Negative Lift-Off Rotator Cuff Test Results Mild difficulty bilaterally Belly Press Test Results Negative PT-OP-M Strength Start: 09/24/20 17:39 Freq: Status: Active Protocol: Document 09/24/20 11:15 DCW (Rec: 09/25/20 09:39 DCW [id number]) Shoulder Strength Shoulder Manual Muscle Testing Left Flexion 4+ Good+ Abduction (C5) 4+ Good+ External Rotation 5 Normal Internal Rotation 5 Normal Comments Mild pain with resisted motion in all planes PT-OP-Q Treatments Start: 09/24/20 17:39 Freq: Status: Active Protocol: Document 10/20/20 16:00 DCW (Rec: 10/20/20 16:53 DCW [id number]) Manual Therapy Treatment Soft Tissue Mobilization Upper Trap Body Location B UT Mobilization Type Strumming,Sustained Pressure Body Position Supine Parascapulars Body Location B Parascapular musculature Mobilization Type Strumming,Sustained Pressure Body Position Supine Joint Mobilizations GH Joint L GH Direction Inferior Grade III Scapulothoracic Joint L Scapulothopracic Direction Lateral Grade III PT-OP-T Assessment and Plan Start: 09/24/20 17:39 Freq: Status: Active Protocol: Document 10/20/20 16:00 DCW (Rec: 10/20/20 16:53 DCW [id number]) Physical Therapy Assessment Impairments Impairments Pain,Soft Tissue Mobility,Tone Goals Three Impairment Pain has be limiting pt's sleep Litigation Examiner Goal (LTG) Pt to present with shoulder and back pain at worst 2/10 to improve sleep LTG Duration Met Two Impairment Overhead left shoulder pain and positive signs of impingement Litigation Examiner Goal (LTG) Pt to presents with a negative Naidu-Sergio test and pain -free overhead motion in order to be able to place objects on shelves at her new home. LTG Duration Met One Impairment Pt does not have an appropriate home exercise program Short Term Goal (STG) Pt ot be independent and compliant with an appropriate HEP STG Duration Met Progress Towards Goals Progress Towards Goals Goals Met Assessment Summary Assessment Pt feels comfortable with her current level of function, will continue strengthening with certified personal chef. Pt will be discharged at this time. Physical Therapy Plan Frequency and Duration Frequency of Treatment 2x/Week Duration of Treatment Two months Plan of Care Start Date 09/24/20 Plan of Care End Date 11/24/20 Therapeutic Interventions Therapeutic Interventions Home Exercise Program,Joint Mobilizations,Manual Therapy, Patient/Caregiver Education, Self-Care/Home Management,Soft Tissue Mobilization, Therapeutic Activities, Therapeutic Exercises Modalities Cold Pack/Ice Massage,Electric Stimulation,Hot Packs, Ultrasound Discharge Physical Therapy Discharge Reasons Goals Met Next Visit Focus/Plan Next Note Type Discharge Summary
== END 2020-10-22 13:34 | disposition home or self-care (01) ==
LOC: PHYS 16:00
PROVIDERS: Visit Provider Student in an Organized Health Care Education/Training Program
DX: M67.814 Other specified disorders of tendon, left shoulder (principal); M25.512 Pain in left shoulder; M75.42 Impingement syndrome of left shoulder; M54.6 Pain in thoracic spine
CPT/HCPCS: 97140; 97161

== ENCOUNTER → 2020-11-05 13:16 | Outpatient (CLI) | payer MEDICARE, SELFPAY ==
[2020-11-05 13:58] LABS: COVID19 -Nasal RAPID Negative (Negative)
== END ==
PROVIDERS: Referring Provider Internal Medicine Pulmonary Disease; Visit Provider Internal Medicine
DX: Z20.822 Contact with and (suspected) exposure to COVID-19 (principal)
CPT/HCPCS: 87635; C9803

== ENCOUNTER → 2020-11-06 14:43 | Outpatient (CLI) | payer MEDICARE, SELFPAY ==
--- NOTE | 2020-11-14 08:35 | PM.PFT.1 ---
Pulmonary Function Test Referral & Results Date Patient Seen: 11/06/20 Requesting provider: Queta Cardenas Results: The spirometry demonstrates an FVC of 2.53 L which is 94% of predicted. The FEV1 was measured at 1.99 L which is 98% of predicted. The FEV1/FVC ratio was 79 which is 104% of predicted. Following the administration of bronchodilator there was no appreciable change to above normal numbers Lung volumes show an SVC of 2.49 L which is 93% of predicted. The diffusing capacity was measured at 17.15 which is 74% of predicted. No hemoglobin value was provided, so no correction for potential anemia could be made, if appropriate. The maximum voluntary ventilation was minimally reduced Interpretation: This study demonstrates normal spirometry. There is a minimal reduction in diffusing capacity suggesting element of disease at the capillary alveolar level Maximum voluntary ventilation is also minimally reduced which in the absence of any spirometric abnormalities suggest the presence of some element of neuromuscular disease Clinical correlation suggested
== END ==
PROVIDERS: Referring Provider Internal Medicine Pulmonary Disease; Visit Provider Internal Medicine Pulmonary Disease
DX: J45.20 Mild intermittent asthma, uncomplicated (principal); R06.02 Shortness of breath; R06.00 Dyspnea, unspecified
CPT/HCPCS: 94060; 94726; 94729

== ENCOUNTER 2021-07-29 16:45 | Outpatient (RCR) | payer MEDICARE, SELFPAY ==
--- NOTE | 2021-06-02 15:12 | PT.OIE ---
Current Diagnoses Bilateral primary osteoarthritis of knee (06/02/21) Patellofemoral disorders, right knee (06/02/21) Patellofemoral disorders, left knee (06/02/21) Pain in right knee (06/02/21) Pain in left knee (06/02/21) Visit Care Team Role Provider Type Pati Tsai MD Family Provider Non-Staff Primary Care Provider Specialty: Internal Medicine Address: [address] [place] [address], [id number] Email: Amadeo Dos Santos MD Attending Provider Non-Staff Referring Provider Specialty: Medical Address: [address] [place] [address], [id number] Email: Physical Therapy Initial Evaluation PT-OP-A Visit Information Start: 06/02/21 14:32 Freq: Status: Active Protocol: Document 06/02/21 09:45 DCW (Rec: 06/02/21 14:55 DCW [id number]) Out-Patient Physical Therapy Visit Information Visit Information Visit Type Initial Evaluation Visit Start Time 09:45 Visit Stop Time 10:30 Total Visit Minutes 45 Visit Number 1 Number of WELL REACTIVATOR OPERATOR Visits 0 Evaluation Information Evaluation Date 06/02/21 PT-OP-B Current Condition Start: 06/02/21 14:32 Freq: Status: Active Protocol: Document 06/02/21 09:45 DCW (Rec: 06/02/21 14:55 DCW [id number]) Current Condition History of Current Condition Onset Date One month Current Complaints bilateral knee pain, recent fall History of Current Condition Pt is a 75 year old female well known to this clinic presenting with bilateral knee pain. Pt notes that she has ongoing knee problems, but then one month ago, she fell after tripping on the stairs and tweaked her left knee. 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 Pt notes her knee don't limit much of her daily activity, but pain does limit her ability getting into and out of a tub, walking down stairs or hills. Notices changes in severity with weather. Pt notes she would also find it difficult to go out dancing. Prior Treatments and Tests Bilateral knee x-rays, per chart notes pt brought in from her mychart print out: 4 weightbearing views of both knees demonstrate relatively mild medial and lateral osteoarthritis of both knees. However, both knees have advanced patellofemoral osteoarthritis with complete joint space loss and lateral subluxation of the patella. PT-OP-C Subjective Start: 06/02/21 14:32 Freq: Status: Active Protocol: Document 06/02/21 09:45 DCW (Rec: 06/02/21 14:55 DCW [id number]) OP-PT Subjective Patient Comments Patient Comments I'd like my knees to feel better, but I was also just curious if you thought I need to start thinking about a knee replacement. Patient Questionnaires Lower Extremity Functional Scale LEFS Score 47/80 = 58.75% OP-PT Pain Assessment Pain Assessment Grid Paper Pain Assessment Grid Completed Yes Location Bilateral Knee Intensity 4 Scale Used Numeric (0 - 10) PT-OP-F Manual Assessment Start: 06/02/21 14:32 Freq: Status: Active Protocol: Document 06/02/21 09:45 DCW (Rec: 06/02/21 14:55 DCW [id number]) Manual Assessments Soft Tissue Assessment Soft Tissue Mobility Assessment Tenderness to palpation 3/4: Wincing and withdraw along distal hamstring insertion on left knee, mild hematoma on left anteriomedial knee secondary to fall Joint Mobility Assessment Joint Mobility Assessment Poor patellofemoral tracking, patella bilaterally pulls laterally PT-OP-K Range of Motion Start: 06/02/21 14:32 Freq: Status: Active Protocol: Document 06/02/21 09:45 DCW (Rec: 06/02/21 14:55 DCW [id number]) Knee Goniometric Range of Motion Knee Right Knee ROM WFL Yes Patient Position Supine Flexion Active (degrees) 135 Extension Active (degrees) 0 Left Knee ROM WFL Yes Patient Position Supine Flexion Active (degrees) 125 Extension Active (degrees) 0 PT-OP-L Special Tests Start: 06/02/21 14:32 Freq: Status: Active Protocol: Document 06/02/21 09:45 DCW (Rec: 06/02/21 14:55 DCW [id number]) Special Tests Knee Special Tests Varus- 0 Degrees Test Results Negative Valgus- 0 Degrees Test Results Negative Posterior Draw Test Results Negative Patellar Grind Test Test Results Positive bilaterally Patella Tap Test Results Positive left Jt Test Test Results Negative Levy Chondromalacia Test Results Positive bilaterally Anterior Draw Test Results Negative PT-OP-M Strength Start: 06/02/21 14:32 Freq: Status: Active Protocol: Document 06/02/21 09:45 DCW (Rec: 06/02/21 14:55 DCW [id number]) Knee Strength Knee Manual Muscle Testing Right Flexion (S2) 4+ Good+ Extension (L3) 4+ Good+ Left Flexion (S2) 4+ Good+ Extension (L3) 4+ Good+ PT-OP-Q Treatments Start: 06/02/21 14:32 Freq: Status: Active Protocol: Document 06/02/21 09:45 DCW (Rec: 06/02/21 15:12 DCW [id number]) Manual Therapy Treatment Taping 1 Body Location Left knee Treatment Focus Medial patella pull Type of Tape Kinesio Tape PT-OP-T Assessment and Plan Start: 06/02/21 14:32 Freq: Status: Active Protocol: Document 06/02/21 09:45 DCW (Rec: 06/02/21 15:12 DCW [id number]) Physical Therapy Assessment Rehab Potential Rehabilitation Potential Excellent Impairments Impairments Activity Tolerance,Functional Activities,Functional Mobility ,Pain,Tone Goals Two Impairment Left knee flexion currently 10 ? less than right Retirement Goal (LTG) Pt to increase left knee flexion equal to right in order to improve ability to exit tub when bathing LTG Duration 08/02/21 One Impairment Pt demonstrates poor patellofemoral tracking Retirement Goal (LTG) Pt to show improved patellofemoral tracking with both patella at least to midline during knee extension to decrease patella grind and improve ability to participate in dance. LTG Duration 08/02/21 Assessment Summary Assessment Pt presents with signs and symptoms consistent with referring diagnosis of patellofemoral osteoarthritis. Pt having pain and grinding with knee ROM, but has good strength, generally good ROM, and minimal edema. Pt is very consistent with her participation in exercise, has been working with a representative personal service for a number of years, does not show any indications of muscle weakness or imbalance. Skilled PT should focus mainly on mobility of patellofemoral joints, knee ROM, and possibly a small focus on VMO-specific strengthening. Trial of k- taping today to determine if a medial pull relieved some of pt's pain complaints. Physical Therapy Plan Frequency and Duration Frequency of Treatment 2x/Week Duration of Treatment Two months Plan of Care Start Date 06/02/21 Plan of Care End Date 08/02/21 Therapeutic Interventions Therapeutic Interventions Aquatic Therapy,Home Exercise Program,Joint Mobilizations, Manual Therapy,Patient/ Caregiver Education,Self-Care/ Home Management,Soft Tissue Mobilization,Taping, Therapeutic Activities, Therapeutic Exercises Modalities Cold Pack/Ice Massage,Electric Stimulation,Hot Packs, Ultrasound Next Visit Focus/Plan Next Note Type Treatment Note Next Visit Plan power Marcum
--- NOTE | 2021-06-02 15:13 | PT.OPPOC ---
Physical, Occupational & Speech Therapy At [facility] Current Diagnoses Bilateral primary osteoarthritis of knee (06/02/21) Patellofemoral disorders, right knee (06/02/21) Patellofemoral disorders, left knee (06/02/21) Pain in right knee (06/02/21) Pain in left knee (06/02/21) Visit Care Team Role Provider Type Pati Tsai MD Family Provider Non-Staff Primary Care Provider Specialty: Internal Medicine Address: [address] [place] [address], [facility] Email: Amadeo Dos Santos MD Attending Provider Non-Staff Referring Provider Specialty: Medical Address: [address] [place] [address], [facility] Email: Plan Of Care PT-OP-T Assessment and Plan Start: 06/02/21 14:32 Freq: Status: Active Protocol: Document 06/02/21 09:45 DCW (Rec: 06/02/21 15:12 DCW [id number]) Physical Therapy Assessment Rehab Potential Rehabilitation Potential Excellent Impairments Impairments Activity Tolerance,Functional Activities,Functional Mobility ,Pain,Tone Goals Two Impairment Left knee flexion currently 10 ? less than right Ordnance Truck Installation Supervisor Goal (LTG) Pt to increase left knee flexion equal to right in order to improve ability to exit tub when bathing LTG Duration 08/02/21 One Impairment Pt demonstrates poor patellofemoral tracking Ordnance Truck Installation Supervisor Goal (LTG) Pt to show improved patellofemoral tracking with both patella at least to midline during knee extension to decrease patella grind and improve ability to participate in dance. LTG Duration 08/02/21 Assessment Summary Assessment Pt presents with signs and symptoms consistent with referring diagnosis of patellofemoral osteoarthritis. Pt having pain and grinding with knee ROM, but has good strength, generally good ROM, and minimal edema. Pt is very consistent with her participation in exercise, has been working with a personal attendant for a number of years, does not show any indications of muscle weakness or imbalance. Skilled PT should focus mainly on mobility of patellofemoral joints, knee ROM, and possibly a small focus on VMO-specific strengthening. Trial of k- taping today to determine if a medial pull relieved some of pt's pain complaints. Physical Therapy Plan Frequency and Duration Frequency of Treatment 2x/Week Duration of Treatment Two months Plan of Care Start Date 06/02/21 Plan of Care End Date 08/02/21 Therapeutic Interventions Therapeutic Interventions Aquatic Therapy,Home Exercise Program,Joint Mobilizations, Manual Therapy,Patient/ Caregiver Education,Self-Care/ Home Management,Soft Tissue Mobilization,Taping, Therapeutic Activities, Therapeutic Exercises Modalities Cold Pack/Ice Massage,Electric Stimulation,Hot Packs, Ultrasound Next Visit Focus/Plan Next Note Type Treatment Note Next Visit Plan Jt mobs, taping Plan of Care Dates Plan of Care Start Date 06/02/21 Plan of Care End Date 08/02/21 Electronically Signed by: Anibal Barker, PT 06/02/21 9233 Please Sign and Return: I have reviewed this Plan of Care and certify that the skilled therapy services above are required to meet the patient?s needs. Physician Signature Date Printed Name and Credentials Clinical Instructor Signature Printed Name and Credentials
--- NOTE | 2021-06-04 12:05 | PT.OTN ---
Current Diagnoses Bilateral primary osteoarthritis of knee (06/04/21) Patellofemoral disorders, right knee (06/04/21) Patellofemoral disorders, left knee (06/04/21) Pain in right knee (06/04/21) Pain in left knee (06/04/21) Physical Therapy Treatment Note PT-OP-A Visit Information Start: 06/02/21 14:32 Freq: Status: Active Protocol: Document 06/04/21 11:17 DCW (Rec: 06/04/21 12:04 DCW [id number]) Out-Patient Physical Therapy Visit Information Visit Information Visit Type Treatment Note Visit Start Time 11:17 Visit Stop Time 12:00 Total Visit Minutes 43 Visit Number 2 Number of WATER AND SEWER SYSTEMS SUPERINTENDENT Visits 0 Evaluation Information Evaluation Date 06/02/21 PT-OP-B Current Condition Start: 06/02/21 14:32 Freq: Status: Active Protocol: Document 06/02/21 09:45 DCW (Rec: 06/02/21 14:55 DCW [id number]) Current Condition History of Current Condition Onset Date One month Current Complaints bilateral knee pain, recent fall History of Current Condition Pt is a 75 year old female well known to this clinic presenting with bilateral knee pain. Pt notes that she has ongoing knee problems, but then one month ago, she fell after tripping on the stairs and tweaked her left knee. 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 Pt notes her knee don't limit much of her daily activity, but pain does limit her ability getting into and out of a tub, walking down stairs or hills. Notices changes in severity with weather. Pt notes she would also find it difficult to go out dancing. Prior Treatments and Tests Bilateral knee x-rays, per chart notes pt brought in from her [employer] print out: 4 weightbearing views of both knees demonstrate relatively mild medial and lateral osteoarthritis of both knees. However, both knees have advanced patellofemoral osteoarthritis with complete joint space loss and lateral subluxation of the patella. PT-OP-C Subjective Start: 06/02/21 14:32 Freq: Status: Active Protocol: Document 06/04/21 11:17 DCW (Rec: 06/04/21 12:04 DCW [id number]) OP-PT Subjective Patient Comments Patient Comments Pt notes she worked out yesterday, her clinical provider trainer told her she was allowed to take it easy. Her left knee needed to be iced after a lot of walking around. PT-OP-F Manual Assessment Start: 06/02/21 14:32 Freq: Status: Active Protocol: Document 06/02/21 09:45 DCW (Rec: 06/02/21 14:55 DCW [id number]) Manual Assessments Soft Tissue Assessment Soft Tissue Mobility Assessment Tenderness to palpation 3/4: Wincing and withdraw along distal hamstring insertion on left knee, mild hematoma on left anteriomedial knee secondary to fall Joint Mobility Assessment Joint Mobility Assessment Poor patellofemoral tracking, patella bilaterally pulls laterally PT-OP-K Range of Motion Start: 06/02/21 14:32 Freq: Status: Active Protocol: Document 06/02/21 09:45 DCW (Rec: 06/02/21 14:55 DCW [id number]) Knee Goniometric Range of Motion Knee Right Knee ROM WFL Yes Patient Position Supine Flexion Active (degrees) 135 Extension Active (degrees) 0 Left Knee ROM WFL Yes Patient Position Supine Flexion Active (degrees) 125 Extension Active (degrees) 0 PT-OP-L Special Tests Start: 06/02/21 14:32 Freq: Status: Active Protocol: Document 06/02/21 09:45 DCW (Rec: 06/02/21 14:55 DCW [id number]) Special Tests Knee Special Tests Varus- 0 Degrees Test Results Negative Valgus- 0 Degrees Test Results Negative Posterior Draw Test Results Negative Patellar Grind Test Test Results Positive bilaterally Patella Tap Test Results Positive left Jt Test Test Results Negative Levy Chondromalacia Test Results Positive bilaterally Anterior Draw Test Results Negative PT-OP-M Strength Start: 06/02/21 14:32 Freq: Status: Active Protocol: Document 06/02/21 09:45 DCW (Rec: 06/02/21 14:55 DCW [id number]) Knee Strength Knee Manual Muscle Testing Right Flexion (S2) 4+ Good+ Extension (L3) 4+ Good+ Left Flexion (S2) 4+ Good+ Extension (L3) 4+ Good+ PT-OP-Q Treatments Start: 06/02/21 14:32 Freq: Status: Active Protocol: Document 06/04/21 11:17 DCW (Rec: 06/04/21 12:04 [facility] [id number]) Therapeutic Exercises Supine Exercises 2 Supine Exercise Name Bridging /c add ball squeeze Side bilateral Reps/Minutes x15 1 Supine Exercise Name SLR /c ER Side bilateral Reps/Minutes x15 each side Sidelying Exercises 1 Sidelying Exercise Name Hip Adduction Side bilateral Reps/Minutes x15 each Standing Exercises 1 Standing Exercise Name Wall squat /c add ball squeeze Manual Therapy Treatment Joint Mobilizations Patellar mobs Joint B PF mobilization Grade III Body Position Sitting Taping 2 Body Location Right knee Treatment Focus Medial patella pull Type of Tape Cam PT-OP-T Assessment and Plan Start: 06/02/21 14:32 Freq: Status: Active Protocol: Document 06/04/21 11:17 DCW (Rec: 06/04/21 12:04 DCW [id number]) Physical Therapy Assessment Impairments Impairments Activity Tolerance,Functional Activities,Functional Mobility ,Pain,Tone Goals Two Impairment Left knee flexion currently 10 ? less than right Half-Way Goal (LTG) Pt to increase left knee flexion equal to right in order to improve ability to exit tub when bathing LTG Duration 08/02/21 One Impairment Pt demonstrates poor patellofemoral tracking Inventory Control Planner Goal (LTG) Pt to show improved patellofemoral tracking with both patella at least to midline during knee extension to decrease patella grind and improve ability to participate in dance. LTG Duration 08/02/21 Assessment Summary Assessment Pt did well today with joint mobs and taping, able to move with less pain. Added strengthening exercises focusing specifically on VMO. Physical Therapy Plan Frequency and Duration Frequency of Treatment 2x/Week Duration of Treatment Two months Plan of Care Start Date 06/02/21 Plan of Care End Date 08/02/21 Therapeutic Interventions Therapeutic Interventions Aquatic Therapy,Home Exercise Program,Joint Mobilizations, Manual Therapy,Patient/ Caregiver Education,Self-Care/ Home Management,Soft Tissue Mobilization,Taping, Therapeutic Activities, Therapeutic Exercises Modalities Cold Pack/Ice Massage,Electric Stimulation,Hot Packs, Ultrasound Next Visit Focus/Plan Next Note Type Treatment Note Next Visit Plan Jt mobs, taping
--- NOTE | 2021-06-09 11:21 | PT.OTN ---
Current Diagnoses Bilateral primary osteoarthritis of knee (06/09/21) Patellofemoral disorders, right knee (06/09/21) Patellofemoral disorders, left knee (06/09/21) Pain in right knee (06/09/21) Pain in left knee (06/09/21) Physical Therapy Treatment Note PT-OP-A Visit Information Start: 06/02/21 14:32 Freq: Status: Active Protocol: Document 06/09/21 10:32 DCW (Rec: 06/09/21 11:21 DCW [id number]) Out-Patient Physical Therapy Visit Information Visit Information Visit Type Treatment Note Visit Start Time 10:32 Visit Stop Time 11:15 Total Visit Minutes 43 Visit Number 3 Number of FUR BLOWING MACHINE ATTENDANT Visits 0 Evaluation Information Evaluation Date 06/02/21 PT-OP-B Current Condition Start: 06/02/21 14:32 Freq: Status: Active Protocol: Document 06/02/21 09:45 DCW (Rec: 06/02/21 14:55 DCW [id number]) Current Condition History of Current Condition Onset Date One month Current Complaints bilateral knee pain, recent fall History of Current Condition Pt is a 75 year old female well known to this clinic presenting with bilateral knee pain. Pt notes that she has ongoing knee problems, but then one month ago, she fell after tripping on the stairs and tweaked her left knee. 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 Pt notes her knee don't limit much of her daily activity, but pain does limit her ability getting into and out of a tub, walking down stairs or hills. Notices changes in severity with weather. Pt notes she would also find it difficult to go out dancing. Prior Treatments and Tests Bilateral knee x-rays, per chart notes pt brought in from her [employer] print out: 4 weightbearing views of both knees demonstrate relatively mild medial and lateral osteoarthritis of both knees. However, both knees have advanced patellofemoral osteoarthritis with complete joint space loss and lateral subluxation of the patella. PT-OP-C Subjective Start: 06/02/21 14:32 Freq: Status: Active Protocol: Document 06/09/21 10:32 DCW (Rec: 06/09/21 11:21 DCW [id number]) OP-PT Subjective Patient Comments Patient Comments When I took the black tape (k -tape) off the left, I could feel a difference. It felt much more wobbly, like it was trying to adjust. PT-OP-F Manual Assessment Start: 06/02/21 14:32 Freq: Status: Active Protocol: Document 06/02/21 09:45 DCW (Rec: 06/02/21 14:55 DCW [id number]) Manual Assessments Soft Tissue Assessment Soft Tissue Mobility Assessment Tenderness to palpation 3/4: Wincing and withdraw along distal hamstring insertion on left knee, mild hematoma on left anteriomedial knee secondary to fall Joint Mobility Assessment Joint Mobility Assessment Poor patellofemoral tracking, patella bilaterally pulls laterally PT-OP-K Range of Motion Start: 06/02/21 14:32 Freq: Status: Active Protocol: Document 06/02/21 09:45 DCW (Rec: 06/02/21 14:55 DCW [id number]) Knee Goniometric Range of Motion Knee Right Knee ROM WFL Yes Patient Position Supine Flexion Active (degrees) 135 Extension Active (degrees) 0 Left Knee ROM WFL Yes Patient Position Supine Flexion Active (degrees) 125 Extension Active (degrees) 0 PT-OP-L Special Tests Start: 06/02/21 14:32 Freq: Status: Active Protocol: Document 06/02/21 09:45 DCW (Rec: 06/02/21 14:55 DCW [id number]) Special Tests Knee Special Tests Varus- 0 Degrees Test Results Negative Valgus- 0 Degrees Test Results Negative Posterior Draw Test Results Negative Patellar Grind Test Test Results Positive bilaterally Patella Tap Test Results Positive left Jt Test Test Results Negative Levy Chondromalacia Test Results Positive bilaterally Anterior Draw Test Results Negative PT-OP-M Strength Start: 06/02/21 14:32 Freq: Status: Active Protocol: Document 06/02/21 09:45 DCW (Rec: 06/02/21 14:55 DCW [id number]) Knee Strength Knee Manual Muscle Testing Right Flexion (S2) 4+ Good+ Extension (L3) 4+ Good+ Left Flexion (S2) 4+ Good+ Extension (L3) 4+ Good+ PT-OP-Q Treatments Start: 06/02/21 14:32 Freq: Status: Active Protocol: Document 06/09/21 10:32 DCW (Rec: 06/09/21 11:21 DC [id number]) Gym Equipment Shuttle Recovery Unilateral Squats Resistance 37# Shuttle Recovery Platform Unstable Bilateral Squats Details Adductor ball squeeze Resistance 75# Shuttle Recovery Platform Unstable Therapeutic Exercises Standing Exercises 2 Standing Exercise Name TKE Side bilateral Resistance Lv 2 T-band Other Exercises 2 Other Exercise Name Resisted ER/IR kneeling on stool Side bilateral Resistance Lv 2 T-band 1 Other Exercise Name BOSU Lunge Side bilateral Manual Therapy Treatment Joint Mobilizations Patellar mobs Joint B PF mobilization Grade III Body Position Sitting Taping 1 Body Location Bilateral knee Treatment Focus Medial patella pull Type of Tape Kinesio Tape PT-OP-T Assessment and Plan Start: 06/02/21 14:32 Freq: Status: Active Protocol: Document 06/09/21 10:32 DCW (Rec: 06/09/21 11:21 DC [id number]) Physical Therapy Assessment Impairments Impairments Activity Tolerance,Functional Activities,Functional Mobility ,Pain,Tone Goals Two Impairment Left knee flexion currently 10 ? less than right Ramp Service Man Goal (LTG) Pt to increase left knee flexion equal to right in order to improve ability to exit tub when bathing LTG Duration 08/02/21 One Impairment Pt demonstrates poor patellofemoral tracking Fdc Goal (LTG) Pt to show improved patellofemoral tracking with both patella at least to midline during knee extension to decrease patella grind and improve ability to participate in dance. LTG Duration 08/02/21 Assessment Summary Assessment Pt had some increased pain today with joint mobility, but tolerated all exercises well, did note some clicking during BOSU lunges, but no increased pain Physical Therapy Plan Frequency and Duration Frequency of Treatment 2x/Week Duration of Treatment Two months Plan of Care Start Date 06/02/21 Plan of Care End Date 08/02/21 Therapeutic Interventions Therapeutic Interventions Aquatic Therapy,Home Exercise Program,Joint Mobilizations, Manual Therapy,Patient/ Caregiver Education,Self-Care/ Home Management,Soft Tissue Mobilization,Taping, Therapeutic Activities, Therapeutic Exercises Modalities Cold Pack/Ice Massage,Electric Stimulation,Hot Packs, Ultrasound Next Visit Focus/Plan Next Note Type Treatment Note Next Visit Plan Jt mobs, taping
--- NOTE | 2021-06-11 10:33 | PT.OTN ---
Current Diagnoses Bilateral primary osteoarthritis of knee (06/11/21) Patellofemoral disorders, right knee (06/11/21) Patellofemoral disorders, left knee (06/11/21) Pain in right knee (06/11/21) Pain in left knee (06/11/21) Physical Therapy Treatment Note PT-OP-A Visit Information Start: 06/02/21 14:32 Freq: Status: Active Protocol: Document 06/11/21 09:51 SP (Rec: 06/11/21 10:34 SP [id number]) Out-Patient Physical Therapy Visit Information Visit Information Visit Type Treatment Note Visit Start Time 09:51 Visit Stop Time 10:33 Total Visit Minutes 41 Visit Number 4 Number of CHIEF II DISPATCHER Visits 1 Evaluation Information Evaluation Date 06/02/21 PT-OP-B Current Condition Start: 06/02/21 14:32 Freq: Status: Active Protocol: Document 06/02/21 09:45 DCW (Rec: 06/02/21 14:55 DCW [id number]) Current Condition History of Current Condition Onset Date One month Current Complaints bilateral knee pain, recent fall History of Current Condition Pt is a 75 year old female well known to this clinic presenting with bilateral knee pain. Pt notes that she has ongoing knee problems, but then one month ago, she fell after tripping on the stairs and tweaked her left knee. 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 Pt notes her knee don't limit much of her daily activity, but pain does limit her ability getting into and out of a tub, walking down stairs or hills. Notices changes in severity with weather. Pt notes she would also find it difficult to go out dancing. Prior Treatments and Tests Bilateral knee x-rays, per chart notes pt brought in from her [employer] print out: 4 weightbearing views of both knees demonstrate relatively mild medial and lateral osteoarthritis of both knees. However, both knees have advanced patellofemoral osteoarthritis with complete joint space loss and lateral subluxation of the patella. PT-OP-C Subjective Start: 06/02/21 14:32 Freq: Status: Active Protocol: Document 06/11/21 09:51 SP (Rec: 06/11/21 10:34 SP [id number]) OP-PT Subjective Patient Comments Patient Comments Pt reports having pain with HEP LEs turned out in L adductor during SLR foot turned out, states strained the muscle long time ago and feeling it more again. She stated did some lateral side stepping with grassland conservationist yesterday (M, W, Sat) among other exercises and felt more discomfort/ pain end session. She got a small volley/soccor ball for bridging and wall squats between B knees and 55cm ball for behind back wall squats, trying towel over ball at knees little hard. PT-OP-F Manual Assessment Start: 06/02/21 14:32 Freq: Status: Active Protocol: Document 06/02/21 09:45 DCW (Rec: 06/02/21 14:55 DCW [id number]) Manual Assessments Soft Tissue Assessment Soft Tissue Mobility Assessment Tenderness to palpation 3/4: Wincing and withdraw along distal hamstring insertion on left knee, mild hematoma on left anteriomedial knee secondary to fall Joint Mobility Assessment Joint Mobility Assessment Poor patellofemoral tracking, patella bilaterally pulls laterally PT-OP-K Range of Motion Start: 06/02/21 14:32 Freq: Status: Active Protocol: Document 06/02/21 09:45 DCW (Rec: 06/02/21 14:55 DCW [id number]) Knee Goniometric Range of Motion Knee Right Knee ROM WFL Yes Patient Position Supine Flexion Active (degrees) 135 Extension Active (degrees) 0 Left Knee ROM WFL Yes Patient Position Supine Flexion Active (degrees) 125 Extension Active (degrees) 0 PT-OP-L Special Tests Start: 06/02/21 14:32 Freq: Status: Active Protocol: Document 06/02/21 09:45 DCW (Rec: 06/02/21 14:55 DCW [id number]) Special Tests Knee Special Tests Varus- 0 Degrees Test Results Negative Valgus- 0 Degrees Test Results Negative Posterior Draw Test Results Negative Patellar Grind Test Test Results Positive bilaterally Patella Tap Test Results Positive left Jt Test Test Results Negative Levy Chondromalacia Test Results Positive bilaterally Anterior Draw Test Results Negative PT-OP-M Strength Start: 06/02/21 14:32 Freq: Status: Active Protocol: Document 06/02/21 09:45 DCW (Rec: 06/02/21 14:55 DCW [id number]) Knee Strength Knee Manual Muscle Testing Right Flexion (S2) 4+ Good+ Extension (L3) 4+ Good+ Left Flexion (S2) 4+ Good+ Extension (L3) 4+ Good+ PT-OP-Q Treatments Start: 06/02/21 14:32 Freq: Status: Active Protocol: Document 06/11/21 09:51 SP (Rec: 06/11/21 10:34 SP [id number]) Therapeutic Exercises Supine Exercises beny stretch Supine Exercise Name added to HEP Side left Reps/Minutes 30 x2 Comments cued TA awareness for no LB recruitment, good feedback stretch adductor stretch Supine Exercise Name added to HEP Side left Reps/Minutes 30 x3 Comments cued TA awareness for no LB recruitment, good feedback stretch 2 Supine Exercise Name Bridging /c add ball squeeze Side bilateral Reps/Minutes x15 Comments cued feel // knees, and neutral pelvis, good muscle tiring quad/gluts 1 Supine Exercise Name SLR /c ER Side bilateral Reps/Minutes x15 each side Comments better, no pain post manual and stretching Sidelying Exercises 1 Sidelying Exercise Name Hip Adduction Side bilateral Reps/Minutes x15 each Comments good form, feels same effort no pain/tiring post manual Standing Exercises 2 Standing Exercise Name TKE Side bilateral Resistance Lv 2 T-band (provided band) Equipment Used chair Reps/Minutes x15- cued slow and opposite little back stagger stance ( not lrge lunge pos) Comments ed set up anchored in door contact chair balance 1 Standing Exercise Name Wall squat /c add ball squeeze Reps/Minutes x10 Comments cued hip hinge decrease superior patella discomfort Other Exercises 2 Other Exercise Name Resisted ER/IR kneeling on stool Side bilateral Resistance Lv 2 T-band Equipment Used tried chair (to tall)-will continue in PT w/ stool is best results Reps/Minutes x10 each Comments cued anchored at ankle- good form, painfree Manual Therapy Treatment Soft Tissue Mobilization 3 Body Location L adductor prox> mid muscle Mobilization Type Instrument Assisted,Strumming Intensity/Depth Moderate Body Position Hooklying Comments manual and instruction on self and use of rolling pin for mid STMs Taping 1 Body Location R retaped needed Treatment Focus Medial patella pull Type of Tape Kinesio Tape Skin Inspection normal color and texture, no adverse reactions Comments anchored superior diagonally inferior and lateral 50% tension as previously taped. Good feedback stability assisted for home activities and training. Instruction on self reapplication at home if needed, with couple extra strips. PT-OP-T Assessment and Plan Start: 06/02/21 14:32 Freq: Status: Active Protocol: Document 06/11/21 09:51 SP (Rec: 06/11/21 10:34 SP [id number]) Physical Therapy Assessment Goals Two Impairment Left knee flexion currently 10 ? less than right Retirement Goal (LTG) Pt to increase left knee flexion equal to right in order to improve ability to exit tub when bathing LTG Duration 08/02/21 One Impairment Pt demonstrates poor patellofemoral tracking Radiology Manager Goal (LTG) Pt to show improved patellofemoral tracking with both patella at least to midline during knee extension to decrease patella grind and improve ability to participate in dance. 06/11/21: pt reports improved decrease pain with K taping support. LTG Duration 08/02/21 (progressing 06/11/21) Assessment Summary Assessment Pt improved performance of R SLR, adduction and TKE with almost no strain on L adductor post manual and instruction self STMs and stretching pre ex if needed to allow strengthening progression. Good Provided theraband for home, pt couldn't find hers. Mod cues for slow controlled pacing concentric/ eccentric and knee alignment throughout ther ex with improved understanding post ed and self corrections. Pt reported Physical Therapy Plan Frequency and Duration Frequency of Treatment 2x/Week Duration of Treatment Two months Plan of Care Start Date 06/02/21 Plan of Care End Date 08/02/21 Therapeutic Interventions Therapeutic Interventions Aquatic Therapy,Home Exercise Program,Joint Mobilizations, Manual Therapy,Patient/ Caregiver Education,Self-Care/ Home Management,Soft Tissue Mobilization,Taping, Therapeutic Activities, Therapeutic Exercises Modalities Cold Pack/Ice Massage,Electric Stimulation,Hot Packs, Ultrasound Next Visit Focus/Plan Next Note Type Treatment Note Next Visit Plan Continue assess HEP for slow pacing and proper form/ alignment. Recheck AROM next tx for assess progress goals. POC: Jt mobs, taping
--- NOTE | 2021-06-17 14:31 | PT.OTN ---
Current Diagnoses Bilateral primary osteoarthritis of knee (06/17/21) Patellofemoral disorders, right knee (06/17/21) Patellofemoral disorders, left knee (06/17/21) Pain in right knee (06/17/21) Pain in left knee (06/17/21) Physical Therapy Treatment Note PT-OP-A Visit Information Start: 06/02/21 14:32 Freq: Status: Active Protocol: Document 06/17/21 13:45 DCW (Rec: 06/17/21 14:31 DCW [id number]) Out-Patient Physical Therapy Visit Information Visit Information Visit Type Treatment Note Visit Start Time 13:45 Visit Stop Time 14:30 Total Visit Minutes 45 Visit Number 5 Number of CASTING OPERATOR HELPER Visits 0 Evaluation Information Evaluation Date 06/02/21 PT-OP-B Current Condition Start: 06/02/21 14:32 Freq: Status: Active Protocol: Document 06/02/21 09:45 DCW (Rec: 06/02/21 14:55 DCW [id number]) Current Condition History of Current Condition Onset Date One month Current Complaints bilateral knee pain, recent fall History of Current Condition Pt is a 75 year old female well known to this clinic presenting with bilateral knee pain. Pt notes that she has ongoing knee problems, but then one month ago, she fell after tripping on the stairs and tweaked her left knee. 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 Pt notes her knee don't limit much of her daily activity, but pain does limit her ability getting into and out of a tub, walking down stairs or hills. Notices changes in severity with weather. Pt notes she would also find it difficult to go out dancing. Prior Treatments and Tests Bilateral knee x-rays, per chart notes pt brought in from her [employer] print out: 4 weightbearing views of both knees demonstrate relatively mild medial and lateral osteoarthritis of both knees. However, both knees have advanced patellofemoral osteoarthritis with complete joint space loss and lateral subluxation of the patella. PT-OP-C Subjective Start: 06/02/21 14:32 Freq: Status: Active Protocol: Document 06/17/21 13:45 DCW (Rec: 06/17/21 14:31 DCW [id number]) OP-PT Subjective Patient Comments Patient Comments I can feel my knees right now , but I also worked out this morning. PT-OP-F Manual Assessment Start: 06/02/21 14:32 Freq: Status: Active Protocol: Document 06/02/21 09:45 DCW (Rec: 06/02/21 14:55 DCW [id number]) Manual Assessments Soft Tissue Assessment Soft Tissue Mobility Assessment Tenderness to palpation 3/4: Wincing and withdraw along distal hamstring insertion on left knee, mild hematoma on left anteriomedial knee secondary to fall Joint Mobility Assessment Joint Mobility Assessment Poor patellofemoral tracking, patella bilaterally pulls laterally PT-OP-K Range of Motion Start: 06/02/21 14:32 Freq: Status: Active Protocol: Document 06/02/21 09:45 DCW (Rec: 06/02/21 14:55 DCW [id number]) Knee Goniometric Range of Motion Knee Right Knee ROM WFL Yes Patient Position Supine Flexion Active (degrees) 135 Extension Active (degrees) 0 Left Knee ROM WFL Yes Patient Position Supine Flexion Active (degrees) 125 Extension Active (degrees) 0 PT-OP-L Special Tests Start: 06/02/21 14:32 Freq: Status: Active Protocol: Document 06/02/21 09:45 DCW (Rec: 06/02/21 14:55 DCW [id number]) Special Tests Knee Special Tests Varus- 0 Degrees Test Results Negative Valgus- 0 Degrees Test Results Negative Posterior Draw Test Results Negative Patellar Grind Test Test Results Positive bilaterally Patella Tap Test Results Positive left Jt Test Test Results Negative Levy Chondromalacia Test Results Positive bilaterally Anterior Draw Test Results Negative PT-OP-M Strength Start: 06/02/21 14:32 Freq: Status: Active Protocol: Document 06/02/21 09:45 DCW (Rec: 06/02/21 14:55 DCW [id number]) Knee Strength Knee Manual Muscle Testing Right Flexion (S2) 4+ Good+ Extension (L3) 4+ Good+ Left Flexion (S2) 4+ Good+ Extension (L3) 4+ Good+ PT-OP-Q Treatments Start: 06/02/21 14:32 Freq: Status: Active Protocol: Document 06/17/21 13:45 DCW (Rec: 06/17/21 14:31 DCW [id number]) Gym Equipment Shuttle Recovery Unilateral Squats Resistance 37# Shuttle Recovery Platform Stable Bilateral Squats Details Adductor ball squeeze Resistance 87# Shuttle Recovery Platform Unstable Therapeutic Exercises Standing Exercises 2 Standing Exercise Name TKE Side bilateral Resistance Lv 2 T-band Other Exercises 2 Other Exercise Name Resisted ER/IR kneeling on stool Side bilateral Resistance Lv 2 T-band 1 Other Exercise Name BOSU Lunge Side bilateral Manual Therapy Treatment Joint Mobilizations Patellar mobs Joint B PF mobilization Grade III Body Position Sitting Taping 1 Body Location Bilateral knee Treatment Focus Medial patella pull Type of Tape Kinesio Tape Skin Inspection normal color and texture, no adverse reactions PT-OP-T Assessment and Plan Start: 06/02/21 14:32 Freq: Status: Active Protocol: Document 06/17/21 13:45 DCW (Rec: 06/17/21 14:31 DCW [id number]) Physical Therapy Assessment Impairments Impairments Activity Tolerance,Functional Activities,Functional Mobility ,Pain,Tone Goals Two Impairment Left knee flexion currently 10 ? less than right Shelter Goal (LTG) Pt to increase left knee flexion equal to right in order to improve ability to exit tub when bathing LTG Duration 08/02/21 One Impairment Pt demonstrates poor patellofemoral tracking Multiskill Operator Goal (LTG) Pt to show improved patellofemoral tracking with both patella at least to midline during knee extension to decrease patella grind and improve ability to participate in dance. LTG Duration 08/02/21 Assessment Summary Assessment Pt showing some mild improvement with knee ROM, however still fairly restricted with patellar mobility secondary to pain. Physical Therapy Plan Frequency and Duration Frequency of Treatment 2x/Week Duration of Treatment Two months Plan of Care Start Date 06/02/21 Plan of Care End Date 08/02/21 Therapeutic Interventions Therapeutic Interventions Aquatic Therapy,Home Exercise Program,Joint Mobilizations, Manual Therapy,Patient/ Caregiver Education,Self-Care/ Home Management,Soft Tissue Mobilization,Taping, Therapeutic Activities, Therapeutic Exercises Modalities Cold Pack/Ice Massage,Electric Stimulation,Hot Packs, Ultrasound Next Visit Focus/Plan Next Note Type Treatment Note Next Visit Plan Continue assess HEP for slow pacing and proper form/ alignment. Recheck AROM next tx for assess progress goals. POC: Jt mobs, taping
--- NOTE | 2021-06-19 15:13 | PT.OTN ---
Current Diagnoses Bilateral primary osteoarthritis of knee (06/19/21) Patellofemoral disorders, right knee (06/19/21) Patellofemoral disorders, left knee (06/19/21) Pain in right knee (06/19/21) Pain in left knee (06/19/21) Physical Therapy Treatment Note PT-OP-A Visit Information Start: 06/02/21 14:32 Freq: Status: Active Protocol: Document 06/19/21 14:30 DCW (Rec: 06/19/21 15:13 DCW [id number]) Out-Patient Physical Therapy Visit Information Visit Information Visit Type Treatment Note Visit Start Time 14:30 Visit Stop Time 15:15 Total Visit Minutes 45 Visit Number 6 Number of JUNIOR SOFTWARE ENGINEER Visits 0 Evaluation Information Evaluation Date 06/02/21 PT-OP-B Current Condition Start: 06/02/21 14:32 Freq: Status: Active Protocol: Document 06/02/21 09:45 DCW (Rec: 06/02/21 14:55 DCW [id number]) Current Condition History of Current Condition Onset Date One month Current Complaints bilateral knee pain, recent fall History of Current Condition Pt is a 75 year old female well known to this clinic presenting with bilateral knee pain. Pt notes that she has ongoing knee problems, but then one month ago, she fell after tripping on the stairs and tweaked her left knee. 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 Pt notes her knee don't limit much of her daily activity, but pain does limit her ability getting into and out of a tub, walking down stairs or hills. Notices changes in severity with weather. Pt notes she would also find it difficult to go out dancing. Prior Treatments and Tests Bilateral knee x-rays, per chart notes pt brought in from her [employer] print out: 4 weightbearing views of both knees demonstrate relatively mild medial and lateral osteoarthritis of both knees. However, both knees have advanced patellofemoral osteoarthritis with complete joint space loss and lateral subluxation of the patella. PT-OP-C Subjective Start: 06/02/21 14:32 Freq: Status: Active Protocol: Document 06/19/21 14:30 DCW (Rec: 06/19/21 15:13 DCW [id number]) OP-PT Subjective Patient Comments Patient Comments Pt notes she has been pretty busy today. PT-OP-F Manual Assessment Start: 06/02/21 14:32 Freq: Status: Active Protocol: Document 06/02/21 09:45 DCW (Rec: 06/02/21 14:55 DCW [id number]) Manual Assessments Soft Tissue Assessment Soft Tissue Mobility Assessment Tenderness to palpation 3/4: Wincing and withdraw along distal hamstring insertion on left knee, mild hematoma on left anteriomedial knee secondary to fall Joint Mobility Assessment Joint Mobility Assessment Poor patellofemoral tracking, patella bilaterally pulls laterally PT-OP-K Range of Motion Start: 06/02/21 14:32 Freq: Status: Active Protocol: Document 06/02/21 09:45 DCW (Rec: 06/02/21 14:55 DCW [id number]) Knee Goniometric Range of Motion Knee Right Knee ROM WFL Yes Patient Position Supine Flexion Active (degrees) 135 Extension Active (degrees) 0 Left Knee ROM WFL Yes Patient Position Supine Flexion Active (degrees) 125 Extension Active (degrees) 0 PT-OP-L Special Tests Start: 06/02/21 14:32 Freq: Status: Active Protocol: Document 06/02/21 09:45 DCW (Rec: 06/02/21 14:55 DCW [id number]) Special Tests Knee Special Tests Varus- 0 Degrees Test Results Negative Valgus- 0 Degrees Test Results Negative Posterior Draw Test Results Negative Patellar Grind Test Test Results Positive bilaterally Patella Tap Test Results Positive left Jt Test Test Results Negative Levy Chondromalacia Test Results Positive bilaterally Anterior Draw Test Results Negative PT-OP-M Strength Start: 06/02/21 14:32 Freq: Status: Active Protocol: Document 06/02/21 09:45 DCW (Rec: 06/02/21 14:55 DCW [id number]) Knee Strength Knee Manual Muscle Testing Right Flexion (S2) 4+ Good+ Extension (L3) 4+ Good+ Left Flexion (S2) 4+ Good+ Extension (L3) 4+ Good+ PT-OP-Q Treatments Start: 06/02/21 14:32 Freq: Status: Active Protocol: Document 06/19/21 14:30 DCW (Rec: 06/19/21 15:13 DCW [id number]) Gym Equipment Shuttle Recovery Unilateral Squats Resistance 50# Shuttle Recovery Platform Stable Bilateral Squats Details Adductor ball squeeze Resistance 87# Shuttle Recovery Platform Unstable Shuttle Balance chains red Comments WBOS, Staggered Therapeutic Exercises Other Exercises 2 Other Exercise Name Resisted ER/IR kneeling on stool Side bilateral Resistance Lv 2 T-band 1 Other Exercise Name BOSU Lunge Side bilateral Manual Therapy Treatment Joint Mobilizations Patellar mobs Joint B PF mobilization Grade III Body Position Sitting PT-OP-T Assessment and Plan Start: 06/02/21 14:32 Freq: Status: Active Protocol: Document 06/19/21 14:30 DCW (Rec: 06/19/21 15:13 DCW [id number]) Physical Therapy Assessment Impairments Impairments Activity Tolerance,Functional Activities,Functional Mobility ,Pain,Tone Goals Two Impairment Left knee flexion currently 10 ? less than right Correction Goal (LTG) Pt to increase left knee flexion equal to right in order to improve ability to exit tub when bathing LTG Duration 08/02/21 One Impairment Pt demonstrates poor patellofemoral tracking Correction Goal (LTG) Pt to show improved patellofemoral tracking with both patella at least to midline during knee extension to decrease patella grind and improve ability to participate in dance. LTG Duration 08/02/21 Assessment Summary Assessment Slight improvement today with superior/inferior mobility of patella, significantly less pain during joint mobilization . Physical Therapy Plan Frequency and Duration Frequency of Treatment 2x/Week Duration of Treatment Two months Plan of Care Start Date 06/02/21 Plan of Care End Date 08/02/21 Therapeutic Interventions Therapeutic Interventions Aquatic Therapy,Home Exercise Program,Joint Mobilizations, Manual Therapy,Patient/ Caregiver Education,Self-Care/ Home Management,Soft Tissue Mobilization,Taping, Therapeutic Activities, Therapeutic Exercises Modalities Cold Pack/Ice Massage,Electric Stimulation,Hot Packs, Ultrasound Next Visit Focus/Plan Next Note Type Treatment Note Next Visit Plan Continue assess HEP for slow pacing and proper form/ alignment. Recheck AROM next tx for assess progress goals. POC: Jt mobs, taping
--- NOTE | 2021-06-26 12:40 | PT.OTN ---
Current Diagnoses Bilateral primary osteoarthritis of knee (06/26/21) Patellofemoral disorders, right knee (06/26/21) Patellofemoral disorders, left knee (06/26/21) Pain in right knee (06/26/21) Pain in left knee (06/26/21) Physical Therapy Treatment Note PT-OP-A Visit Information Start: 06/02/21 14:32 Freq: Status: Active Protocol: Document 06/26/21 12:00 DCW (Rec: 06/26/21 12:39 DCW [id number]) Out-Patient Physical Therapy Visit Information Visit Information Visit Type Treatment Note Visit Start Time 12:00 Visit Stop Time 12:45 Total Visit Minutes 45 Visit Number 7 Number of DRILLER OPERATOR Visits 0 Evaluation Information Evaluation Date 06/02/21 PT-OP-B Current Condition Start: 06/02/21 14:32 Freq: Status: Active Protocol: Document 06/02/21 09:45 DCW (Rec: 06/02/21 14:55 DCW [id number]) Current Condition History of Current Condition Onset Date One month Current Complaints bilateral knee pain, recent fall History of Current Condition Pt is a 75 year old female well known to this clinic presenting with bilateral knee pain. Pt notes that she has ongoing knee problems, but then one month ago, she fell after tripping on the stairs and tweaked her left knee. 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 Pt notes her knee don't limit much of her daily activity, but pain does limit her ability getting into and out of a tub, walking down stairs or hills. Notices changes in severity with weather. Pt notes she would also find it difficult to go out dancing. Prior Treatments and Tests Bilateral knee x-rays, per chart notes pt brought in from her [employer] print out: 4 weightbearing views of both knees demonstrate relatively mild medial and lateral osteoarthritis of both knees. However, both knees have advanced patellofemoral osteoarthritis with complete joint space loss and lateral subluxation of the patella. PT-OP-C Subjective Start: 06/02/21 14:32 Freq: Status: Active Protocol: Document 06/26/21 12:00 DCW (Rec: 06/26/21 12:39 DCW [id number]) OP-PT Subjective Patient Comments Patient Comments Pt feels pretty good today, has been busy. PT-OP-F Manual Assessment Start: 06/02/21 14:32 Freq: Status: Active Protocol: Document 06/02/21 09:45 DCW (Rec: 06/02/21 14:55 DCW [id number]) Manual Assessments Soft Tissue Assessment Soft Tissue Mobility Assessment Tenderness to palpation 3/4: Wincing and withdraw along distal hamstring insertion on left knee, mild hematoma on left anteriomedial knee secondary to fall Joint Mobility Assessment Joint Mobility Assessment Poor patellofemoral tracking, patella bilaterally pulls laterally PT-OP-K Range of Motion Start: 06/02/21 14:32 Freq: Status: Active Protocol: Document 06/02/21 09:45 DCW (Rec: 06/02/21 14:55 DCW [id number]) Knee Goniometric Range of Motion Knee Right Knee ROM WFL Yes Patient Position Supine Flexion Active (degrees) 135 Extension Active (degrees) 0 Left Knee ROM WFL Yes Patient Position Supine Flexion Active (degrees) 125 Extension Active (degrees) 0 PT-OP-L Special Tests Start: 06/02/21 14:32 Freq: Status: Active Protocol: Document 06/02/21 09:45 DCW (Rec: 06/02/21 14:55 DCW [id number]) Special Tests Knee Special Tests Varus- 0 Degrees Test Results Negative Valgus- 0 Degrees Test Results Negative Posterior Draw Test Results Negative Patellar Grind Test Test Results Positive bilaterally Patella Tap Test Results Positive left Jt Test Test Results Negative Levy Chondromalacia Test Results Positive bilaterally Anterior Draw Test Results Negative PT-OP-M Strength Start: 06/02/21 14:32 Freq: Status: Active Protocol: Document 06/02/21 09:45 DCW (Rec: 06/02/21 14:55 DCW [id number]) Knee Strength Knee Manual Muscle Testing Right Flexion (S2) 4+ Good+ Extension (L3) 4+ Good+ Left Flexion (S2) 4+ Good+ Extension (L3) 4+ Good+ PT-OP-Q Treatments Start: 06/02/21 14:32 Freq: Status: Active Protocol: Document 06/26/21 12:00 DCW (Rec: 06/26/21 12:39 DCW [id number]) Gym Equipment Shuttle Recovery Unilateral Squats Resistance 50# Shuttle Recovery Platform Stable Bilateral Squats Details Adductor ball squeeze Resistance 87# Shuttle Recovery Platform Unstable Shuttle Balance chains red Comments WBOS, Staggered, Lateral weight shift Therapeutic Exercises Other Exercises 1 Other Exercise Name ROXIE [place] Side bilateral Manual Therapy Treatment Joint Mobilizations Patellar mobs Joint B PF mobilization Grade III Body Position Sitting Taping 1 Body Location Bilateral knee Treatment Focus Medial patella pull Type of Tape Kinesio Tape Skin Inspection normal color and texture, no adverse reactions PT-OP-T Assessment and Plan Start: 06/02/21 14:32 Freq: Status: Active Protocol: Document 06/26/21 12:00 DCW (Rec: 06/26/21 12:39 DCW [id number]) Physical Therapy Assessment Impairments Impairments Activity Tolerance,Functional Activities,Functional Mobility ,Pain,Tone Goals Two Impairment Left knee flexion currently 10 ? less than right Chcf Goal (LTG) Pt to increase left knee flexion equal to right in order to improve ability to exit tub when bathing LTG Duration 08/02/21 One Impairment Pt demonstrates poor patellofemoral tracking Recreation Attendant Supervisor Goal (LTG) Pt to show improved patellofemoral tracking with both patella at least to midline during knee extension to decrease patella grind and improve ability to participate in dance. LTG Duration 08/02/21 Assessment Summary Assessment Showing improved VMO contraction today, increased patellofemoral tracting medially on both legs. Physical Therapy Plan Frequency and Duration Frequency of Treatment 2x/Week Duration of Treatment Two months Plan of Care Start Date 06/02/21 Plan of Care End Date 08/02/21 Therapeutic Interventions Therapeutic Interventions Aquatic Therapy,Home Exercise Program,Joint Mobilizations, Manual Therapy,Patient/ Caregiver Education,Self-Care/ Home Management,Soft Tissue Mobilization,Taping, Therapeutic Activities, Therapeutic Exercises Modalities Cold Pack/Ice Massage,Electric Stimulation,Hot Packs, Ultrasound Next Visit Focus/Plan Next Note Type Treatment Note Next Visit Plan Continue assess HEP for slow pacing and proper form/ alignment. Recheck AROM next tx for assess progress goals. POC: Jt mobs, taping
--- NOTE | 2021-06-30 10:52 | PT-OP ANOTE ---
Pt did not show for today's 1030 appt, was called this am to cancel 07/02 appt with PT Jn due to unavailable and she stated will call back to reschedule. [facility]TH [facility]OCIATE called and left message about missing today appt with Rachelle YOUTH ASSOCIATE at 1030, offered 1345 appt opening and few appts on [facility] [employer] schedule if wanted to reschedule while waiting for Jn to return. Notified front office attendant. Pt does not have appts going forward, will wait to hear back schedule more.
--- NOTE | 2021-07-15 17:28 | PT.OTN ---
Current Diagnoses Bilateral primary osteoarthritis of knee (07/15/21) Patellofemoral disorders, right knee (07/15/21) Patellofemoral disorders, left knee (07/15/21) Pain in right knee (07/15/21) Pain in left knee (07/15/21) Physical Therapy Treatment Note PT-OP-A Visit Information Start: 06/02/21 14:32 Freq: Status: Active Protocol: Document 07/15/21 16:45 DCW (Rec: 07/15/21 17:28 DCW [id number]) Out-Patient Physical Therapy Visit Information Visit Information Visit Type Treatment Note Visit Start Time 16:45 Visit Stop Time 17:15 Total Visit Minutes 30 Visit Number 8 Number of AUTOMOTIVE LUBE TECHNICIAN Visits 0 Evaluation Information Evaluation Date 06/02/21 PT-OP-B Current Condition Start: 06/02/21 14:32 Freq: Status: Active Protocol: Document 06/02/21 09:45 DCW (Rec: 06/02/21 14:55 DCW [id number]) Current Condition History of Current Condition Onset Date One month Current Complaints bilateral knee pain, recent fall History of Current Condition Pt is a 75 year old female well known to this clinic presenting with bilateral knee pain. Pt notes that she has ongoing knee problems, but then one month ago, she fell after tripping on the stairs and tweaked her left knee. 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 Pt notes her knee don't limit much of her daily activity, but pain does limit her ability getting into and out of a tub, walking down stairs or hills. Notices changes in severity with weather. Pt notes she would also find it difficult to go out dancing. Prior Treatments and Tests Bilateral knee x-rays, per chart notes pt brought in from her [employer] print out: 4 weightbearing views of both knees demonstrate relatively mild medial and lateral osteoarthritis of both knees. However, both knees have advanced patellofemoral osteoarthritis with complete joint space loss and lateral subluxation of the patella. PT-OP-C Subjective Start: 06/02/21 14:32 Freq: Status: Active Protocol: Document 07/15/21 16:45 DCW (Rec: 07/15/21 17:28 DCW [id number]) OP-PT Subjective Patient Comments Patient Comments I have a confession. I haven' t been doing my exercises. I do them sporatically, but not as frequently as I should. But my knees are still feeling good. PT-OP-F Manual Assessment Start: 06/02/21 14:32 Freq: Status: Active Protocol: Document 06/02/21 09:45 DCW (Rec: 06/02/21 14:55 DCW [id number]) Manual Assessments Soft Tissue Assessment Soft Tissue Mobility Assessment Tenderness to palpation 3/4: Wincing and withdraw along distal hamstring insertion on left knee, mild hematoma on left anteriomedial knee secondary to fall Joint Mobility Assessment Joint Mobility Assessment Poor patellofemoral tracking, patella bilaterally pulls laterally PT-OP-K Range of Motion Start: 06/02/21 14:32 Freq: Status: Active Protocol: Document 06/02/21 09:45 DCW (Rec: 06/02/21 14:55 DCW [id number]) Knee Goniometric Range of Motion Knee Right Knee ROM WFL Yes Patient Position Supine Flexion Active (degrees) 135 Extension Active (degrees) 0 Left Knee ROM WFL Yes Patient Position Supine Flexion Active (degrees) 125 Extension Active (degrees) 0 PT-OP-L Special Tests Start: 06/02/21 14:32 Freq: Status: Active Protocol: Document 06/02/21 09:45 DCW (Rec: 06/02/21 14:55 DCW [id number]) Special Tests Knee Special Tests Varus- 0 Degrees Test Results Negative Valgus- 0 Degrees Test Results Negative Posterior Draw Test Results Negative Patellar Grind Test Test Results Positive bilaterally Patella Tap Test Results Positive left Jt Test Test Results Negative Levy Chondromalacia Test Results Positive bilaterally Anterior Draw Test Results Negative PT-OP-M Strength Start: 06/02/21 14:32 Freq: Status: Active Protocol: Document 06/02/21 09:45 DCW (Rec: 06/02/21 14:55 DCW [id number]) Knee Strength Knee Manual Muscle Testing Right Flexion (S2) 4+ Good+ Extension (L3) 4+ Good+ Left Flexion (S2) 4+ Good+ Extension (L3) 4+ Good+ PT-OP-Q Treatments Start: 06/02/21 14:32 Freq: Status: Active Protocol: Document 07/15/21 16:45 DCW (Rec: 07/15/21 17:28 DCW [id number]) Gym Equipment Shuttle Balance chains red Comments WBOS, Staggered, Lateral weight shift Manual Therapy Treatment Joint Mobilizations Patellar mobs Joint B PF mobilization Grade III Body Position Sitting Other Other Manual Treatments Manual testing PT-OP-T Assessment and Plan Start: 06/02/21 14:32 Freq: Status: Active Protocol: Document 07/15/21 16:45 DCW (Rec: 07/15/21 17:28 DCW [id number]) Physical Therapy Assessment Impairments Impairments Activity Tolerance,Functional Activities,Functional Mobility ,Pain,Tone Goals Two Impairment Left knee flexion currently 10 ? less than right Iron Setter Goal (LTG) Pt to increase left knee flexion equal to right in order to improve ability to exit tub when bathing LTG Duration 08/02/21 One Impairment Pt demonstrates poor patellofemoral tracking Senior Living Goal (LTG) Pt to show improved patellofemoral tracking with both patella at least to midline during knee extension to decrease patella grind and improve ability to participate in dance. LTG Duration 08/02/21 Assessment Summary Assessment ROM and patellar mobility improving well, pt very happy with overall progress. Still notes that she has knee pain with descending stairs, but expects that with arthritis. Plan to keep remaining appointment in two weeks, and if all is still doing well, discharge at that time. Physical Therapy Plan Frequency and Duration Frequency of Treatment 2x/Week Duration of Treatment Two months Plan of Care Start Date 06/02/21 Plan of Care End Date 08/02/21 Therapeutic Interventions Therapeutic Interventions Aquatic Therapy,Home Exercise Program,Joint Mobilizations, Manual Therapy,Patient/ Caregiver Education,Self-Care/ Home Management,Soft Tissue Mobilization,Taping, Therapeutic Activities, Therapeutic Exercises Modalities Cold Pack/Ice Massage,Electric Stimulation,Hot Packs, Ultrasound Next Visit Focus/Plan Next Note Type Discharge Summary Next Visit Plan Potential discharge next visit POC: Jt mobs, taping
--- NOTE | 2021-07-29 17:06 | PT.OTN ---
Current Diagnoses Bilateral primary osteoarthritis of knee (07/29/21) Patellofemoral disorders, right knee (07/29/21) Patellofemoral disorders, left knee (07/29/21) Pain in right knee (07/29/21) Pain in left knee (07/29/21) Physical Therapy Treatment Note PT-OP-A Visit Information Start: 06/02/21 14:32 Freq: Status: Active Protocol: Document 07/29/21 16:45 DCW (Rec: 07/29/21 17:06 DCW [id number]) Out-Patient Physical Therapy Visit Information Visit Information Visit Type Discharge Summary Visit Start Time 16:45 Visit Stop Time 17:01 Total Visit Minutes 16 Visit Number 9 Number of BRICKLAYER TENDER Visits 0 Evaluation Information Evaluation Date 06/02/21 PT-OP-B Current Condition Start: 06/02/21 14:32 Freq: Status: Active Protocol: Document 06/02/21 09:45 DCW (Rec: 06/02/21 14:55 DCW [id number]) Current Condition History of Current Condition Onset Date One month Current Complaints bilateral knee pain, recent fall History of Current Condition Pt is a 75 year old female well known to this clinic presenting with bilateral knee pain. Pt notes that she has ongoing knee problems, but then one month ago, she fell after tripping on the stairs and tweaked her left knee. 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 Pt notes her knee don't limit much of her daily activity, but pain does limit her ability getting into and out of a tub, walking down stairs or hills. Notices changes in severity with weather. Pt notes she would also find it difficult to go out dancing. Prior Treatments and Tests Bilateral knee x-rays, per chart notes pt brought in from her [employer] print out: 4 weightbearing views of both knees demonstrate relatively mild medial and lateral osteoarthritis of both knees. However, both knees have advanced patellofemoral osteoarthritis with complete joint space loss and lateral subluxation of the patella. PT-OP-C Subjective Start: 06/02/21 14:32 Freq: Status: Active Protocol: Document 07/29/21 16:45 DCW (Rec: 07/29/21 17:06 DCW [id number]) OP-PT Subjective Patient Comments Patient Comments Pt notes she still has not been perfect with my exercises , but I've been a lot better. PT-OP-F Manual Assessment Start: 06/02/21 14:32 Freq: Status: Active Protocol: Document 07/29/21 16:45 DCW (Rec: 07/29/21 16:55 DCW [id number]) Manual Assessments Soft Tissue Assessment Soft Tissue Mobility Assessment Tenderness to palpation 1/4: Wincing and withdraw along distal hamstring bilaterally, L>R Joint Mobility Assessment Joint Mobility Assessment Patellofemoral tracking bilaterally largely WNL, good VMO contraction PT-OP-K Range of Motion Start: 06/02/21 14:32 Freq: Status: Active Protocol: Document 07/29/21 16:45 DCW (Rec: 07/29/21 16:55 DCW [id number]) Knee Goniometric Range of Motion Knee Right Knee ROM WFL Yes Patient Position Supine Flexion Active (degrees) 132 Extension Active (degrees) 0 Left Knee ROM WFL Yes Patient Position Supine Flexion Active (degrees) 132 Extension Active (degrees) 0 PT-OP-L Special Tests Start: 06/02/21 14:32 Freq: Status: Active Protocol: Document 07/29/21 16:45 DCW (Rec: 07/29/21 16:55 DCW [id number]) Special Tests Knee Special Tests Varus- 0 Degrees Test Results Negative Valgus- 0 Degrees Test Results Negative Posterior Draw Test Results Negative Patellar Grind Test Test Results Positive bilaterally Patella Tap Test Results Negative Jt Test Test Results Negative Levy Chondromalacia Test Results Negative Anterior Draw Test Results Negative PT-OP-M Strength Start: 06/02/21 14:32 Freq: Status: Active Protocol: Document 07/29/21 16:45 DCW (Rec: 07/29/21 16:55 DCW [id number]) Knee Strength Knee Manual Muscle Testing Right Flexion (S2) 4+ Good+ Extension (L3) 4+ Good+ Left Flexion (S2) 4+ Good+ Extension (L3) 4+ Good+ PT-OP-Q Treatments Start: 06/02/21 14:32 Freq: Status: Active Protocol: Document 07/29/21 16:45 DCW (Rec: 07/29/21 17:06 DCW [id number]) Manual Therapy Treatment Joint Mobilizations Patellar mobs Joint B PF mobilization Grade III Body Position Sitting PT-OP-T Assessment and Plan Start: 06/02/21 14:32 Freq: Status: Active Protocol: Document 07/29/21 16:45 DCW (Rec: 07/29/21 17:06 DCW [id number]) Physical Therapy Assessment Impairments Impairments Activity Tolerance,Functional Activities,Functional Mobility ,Pain,Tone Goals Two Impairment Left knee flexion currently 10 ? less than right Orange Picking Supervisor Goal (LTG) Pt to increase left knee flexion equal to right in order to improve ability to exit tub when bathing LTG Duration Met One Impairment Pt demonstrates poor patellofemoral tracking Orange Picking Supervisor Goal (LTG) Pt to show improved patellofemoral tracking with both patella at least to midline during knee extension to decrease patella grind and improve ability to participate in dance. LTG Duration Met Progress Towards Goals Progress Towards Goals Goals Met Assessment Summary Assessment Pt has met goals, feeling good with current level of function. Pt will be discharged from skilled therapy at this time. Physical Therapy Plan Frequency and Duration Frequency of Treatment 2x/Week Duration of Treatment Two months Plan of Care Start Date 06/02/21 Plan of Care End Date 08/02/21 Therapeutic Interventions Therapeutic Interventions Aquatic Therapy,Home Exercise Program,Joint Mobilizations, Manual Therapy,Patient/ Caregiver Education,Self-Care/ Home Management,Soft Tissue Mobilization,Taping, Therapeutic Activities, Therapeutic Exercises Modalities Cold Pack/Ice Massage,Electric Stimulation,Hot Packs, Ultrasound Discharge Physical Therapy Discharge Reasons Goals Met Next Visit Focus/Plan Next Note Type Discharge Summary
== END 2021-07-30 14:00 ==
LOC: PHYS 16:45
PROVIDERS: Family Provider Internal Medicine; PCP Internal Medicine; Referring Provider Orthopaedic Surgery; Visit Provider Orthopaedic Surgery
DX: M17.0 Bilateral primary osteoarthritis of knee (principal); M22.2X1 Patellofemoral disorders, right knee; M22.2X2 Patellofemoral disorders, left knee; M25.562 Pain in left knee; M25.561 Pain in right knee
CPT/HCPCS: 97110; 97140; 97161

== ENCOUNTER 2022-04-15 13:45 | Outpatient (RCR) | payer MEDICARE, SELFPAY ==
--- NOTE | 2022-01-01 15:46 | PT.OIE ---
Current Diagnoses Presence of right artificial knee joint (01/01/22) Visit Care Team Role Provider Type Pati Tsai MD Family Provider Non-Staff Primary Care Provider Specialty: Internal Medicine Address: [address] [place] [address], [id number] Email: Amadeo Dos Santos MD Attending Provider Non-Staff Referring Provider Specialty: Medical Address: [address] [place] [address], [id number] Email: Physical Therapy Initial Evaluation PT-OP-A Visit Information Start: 01/01/22 15:33 Freq: Status: Active Protocol: Document 01/01/22 09:00 DCW (Rec: 01/01/22 15:46 DCW [id number]) Out-Patient Physical Therapy Visit Information Visit Information Visit Type Initial Evaluation Visit Start Time 09:00 Visit Stop Time 09:35 Total Visit Minutes 35 Visit Number 1 Number of MASTER FISHER Visits 0 Evaluation Information Evaluation Date 01/01/22 PT-OP-B Current Condition Start: 01/01/22 15:33 Freq: Status: Active Protocol: Document 01/01/22 09:00 DCW (Rec: 01/01/22 15:46 DCW [id number]) Current Condition History of Current Condition Current Complaints Pre-op TKA History of Current Condition Pt is a 76 year old female well known to this clinic presenting for one pre-op appointment prior to her scheduled R TKA on 02/17/22. Pt displays good understanding on post-op expectations. Is additionally hoping to undergo a L TKA after recovery. Notes that her R knee pain has been worsening, was recently on a cruise and was significantly limited in her function because of her knee, which led to her decision to undergo surgery. Treatment Goals Patient/Caregiver Goals Pre-op Education PT-OP-C Subjective Start: 01/01/22 15:33 Freq: Status: Active Protocol: Document 01/01/22 09:00 DCW (Rec: 01/01/22 15:46 DCW [id number]) OP-PT Subjective Patient Comments Patient Comments I'm ready for this, I've got about a month and a half to go . PT-OP-G Mobility & Gait Start: 01/01/22 15:33 Freq: Status: Active Protocol: Document 01/01/22 09:00 DCW (Rec: 01/01/22 15:46 DCW [id number]) OP Gait Assessment Comments Gait Comments Review FWW use, height adjustment, sequencing, UE support, and step-through. Additionally educated on step- to ascending and descending steps with left (ascending) rail. PT-OP-K Range of Motion Start: 01/01/22 15:33 Freq: Status: Active Protocol: Document 01/01/22 09:00 DCW (Rec: 01/01/22 15:46 DCW [id number]) Knee Goniometric Range of Motion Knee Right Knee ROM WFL Yes Patient Position Sitting Flexion Active (degrees) 125 Extension Active (degrees) 0 PT-OP-M Strength Start: 01/01/22 15:33 Freq: Status: Active Protocol: Document 01/01/22 09:00 DCW (Rec: 01/01/22 15:46 DCW [id number]) Knee Strength Knee Manual Muscle Testing Right Flexion (S2) 4+ Good+ Extension (L3) 4+ Good+ Comments Noted pain with both resisted flexion and extension PT-OP-Q Treatments Start: 01/01/22:33 Freq: Status: Active Protocol: Document 01/01/22 09:00 DCW (Rec: 01/01/22 15:46 DCW [id number]) Self-Care/Home Management Treatment Education Other Education Post-op HEP education. Reviewed pre-op HEP package from surgeon. Includes calf stretch /c strap, seated hamstring stretch, LAQ, heel slides, quad sets, SLR, ankle pumps. Added passive extension stretch. PT-OP-T Assessment and Plan Start: 01/01/22 15:33 Freq: Status: Active Protocol: Document 01/01/22 09:00 DCW (Rec: 01/01/22 15:46 DCW [id number]) Physical Therapy Assessment Assessment Summary Assessment Pt presents today for pre-op appointment prior to right TKA scheduled for 02/17/22. Reviewed ROM and MMT, and educated patient on gait and stair ambulation, use of walker, practice on stairs, and intensive review of post- op knee exercises. Pt and partner displayed great understanding, and feel prepared for surgery. Pt will return to skilled therapy for post-op care, will require a reassessment at that point. Physical Therapy Plan Frequency and Duration Frequency of Treatment 1 pre-op appt Plan of Care Start Date 01/01/22 Plan of Care End Date 02/26/22 Next Visit Focus/Plan Next Note Type Treatment Note Next Visit Plan Post-op reassessment
--- NOTE | 2022-01-01 15:47 | PT.OPPOC ---
Physical, Occupational & Speech Therapy At [facility] Current Diagnoses Presence of right artificial knee joint (01/01/22) Visit Care Team Role Provider Type Pati Tsai MD Family Provider Non-Staff Primary Care Provider Specialty: Internal Medicine Address: [address] [place] [address] Email: Amadeo Dos Santos MD Attending Provider Non-Staff Referring Provider Specialty: Medical Address: [address] [place] [address], [facility] Email: Plan Of Care PT-OP-T Assessment and Plan Start: 01/01/22 15:33 Freq: Status: Active Protocol: Document 01/01/22 09:00 DCW (Rec: 01/01/22 15:46 DCW [id number]) Physical Therapy Assessment Assessment Summary Assessment Pt presents today for pre-op appointment prior to right TKA scheduled for 02/17/22. Reviewed ROM and MMT, and educated patient on gait and stair ambulation, use of walker, practice on stairs, and intensive review of post- op knee exercises. Pt and partner displayed great understanding, and feel prepared for surgery. Pt will return to skilled therapy for post-op care, will require a reassessment at that point. Physical Therapy Plan Frequency and Duration Frequency of Treatment 1 pre-op appt Plan of Care Start Date 01/01/22 Plan of Care End Date 02/26/22 Next Visit Focus/Plan Next Note Type Treatment Note Next Visit Plan Post-op reassessment Plan of Care Dates Plan of Care Start Date 01/01/22 Plan of Care End Date 02/26/22 Electronically Signed by: Anibal Barker, PT 01/01/22 4005 If you are in agreement with this Plan of Care, please return a signed and dated copy. I have reviewed this Plan of Care and certify that the skilled therapy services above are required to meet the patient?s needs. Physician Signature Date Printed Name and Credentials Clinical Instructor Signature Printed Name and Credentials
--- NOTE | 2022-02-24 11:21 | PT.OTN ---
Current Diagnoses Presence of right artificial knee joint (02/24/22) Physical Therapy Treatment Note PT-OP-A Visit Information Start: 01/01/22 15:33 Freq: Status: Active Protocol: Document 02/24/22 10:30 DCW (Rec: 02/24/22 11:16 DCW [id number]) Out-Patient Physical Therapy Visit Information Visit Information Visit Type Progress Note Visit Start Time 10:30 Visit Stop Time 11:15 Total Visit Minutes 45 Visit Number 2 Number of QUALITY CONTROL ASSOCIATE Visits 0 Evaluation Information Evaluation Date 01/01/22 PT-OP-B Current Condition Start: 01/01/22 15:33 Freq: Status: Active Protocol: Document 02/24/22 10:30 DCW (Rec: 02/24/22 11:16 DCW [id number]) Current Condition History of Current Condition Onset Date 02/17/22 Current Complaints R TKA History of Current Condition Pt returns for reassessment today following R TKA on 02/17. [place] things overall went pretty well, but is feeling significantly more pain than what she was expecting. Pt limited with ambulation, walking with FWW, feels her balance is worsening. Notes a lit of general tightness and swelling post-op. Reports she has been working on keeping her leg iced and elevated. FEels wiped out due to pain meds. Has follow-up with PA next Tuesday. PT-OP-C Subjective Start: 01/01/22 15:33 Freq: Status: Active Protocol: Document 02/24/22 10:30 DCW (Rec: 02/24/22 11:16 DCW [id number]) OP-PT Subjective Patient Comments Patient Comments Pain, pain, did I mention pain. PT-OP-E Functional Tests Start: 02/24/22 11:16 Freq: Status: Active Protocol: Document 02/24/22 10:30 DCW (Rec: 02/24/22 11:20 DCW [id number]) Functional Tests 6 Minute Walk Test Distance 750' Device Used FWW Comments 2.08 ft/sec PT-OP-G Mobility & Gait Start: 01/01/22 15:33 Freq: Status: Active Protocol: Document 02/24/22 10:30 DCW (Rec: 02/24/22 11:16 DCW [id number]) OP Gait Assessment Gait Gait Assistance Required: Independent Assistive Devices Assistive Device Front Wheeled Walker Gait Deviations General Gait Pattern Antalgic,Decreased Stride Length,Decreased Feet Clearance PT-OP-J Posture/Palpation/Skin Start: 02/24/22 11:16 Freq: Status: Active Protocol: Document 02/24/22 10:30 DCW (Rec: 02/24/22 11:20 DCW [id number]) Skin Assessment Circumference Measurement 10 cm superior Location 10 cm superior to R knee joint line Measurement (Centimeters) 49.5 Comments L = 42.4 cm Joint line Location R knee joint line Measurement (Centimeters) 48.1 Comments L = 39.1 cm 10 cm inferior Location 10 cm inferior to R knee joint line Measurement (Centimeters) 46.2 Comments L = 36.0 cm PT-OP-K Range of Motion Start: 01/01/22 15:33 Freq: Status: Active Protocol: Document 02/24/22 10:30 DCW (Rec: 02/24/22 11:16 DCW [id number]) Knee Goniometric Range of Motion Knee Right Knee ROM WFL No Patient Position Sitting Flexion Active (degrees) 85 Flexion Passive (degrees) 99 Extension Active (degrees) 20 Extension Passive (degrees) 2 PT-OP-M Strength Start: 01/01/22 15:33 Freq: Status: Active Protocol: Document 02/24/22 10:30 DCW (Rec: 02/24/22 11:16 DCW [id number]) Knee Strength Knee Manual Muscle Testing Right Flexion (S2) 2 Poor Extension (L3) 2+ Poor+ PT-OP-Q Treatments Start: 01/01/22 15:33 Freq: Status: Active Protocol: Document 02/24/22 10:30 DCW (Rec: 02/24/22 11:16 DCW [id number]) Cardio Equipment Recumbent Bicycle Duration (Minutes) 6 Resistance 0 Seat Position 2 Other Partial rotations Therapeutic Exercises Sitting Exercises Heel Slides Sitting Exercise Name Seated heel slides Side right PT-OP-T Assessment and Plan Start: 01/01/22 15:33 Freq: Status: Active Protocol: Document 02/24/22 10:30 DCW (Rec: 02/24/22 11:16 DCW [id number]) Physical Therapy Assessment Impairments Impairments Activity Tolerance,Balance, Edema,Functional Activities, Functional Mobility,Gait, Integument,Pain,ROM,Soft Tissue Mobility,Strength Goals Three Impairment Pt ambulates with increased antalgia using FWW Political Theory Professor Goal (LTG) Pt to ambulate >900' without an assistive device during 6MWT in order to display decreased falls risk and return to prior function. Two Impairment Limited R knee ROM (20-85?) following R TKA Political Theory Professor Goal (LTG) Increase right knee ROM to 0- 120? to improve gait and stair ascending/descending LTG Duration 05/25/22 One Impairment Pt does not have an appropriate home exercise program Short Term Goal (STG) Pt to be independent and compliant with an appropriate HEP STG Duration 04/07/22 Assessment Summary Assessment Pt presents to skilled therapy for reassessment one week s/p R TKA. Pt presents better than expected with decent ROM, appropriate gait pattern, and willingness to work hard through her post-op pain. Pt ambulating largely with FWW, however is doing some household ambulation without an assistive device. Pt should benefit from skilled therapy focusing on improving ROM, strength, gait, balance, and activity tolerance s/p R TKA. Physical Therapy Plan Frequency and Duration Frequency of Treatment 2x/Week Plan of Care Start Date 02/24/22 Plan of Care End Date 05/25/22 Therapeutic Interventions Therapeutic Interventions Balance Training,Gait Training ,Home Exercise Program,Joint Mobilizations,Manual Therapy, Patient/Caregiver Education, Self-Care/Home Management,Soft Tissue Mobilization, Therapeutic Activities, Therapeutic Exercises Next Visit Focus/Plan Next Note Type Treatment Note Next Visit Plan ROM, strengthening, gait, balance
--- NOTE | 2022-02-24 11:21 | PT.OPPOC ---
Physical, Occupational & Speech Therapy At [facility] Current Diagnoses Presence of right artificial knee joint (02/24/22) Visit Care Team Role Provider Type Pati Tsai MD Family Provider Non-Staff Primary Care Provider Specialty: Internal Medicine Address: [address] [place] [address] Email: Amadeo Dos Santos MD Attending Provider Non-Staff Referring Provider Specialty: Medical Address: [address] [place] [address], [facility] Email: Plan Of Care PT-OP-T Assessment and Plan Start: 01/01/22 15:33 Freq: Status: Active Protocol: Document 02/24/22 10:30 DCW (Rec: 02/24/22 11:16 DCW [id number]) Physical Therapy Assessment Impairments Impairments Activity Tolerance,Balance, Edema,Functional Activities, Functional Mobility,Gait, Integument,Pain,ROM,Soft Tissue Mobility,Strength Goals Three Impairment Pt ambulates with increased antalgia using FWW Half-Way Goal (LTG) Pt to ambulate >900' without an assistive device during 6MWT in order to display decreased falls risk and return to prior function. Two Impairment Limited R knee ROM (20-85?) following R TKA Half-Way Goal (LTG) Increase right knee ROM to 0- 120? to improve gait and stair ascending/descending LTG Duration 05/25/22 One Impairment Pt does not have an appropriate home exercise program Short Term Goal (STG) Pt to be independent and compliant with an appropriate HEP STG Duration 04/07/22 Assessment Summary Assessment Pt presents to skilled therapy for reassessment one week s/p R TKA. Pt presents better than expected with decent ROM, appropriate gait pattern, and willingness to work hard through her post-op pain. Pt ambulating largely with FWW, however is doing some household ambulation without an assistive device. Pt should benefit from skilled therapy focusing on improving ROM, strength, gait, balance, and activity tolerance s/p R TKA. Physical Therapy Plan Frequency and Duration Frequency of Treatment 2x/Week Plan of Care Start Date 02/24/22 Plan of Care End Date 05/25/22 Therapeutic Interventions Therapeutic Interventions Balance Training,Gait Training ,Home Exercise Program,Joint Mobilizations,Manual Therapy, Patient/Caregiver Education, Self-Care/Home Management,Soft Tissue Mobilization, Therapeutic Activities, Therapeutic Exercises Next Visit Focus/Plan Next Note Type Treatment Note Next Visit Plan ROM, strengthening, gait, balance Plan of Care Dates Plan of Care Start Date 02/24/22 Plan of Care End Date 05/25/22 Electronically Signed by: Anibal Barker, PT 02/24/22 1121 If you are in agreement with this Plan of Care, please return a signed and dated copy. I have reviewed this Plan of Care and certify that the skilled therapy services above are required to meet the patient?s needs. Physician Signature Date Printed Name and Credentials Clinical Instructor Signature Printed Name and Credentials
--- NOTE | 2022-02-26 11:11 | PT.OTN ---
Current Diagnoses Presence of right artificial knee joint (02/26/22) Physical Therapy Treatment Note PT-OP-A Visit Information Start: 01/01/22 15:33 Freq: Status: Active Protocol: Document 02/26/22 10:30 DCW (Rec: 02/26/22 11:10 DCW [id number]) Out-Patient Physical Therapy Visit Information Visit Information Visit Type Treatment Note Visit Start Time 10:30 Visit Stop Time 11:20 Total Visit Minutes 50 Visit Number 3 Number of SOLUTION DESIGN ENGINEER Visits 0 Evaluation Information Evaluation Date 01/01/22 PT-OP-B Current Condition Start: 01/01/22 15:33 Freq: Status: Active Protocol: Document 02/24/22 10:30 DCW (Rec: 02/24/22 11:16 DCW [id number]) Current Condition History of Current Condition Onset Date 02/17/22 Current Complaints R TKA History of Current Condition Pt returns for reassessment today following R TKA on 02/17. [place] things overall went pretty well, but is feeling significantly more pain than what she was expecting. Pt limited with ambulation, walking with FWW, feels her balance is worsening. Notes a lit of general tightness and swelling post-op. Reports she has been working on keeping her leg iced and elevated. FEels wiped out due to pain meds. Has follow-up with PA next Tuesday. PT-OP-C Subjective Start: 01/01/22 15:33 Freq: Status: Active Protocol: Document 02/26/22 10:30 DCW (Rec: 02/26/22 11:10 DCW [id number]) OP-PT Subjective Patient Comments Patient Comments Pt notes aching in her knee down into her ankle. Was able to get out for a short walk yesterday with her walking sticks. PT-OP-E Functional Tests Start: 02/24/22 11:16 Freq: Status: Active Protocol: Document 02/24/22 10:30 DCW (Rec: 02/24/22 11:20 DCW [id number]) Functional Tests 6 Minute Walk Test Distance 750' Device Used FWW Comments 2.08 ft/sec PT-OP-G Mobility & Gait Start: 01/01/22 15:33 Freq: Status: Active Protocol: Document 02/24/22 10:30 DCW (Rec: 02/24/22 11:16 DCW [id number]) OP Gait Assessment Gait Gait Assistance Required: Independent Assistive Devices Assistive Device Front Wheeled Walker Gait Deviations General Gait Pattern Antalgic,Decreased Stride Length,Decreased Feet Clearance PT-OP-J Posture/Palpation/Skin Start: 02/24/22 11:16 Freq: Status: Active Protocol: Document 02/24/22 10:30 DCW (Rec: 02/24/22 11:20 DCW [id number]) Skin Assessment Circumference Measurement 10 cm superior Location 10 cm superior to R knee joint line Measurement (Centimeters) 49.5 Comments L = 42.4 cm Joint line Location R knee joint line Measurement (Centimeters) 48.1 Comments L = 39.1 cm 10 cm inferior Location 10 cm inferior to R knee joint line Measurement (Centimeters) 46.2 Comments L = 36.0 cm PT-OP-K Range of Motion Start: 01/01/22 15:33 Freq: Status: Active Protocol: Document 02/24/22 10:30 DCW (Rec: 02/24/22 11:16 DCW [id number]) Knee Goniometric Range of Motion Knee Right Knee ROM WFL No Patient Position Sitting Flexion Active (degrees) 85 Flexion Passive (degrees) 99 Extension Active (degrees) 20 Extension Passive (degrees) 2 PT-OP-M Strength Start: 01/01/22 15:33 Freq: Status: Active Protocol: Document 02/24/22 10:30 DCW (Rec: 02/24/22 11:16 DCW [id number]) Knee Strength Knee Manual Muscle Testing Right Flexion (S2) 2 Poor Extension (L3) 2+ Poor+ PT-OP-Q Treatments Start: 01/01/22 15:33 Freq: Status: Active Protocol: Document 02/26/22 10:30 DCW (Rec: 02/26/22 11:10 DCW [id number]) Cardio Equipment Recumbent Bicycle Duration (Minutes) 6 Resistance 0 Seat Position 2 Other Partial rotations Gym Equipment Therapeutic Ball 1 Exercise Details Knee flexion stretch /c strap Ball Size/Color Blue - 45 cm Body Position Supine Therapeutic Exercises Supine Exercises Heel slides Supine Exercise Name Heels slides Side right SAQ Supine Exercise Name SAQ Side right SLR Supine Exercise Name SLR Side right Standing Exercises Step-ups Standing Exercise Name Step-ups Side right Equipment Used 4 step Flexion Stretch Standing Exercise Name Step flexion stretch Side right TKE Standing Exercise Name TKE Side right Resistance Lv 3 Comments Holding FWW for support PT-OP-R Modalities Start: 01/01/22 15:33 Freq: Status: Active Protocol: Document 02/26/22 10:30 DCW (Rec: 02/26/22 11:11 DCW [id number]) Hot Pack/Cold Pack Treatment Cold Pack Location R knee Patient Position Hooklying Treatment Duration (minutes) 10 Patient Tolerance Good PT-OP-T Assessment and Plan Start: 01/01/22 15:33 Freq: Status: Active Protocol: Document 02/26/22 10:30 DCW (Rec: 02/26/22 11:10 DCW [id number]) Physical Therapy Assessment Impairments Impairments Activity Tolerance,Balance, Edema,Functional Activities, Functional Mobility,Gait, Integument,Pain,ROM,Soft Tissue Mobility,Strength Goals Three Impairment Pt ambulates with increased antalgia using FWW Card Mounter Goal (LTG) Pt to ambulate >900' without an assistive device during 6MWT in order to display decreased falls risk and return to prior function. Two Impairment Limited R knee ROM (20-85?) following R TKA [facility] Goal (LTG) Increase right knee ROM to 0- 120? to improve gait and stair ascending/descending LTG Duration 05/25/22 One Impairment Pt does not have an appropriate home exercise program Short Term Goal (STG) Pt to be independent and compliant with an appropriate HEP STG Duration 04/07/22 Assessment Summary Assessment Pt doing very well overall, still has enough antalgic gait that therapist recommended continued use of FWW, however pt doing well with ROM, especially with knee extension . Recommended continued use of post-op HEP. Physical Therapy Plan Frequency and Duration Frequency of Treatment 2x/Week Plan of Care Start Date 02/24/22 Plan of Care End Date 05/25/22 Therapeutic Interventions Therapeutic Interventions Balance Training,Gait Training ,Home Exercise Program,Joint Mobilizations,Manual Therapy, Patient/Caregiver Education, Self-Care/Home Management,Soft Tissue Mobilization, Therapeutic Activities, Therapeutic Exercises Next Visit Focus/Plan Next Note Type Treatment Note Next Visit Plan ROM, strengthening, gait, balance
--- NOTE | 2022-03-01 14:28 | PT.OTN ---
Current Diagnoses Presence of right artificial knee joint (03/01/22) Physical Therapy Treatment Note PT-OP-A Visit Information Start: 01/01/22 15:33 Freq: Status: Active Protocol: Document 03/01/22 13:45 DCW (Rec: 03/01/22 14:27 DCW [id number]) Out-Patient Physical Therapy Visit Information Visit Information Visit Type Treatment Note Visit Start Time 13:45 Visit Stop Time 14:35 Total Visit Minutes 50 Visit Number 4 Number of TREE SAPPER Visits 0 Evaluation Information Evaluation Date 01/01/22 PT-OP-B Current Condition Start: 01/01/22 15:33 Freq: Status: Active Protocol: Document 02/24/22 10:30 DCW (Rec: 02/24/22 11:16 DCW [id number]) Current Condition History of Current Condition Onset Date 02/17/22 Current Complaints R TKA History of Current Condition Pt returns for reassessment today following R TKA on 02/17. [place] things overall went pretty well, but is feeling significantly more pain than what she was expecting. Pt limited with ambulation, walking with FWW, feels her balance is worsening. Notes a lit of general tightness and swelling post-op. Reports she has been working on keeping her leg iced and elevated. FEels wiped out due to pain meds. Has follow-up with PA next Tuesday. PT-OP-C Subjective Start: 01/01/22 15:33 Freq: Status: Active Protocol: Document 03/01/22 13:45 DCW (Rec: 03/01/22 14:27 DCW [id number]) OP-PT Subjective Patient Comments Patient Comments Pt has follow-up appt with surgeon tomorrow, hoping to get rid of bandage. PT-OP-E Functional Tests Start: 02/24/22 11:16 Freq: Status: Active Protocol: Document 02/24/22 10:30 DCW (Rec: 02/24/22 11:20 DCW [id number]) Functional Tests 6 Minute Walk Test Distance 750' Device Used FWW Comments 2.08 ft/sec PT-OP-G Mobility & Gait Start: 01/01/22 15:33 Freq: Status: Active Protocol: Document 02/24/22 10:30 DCW (Rec: 02/24/22 11:16 DCW [id number]) OP Gait Assessment Gait Gait Assistance Required: Independent Assistive Devices Assistive Device Front Wheeled Walker Gait Deviations General Gait Pattern Antalgic,Decreased Stride Length,Decreased Feet Clearance PT-OP-J Posture/Palpation/Skin Start: 02/24/22 11:16 Freq: Status: Active Protocol: Document 02/24/22 10:30 DCW (Rec: 02/24/22 11:20 DCW [id number]) Skin Assessment Circumference Measurement 10 cm superior Location 10 cm superior to R knee joint line Measurement (Centimeters) 49.5 Comments L = 42.4 cm Joint line Location R knee joint line Measurement (Centimeters) 48.1 Comments L = 39.1 cm 10 cm inferior Location 10 cm inferior to R knee joint line Measurement (Centimeters) 46.2 Comments L = 36.0 cm PT-OP-K Range of Motion Start: 01/01/22 15:33 Freq: Status: Active Protocol: Document 02/24/22 10:30 DCW (Rec: 02/24/22 11:16 DCW [id number]) Knee Goniometric Range of Motion Knee Right Knee ROM WFL No Patient Position Sitting Flexion Active (degrees) 85 Flexion Passive (degrees) 99 Extension Active (degrees) 20 Extension Passive (degrees) 2 PT-OP-M Strength Start: 01/01/22 15:33 Freq: Status: Active Protocol: Document 02/24/22 10:30 DCW (Rec: 02/24/22 11:16 DCW [id number]) Knee Strength Knee Manual Muscle Testing Right Flexion (S2) 2 Poor Extension (L3) 2+ Poor+ PT-OP-Q Treatments Start: 01/01/22 15:33 Freq: Status: Active Protocol: Document 03/01/22 13:45 DCW (Rec: 03/01/22 14:27 DCW [id number]) Cardio Equipment Recumbent Bicycle Duration (Minutes) 6 Resistance 0 Seat Position 2 Other Partial rotations Therapeutic Exercises Supine Exercises Abduction Supine Exercise Name Windshield wipers Side right Heel slides Supine Exercise Name Heels slides Side right SAQ Supine Exercise Name SAQ Side right Resistance 4# SLR Supine Exercise Name SLR Side right Sitting Exercises Hamstring Curls Sitting Exercise Name Hamstring Curls Side bilateral Resistance Lv 3 Standing Exercises Hip Abduction Standing Exercise Name Hip Abduction Side bilateral Resistance Lv 3 Hip Extension Standing Exercise Name Hip Extension Side bilateral Resistance Lv 3 Step-ups Standing Exercise Name Step-ups Side right Equipment Used 4 step Flexion Stretch Standing Exercise Name Step flexion stretch Side right Equipment Used 8 step TKE Standing Exercise Name TKE Side right Resistance Lv 3 Comments Holding FWW for support PT-OP-R Modalities Start: 01/01/22 15:33 Freq: Status: Active Protocol: Document 03/01/22 13:45 DCW (Rec: 03/01/22 14:27 DCW [id number]) Hot Pack/Cold Pack Treatment Cold Pack Location R knee Patient Position Hooklying Treatment Duration (minutes) 10 Patient Tolerance Good PT-OP-T Assessment and Plan Start: 01/01/22 15:33 Freq: Status: Active Protocol: Document 03/01/22 13:45 DCW (Rec: 03/01/22 14:27 DCW [id number]) Physical Therapy Assessment Impairments Impairments Activity Tolerance,Balance, Edema,Functional Activities, Functional Mobility,Gait, Integument,Pain,ROM,Soft Tissue Mobility,Strength Goals Three Impairment Pt ambulates with increased antalgia using FWW Automatic Lathe Operator Goal (LTG) Pt to ambulate >900' without an assistive device during 6MWT in order to display decreased falls risk and return to prior function. LTG Duration 05/25/22 Two Impairment Limited R knee ROM (20-85?) following R TKA Automatic Lathe Operator Goal (LTG) Increase right knee ROM to 0- 120? to improve gait and stair ascending/descending LTG Duration 05/25/22 One Impairment Pt does not have an appropriate home exercise program Short Term Goal (STG) Pt to be independent and compliant with an appropriate HEP STG Duration 04/07/22 Assessment Summary Assessment Pt showing significant progress already, much better today lifting leg against gravity without assistance, minimal extension lag. Physical Therapy Plan Frequency and Duration Frequency of Treatment 2x/Week Plan of Care Start Date 02/24/22 Plan of Care End Date 05/25/22 Therapeutic Interventions Therapeutic Interventions Balance Training,Gait Training ,Home Exercise Program,Joint Mobilizations,Manual Therapy, Patient/Caregiver Education, Self-Care/Home Management,Soft Tissue Mobilization, Therapeutic Activities, Therapeutic Exercises Next Visit Focus/Plan Next Note Type Treatment Note Next Visit Plan ROM, strengthening, gait, balance
--- NOTE | 2022-03-04 14:29 | PT.OTN ---
Current Diagnoses Presence of right artificial knee joint (03/04/22) Physical Therapy Treatment Note PT-OP-A Visit Information Start: 01/01/22 15:33 Freq: Status: Active Protocol: Document 03/04/22 13:45 DCW (Rec: 03/04/22 14:29 DCW [id number]) Out-Patient Physical Therapy Visit Information Visit Information Visit Type Treatment Note Visit Start Time 13:45 Visit Stop Time 14:35 Total Visit Minutes 50 Visit Number 5 Number of C D STRIPPER Visits 0 Evaluation Information Evaluation Date 01/01/22 PT-OP-B Current Condition Start: 01/01/22 15:33 Freq: Status: Active Protocol: Document 02/24/22 10:30 DCW (Rec: 02/24/22 11:16 DCW [id number]) Current Condition History of Current Condition Onset Date 02/17/22 Current Complaints R TKA History of Current Condition Pt returns for reassessment today following R TKA on 02/17. [place] things overall went pretty well, but is feeling significantly more pain than what she was expecting. Pt limited with ambulation, walking with FWW, feels her balance is worsening. Notes a lit of general tightness and swelling post-op. Reports she has been working on keeping her leg iced and elevated. FEels wiped out due to pain meds. Has follow-up with PA next Tuesday. PT-OP-C Subjective Start: 01/01/22 15:33 Freq: Status: Active Protocol: Document 03/04/22 13:45 DCW (Rec: 03/04/22 14:29 DCW [id number]) OP-PT Subjective Patient Comments Patient Comments Pt had bandage removed Tuesday , feels PT-OP-E Functional Tests Start: 02/24/22 11:16 Freq: Status: Active Protocol: Document 02/24/22 10:30 DCW (Rec: 02/24/22 11:20 DCW [id number]) Functional Tests 6 Minute Walk Test Distance 750' Device Used FWW Comments 2.08 ft/sec PT-OP-G Mobility & Gait Start: 01/01/22 15:33 Freq: Status: Active Protocol: Document 02/24/22 10:30 DCW (Rec: 02/24/22 11:16 DCW [id number]) OP Gait Assessment Gait Gait Assistance Required: Independent Assistive Devices Assistive Device Front Wheeled Walker Gait Deviations General Gait Pattern Antalgic,Decreased Stride Length,Decreased Feet Clearance PT-OP-J Posture/Palpation/Skin Start: 02/24/22 11:16 Freq: Status: Active Protocol: Document 02/24/22 10:30 DCW (Rec: 02/24/22 11:20 DCW [id number]) Skin Assessment Circumference Measurement 10 cm superior Location 10 cm superior to R knee joint line Measurement (Centimeters) 49.5 Comments L = 42.4 cm Joint line Location R knee joint line Measurement (Centimeters) 48.1 Comments L = 39.1 cm 10 cm inferior Location 10 cm inferior to R knee joint line Measurement (Centimeters) 46.2 Comments L = 36.0 cm PT-OP-K Range of Motion Start: 01/01/22 15:33 Freq: Status: Active Protocol: Document 02/24/22 10:30 DCW (Rec: 02/24/22 11:16 DCW [id number]) Knee Goniometric Range of Motion Knee Right Knee ROM WFL No Patient Position Sitting Flexion Active (degrees) 85 Flexion Passive (degrees) 99 Extension Active (degrees) 20 Extension Passive (degrees) 2 PT-OP-M Strength Start: 01/01/22 15:33 Freq: Status: Active Protocol: Document 02/24/22 10:30 DCW (Rec: 02/24/22 11:16 DCW [id number]) Knee Strength Knee Manual Muscle Testing Right Flexion (S2) 2 Poor Extension (L3) 2+ Poor+ PT-OP-Q Treatments Start: 01/01/22 15:33 Freq: Status: Active Protocol: Document 03/04/22 13:45 DCW (Rec: 03/04/22 14:29 DCW [id number]) Cardio Equipment Recumbent Bicycle Duration (Minutes) 6 Resistance 0 Seat Position 2 Other Partial rotations Gym Equipment Shuttle Recovery Bilateral Squats Details Adductor ball squeeze Resistance 50# Shuttle Recovery Platform Stable Reps/Time Hold knee flexion 5 Therapeutic Exercises Standing Exercises Hip Abduction Standing Exercise Name Hip Abduction Side bilateral Resistance Lv 3 Hip Extension Standing Exercise Name Hip Extension Side bilateral Resistance Lv 3 Manual Therapy Treatment Joint Mobilizations Patellofemoral Joint R PF Direction Inf<->Sup Grade III Body Position Hooklying Tibiofemoral Joint R knee Direction P->A Grade III Body Position Hooklying PT-OP-R Modalities Start: 01/01/22 15:33 Freq: Status: Active Protocol: Document 03/04/22 13:45 DCW (Rec: 03/04/22 14:29 DCW [id number]) Hot Pack/Cold Pack Treatment Cold Pack Location R knee Patient Position Hooklying Treatment Duration (minutes) 10 Patient Tolerance Good PT-OP-T Assessment and Plan Start: 01/01/22 15:33 Freq: Status: Active Protocol: Document 03/04/22 13:45 DCW (Rec: 03/04/22 14:29 [facility] [id number]) Physical Therapy Assessment Impairments Impairments Activity Tolerance,Balance, Edema,Functional Activities, Functional Mobility,Gait, Integument,Pain,ROM,Soft Tissue Mobility,Strength Goals Three Impairment Pt ambulates with increased antalgia using FWW Rental Sales Representative Goal (LTG) Pt to ambulate >900' without an assistive device during 6MWT in order to display decreased falls risk and return to prior function. LTG Duration 05/25/22 Two Impairment Limited R knee ROM (20-85?) following R TKA [facility] Goal (LTG) Increase right knee ROM to 0- 120? to improve gait and stair ascending/descending LTG Duration 05/25/22 One Impairment Pt does not have an appropriate home exercise program Short Term Goal (STG) Pt to be independent and compliant with an appropriate HEP STG Duration 04/07/22 Assessment Summary Assessment Pt continues to progress well, increased ROM following removal of post-surgical bandage. Tolerated joint mobs fairly well, did note some soft tissue pain in calf. Physical Therapy Plan Frequency and Duration Frequency of Treatment 2x/Week Plan of Care Start Date 02/24/22 Plan of Care End Date 05/25/22 Therapeutic Interventions Therapeutic Interventions Balance Training,Gait Training ,Home Exercise Program,Joint Mobilizations,Manual Therapy, Patient/Caregiver Education, Self-Care/Home Management,Soft Tissue Mobilization, Therapeutic Activities, Therapeutic Exercises Next Visit Focus/Plan Next Note Type Treatment Note Next Visit Plan ROM, strengthening, gait, balance
--- NOTE | 2022-03-08 14:25 | PT.OTN ---
Current Diagnoses Presence of right artificial knee joint (03/08/22) Physical Therapy Treatment Note PT-OP-A Visit Information Start: 01/01/22 15:33 Freq: Status: Active Protocol: Document 03/08/22 13:45 DCW (Rec: 03/08/22 14:25 DCW [id number]) Out-Patient Physical Therapy Visit Information Visit Information Visit Type Treatment Note Visit Start Time 13:45 Visit Stop Time 14:35 Total Visit Minutes 50 Visit Number 6 Number of LOADING MANAGER Visits 0 Evaluation Information Evaluation Date 01/01/22 PT-OP-B Current Condition Start: 01/01/22 15:33 Freq: Status: Active Protocol: Document 02/24/22 10:30 DCW (Rec: 02/24/22 11:16 DCW [id number]) Current Condition History of Current Condition Onset Date 02/17/22 Current Complaints R TKA History of Current Condition Pt returns for reassessment today following R TKA on 02/17. [place] things overall went pretty well, but is feeling significantly more pain than what she was expecting. Pt limited with ambulation, walking with FWW, feels her balance is worsening. Notes a lit of general tightness and swelling post-op. Reports she has been working on keeping her leg iced and elevated. FEels wiped out due to pain meds. Has follow-up with PA next Tuesday. PT-OP-C Subjective Start: 01/01/22 15:33 Freq: Status: Active Protocol: Document 03/08/22 13:45 DCW (Rec: 03/08/22 14:25 DCW [id number]) OP-PT Subjective Patient Comments Patient Comments Pt admits she's tired today. Didn't sleep well, and went to the gym this morning. PT-OP-E Functional Tests Start: 02/24/22 11:16 Freq: Status: Active Protocol: Document 02/24/22 10:30 DCW (Rec: 02/24/22 11:20 DCW [id number]) Functional Tests 6 Minute Walk Test Distance 750' Device Used FWW Comments 2.08 ft/sec PT-OP-G Mobility & Gait Start: 01/01/22 15:33 Freq: Status: Active Protocol: Document 02/24/22 10:30 DCW (Rec: 02/24/22 11:16 DCW [id number]) OP Gait Assessment Gait Gait Assistance Required: Independent Assistive Devices Assistive Device Front Wheeled Walker Gait Deviations General Gait Pattern Antalgic,Decreased Stride Length,Decreased Feet Clearance PT-OP-J Posture/Palpation/Skin Start: 02/24/22 11:16 Freq: Status: Active Protocol: Document 02/24/22 10:30 DCW (Rec: 02/24/22 11:20 DCW [id number]) Skin Assessment Circumference Measurement 10 cm superior Location 10 cm superior to R knee joint line Measurement (Centimeters) 49.5 Comments L = 42.4 cm Joint line Location R knee joint line Measurement (Centimeters) 48.1 Comments L = 39.1 cm 10 cm inferior Location 10 cm inferior to R knee joint line Measurement (Centimeters) 46.2 Comments L = 36.0 cm PT-OP-K Range of Motion Start: 01/01/22 15:33 Freq: Status: Active Protocol: Document 02/24/22 10:30 DCW (Rec: 02/24/22 11:16 DCW [id number]) Knee Goniometric Range of Motion Knee Right Knee ROM WFL No Patient Position Sitting Flexion Active (degrees) 85 Flexion Passive (degrees) 99 Extension Active (degrees) 20 Extension Passive (degrees) 2 PT-OP-M Strength Start: 01/01/22 15:33 Freq: Status: Active Protocol: Document 02/24/22 10:30 DCW (Rec: 02/24/22 11:16 DCW [id number]) Knee Strength Knee Manual Muscle Testing Right Flexion (S2) 2 Poor Extension (L3) 2+ Poor+ PT-OP-Q Treatments Start: 01/01/22 15:33 Freq: Status: Active Protocol: Document 03/08/22 13:45 DCW (Rec: 03/08/22 14:25 DCW [id number]) Cardio Equipment Recumbent Bicycle Duration (Minutes) 6 Resistance 0 Seat Position 2 Other Partial rotations Gym Equipment Shuttle Recovery Bilateral Squats Details Adductor ball squeeze Resistance 50# Shuttle Recovery Platform Stable Reps/Time Hold knee flexion 5 Therapeutic Exercises Other Exercises Resisted Ambulation Other Exercise Name Resisted side-stepping Resistance Green Manual Therapy Treatment Joint Mobilizations Patellofemoral Joint R PF Direction Inf<->Sup Grade III Body Position Hooklying Tibiofemoral Joint R knee Direction P->A Grade III Body Position Hooklying Neuro Re-Education Treatment Balance Activities Tandem stance Details Tandem stance Equipment @ rail SLS Details SLS Equipment @ rail PT-OP-R Modalities Start: 01/01/22 15:33 Freq: Status: Active Protocol: Document 03/08/22 13:45 DCW (Rec: 03/08/22 14:25 DCW [id number]) Hot Pack/Cold Pack Treatment Cold Pack Location R knee Patient Position Hooklying Treatment Duration (minutes) 10 Patient Tolerance Good PT-OP-T Assessment and Plan Start: 01/01/22 15:33 Freq: Status: Active Protocol: Document 03/08/22 13:45 DCW (Rec: 03/08/22 14:25 DCW [id number]) Physical Therapy Assessment Impairments Impairments Activity Tolerance,Balance, Edema,Functional Activities, Functional Mobility,Gait, Integument,Pain,ROM,Soft Tissue Mobility,Strength Goals Three Impairment Pt ambulates with increased antalgia using FWW Heel Seat Pounder Goal (LTG) Pt to ambulate >900' without an assistive device during 6MWT in order to display decreased falls risk and return to prior function. LTG Duration 05/25/22 Two Impairment Limited R knee ROM (20-85?) following R TKA Heel Seat Pounder Goal (LTG) Increase right knee ROM to 0- 120? to improve gait and stair ascending/descending LTG Duration 05/25/22 One Impairment Pt does not have an appropriate home exercise program Short Term Goal (STG) Pt to be independent and compliant with an appropriate HEP STG Duration 04/07/22 Assessment Summary Assessment Improved joint mobility today, pt tolerating treatment with no complaints. Has returned to gym workout with her personal lines sales rep, focusing mainly on UE strengthening at this time. Physical Therapy Plan Frequency and Duration Frequency of Treatment 2x/Week Plan of Care Start Date 02/24/22 Plan of Care End Date 05/25/22 Therapeutic Interventions Therapeutic Interventions Balance Training,Gait Training ,Home Exercise Program,Joint Mobilizations,Manual Therapy, Patient/Caregiver Education, Self-Care/Home Management,Soft Tissue Mobilization, Therapeutic Activities, Therapeutic Exercises Next Visit Focus/Plan Next Note Type Treatment Note Next Visit Plan ROM, strengthening, gait, balance
--- NOTE | 2022-03-11 14:27 | PT.OTN ---
Current Diagnoses Presence of right artificial knee joint (03/11/22) Physical Therapy Treatment Note PT-OP-A Visit Information Start: 01/01/22 15:33 Freq: Status: Active Protocol: Document 03/11/22 13:45 DCW (Rec: 03/11/22 14:27 DCW [id number]) Out-Patient Physical Therapy Visit Information Visit Information Visit Type Treatment Note Visit Start Time 13:45 Visit Stop Time 14:35 Total Visit Minutes 50 Visit Number 7 Number of AIRCRAFT MOTOR MECHANIC Visits 0 Evaluation Information Evaluation Date 01/01/22 PT-OP-B Current Condition Start: 01/01/22 15:33 Freq: Status: Active Protocol: Document 02/24/22 10:30 DCW (Rec: 02/24/22 11:16 DCW [id number]) Current Condition History of Current Condition Onset Date 02/17/22 Current Complaints R TKA History of Current Condition Pt returns for reassessment today following R TKA on 02/17. [place] things overall went pretty well, but is feeling significantly more pain than what she was expecting. Pt limited with ambulation, walking with FWW, feels her balance is worsening. Notes a lit of general tightness and swelling post-op. Reports she has been working on keeping her leg iced and elevated. FEels wiped out due to pain meds. Has follow-up with PA next Tuesday. PT-OP-C Subjective Start: 01/01/22 15:33 Freq: Status: Active Protocol: Document 03/11/22 13:45 DCW (Rec: 03/11/22 14:27 DCW [id number]) OP-PT Subjective Patient Comments Patient Comments Pt reports that she is a little sore today, worked with her personalization specialist, did more upper extremity strengthening. PT-OP-E Functional Tests Start: 02/24/22 11:16 Freq: Status: Active Protocol: Document 02/24/22 10:30 DCW (Rec: 02/24/22 11:20 DCW [id number]) Functional Tests 6 Minute Walk Test Distance 750' Device Used FWW Comments 2.08 ft/sec PT-OP-G Mobility & Gait Start: 01/01/22 15:33 Freq: Status: Active Protocol: Document 02/24/22 10:30 DCW (Rec: 02/24/22 11:16 DCW [id number]) OP Gait Assessment Gait Gait Assistance Required: Independent Assistive Devices Assistive Device Front Wheeled Walker Gait Deviations General Gait Pattern Antalgic,Decreased Stride Length,Decreased Feet Clearance PT-OP-J Posture/Palpation/Skin Start: 02/24/22 11:16 Freq: Status: Active Protocol: Document 02/24/22 10:30 DCW (Rec: 02/24/22 11:20 DCW [id number]) Skin Assessment Circumference Measurement 10 cm superior Location 10 cm superior to R knee joint line Measurement (Centimeters) 49.5 Comments L = 42.4 cm Joint line Location R knee joint line Measurement (Centimeters) 48.1 Comments L = 39.1 cm 10 cm inferior Location 10 cm inferior to R knee joint line Measurement (Centimeters) 46.2 Comments L = 36.0 cm PT-OP-K Range of Motion Start: 01/01/22 15:33 Freq: Status: Active Protocol: Document 02/24/22 10:30 DCW (Rec: 02/24/22 11:16 DCW [id number]) Knee Goniometric Range of Motion Knee Right Knee ROM WFL No Patient Position Sitting Flexion Active (degrees) 85 Flexion Passive (degrees) 99 Extension Active (degrees) 20 Extension Passive (degrees) 2 PT-OP-M Strength Start: 01/01/22 15:33 Freq: Status: Active Protocol: Document 02/24/22 10:30 DCW (Rec: 02/24/22 11:16 DCW [id number]) Knee Strength Knee Manual Muscle Testing Right Flexion (S2) 2 Poor Extension (L3) 2+ Poor+ PT-OP-Q Treatments Start: 01/01/22 15:33 Freq: Status: Active Protocol: Document 03/11/22 13:45 DCW (Rec: 03/11/22 14:27 DCW [id number]) Cardio Equipment Recumbent Bicycle Duration (Minutes) 6 Resistance 0 Seat Position 2 Other one full backward rotation Gym Equipment Shuttle Recovery Bilateral Squats Resistance 62# Shuttle Recovery Platform Stable Reps/Time Hold knee flexion 5 Therapeutic Exercises Standing Exercises Calf Stretch Standing Exercise Name Calf Stretch Side bilateral Equipment Used DUANE Hip Extension Standing Exercise Name Hip Extension Side bilateral Resistance Green Step-ups Standing Exercise Name Step-ups/downs Side right Equipment Used 6 step Other Exercises Resisted Ambulation Other Exercise Name Resisted side-stepping Resistance Green Manual Therapy Treatment Joint Mobilizations Patellofemoral Joint R PF Direction Inf<->Sup Grade III Body Position Hooklying Tibiofemoral Joint R knee Direction P->A Grade III Body Position Hooklying Neuro Re-Education Treatment Balance Activities Tandem stance Details Tandem stance Equipment @ rail SLS Details SLS Equipment @ rail PT-OP-R Modalities Start: 01/01/22 15:33 Freq: Status: Active Protocol: Document 03/11/22 13:45 DCW (Rec: 03/11/22 14:27 DCW [id number]) Hot Pack/Cold Pack Treatment Cold Pack Location R knee Patient Position Hooklying Treatment Duration (minutes) 10 Patient Tolerance Good PT-OP-T Assessment and Plan Start: 01/01/22 15:33 Freq: Status: Active Protocol: Document 03/11/22 13:45 DCW (Rec: 03/11/22 14:27 DCW [id number]) Physical Therapy Assessment Impairments Impairments Activity Tolerance,Balance, Edema,Functional Activities, Functional Mobility,Gait, Integument,Pain,ROM,Soft Tissue Mobility,Strength Goals Three Impairment Pt ambulates with increased antalgia using FWW Halfway Goal (LTG) Pt to ambulate >900' without an assistive device during 6MWT in order to display decreased falls risk and return to prior function. LTG Duration 05/25/22 Two Impairment Limited R knee ROM (20-85?) following R TKA Skill Labor Goal (LTG) Increase right knee ROM to 0- 120? to improve gait and stair ascending/descending LTG Duration 05/25/22 One Impairment Pt does not have an appropriate home exercise program Short Term Goal (STG) Pt to be independent and compliant with an appropriate HEP STG Duration 04/07/22 Assessment Summary Assessment Pt able to get one full completion backwards on recumbent bike today, making small improvements with every visit in both activity tolerance and ROM. Physical Therapy Plan Frequency and Duration Frequency of Treatment 2x/Week Plan of Care Start Date 02/24/22 Plan of Care End Date 05/25/22 Therapeutic Interventions Therapeutic Interventions Balance Training,Gait Training ,Home Exercise Program,Joint Mobilizations,Manual Therapy, Patient/Caregiver Education, Self-Care/Home Management,Soft Tissue Mobilization, Therapeutic Activities, Therapeutic Exercises Next Visit Focus/Plan Next Note Type Treatment Note Next Visit Plan ROM, strengthening, gait, balance
--- NOTE | 2022-03-15 14:27 | PT.OTN ---
Current Diagnoses Presence of right artificial knee joint (03/15/22) Physical Therapy Treatment Note PT-OP-A Visit Information Start: 01/01/22 15:33 Freq: Status: Active Protocol: Document 03/15/22 13:45 DCW (Rec: 03/15/22 14:27 DCW [id number]) Out-Patient Physical Therapy Visit Information Visit Information Visit Type Treatment Note Visit Start Time 13:45 Visit Stop Time 14:30 Total Visit Minutes 45 Visit Number 8 Number of HAND TIRE TRIMMER Visits 0 Evaluation Information Evaluation Date 01/01/22 PT-OP-B Current Condition Start: 01/01/22 15:33 Freq: Status: Active Protocol: Document 02/24/22 10:30 DCW (Rec: 02/24/22 11:16 DCW [id number]) Current Condition History of Current Condition Onset Date 02/17/22 Current Complaints R TKA History of Current Condition Pt returns for reassessment today following R TKA on 02/17. [place] things overall went pretty well, but is feeling significantly more pain than what she was expecting. Pt limited with ambulation, walking with FWW, feels her balance is worsening. Notes a lit of general tightness and swelling post-op. Reports she has been working on keeping her leg iced and elevated. FEels wiped out due to pain meds. Has follow-up with PA next Tuesday. PT-OP-C Subjective Start: 01/01/22 15:33 Freq: Status: Active Protocol: Document 03/15/22 13:45 DCW (Rec: 03/15/22 14:27 DCW [id number]) OP-PT Subjective Patient Comments Patient Comments Pt reports she began experiencing muscle spasms in her leg last week. PT-OP-E Functional Tests Start: 02/24/22 11:16 Freq: Status: Active Protocol: Document 02/24/22 10:30 DCW (Rec: 02/24/22 11:20 DCW [id number]) Functional Tests 6 Minute Walk Test Distance 750' Device Used FWW Comments 2.08 ft/sec PT-OP-G Mobility & Gait Start: 01/01/22 15:33 Freq: Status: Active Protocol: Document 02/24/22 10:30 DCW (Rec: 02/24/22 11:16 DCW [id number]) OP Gait Assessment Gait Gait Assistance Required: Independent Assistive Devices Assistive Device Front Wheeled Walker Gait Deviations General Gait Pattern Antalgic,Decreased Stride Length,Decreased Feet Clearance PT-OP-J Posture/Palpation/Skin Start: 02/24/22 11:16 Freq: Status: Active Protocol: Document 02/24/22 10:30 DCW (Rec: 02/24/22 11:20 DCW [id number]) Skin Assessment Circumference Measurement 10 cm superior Location 10 cm superior to R knee joint line Measurement (Centimeters) 49.5 Comments L = 42.4 cm Joint line Location R knee joint line Measurement (Centimeters) 48.1 Comments L = 39.1 cm 10 cm inferior Location 10 cm inferior to R knee joint line Measurement (Centimeters) 46.2 Comments L = 36.0 cm PT-OP-K Range of Motion Start: 01/01/22 15:33 Freq: Status: Active Protocol: Document 02/24/22 10:30 DCW (Rec: 02/24/22 11:16 DCW [id number]) Knee Goniometric Range of Motion Knee Right Knee ROM WFL No Patient Position Sitting Flexion Active (degrees) 85 Flexion Passive (degrees) 99 Extension Active (degrees) 20 Extension Passive (degrees) 2 PT-OP-M Strength Start: 01/01/22 15:33 Freq: Status: Active Protocol: Document 02/24/22 10:30 DCW (Rec: 02/24/22 11:16 DCW [id number]) Knee Strength Knee Manual Muscle Testing Right Flexion (S2) 2 Poor Extension (L3) 2+ Poor+ PT-OP-Q Treatments Start: 01/01/22 15:33 Freq: Status: Active Protocol: Document 03/15/22 13:45 DCW (Rec: 03/15/22 14:27 DCW [id number]) Cardio Equipment Recumbent Bicycle Duration (Minutes) 6 Resistance 0 Seat Position 2 Other multiple full rotations fwd and bkwd Therapeutic Exercises Standing Exercises Step-ups Standing Exercise Name Step-ups/downs Side right Equipment Used 6 step Manual Therapy Treatment Soft Tissue Mobilization Scar mobs Body Location R knee surgical incision Intensity/Depth Superficial Body Position Hooklying Joint Mobilizations Patellofemoral Joint R PF Direction Inf<->Sup Grade III Body Position Hooklying Tibiofemoral Joint R knee Direction P->A Grade III Body Position Hooklying Neuro Re-Education Treatment Balance Activities BOSU Lunge Details Lunge onto BOSU Surface Blue BOSU SLS Details SLS Equipment @ rail PT-OP-R Modalities Start: 01/01/22 15:33 Freq: Status: Active Protocol: Document 03/15/22 13:45 DCW (Rec: 03/15/22 14:27 DCW [id number]) Hot Pack/Cold Pack Treatment Cold Pack Location R knee Patient Position Hooklying Treatment Duration (minutes) 5 Patient Tolerance Good PT-OP-T Assessment and Plan Start: 01/01/22 15:33 Freq: Status: Active Protocol: Document 03/15/22 13:45 DCW (Rec: 03/15/22 14:27 DCW [id number]) Physical Therapy Assessment Impairments Impairments Activity Tolerance,Balance, Edema,Functional Activities, Functional Mobility,Gait, Integument,Pain,ROM,Soft Tissue Mobility,Strength Goals Three Impairment Pt ambulates with increased antalgia using FWW Skilled Nursing Goal (LTG) Pt to ambulate >900' without an assistive device during 6MWT in order to display decreased falls risk and return to prior function. LTG Duration 05/25/22 Two Impairment Limited R knee ROM (20-85?) following R TKA Information Writer Goal (LTG) Increase right knee ROM to 0- 120? to improve gait and stair ascending/descending LTG Duration 05/25/22 One Impairment Pt does not have an appropriate home exercise program Short Term Goal (STG) Pt to be independent and compliant with an appropriate HEP STG Duration 04/07/22 Assessment Summary Assessment Pt displaying continuing improvement with knee ROM, regularly able to get recumbent bike in full rotations. Incision appears to be healed, CDI, began working some on [employer]. Physical Therapy Plan Frequency and Duration Frequency of Treatment 2x/Week Plan of Care Start Date 02/24/22 Plan of Care End Date 05/25/22 Therapeutic Interventions Therapeutic Interventions Balance Training,Gait Training ,Home Exercise Program,Joint Mobilizations,Manual Therapy, Patient/Caregiver Education, Self-Care/Home Management,Soft Tissue Mobilization, Therapeutic Activities, Therapeutic Exercises Next Visit Focus/Plan Next Note Type Treatment Note Next Visit Plan ROM, strengthening, gait, balance
--- NOTE | 2022-03-18 14:32 | PT.OTN ---
Current Diagnoses Presence of right artificial knee joint (03/18/22) Physical Therapy Treatment Note PT-OP-A Visit Information Start: 01/01/22 15:33 Freq: Status: Active Protocol: Document 03/18/22 13:45 DCW (Rec: 03/18/22 14:31 DCW [id number]) Out-Patient Physical Therapy Visit Information Visit Information Visit Type Treatment Note Visit Start Time 13:45 Visit Stop Time 14:30 Total Visit Minutes 45 Visit Number 9 Number of PERFECT BINDER SETTER Visits 0 Evaluation Information Evaluation Date 01/01/22 PT-OP-B Current Condition Start: 01/01/22 15:33 Freq: Status: Active Protocol: Document 02/24/22 10:30 DCW (Rec: 02/24/22 11:16 DCW [id number]) Current Condition History of Current Condition Onset Date 02/17/22 Current Complaints R TKA History of Current Condition Pt returns for reassessment today following R TKA on 02/17. [place] things overall went pretty well, but is feeling significantly more pain than what she was expecting. Pt limited with ambulation, walking with FWW, feels her balance is worsening. Notes a lit of general tightness and swelling post-op. Reports she has been working on keeping her leg iced and elevated. FEels wiped out due to pain meds. Has follow-up with PA next Tuesday. PT-OP-C Subjective Start: 01/01/22 15:33 Freq: Status: Active Protocol: Document 03/18/22 13:45 DCW (Rec: 03/18/22 14:31 DCW [id number]) OP-PT Subjective Patient Comments Patient Comments Pt admits that she is tired today. PT-OP-E Functional Tests Start: 02/24/22 11:16 Freq: Status: Active Protocol: Document 02/24/22 10:30 DCW (Rec: 02/24/22 11:20 DCW [id number]) Functional Tests 6 Minute Walk Test Distance 750' Device Used FWW Comments 2.08 ft/sec PT-OP-G Mobility & Gait Start: 01/01/22 15:33 Freq: Status: Active Protocol: Document 02/24/22 10:30 DCW (Rec: 02/24/22 11:16 DCW [id number]) OP Gait Assessment Gait Gait Assistance Required: Independent Assistive Devices Assistive Device Front Wheeled Walker Gait Deviations General Gait Pattern Antalgic,Decreased Stride Length,Decreased Feet Clearance PT-OP-J Posture/Palpation/Skin Start: 02/24/22 11:16 Freq: Status: Active Protocol: Document 02/24/22 10:30 DCW (Rec: 02/24/22 11:20 DCW [id number]) Skin Assessment Circumference Measurement 10 cm superior Location 10 cm superior to R knee joint line Measurement (Centimeters) 49.5 Comments L = 42.4 cm Joint line Location R knee joint line Measurement (Centimeters) 48.1 Comments L = 39.1 cm 10 cm inferior Location 10 cm inferior to R knee joint line Measurement (Centimeters) 46.2 Comments L = 36.0 cm PT-OP-K Range of Motion Start: 01/01/22 15:33 Freq: Status: Active Protocol: Document 02/24/22 10:30 DCW (Rec: 02/24/22 11:16 DCW [id number]) Knee Goniometric Range of Motion Knee Right Knee ROM WFL No Patient Position Sitting Flexion Active (degrees) 85 Flexion Passive (degrees) 99 Extension Active (degrees) 20 Extension Passive (degrees) 2 PT-OP-M Strength Start: 01/01/22 15:33 Freq: Status: Active Protocol: Document 02/24/22 10:30 DCW (Rec: 02/24/22 11:16 DCW [id number]) Knee Strength Knee Manual Muscle Testing Right Flexion (S2) 2 Poor Extension (L3) 2+ Poor+ PT-OP-Q Treatments Start: 01/01/22 15:33 Freq: Status: Active Protocol: Document 03/18/22 13:45 DCW (Rec: 03/18/22 14:31 DCW [id number]) Cardio Equipment Recumbent Bicycle Duration (Minutes) 6 Resistance 4 Seat Position 2 Gym Equipment Shuttle Recovery Bilateral Squats Resistance 75# Shuttle Recovery Platform Stable Reps/Time Hold knee flexion 5 Therapeutic Exercises Standing Exercises Calf Stretch Standing Exercise Name Calf Stretch Side bilateral Equipment Used DUANE Step-ups Standing Exercise Name Step-ups/downs Side right Equipment Used 6 step Manual Therapy Treatment Joint Mobilizations Patellofemoral Joint R PF Direction Inf<->Sup Grade III Body Position Hooklying Tibiofemoral Joint R knee Direction P->A Grade III Body Position Hooklying Neuro Re-Education Treatment Balance Activities Foam stance Details Staggered stance on foam Surface Blue/Green foam Hurdles Details Hurdles/Foam PT-OP-R Modalities Start: 01/01/22 15:33 Freq: Status: Active Protocol: Document 03/18/22 13:45 DCW (Rec: 03/18/22 14:31 DCW [id number]) Hot Pack/Cold Pack Treatment Cold Pack Location R knee Patient Position Hooklying Treatment Duration (minutes) 5 Patient Tolerance Good PT-OP-T Assessment and Plan Start: 01/01/22 15:33 Freq: Status: Active Protocol: Document 03/18/22 13:45 DCW (Rec: 03/18/22 14:31 DCW [id number]) Physical Therapy Assessment Impairments Impairments Activity Tolerance,Balance, Edema,Functional Activities, Functional Mobility,Gait, Integument,Pain,ROM,Soft Tissue Mobility,Strength Goals Three Impairment Pt ambulates with increased antalgia using FWW Correction Goal (LTG) Pt to ambulate >900' without an assistive device during 6MWT in order to display decreased falls risk and return to prior function. LTG Duration 05/25/22 Two Impairment Limited R knee ROM (20-85?) following R TKA Shafting Worker Goal (LTG) Increase right knee ROM to 0- 120? to improve gait and stair ascending/descending LTG Duration 05/25/22 One Impairment Pt does not have an appropriate home exercise program Short Term Goal (STG) Pt to be independent and compliant with an appropriate HEP STG Duration 04/07/22 Assessment Summary Assessment Pt continues to make good progress overall, significantly less edema in R LE today, able to hop on recumbent bike and perform full rotations immediately with no difficulty. ROM doing well, continuing to build up quad strength. Physical Therapy Plan Frequency and Duration Frequency of Treatment 2x/Week Plan of Care Start Date 02/24/22 Plan of Care End Date 05/25/22 Therapeutic Interventions Therapeutic Interventions Balance Training,Gait Training ,Home Exercise Program,Joint Mobilizations,Manual Therapy, Patient/Caregiver Education, Self-Care/Home Management,Soft Tissue Mobilization, Therapeutic Activities, Therapeutic Exercises Next Visit Focus/Plan Next Note Type Treatment Note Next Visit Plan ROM, strengthening, gait, balance
--- NOTE | 2022-03-22 14:26 | PT.OTN ---
Current Diagnoses Presence of right artificial knee joint (03/22/22) Physical Therapy Treatment Note PT-OP-A Visit Information Start: 01/01/22 15:33 Freq: Status: Active Protocol: Document 03/22/22 13:45 DCW (Rec: 03/22/22 14:26 DCW [id number]) Out-Patient Physical Therapy Visit Information Visit Information Visit Type Treatment Note Visit Start Time 13:45 Visit Stop Time 14:30 Total Visit Minutes 45 Visit Number 10 Number of ICE CREAM DISPENSER Visits 0 Evaluation Information Evaluation Date 01/01/22 PT-OP-B Current Condition Start: 01/01/22 15:33 Freq: Status: Active Protocol: Document 02/24/22 10:30 DCW (Rec: 02/24/22 11:16 DCW [id number]) Current Condition History of Current Condition Onset Date 02/17/22 Current Complaints R TKA History of Current Condition Pt returns for reassessment today following R TKA on 02/17. [place] things overall went pretty well, but is feeling significantly more pain than what she was expecting. Pt limited with ambulation, walking with FWW, feels her balance is worsening. Notes a lit of general tightness and swelling post-op. Reports she has been working on keeping her leg iced and elevated. FEels wiped out due to pain meds. Has follow-up with PA next Tuesday. PT-OP-C Subjective Start: 01/01/22 15:33 Freq: Status: Active Protocol: Document 03/22/22 13:45 DCW (Rec: 03/22/22 14:26 DCW [id number]) OP-PT Subjective Patient Comments Patient Comments Pt admits that she overdid it at the gym this morning, her right leg is quite sore, specifically her khan. PT-OP-E Functional Tests Start: 02/24/22 11:16 Freq: Status: Active Protocol: Document 02/24/22 10:30 DCW (Rec: 02/24/22 11:20 DCW [id number]) Functional Tests 6 Minute Walk Test Distance 750' Device Used FWW Comments 2.08 ft/sec PT-OP-G Mobility & Gait Start: 01/01/22 15:33 Freq: Status: Active Protocol: Document 02/24/22 10:30 DCW (Rec: 02/24/22 11:16 DCW [id number]) OP Gait Assessment Gait Gait Assistance Required: Independent Assistive Devices Assistive Device Front Wheeled Walker Gait Deviations General Gait Pattern Antalgic,Decreased Stride Length,Decreased Feet Clearance PT-OP-J Posture/Palpation/Skin Start: 02/24/22 11:16 Freq: Status: Active Protocol: Document 02/24/22 10:30 DCW (Rec: 02/24/22 11:20 DCW [id number]) Skin Assessment Circumference Measurement 10 cm superior Location 10 cm superior to R knee joint line Measurement (Centimeters) 49.5 Comments L = 42.4 cm Joint line Location R knee joint line Measurement (Centimeters) 48.1 Comments L = 39.1 cm 10 cm inferior Location 10 cm inferior to R knee joint line Measurement (Centimeters) 46.2 Comments L = 36.0 cm PT-OP-K Range of Motion Start: 01/01/22 15:33 Freq: Status: Active Protocol: Document 02/24/22 10:30 DCW (Rec: 02/24/22 11:16 DCW [id number]) Knee Goniometric Range of Motion Knee Right Knee ROM WFL No Patient Position Sitting Flexion Active (degrees) 85 Flexion Passive (degrees) 99 Extension Active (degrees) 20 Extension Passive (degrees) 2 PT-OP-M Strength Start: 01/01/22 15:33 Freq: Status: Active Protocol: Document 02/24/22 10:30 DCW (Rec: 02/24/22 11:16 DCW [id number]) Knee Strength Knee Manual Muscle Testing Right Flexion (S2) 2 Poor Extension (L3) 2+ Poor+ PT-OP-Q Treatments Start: 01/01/22 15:33 Freq: Status: Active Protocol: Document 03/22/22 13:45 DCW (Rec: 03/22/22 14:26 DCW [id number]) Cardio Equipment Recumbent Bicycle Duration (Minutes) 6 Resistance 4 Seat Position 2 Gym Equipment Shuttle Recovery Bilateral Squats Resistance 75# Shuttle Recovery Platform Stable Reps/Time Hold knee flexion 5 Therapeutic Exercises Standing Exercises Calf Stretch Standing Exercise Name Calf Stretch Side bilateral Equipment Used DUANE Step-ups Standing Exercise Name Step-ups/downs Side right Equipment Used 6 step Manual Therapy Treatment Joint Mobilizations Patellofemoral Joint R PF Direction Inf<->Sup Grade III Body Position Hooklying Tibiofemoral Joint R knee Direction P->A Grade III Body Position Hooklying PT-OP-R Modalities Start: 01/01/22 15:33 Freq: Status: Active Protocol: Document 03/22/22 13:45 DCW (Rec: 03/22/22 14:26 DCW [id number]) Hot Pack/Cold Pack Treatment Cold Pack Location R knee Patient Position Hooklying Treatment Duration (minutes) 5 Patient Tolerance Good PT-OP-T Assessment and Plan Start: 01/01/22 15:33 Freq: Status: Active Protocol: Document 03/22/22 13:45 DCW (Rec: 03/22/22 14:26 DCW [id number]) Physical Therapy Assessment Impairments Impairments Activity Tolerance,Balance, Edema,Functional Activities, Functional Mobility,Gait, Integument,Pain,ROM,Soft Tissue Mobility,Strength Goals Three Impairment Pt ambulates with increased antalgia using FWW Credit Portfolio Manager Goal (LTG) Pt to ambulate >900' without an assistive device during 6MWT in order to display decreased falls risk and return to prior function. LTG Duration 05/25/22 Two Impairment Limited R knee ROM (20-85?) following R TKA Fpc Goal (LTG) Increase right knee ROM to 0- 120? to improve gait and stair ascending/descending LTG Duration 05/25/22 One Impairment Pt does not have an appropriate home exercise program Short Term Goal (STG) Pt to be independent and compliant with an appropriate HEP STG Duration 04/07/22 Assessment Summary Assessment Pt experiencing increased khan pain, but knee doing very well, PROM flexion 122?, AROM 121?. Has follow-up with surgeon's office tomorrow. Physical Therapy Plan Frequency and Duration Frequency of Treatment 2x/Week Plan of Care Start Date 02/24/22 Plan of Care End Date 05/25/22 Therapeutic Interventions Therapeutic Interventions Balance Training,Gait Training ,Home Exercise Program,Joint Mobilizations,Manual Therapy, Patient/Caregiver Education, Self-Care/Home Management,Soft Tissue Mobilization, Therapeutic Activities, Therapeutic Exercises Next Visit Focus/Plan Next Note Type Treatment Note Next Visit Plan ROM, strengthening, gait, balance
--- NOTE | 2022-03-25 14:24 | PT.OTN ---
Current Diagnoses Presence of right artificial knee joint (03/25/22) Physical Therapy Treatment Note PT-OP-A Visit Information Start: 01/01/22 15:33 Freq: Status: Active Protocol: Document 03/25/22 13:45 DCW (Rec: 03/25/22 14:24 DCW [id number]) Out-Patient Physical Therapy Visit Information Visit Information Visit Type Treatment Note Visit Start Time 13:45 Visit Stop Time 14:30 Total Visit Minutes 45 Visit Number 11 Number of ENVIRONMENTAL LEAD Visits 0 Evaluation Information Evaluation Date 01/01/22 PT-OP-B Current Condition Start: 01/01/22 15:33 Freq: Status: Active Protocol: Document 02/24/22 10:30 DCW (Rec: 02/24/22 11:16 DCW [id number]) Current Condition History of Current Condition Onset Date 02/17/22 Current Complaints R TKA History of Current Condition Pt returns for reassessment today following R TKA on 02/17. [place] things overall went pretty well, but is feeling significantly more pain than what she was expecting. Pt limited with ambulation, walking with FWW, feels her balance is worsening. Notes a lit of general tightness and swelling post-op. Reports she has been working on keeping her leg iced and elevated. FEels wiped out due to pain meds. Has follow-up with PA next Tuesday. PT-OP-C Subjective Start: 01/01/22 15:33 Freq: Status: Active Protocol: Document 03/25/22 13:45 DCW (Rec: 03/25/22 14:24 DCW [id number]) OP-PT Subjective Patient Comments Patient Comments It's one of those days, one of many, where I'm just really tired. I'm still not sleeping well. PT-OP-E Functional Tests Start: 02/24/22 11:16 Freq: Status: Active Protocol: Document 02/24/22 10:30 DCW (Rec: 02/24/22 11:20 DCW [id number]) Functional Tests 6 Minute Walk Test Distance 750' Device Used FWW Comments 2.08 ft/sec PT-OP-G Mobility & Gait Start: 01/01/22 15:33 Freq: Status: Active Protocol: Document 02/24/22 10:30 DCW (Rec: 02/24/22 11:16 DCW [id number]) OP Gait Assessment Gait Gait Assistance Required: Independent Assistive Devices Assistive Device Front Wheeled Walker Gait Deviations General Gait Pattern Antalgic,Decreased Stride Length,Decreased Feet Clearance PT-OP-J Posture/Palpation/Skin Start: 02/24/22 11:16 Freq: Status: Active Protocol: Document 02/24/22 10:30 DCW (Rec: 02/24/22 11:20 DCW [id number]) Skin Assessment Circumference Measurement 10 cm superior Location 10 cm superior to R knee joint line Measurement (Centimeters) 49.5 Comments L = 42.4 cm Joint line Location R knee joint line Measurement (Centimeters) 48.1 Comments L = 39.1 cm 10 cm inferior Location 10 cm inferior to R knee joint line Measurement (Centimeters) 46.2 Comments L = 36.0 cm PT-OP-K Range of Motion Start: 01/01/22 15:33 Freq: Status: Active Protocol: Document 02/24/22 10:30 DCW (Rec: 02/24/22 11:16 DCW [id number]) Knee Goniometric Range of Motion Knee Right Knee ROM WFL No Patient Position Sitting Flexion Active (degrees) 85 Flexion Passive (degrees) 99 Extension Active (degrees) 20 Extension Passive (degrees) 2 PT-OP-M Strength Start: 01/01/22 15:33 Freq: Status: Active Protocol: Document 02/24/22 10:30 DCW (Rec: 02/24/22 11:16 DCW [id number]) Knee Strength Knee Manual Muscle Testing Right Flexion (S2) 2 Poor Extension (L3) 2+ Poor+ PT-OP-Q Treatments Start: 01/01/22 15:33 Freq: Status: Active Protocol: Document 03/25/22 13:45 DCW (Rec: 03/25/22 14:24 DCW [id number]) Cardio Equipment Recumbent Bicycle Duration (Minutes) 6 Resistance 4 Seat Position 1 Gym Equipment Shuttle Recovery Bilateral Squats Resistance 67# Shuttle Recovery Platform Stable Therapeutic Exercises Standing Exercises Calf Stretch Standing Exercise Name Calf Stretch Side bilateral Equipment Used DUANE TKE Standing Exercise Name TKE Side right Resistance Lv 3 Manual Therapy Treatment Joint Mobilizations Patellofemoral Joint R PF Direction Inf<->Sup Grade III Body Position Hooklying Tibiofemoral Joint R knee Direction P->A Grade III Body Position Hooklying PT-OP-R Modalities Start: 01/01/22 15:33 Freq: Status: Active Protocol: Document 03/25/22 13:45 DCW (Rec: 03/25/22 14:24 DCW [id number]) Hot Pack/Cold Pack Treatment Cold Pack Location R knee Patient Position Hooklying Treatment Duration (minutes) 5 Patient Tolerance Good PT-OP-T Assessment and Plan Start: 01/01/22 15:33 Freq: Status: Active Protocol: Document 03/25/22 13:45 DCW (Rec: 03/25/22 14:24 DCW [id number]) Physical Therapy Assessment Impairments Impairments Activity Tolerance,Balance, Edema,Functional Activities, Functional Mobility,Gait, Integument,Pain,ROM,Soft Tissue Mobility,Strength Goals Three Impairment Pt ambulates with increased antalgia using FWW [employer] Leader Goal (LTG) Pt to ambulate >900' without an assistive device during 6MWT in order to display decreased falls risk and return to prior function. LTG Duration 05/25/22 Two Impairment Limited R knee ROM (20-85?) following R TKA [employer] Leader Goal (LTG) Increase right knee ROM to 0- 120? to improve gait and stair ascending/descending LTG Duration 05/25/22 One Impairment Pt does not have an appropriate home exercise program Short Term Goal (STG) Pt to be independent and compliant with an appropriate HEP STG Duration 04/07/22 Assessment Summary Assessment Tried taking it a little more easy today, due to pt's frequent pain at night limiting sleep. Reminded pt she does not need to constantly push herself with PT and going to the gym with her personal loan specialist. Physical Therapy Plan Frequency and Duration Frequency of Treatment 2x/Week Plan of Care Start Date 02/24/22 Plan of Care End Date 05/25/22 Therapeutic Interventions Therapeutic Interventions Balance Training,Gait Training ,Home Exercise Program,Joint Mobilizations,Manual Therapy, Patient/Caregiver Education, Self-Care/Home Management,Soft Tissue Mobilization, Therapeutic Activities, Therapeutic Exercises Next Visit Focus/Plan Next Note Type Treatment Note Next Visit Plan ROM, strengthening, gait, balance
--- NOTE | 2022-03-29 14:27 | PT.OTN ---
Current Diagnoses Presence of right artificial knee joint (03/29/22) Physical Therapy Treatment Note PT-OP-A Visit Information Start: 01/01/22 15:33 Freq: Status: Active Protocol: Document 03/29/22 13:45 DCW (Rec: 03/29/22 14:27 DCW [id number]) Out-Patient Physical Therapy Visit Information Visit Information Visit Type Treatment Note Visit Start Time 13:45 Visit Stop Time 14:30 Total Visit Minutes 45 Visit Number 12 Number of AUTO GLASS INSTALLER Visits 0 Evaluation Information Evaluation Date 01/01/22 PT-OP-B Current Condition Start: 01/01/22 15:33 Freq: Status: Active Protocol: Document 02/24/22 10:30 DCW (Rec: 02/24/22 11:16 DCW [id number]) Current Condition History of Current Condition Onset Date 02/17/22 Current Complaints R TKA History of Current Condition Pt returns for reassessment today following R TKA on 02/17. [place] things overall went pretty well, but is feeling significantly more pain than what she was expecting. Pt limited with ambulation, walking with FWW, feels her balance is worsening. Notes a lit of general tightness and swelling post-op. Reports she has been working on keeping her leg iced and elevated. FEels wiped out due to pain meds. Has follow-up with PA next Tuesday. PT-OP-C Subjective Start: 01/01/22 15:33 Freq: Status: Active Protocol: Document 03/29/22 13:45 DCW (Rec: 03/29/22 14:27 DCW [id number]) OP-PT Subjective Patient Comments Patient Comments Pt reports she had been having less pain over this past weekend. PT-OP-E Functional Tests Start: 02/24/22 11:16 Freq: Status: Active Protocol: Document 02/24/22 10:30 DCW (Rec: 02/24/22 11:20 DCW [id number]) Functional Tests 6 Minute Walk Test Distance 750' Device Used FWW Comments 2.08 ft/sec PT-OP-G Mobility & Gait Start: 01/01/22 15:33 Freq: Status: Active Protocol: Document 02/24/22 10:30 DCW (Rec: 02/24/22 11:16 DCW [id number]) OP Gait Assessment Gait Gait Assistance Required: Independent Assistive Devices Assistive Device Front Wheeled Walker Gait Deviations General Gait Pattern Antalgic,Decreased Stride Length,Decreased Feet Clearance PT-OP-J Posture/Palpation/Skin Start: 02/24/22 11:16 Freq: Status: Active Protocol: Document 02/24/22 10:30 DCW (Rec: 02/24/22 11:20 DCW [id number]) Skin Assessment Circumference Measurement 10 cm superior Location 10 cm superior to R knee joint line Measurement (Centimeters) 49.5 Comments L = 42.4 cm Joint line Location R knee joint line Measurement (Centimeters) 48.1 Comments L = 39.1 cm 10 cm inferior Location 10 cm inferior to R knee joint line Measurement (Centimeters) 46.2 Comments L = 36.0 cm PT-OP-K Range of Motion Start: 01/01/22 15:33 Freq: Status: Active Protocol: Document 02/24/22 10:30 DCW (Rec: 02/24/22 11:16 DCW [id number]) Knee Goniometric Range of Motion Knee Right Knee ROM WFL No Patient Position Sitting Flexion Active (degrees) 85 Flexion Passive (degrees) 99 Extension Active (degrees) 20 Extension Passive (degrees) 2 PT-OP-M Strength Start: 01/01/22 15:33 Freq: Status: Active Protocol: Document 02/24/22 10:30 DCW (Rec: 02/24/22 11:16 DCW [id number]) Knee Strength Knee Manual Muscle Testing Right Flexion (S2) 2 Poor Extension (L3) 2+ Poor+ PT-OP-Q Treatments Start: 01/01/22 15:33 Freq: Status: Active Protocol: Document 03/29/22 13:45 DCW (Rec: 03/29/22 14:27 DCW [id number]) Cardio Equipment Recumbent Bicycle Duration (Minutes) 6 Resistance 4 Seat Position 1 Gym Equipment Shuttle Recovery Bilateral Squats Resistance 67# Shuttle Recovery Platform Stable Therapeutic Exercises Standing Exercises Calf Stretch Standing Exercise Name Calf Stretch Side bilateral Equipment Used DUANE Step-ups Standing Exercise Name Step-ups/downs Side right Equipment Used 6 step Flexion Stretch Standing Exercise Name Step flexion stretch Side right Equipment Used 8 step TKE Standing Exercise Name TKE Side right Resistance Lv 3 Manual Therapy Treatment Joint Mobilizations Patellofemoral Joint R PF Direction Inf<->Sup Grade III Body Position Hooklying Tibiofemoral Joint R knee Direction P->A Grade III Body Position Hooklying Neuro Re-Education Treatment Balance Activities Tandem stance Details Tandem stance Equipment @ rail SLS Details SLS Equipment @ rail PT-OP-R Modalities Start: 01/01/22 15:33 Freq: Status: Active Protocol: Document 03/29/22 13:45 DCW (Rec: 03/29/22 14:27 DCW [id number]) Hot Pack/Cold Pack Treatment Cold Pack Location R knee Patient Position Hooklying Treatment Duration (minutes) 5 Patient Tolerance Good PT-OP-T Assessment and Plan Start: 01/01/22 15:33 Freq: Status: Active Protocol: Document 03/29/22 13:45 DCW (Rec: 03/29/22 14:27 DCW [id number]) Physical Therapy Assessment Impairments Impairments Activity Tolerance,Balance, Edema,Functional Activities, Functional Mobility,Gait, Integument,Pain,ROM,Soft Tissue Mobility,Strength Goals Three Impairment Pt ambulates with increased antalgia using FWW [place] Goal (LTG) Pt to ambulate >900' without an assistive device during 6MWT in order to display decreased falls risk and return to prior function. LTG Duration 05/25/22 Two Impairment Limited R knee ROM (20-85?) following R TKA Pattern Finisher Goal (LTG) Increase right knee ROM to 0- 120? to improve gait and stair ascending/descending LTG Duration 05/25/22 One Impairment Pt does not have an appropriate home exercise program Short Term Goal (STG) Pt to be independent and compliant with an appropriate HEP STG Duration 04/07/22 Assessment Summary Assessment Pt willing to do a bit more today than last week, feeling more comfortable with her pain levels at the moment. Appeared to do well with balance challenges. Physical Therapy Plan Frequency and Duration Frequency of Treatment 2x/Week Plan of Care Start Date 02/24/22 Plan of Care End Date 05/25/22 Therapeutic Interventions Therapeutic Interventions Balance Training,Gait Training ,Home Exercise Program,Joint Mobilizations,Manual Therapy, Patient/Caregiver Education, Self-Care/Home Management,Soft Tissue Mobilization, Therapeutic Activities, Therapeutic Exercises Next Visit Focus/Plan Next Note Type Treatment Note Next Visit Plan ROM, strengthening, gait, balance
--- NOTE | 2022-04-01 14:29 | PT.OTN ---
Current Diagnoses Presence of right artificial knee joint (04/01/22) Physical Therapy Treatment Note PT-OP-A Visit Information Start: 01/01/22 15:33 Freq: Status: Active Protocol: Document 04/01/22 13:45 DCW (Rec: 04/01/22 14:29 DCW [id number]) Out-Patient Physical Therapy Visit Information Visit Information Visit Type Treatment Note Visit Start Time 13:45 Visit Stop Time 14:35 Total Visit Minutes 50 Visit Number 13 Number of [employer]OS SOFTWARE ENGINEER Visits 0 Evaluation Information Evaluation Date 01/01/22 PT-OP-B Current Condition Start: 01/01/22 15:33 Freq: Status: Active Protocol: Document 02/24/22 10:30 DCW (Rec: 02/24/22 11:16 DCW [id number]) Current Condition History of Current Condition Onset Date 02/17/22 Current Complaints R TKA History of Current Condition Pt returns for reassessment today following R TKA on 02/17. [place] things overall went pretty well, but is feeling significantly more pain than what she was expecting. Pt limited with ambulation, walking with FWW, feels her balance is worsening. Notes a lit of general tightness and swelling post-op. Reports she has been working on keeping her leg iced and elevated. FEels wiped out due to pain meds. Has follow-up with PA next Tuesday. PT-OP-C Subjective Start: 01/01/22 15:33 Freq: Status: Active Protocol: Document 04/01/22 13:45 DCW (Rec: 04/01/22 14:29 DCW [id number]) OP-PT Subjective Patient Comments Patient Comments Pt reports that she spent a lot of time on her feet yesterday shopping, and therefore is a little more sore today. PT-OP-E Functional Tests Start: 02/24/22 11:16 Freq: Status: Active Protocol: Document 02/24/22 10:30 DCW (Rec: 02/24/22 11:20 DCW [id number]) Functional Tests 6 Minute Walk Test Distance 750' Device Used FWW Comments 2.08 ft/sec PT-OP-G Mobility & Gait Start: 01/01/22 15:33 Freq: Status: Active Protocol: Document 02/24/22 10:30 DCW (Rec: 02/24/22 11:16 DCW [id number]) OP Gait Assessment Gait Gait Assistance Required: Independent Assistive Devices Assistive Device Front Wheeled Walker Gait Deviations General Gait Pattern Antalgic,Decreased Stride Length,Decreased Feet Clearance PT-OP-J Posture/Palpation/Skin Start: 02/24/22 11:16 Freq: Status: Active Protocol: Document 02/24/22 10:30 DCW (Rec: 02/24/22 11:20 DCW [id number]) Skin Assessment Circumference Measurement 10 cm superior Location 10 cm superior to R knee joint line Measurement (Centimeters) 49.5 Comments L = 42.4 cm Joint line Location R knee joint line Measurement (Centimeters) 48.1 Comments L = 39.1 cm 10 cm inferior Location 10 cm inferior to R knee joint line Measurement (Centimeters) 46.2 Comments L = 36.0 cm PT-OP-K Range of Motion Start: 01/01/22 15:33 Freq: Status: Active Protocol: Document 02/24/22 10:30 DCW (Rec: 02/24/22 11:16 DCW [id number]) Knee Goniometric Range of Motion Knee Right Knee ROM WFL No Patient Position Sitting Flexion Active (degrees) 85 Flexion Passive (degrees) 99 Extension Active (degrees) 20 Extension Passive (degrees) 2 PT-OP-M Strength Start: 01/01/22 15:33 Freq: Status: Active Protocol: Document 02/24/22 10:30 DCW (Rec: 02/24/22 11:16 DCW [id number]) Knee Strength Knee Manual Muscle Testing Right Flexion (S2) 2 Poor Extension (L3) 2+ Poor+ PT-OP-Q Treatments Start: 01/01/22 15:33 Freq: Status: Active Protocol: Document 04/01/22 13:45 DCW (Rec: 04/01/22 14:29 DCW [id number]) Cardio Equipment Recumbent Bicycle Duration (Minutes) 6 Resistance 4 Seat Position 1 Gym Equipment Shuttle Recovery Bilateral Squats Resistance 75# Shuttle Recovery Platform Stable Therapeutic Exercises Standing Exercises Calf Stretch Standing Exercise Name Calf Stretch Side bilateral Equipment Used DUANE Hip Abduction Standing Exercise Name Hip Abduction Side bilateral Resistance Green Hip Extension Standing Exercise Name Hip Extension Side bilateral Resistance Green Step-ups Standing Exercise Name Step-ups Side right Equipment Used 6 step Flexion Stretch Standing Exercise Name Step flexion stretch Side right Equipment Used 12 step Manual Therapy Treatment Joint Mobilizations Patellofemoral Joint R PF Direction Inf<->Sup Grade III Body Position Hooklying Tibiofemoral Joint R knee Direction P->A Grade III Body Position Hooklying Neuro Re-Education Treatment Balance Activities Tandem stance Details Tandem stance Equipment @ rail SLS Details SLS Equipment @ rail PT-OP-R Modalities Start: 01/01/22 15:33 Freq: Status: Active Protocol: Document 04/01/22 13:45 DCW (Rec: 04/01/22 14:29 DCW [id number]) Hot Pack/Cold Pack Treatment Cold Pack Location R knee Patient Position Hooklying Treatment Duration (minutes) 7 Patient Tolerance Good PT-OP-T Assessment and Plan Start: 01/01/22 15:33 Freq: Status: Active Protocol: Document 04/01/22 13:45 DCW (Rec: 04/01/22 14:29 DCW [id number]) Physical Therapy Assessment Impairments Impairments Activity Tolerance,Balance, Edema,Functional Activities, Functional Mobility,Gait, Integument,Pain,ROM,Soft Tissue Mobility,Strength Goals Three Impairment Pt ambulates with increased antalgia using FWW Intermediate Goal (LTG) Pt to ambulate >900' without an assistive device during 6MWT in order to display decreased falls risk and return to prior function. LTG Duration 05/25/22 Two Impairment Limited R knee ROM (20-85?) following R TKA Intermediate Goal (LTG) Increase right knee ROM to 0- 120? to improve gait and stair ascending/descending LTG Duration 05/25/22 One Impairment Pt does not have an appropriate home exercise program Short Term Goal (STG) Pt to be independent and compliant with an appropriate HEP STG Duration 04/07/22 Assessment Summary Assessment Pt tolerated slight increase in resistance with most activities well, not experiencing as much overall tenderness today. Physical Therapy Plan Frequency and Duration Frequency of Treatment 2x/Week Plan of Care Start Date 02/24/22 Plan of Care End Date 05/25/22 Therapeutic Interventions Therapeutic Interventions Balance Training,Gait Training ,Home Exercise Program,Joint Mobilizations,Manual Therapy, Patient/Caregiver Education, Self-Care/Home Management,Soft Tissue Mobilization, Therapeutic Activities, Therapeutic Exercises Next Visit Focus/Plan Next Note Type Treatment Note Next Visit Plan ROM, strengthening, gait, balance
--- NOTE | 2022-04-05 14:27 | PT.OTN ---
Current Diagnoses Presence of right artificial knee joint (04/05/22) Physical Therapy Treatment Note PT-OP-A Visit Information Start: 01/01/22 15:33 Freq: Status: Active Protocol: Document 04/05/22 13:45 DCW (Rec: 04/05/22 14:27 DCW [id number]) Out-Patient Physical Therapy Visit Information Visit Information Visit Type Treatment Note Visit Start Time 13:45 Visit Stop Time 14:35 Total Visit Minutes 50 Visit Number 14 Number of ASSISTANT AUDITOR Visits 0 Evaluation Information Evaluation Date 01/01/22 PT-OP-B Current Condition Start: 01/01/22 15:33 Freq: Status: Active Protocol: Document 02/24/22 10:30 DCW (Rec: 02/24/22 11:16 DCW [id number]) Current Condition History of Current Condition Onset Date 02/17/22 Current Complaints R TKA History of Current Condition Pt returns for reassessment today following R TKA on 02/17. [place] things overall went pretty well, but is feeling significantly more pain than what she was expecting. Pt limited with ambulation, walking with FWW, feels her balance is worsening. Notes a lit of general tightness and swelling post-op. Reports she has been working on keeping her leg iced and elevated. FEels wiped out due to pain meds. Has follow-up with PA next Tuesday. PT-OP-C Subjective Start: 01/01/22 15:33 Freq: Status: Active Protocol: Document 04/05/22 13:45 DCW (Rec: 04/05/22 14:27 DCW [id number]) OP-PT Subjective Patient Comments Patient Comments Pt reports she had a fairly busy weekend, was able to do everything with minimal pain, but admits that it caught up with me last night. PT-OP-E Functional Tests Start: 02/24/22 11:16 Freq: Status: Active Protocol: Document 02/24/22 10:30 DCW (Rec: 02/24/22 11:20 DCW [id number]) Functional Tests 6 Minute Walk Test Distance 750' Device Used FWW Comments 2.08 ft/sec PT-OP-G Mobility & Gait Start: 01/01/22 15:33 Freq: Status: Active Protocol: Document 02/24/22 10:30 DCW (Rec: 02/24/22 11:16 DCW [id number]) OP Gait Assessment Gait Gait Assistance Required: Independent Assistive Devices Assistive Device Front Wheeled Walker Gait Deviations General Gait Pattern Antalgic,Decreased Stride Length,Decreased Feet Clearance PT-OP-J Posture/Palpation/Skin Start: 02/24/22 11:16 Freq: Status: Active Protocol: Document 02/24/22 10:30 DCW (Rec: 02/24/22 11:20 DCW [id number]) Skin Assessment Circumference Measurement 10 cm superior Location 10 cm superior to R knee joint line Measurement (Centimeters) 49.5 Comments L = 42.4 cm Joint line Location R knee joint line Measurement (Centimeters) 48.1 Comments L = 39.1 cm 10 cm inferior Location 10 cm inferior to R knee joint line Measurement (Centimeters) 46.2 Comments L = 36.0 cm PT-OP-K Range of Motion Start: 01/01/22 15:33 Freq: Status: Active Protocol: Document 02/24/22 10:30 DCW (Rec: 02/24/22 11:16 DCW [id number]) Knee Goniometric Range of Motion Knee Right Knee ROM WFL No Patient Position Sitting Flexion Active (degrees) 85 Flexion Passive (degrees) 99 Extension Active (degrees) 20 Extension Passive (degrees) 2 PT-OP-M Strength Start: 01/01/22 15:33 Freq: Status: Active Protocol: Document 02/24/22 10:30 DCW (Rec: 02/24/22 11:16 DCW [id number]) Knee Strength Knee Manual Muscle Testing Right Flexion (S2) 2 Poor Extension (L3) 2+ Poor+ PT-OP-Q Treatments Start: 01/01/22 15:33 Freq: Status: Active Protocol: Document 04/05/22 13:45 DCW (Rec: 04/05/22 14:27 DCW [id number]) Cardio Equipment Recumbent Bicycle Duration (Minutes) 6 Resistance 4 Seat Position 1 Gym Equipment Shuttle Recovery Unilateral Squats Resistance 37# Shuttle Recovery Platform Stable Bilateral Squats Resistance 75# Shuttle Recovery Platform Stable Shuttle Balance chains red Comments WBOS, Staggered Therapeutic Exercises Standing Exercises Calf Stretch Standing Exercise Name Calf Stretch Side bilateral Equipment Used DUANE Hip Abduction Standing Exercise Name Hip Abduction Side bilateral Resistance Green Hip Extension Standing Exercise Name Hip Extension Side bilateral Resistance Green Manual Therapy Treatment Joint Mobilizations Patellofemoral Joint R PF Direction Inf<->Sup Grade III Body Position Hooklying Tibiofemoral Joint R knee Direction P->A Grade III Body Position Hooklying Neuro Re-Education Treatment Balance Activities SLS Details SLS Equipment @ rail PT-OP-R Modalities Start: 01/01/22 15:33 Freq: Status: Active Protocol: Document 04/05/22 13:45 DCW (Rec: 04/05/22 14:27 DCW [id number]) Hot Pack/Cold Pack Treatment Cold Pack Location R knee Patient Position Hooklying Treatment Duration (minutes) 8 Patient Tolerance Good PT-OP-T Assessment and Plan Start: 01/01/22 15:33 Freq: Status: Active Protocol: Document 04/05/22 13:45 DCW (Rec: 04/05/22 14:27 DCW [id number]) Physical Therapy Assessment Impairments Impairments Activity Tolerance,Balance, Edema,Functional Activities, Functional Mobility,Gait, Integument,Pain,ROM,Soft Tissue Mobility,Strength Goals Three Impairment Pt ambulates with increased antalgia using FWW Fdc Goal (LTG) Pt to ambulate >900' without an assistive device during 6MWT in order to display decreased falls risk and return to prior function. LTG Duration 05/25/22 Two Impairment Limited R knee ROM (20-85?) following R TKA Label Printing Machinist Goal (LTG) Increase right knee ROM to 0- 120? to improve gait and stair ascending/descending LTG Duration 05/25/22 One Impairment Pt does not have an appropriate home exercise program Short Term Goal (STG) Pt to be independent and compliant with an appropriate HEP STG Duration 04/07/22 Assessment Summary Assessment Increased balance challenges today, pt tolerated very well, overall experiencing less pain with activity in rught knee. Pt notes she has a follow-up with her surgeon next week, is hoping to discuss scheduling her left TKA Physical Therapy Plan Frequency and Duration Frequency of Treatment 2x/Week Plan of Care Start Date 02/24/22 Plan of Care End Date 05/25/22 Therapeutic Interventions Therapeutic Interventions Balance Training,Gait Training ,Home Exercise Program,Joint Mobilizations,Manual Therapy, Patient/Caregiver Education, Self-Care/Home Management,Soft Tissue Mobilization, Therapeutic Activities, Therapeutic Exercises Next Visit Focus/Plan Next Note Type Treatment Note Next Visit Plan ROM, strengthening, gait, balance
--- NOTE | 2022-04-12 14:28 | PT.OTN ---
Current Diagnoses Presence of right artificial knee joint (04/12/22) Physical Therapy Treatment Note PT-OP-A Visit Information Start: 01/01/22 15:33 Freq: Status: Active Protocol: Document 04/12/22 13:45 DCW (Rec: 04/12/22 14:28 DCW [id number]) Out-Patient Physical Therapy Visit Information Visit Information Visit Type Treatment Note Visit Start Time 13:45 Visit Stop Time 14:35 Total Visit Minutes 50 Visit Number 15 Number of PANEL EDGE SEALER Visits 0 Evaluation Information Evaluation Date 01/01/22 PT-OP-B Current Condition Start: 01/01/22 15:33 Freq: Status: Active Protocol: Document 02/24/22 10:30 DCW (Rec: 02/24/22 11:16 DCW [id number]) Current Condition History of Current Condition Onset Date 02/17/22 Current Complaints R TKA History of Current Condition Pt returns for reassessment today following R TKA on 02/17. [place] things overall went pretty well, but is feeling significantly more pain than what she was expecting. Pt limited with ambulation, walking with FWW, feels her balance is worsening. Notes a lit of general tightness and swelling post-op. Reports she has been working on keeping her leg iced and elevated. FEels wiped out due to pain meds. Has follow-up with PA next Tuesday. PT-OP-C Subjective Start: 01/01/22 15:33 Freq: Status: Active Protocol: Document 04/12/22 13:45 DCW (Rec: 04/12/22 14:28 DCW [id number]) OP-PT Subjective Patient Comments Patient Comments Pt feels that her knee is mostly the same, does note the pain is more manageable. PT-OP-E Functional Tests Start: 02/24/22 11:16 Freq: Status: Active Protocol: Document 02/24/22 10:30 DCW (Rec: 02/24/22 11:20 DCW [id number]) Functional Tests 6 Minute Walk Test Distance 750' Device Used FWW Comments 2.08 ft/sec PT-OP-G Mobility & Gait Start: 01/01/22 15:33 Freq: Status: Active Protocol: Document 02/24/22 10:30 DCW (Rec: 02/24/22 11:16 DCW [id number]) OP Gait Assessment Gait Gait Assistance Required: Independent Assistive Devices Assistive Device Front Wheeled Walker Gait Deviations General Gait Pattern Antalgic,Decreased Stride Length,Decreased Feet Clearance PT-OP-J Posture/Palpation/Skin Start: 02/24/22 11:16 Freq: Status: Active Protocol: Document 02/24/22 10:30 DCW (Rec: 02/24/22 11:20 DCW [id number]) Skin Assessment Circumference Measurement 10 cm superior Location 10 cm superior to R knee joint line Measurement (Centimeters) 49.5 Comments L = 42.4 cm Joint line Location R knee joint line Measurement (Centimeters) 48.1 Comments L = 39.1 cm 10 cm inferior Location 10 cm inferior to R knee joint line Measurement (Centimeters) 46.2 Comments L = 36.0 cm PT-OP-K Range of Motion Start: 01/01/22 15:33 Freq: Status: Active Protocol: Document 02/24/22 10:30 DCW (Rec: 02/24/22 11:16 DCW [id number]) Knee Goniometric Range of Motion Knee Right Knee ROM WFL No Patient Position Sitting Flexion Active (degrees) 85 Flexion Passive (degrees) 99 Extension Active (degrees) 20 Extension Passive (degrees) 2 PT-OP-M Strength Start: 01/01/22 15:33 Freq: Status: Active Protocol: Document 02/24/22 10:30 DCW (Rec: 02/24/22 11:16 DCW [id number]) Knee Strength Knee Manual Muscle Testing Right Flexion (S2) 2 Poor Extension (L3) 2+ Poor+ PT-OP-Q Treatments Start: 01/01/22 15:33 Freq: Status: Active Protocol: Document 04/12/22 13:45 DCW (Rec: 04/12/22 14:28 DCW [id number]) Cardio Equipment Recumbent Bicycle Duration (Minutes) 6 Resistance 4 Seat Position 1 Gym Equipment Shuttle Recovery Unilateral Squats Resistance 37# Shuttle Recovery Platform Stable Bilateral Squats Resistance 75# Shuttle Recovery Platform Stable Shuttle Balance chains red Comments WBOS (EO/EC), Staggered Manual Therapy Treatment Joint Mobilizations Patellofemoral Joint R PF Direction Inf<->Sup Grade III Body Position Hooklying Tibiofemoral Joint R knee Direction P->A Grade III Body Position Hooklying Neuro Re-Education Treatment Balance Activities BOSU Details WBOS, Weight shift, SLS Surface Black BOSU PT-OP-R Modalities Start: 01/01/22 15:33 Freq: Status: Active Protocol: Document 04/12/22 13:45 DCW (Rec: 04/12/22 14:28 DCW [id number]) Hot Pack/Cold Pack Treatment Cold Pack Location R knee Patient Position Hooklying Treatment Duration (minutes) 8 Patient Tolerance Good PT-OP-T Assessment and Plan Start: 01/01/22 15:33 Freq: Status: Active Protocol: Document 04/12/22 13:45 DCW (Rec: 04/12/22 14:28 DCW [id number]) Physical Therapy Assessment Impairments Impairments Activity Tolerance,Balance, Edema,Functional Activities, Functional Mobility,Gait, Integument,Pain,ROM,Soft Tissue Mobility,Strength Goals Three Impairment Pt ambulates with increased antalgia using FWW Electronic Engraver Goal (LTG) Pt to ambulate >900' without an assistive device during 6MWT in order to display decreased falls risk and return to prior function. LTG Duration 05/25/22 Two Impairment Limited R knee ROM (20-85?) following R TKA Halfway Goal (LTG) Increase right knee ROM to 0- 120? to improve gait and stair ascending/descending LTG Duration 05/25/22 One Impairment Pt does not have an appropriate home exercise program Short Term Goal (STG) Pt to be independent and compliant with an appropriate HEP STG Duration 04/07/22 Assessment Summary Assessment Pt doing well, current right knee AROM is 0-123?, feels some slight weakness is right quad, especially when descending stairs. 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 Physical Therapy Plan Frequency and Duration Frequency of Treatment 2x/Week Plan of Care Start Date 02/24/22 Plan of Care End Date 05/25/22 Therapeutic Interventions Therapeutic Interventions Balance Training,Gait Training ,Home Exercise Program,Joint Mobilizations,Manual Therapy, Patient/Caregiver Education, Self-Care/Home Management,Soft Tissue Mobilization, Therapeutic Activities, Therapeutic Exercises Next Visit Focus/Plan Next Note Type Treatment Note Next Visit Plan ROM, strengthening, gait, balance
--- NOTE | 2022-04-15 14:30 | PT.OTN ---
Current Diagnoses Presence of right artificial knee joint (04/15/22) Physical Therapy Treatment Note PT-OP-A Visit Information Start: 01/01/22 15:33 Freq: Status: Active Protocol: Document 04/15/22 13:45 DCW (Rec: 04/15/22 14:30 DCW [id number]) Out-Patient Physical Therapy Visit Information Visit Information Visit Type Discharge Summary Visit Start Time 13:45 Visit Stop Time 14:30 Total Visit Minutes 45 Visit Number 16 Number of AUDITOR TAX Visits 0 Evaluation Information Evaluation Date 01/01/22 PT-OP-B Current Condition Start: 01/01/22 15:33 Freq: Status: Active Protocol: Document 02/24/22 10:30 DCW (Rec: 02/24/22 11:16 DCW [id number]) Current Condition History of Current Condition Onset Date 02/17/22 Current Complaints R TKA History of Current Condition Pt returns for reassessment today following R TKA on 02/17. [place] things overall went pretty well, but is feeling significantly more pain than what she was expecting. Pt limited with ambulation, walking with FWW, feels her balance is worsening. Notes a lit of general tightness and swelling post-op. Reports she has been working on keeping her leg iced and elevated. FEels wiped out due to pain meds. Has follow-up with PA next Tuesday. PT-OP-C Subjective Start: 01/01/22 15:33 Freq: Status: Active Protocol: Document 04/15/22 13:45 DCW (Rec: 04/15/22 14:29 DCW [id number]) OP-PT Subjective Patient Comments Patient Comments Pt feeling good overall, happy with current progress, hopeful she can have her left TKA done in May or June. PT-OP-E Functional Tests Start: 02/24/22 11:16 Freq: Status: Active Protocol: Document 04/15/22 13:45 DCW (Rec: 04/15/22 14:08 DCW [id number]) Functional Tests 6 Minute Walk Test Distance 1506' Device Used none Comments 4.18 ft/sec PT-OP-G Mobility & Gait Start: 01/01/22 15:33 Freq: Status: Active Protocol: Document 04/15/22 13:45 DCW (Rec: 04/15/22 14:08 DCW [id number]) OP Gait Assessment Gait Gait Assistance Required: Independent Assistive Devices Assistive Device None Gait Deviations General Gait Pattern Antalgic PT-OP-J Posture/Palpation/Skin Start: 02/24/22 11:16 Freq: Status: Active Protocol: Document 04/15/22 13:45 DCW (Rec: 04/15/22 14:08 DCW [id number]) Skin Assessment Circumference Measurement 10 cm superior Location 10 cm superior to R knee joint line Measurement (Centimeters) 42.0 Comments L = 42.4 cm Joint line Location R knee joint line Measurement (Centimeters) 39.8 Comments L = 39.1 cm 10 cm inferior Location 10 cm inferior to R knee joint line Measurement (Centimeters) 36.8 Comments L = 36.0 cm PT-OP-K Range of Motion Start: 01/01/22 15:33 Freq: Status: Active Protocol: Document 04/15/22 13:45 DCW (Rec: 04/15/22 14:08 DCW [id number]) Knee Goniometric Range of Motion Knee Right Knee ROM WFL Yes Patient Position Supine Flexion Active (degrees) 122 Flexion Passive (degrees) 130 Extension Active (degrees) 0 Extension Passive (degrees) 0 PT-OP-M Strength Start: 01/01/22 15:33 Freq: Status: Active Protocol: Document 04/15/22 13:45 DCW (Rec: 04/15/22 14:08 DCW [id number]) Knee Strength Knee Manual Muscle Testing Right Flexion (S2) 4+ Good+ Extension (L3) 4+ Good+ PT-OP-Q Treatments Start: 01/01/22 15:33 Freq: Status: Active Protocol: Document 04/15/22 13:45 DCW (Rec: 04/15/22 14:29 DCW [id number]) Cardio Equipment Recumbent Bicycle Duration (Minutes) 6 Resistance 4 Seat Position 1 Manual Therapy Treatment Soft Tissue Mobilization Quad Body Location R Quad STM Mobilization Type Sustained Pressure,Trigger Point Release Intensity/Depth Moderate Body Position Hooklying Joint Mobilizations Patellofemoral Joint R PF Direction Inf<->Sup Grade III Body Position Hooklying Tibiofemoral Joint R knee Direction P->A Grade III Body Position Hooklying PT-OP-R Modalities Start: 01/01/22 15:33 Freq: Status: Active Protocol: Document 04/12/22 13:45 DCW (Rec: 04/12/22 14:28 DCW [id number]) Hot Pack/Cold Pack Treatment Cold Pack Location R knee Patient Position Hooklying Treatment Duration (minutes) 8 Patient Tolerance Good PT-OP-T Assessment and Plan Start: 01/01/22 15:33 Freq: Status: Active Protocol: Document 04/15/22 13:45 DCW (Rec: 04/15/22 14:29 DCW [id number]) Physical Therapy Assessment Impairments Impairments Activity Tolerance,Balance, Edema,Functional Activities, Functional Mobility,Gait, Integument,Pain,ROM,Soft Tissue Mobility,Strength Goals Three Impairment Pt ambulates with increased antalgia using FWW Motor Vehicle Or Caravan Salesperson Goal (LTG) Pt to ambulate >900' without an assistive device during 6MWT in order to display decreased falls risk and return to prior function. LTG Duration Met Two Impairment Limited R knee ROM (20-85?) following R TKA Nursing Home Goal (LTG) Increase right knee ROM to 0- 120? to improve gait and stair ascending/descending LTG Duration Met One Impairment Pt does not have an appropriate home exercise program Short Term Goal (STG) Pt to be independent and compliant with an appropriate HEP STG Duration Met Assessment Summary Assessment Pt doing very well, has met all goals, appropriate for discharge at this time. Pt will likely be returning to skilled PT in 2-3 months if plans for a L TKA go through. Physical Therapy Plan Frequency and Duration Frequency of Treatment 2x/Week Plan of Care Start Date 02/24/22 Plan of Care End Date 05/25/22 Therapeutic Interventions Therapeutic Interventions Balance Training,Gait Training ,Home Exercise Program,Joint Mobilizations,Manual Therapy, Patient/Caregiver Education, Self-Care/Home Management,Soft Tissue Mobilization, Therapeutic Activities, Therapeutic Exercises Next Visit Focus/Plan Next Note Type Treatment Note Next Visit Plan ROM, strengthening, gait, balance
== END 2022-04-16 09:14 | disposition home or self-care (01) ==
LOC: PHYS 13:45
PROVIDERS: Family Provider Internal Medicine; PCP Internal Medicine; Referring Provider Orthopaedic Surgery; Visit Provider Orthopaedic Surgery
DX: Z96.651 Presence of right artificial knee joint (principal)
CPT/HCPCS: 97110; 97112; 97140; 97161; 97164; 97535

== ENCOUNTER 2022-08-27 16:00 | Outpatient (RCR) | payer MEDICARE, SELFPAY ==
--- NOTE | 2022-06-28 14:18 | PT.OIE ---
Current Diagnoses Unilateral primary osteoarthritis, left knee (06/28/22) Presence of left artificial knee joint (06/28/22) Visit Care Team Role Provider Type Pati Tsai MD Family Provider Non-Staff Primary Care Provider Specialty: Internal Medicine Address: [address] [place] [address], [id number] Email: Amadeo Dos Santos MD Attending Provider Non-Staff Referring Provider Specialty: Medical Address: [address] [place] [address], [phone] Email: Physical Therapy Initial Evaluation PT-OP-A Visit Information Start: 06/28/22 11:29 Freq: Status: Active Protocol: Document 06/28/22 11:00 DCW (Rec: 06/28/22 11:39 DCW [id number]) Out-Patient Physical Therapy Visit Information Visit Information Visit Type Initial Evaluation Visit Start Time 11:00 Visit Stop Time 11:25 Total Visit Minutes 25 Visit Number 1 Number of RN FIRST ASSISTANT Visits 0 Evaluation Information Evaluation Date 06/28/22 PT-OP-B Current Condition Start: 06/28/22 11:29 Freq: Status: Active Protocol: Document 06/28/22 11:00 DCW (Rec: 06/28/22 11:39 DCW [id number]) Current Condition History of Current Condition Onset Date 06/30/22 Current Complaints L TKA (06/30/22) History of Current Condition Pt arrived for pre-op evaluation two days prior to left TKA on 06/30/22. Pt has previously undergone R TKA ~6 months ago, and is overall doing very well, although does note some continuing numbness and tingling, as well as occasional fatigue and soreness. Feels very comfortable with her current knowledge of likely recovery process and her HEP post-op. Pt planning to attend her post -op PT appointment two days after surgery. Prior Treatments and Tests R TKA 02/17/22 PT-OP-C Subjective Start: 06/28/22 11:29 Freq: Status: Active Protocol: Document 06/28/22 11:00 DCW (Rec: 06/28/22 11:39 DCW [id number]) OP-PT Subjective Patient Comments Patient Comments I'm ready to get this done. I 'm hoping it straightens out my left leg as much as it did my right leg. PT-OP-K Range of Motion Start: 06/28/22 11:29 Freq: Status: Active Protocol: Document 06/28/22 11:00 DCW (Rec: 06/28/22 11:39 DCW [id number]) Knee Goniometric Range of Motion Knee Right Patient Position Supine Flexion Active (degrees) 126 Extension Active (degrees) 0 Left Patient Position Supine Flexion Active (degrees) 117 Extension Active (degrees) 4 PT-OP-M Strength Start: 06/28/22 11:29 Freq: Status: Active Protocol: Document 06/28/22 11:00 DCW (Rec: 06/28/22 11:39 DCW [id number]) Knee Strength Knee Manual Muscle Testing Right Flexion (S2) 5 Normal Extension (L3) 5 Normal Left Flexion (S2) 4 Good Extension (L3) 4 Good PT-OP-T Assessment and Plan Start: 06/28/22 11:29 Freq: Status: Active Protocol: Document 06/28/22 11:00 DCW (Rec: 06/28/22 14:17 DCW [id number]) Physical Therapy Assessment Rehab Potential Rehabilitation Potential Good Evaluation Complexity Number of Personal Factors/Comorbidities 1-2 Number of Body Systems Impaired 1-2 Clinical Presentation at Evaluation Evolving Goals One Impairment Decreased left ROM Usp Goal (LTG) Pt to display left knee active ROM 0?-120? following left TKA LTG Duration 09/01/22 Assessment Summary Assessment Pt presents to skilled therapy for a single pre-op appointment two days prior to left TKA on 06/30/22. Pt has recently undergone a right TKA , and notes good knowledge retention from her rehab following this recent surgery. Feels good about post-op HEP. Shows some decreased left knee ROM. 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 Hopefully, following L TKA, her LEs will be a better match and this will improve pt's gait pattern . Pt will return to skilled therapy following her TKA in order to undergo a reevaluation and begin post-op therapy. Physical Therapy Plan Frequency and Duration Frequency of Treatment 2x/Week Plan of Care Start Date 06/28/22 Plan of Care End Date 07/29/22 Therapeutic Interventions Therapeutic Interventions Gait Training,Home Exercise Program,Joint Mobilizations, Manual Therapy,Neuromuscular Re-education,Patient/Caregiver Education,Self-Care/Home Management,Soft Tissue Mobilization,Therapeutic Activities,Therapeutic Exercises Next Visit Focus/Plan Next Note Type Re-Evaluation Next Visit Plan Post-op re-evaluation
--- NOTE | 2022-06-28 14:18 | PT.OPPOC ---
Physical, Occupational & Speech Therapy At [facility] Current Diagnoses Unilateral primary osteoarthritis, left knee (06/28/22) Presence of left artificial knee joint (06/28/22) Visit Care Team Role Provider Type Pati Tsai MD Family Provider Non-Staff Primary Care Provider Specialty: Internal Medicine Address: [address] [place] [address] Email: Amadeo Dos Santos MD Attending Provider Non-Staff Referring Provider Specialty: Medical Address: [address] [place] [address], [facility] Email: Plan Of Care PT-OP-T Assessment and Plan Start: 06/28/22 11:29 Freq: Status: Active Protocol: Document 06/28/22 11:00 DCW (Rec: 06/28/22 14:17 DCW [id number]) Physical Therapy Assessment Rehab Potential Rehabilitation Potential Good Evaluation Complexity Number of Personal Factors/Comorbidities 1-2 Number of Body Systems Impaired 1-2 Clinical Presentation at Evaluation Evolving Goals One Impairment Decreased left ROM Correction Goal (LTG) Pt to display left knee active ROM 0?-120? following left TKA LTG Duration 09/01/22 Assessment Summary Assessment Pt presents to skilled therapy for a single pre-op appointment two days prior to left TKA on 06/30/22. Pt has recently undergone a right TKA , and notes good knowledge retention from her rehab following this recent surgery. Feels good about post-op HEP. Shows some decreased left knee ROM. 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 Hopefully, following L TKA, her LEs will be a better match and this will improve pt's gait pattern . Pt will return to skilled therapy following her TKA in order to undergo a reevaluation and begin post-op therapy. Physical Therapy Plan Frequency and Duration Frequency of Treatment 2x/Week Plan of Care Start Date 06/28/22 Plan of Care End Date 07/29/22 Therapeutic Interventions Therapeutic Interventions Gait Training,Home Exercise Program,Joint Mobilizations, Manual Therapy,Neuromuscular Re-education,Patient/Caregiver Education,Self-Care/Home Management,Soft Tissue Mobilization,Therapeutic Activities,Therapeutic Exercises Next Visit Focus/Plan Next Note Type Re-Evaluation Next Visit Plan Post-op re-evaluation Plan of Care Dates Plan of Care Start Date 06/28/22 Plan of Care End Date 07/29/22 Electronically Signed by: Anibal Barker, PT 06/28/22 7679 If you are in agreement with this Plan of Care, please return a signed and dated copy. I have reviewed this Plan of Care and certify that the skilled therapy services above are required to meet the patient?s needs. Physician Signature Date Printed Name and Credentials Clinical Instructor Signature Printed Name and Credentials
--- NOTE | 2022-07-08 11:46 | PT.OTRE ---
Current Diagnoses Unilateral primary osteoarthritis, left knee (07/08/22) Presence of left artificial knee joint (07/08/22) Visit Care Team Role Provider Type Pati Tsai MD Family Provider Non-Staff Primary Care Provider Specialty: Internal Medicine Address: [address] [place] [address], [id number] Email: Amadeo Dos Santos MD Attending Provider Non-Staff Referring Provider Specialty: Medical Address: [address] [place] [address], [id number] Email: Physical Therapy Re-Evaluation PT-OP-A Visit Information Start: 06/28/22 11:29 Freq: Status: Active Protocol: Document 07/08/22 11:00 DCW (Rec: 07/08/22 11:44 DCW [id number]) Out-Patient Physical Therapy Visit Information Visit Information Visit Type Re-Evaluation Visit Start Time 11:00 Visit Stop Time 11:40 Total Visit Minutes 40 Visit Number 2 Number of UNDERGROUND SUPERVISOR Visits 0 Evaluation Information Evaluation Date 06/28/22 PT-OP-B Current Condition Start: 06/28/22 11:29 Freq: Status: Active Protocol: Document 07/08/22 11:00 DCW (Rec: 07/08/22 11:44 DCW [id number]) Current Condition History of Current Condition Onset Date 06/30/22 Current Complaints L TKA (06/30/22) History of Current Condition Pt arrived for pre-op evaluation two days prior to left TKA on 06/30/22. Pt has previously undergone R TKA ~6 months ago, and is overall doing very well, although does note some continuing numbness and tingling, as well as occasional fatigue and soreness. Feels very comfortable with her current knowledge of likely recovery process and her HEP post-op. Pt planning to attend her post -op PT appointment two days after surgery. ADDEMDUM 07/08/22: Pt returns following L TKA, ambulating with FWW, although admits she mostly gets around without it . Pt notes that she is off most of her post-op meds, except ones to control muscle spasms. Prior Treatments and Tests R TKA 02/17/22 PT-OP-C Subjective Start: 06/28/22 11:29 Freq: Status: Active Protocol: Document 07/08/22 11:00 DCW (Rec: 07/08/22 11:44 DCW [id number]) OP-PT Subjective Patient Comments Patient Comments I'm ready for this bandage to come off. PT-OP-E Functional Tests Start: 06/28/22 11:29 Freq: Status: Active Protocol: Document 07/08/22 11:00 DCW (Rec: 07/08/22 11:44 DCW [id number]) Functional Tests 6 Minute Walk Test Distance 1007' Device Used FWW Comments 2.8 ft/sec Timed Up and Go (TUG) Comments Three-trial average (11.37, 11 .51, 11.38 PT-OP-J Posture/Palpation/Skin Start: 07/08/22 11:16 Freq: Status: Active Protocol: Document 07/08/22 11:00 DCW (Rec: 07/08/22 11:46 DCW [id number]) Skin Assessment Incisional Assessment Incision Appearance/Comments Silver dollar-sized area of greenish drainage visible on post-op bandage, as well as small area of bright red, warm skin along medial bandage. PT-OP-K Range of Motion Start: 06/28/22 11:29 Freq: Status: Active Protocol: Document 07/08/22 11:00 DCW (Rec: 07/08/22 11:44 DCW [id number]) Knee Goniometric Range of Motion Knee Measured in Degrees Left Patient Position Supine Flexion Active (degrees) 79 Extension Active (degrees) 6 PT-OP-L Special Tests Start: 06/28/22 11:29 Freq: Status: Active Protocol: Document 07/08/22 11:00 DCW (Rec: 07/08/22 11:44 DCW [id number]) Special Tests Knee Special Tests Posterior Draw Test Results Negative Patella Tap Test Results Positive L Anterior Draw Test Results Negative PT-OP-M Strength Start: 06/28/22 11:29 Freq: Status: Active Protocol: Document 07/08/22 11:00 DCW (Rec: 07/08/22 11:44 DCW [id number]) Knee Strength Knee Manual Muscle Testing Right Flexion (S2) 5 Normal Extension (L3) 5 Normal Left Flexion (S2) 3 Fair Extension (L3) 3 Fair PT-OP-Q Treatments Start: 06/28/22 11:29 Freq: Status: Active Protocol: Document 07/08/22 11:00 DCW (Rec: 07/08/22 11:44 DCW [id number]) Cardio Equipment Recumbent Bicycle Duration (Minutes) 6 Resistance 0 Seat Position 2 PT-OP-T Assessment and Plan Start: 06/28/22 11:29 Freq: Status: Active Protocol: Document 07/08/22 11:00 DCW (Rec: 07/08/22 11:44 DCW [id number]) Physical Therapy Assessment Goals Three Impairment L knee weakness results in antalgic gait pattern Correction Goal (LTG) Pt to improve L knee MMT to at least 4/5 with both flexion and extension in order to normalize independent gait pattern without any use of assistive devices. LTG Duration 09/07/22 Two Impairment Pt does not have an appropriate home exercise program Short Term Goal (STG) Pt to be independent and compliant with an appropriate HEP STG Duration 08/08/22 One Impairment Decreased left ROM Correction Goal (LTG) Pt to display left knee active ROM 0?-120? following left TKA LTG Duration 09/07/22 Assessment Summary Assessment Pt presents one week s/p L TKA . Pt ambulation using FWW looks very good, although pt admits she ambulates a lot at home without an AD. Still exhibits significant limp without AD. ROM currently 6-79 , flexion limited by bandage and post-op swelling. Biggest concern at the moment is drainage at bandage. Silver dollar-sized area of green-erasmo drainage, as well as increased bright-red skin along middle of medial bandage . Strongly encouraged pt to contact surgeon's office regarding bandage. Otherwise, pt doing well overall, feels comfortable with her HEP, shows good understanding with upcoming rehab due to recent R TKA. Physical Therapy Plan Frequency and Duration Frequency of Treatment 2x/Week Plan of Care Start Date 07/08/22 Plan of Care End Date 09/07/22 Therapeutic Interventions Therapeutic Interventions Gait Training,Home Exercise Program,Joint Mobilizations, Manual Therapy,Neuromuscular Re-education,Patient/Caregiver Education,Self-Care/Home Management,Soft Tissue Mobilization,Therapeutic Activities,Therapeutic Exercises Next Visit Focus/Plan Next Note Type Treatment Note Next Visit Plan Strengthening and ROM
--- NOTE | 2022-07-08 11:46 | PT.OPPOC ---
Physical, Occupational & Speech Therapy At [facility] Current Diagnoses Unilateral primary osteoarthritis, left knee (07/08/22) Presence of left artificial knee joint (07/08/22) Visit Care Team Role Provider Type Pati Tsai MD Family Provider Non-Staff Primary Care Provider Specialty: Internal Medicine Address: [address] [place] [address], [facility] Email: Amadeo Dos Santos MD Attending Provider Non-Staff Referring Provider Specialty: Medical Address: [address] [place] [address], [facility] Email: Plan Of Care PT-OP-T Assessment and Plan Start: 06/28/22 11:29 Freq: Status: Active Protocol: Document 07/08/22 11:00 DCW (Rec: 07/08/22 11:44 DCW [id number]) Physical Therapy Assessment Goals Three Impairment L knee weakness results in antalgic gait pattern Usp Goal (LTG) Pt to improve L knee MMT to at least 4/5 with both flexion and extension in order to normalize independent gait pattern without any use of assistive devices. LTG Duration 09/07/22 Two Impairment Pt does not have an appropriate home exercise program Short Term Goal (STG) Pt to be independent and compliant with an appropriate HEP STG Duration 08/08/22 One Impairment Decreased left ROM Usp Goal (LTG) Pt to display left knee active ROM 0?-120? following left TKA LTG Duration 09/07/22 Assessment Summary Assessment Pt presents one week s/p L TKA . Pt ambulation using FWW looks very good, although pt admits she ambulates a lot at home without an AD. Still exhibits significant limp without AD. ROM currently 6-79 , flexion limited by bandage and post-op swelling. Biggest concern at the moment is drainage at bandage. Silver dollar-sized area of green-erasmo drainage, as well as increased bright-red skin along middle of medial bandage . Strongly encouraged pt to contact surgeon's office regarding bandage. Otherwise, pt doing well overall, feels comfortable with her HEP, shows good understanding with upcoming rehab due to recent R TKA. Physical Therapy Plan Frequency and Duration Frequency of Treatment 2x/Week Plan of Care Start Date 07/08/22 Plan of Care End Date 09/07/22 Therapeutic Interventions Therapeutic Interventions Gait Training,Home Exercise Program,Joint Mobilizations, Manual Therapy,Neuromuscular Re-education,Patient/Caregiver Education,Self-Care/Home Management,Soft Tissue Mobilization,Therapeutic Activities,Therapeutic Exercises Next Visit Focus/Plan Next Note Type Treatment Note Next Visit Plan Strengthening and ROM Plan of Care Dates Plan of Care Start Date 07/08/22 Plan of Care End Date 09/07/22 Electronically Signed by: Anibal Barker, PT 07/08/22 1294 If you are in agreement with this Plan of Care, please return a signed and dated copy. I have reviewed this Plan of Care and certify that the skilled therapy services above are required to meet the patient?s needs. Physician Signature Date Printed Name and Credentials Clinical Instructor Signature Printed Name and Credentials
--- NOTE | 2022-07-12 13:33 | PT.OTN ---
Current Diagnoses Unilateral primary osteoarthritis, left knee (07/12/22) Presence of left artificial knee joint (07/12/22) Physical Therapy Treatment Note PT-OP-A Visit Information Start: 06/28/22 11:29 Freq: Status: Active Protocol: Document 07/12/22 12:45 DCW (Rec: 07/12/22 13:33 DCW [id number]) Out-Patient Physical Therapy Visit Information Visit Information Visit Type Treatment Note Visit Start Time 12:45 Visit Stop Time 13:30 Total Visit Minutes 45 Visit Number 3 Number of STRIP FEEDER Visits 0 Evaluation Information Evaluation Date 06/28/22 PT-OP-B Current Condition Start: 06/28/22 11:29 Freq: Status: Active Protocol: Document 07/08/22 11:00 DCW (Rec: 07/08/22 11:44 DCW [id number]) Current Condition History of Current Condition Onset Date 06/30/22 Current Complaints L TKA (06/30/22) History of Current Condition Pt arrived for pre-op evaluation two days prior to left TKA on 06/30/22. Pt has previously undergone R TKA ~6 months ago, and is overall doing very well, although does note some continuing numbness and tingling, as well as occasional fatigue and soreness. Feels very comfortable with her current knowledge of likely recovery process and her HEP post-op. Pt planning to attend her post -op PT appointment two days after surgery. ADDEMDUM 07/08/22: Pt returns folllowing L TKA, ambulating with FWW, although admits she mostly gets around without it . Pt notes that she is off most of her post-op meds, except ones to control muscle spasms. Prior Treatments and Tests R TKA 02/17/22 PT-OP-C Subjective Start: 06/28/22 11:29 Freq: Status: Active Protocol: Document 07/12/22 12:45 DCW (Rec: 07/12/22 13:33 DCW [id number]) OP-PT Subjective Patient Comments Patient Comments Pt reports an emergency trip down to her surgeon Tuesday due to the discoloration and drainage, they feel it was a reaction due to the adhesive of the bandage. PT-OP-E Functional Tests Start: 06/28/22 11:29 Freq: Status: Active Protocol: Document 07/08/22 11:00 DCW (Rec: 07/08/22 11:44 DCW [id number]) Functional Tests 6 Minute Walk Test Distance 1007' Device Used FWW Comments 2.8 ft/sec Timed Up and Go (TUG) Comments Three-trial average (11.37, 11 .51, 11.38 PT-OP-J Posture/Palpation/Skin Start: 07/08/22 11:16 Freq: Status: Active Protocol: Document 07/08/22 11:00 DCW (Rec: 07/08/22 11:46 DCW [id number]) Skin Assessment Incisional Assessment Incision Appearance/Comments Silver dollar-sized area of greenish drainage visible on post-op bandage, as well as small area of bright red, warm skin along medial bandage. PT-OP-K Range of Motion Start: 06/28/22 11:29 Freq: Status: Active Protocol: Document 07/08/22 11:00 DCW (Rec: 07/08/22 11:44 DCW [id number]) Knee Goniometric Range of Motion Knee Left Patient Position Supine Flexion Active (degrees) 79 Extension Active (degrees) 6 PT-OP-L Special Tests Start: 06/28/22 11:29 Freq: Status: Active Protocol: Document 07/08/22 11:00 DCW (Rec: 07/08/22 11:44 DCW [id number]) Special Tests Knee Special Tests Posterior Draw Test Results Negative Patella Tap Test Results Positive L Anterior Draw Test Results Negative PT-OP-M Strength Start: 06/28/22 11:29 Freq: Status: Active Protocol: Document 07/08/22 11:00 DCW (Rec: 07/08/22 11:44 DCW [id number]) Knee Strength Knee Manual Muscle Testing Right Flexion (S2) 5 Normal Extension (L3) 5 Normal Left Flexion (S2) 3 Fair Extension (L3) 3 Fair PT-OP-Q Treatments Start: 06/28/22 11:29 Freq: Status: Active Protocol: Document 07/12/22 12:45 DCW (Rec: 07/12/22 13:33 DCW [id number]) Cardio Equipment Recumbent Bicycle Duration (Minutes) 6 Resistance 0 Seat Position 2 Therapeutic Exercises Supine Exercises Extension stretch Supine Exercise Name Knee extension stretch Side left Standing Exercises TKE Standing Exercise Name TKE Side left Resistance Green Knee flexion Standing Exercise Name Knee flexion stretch Side left Equipment Used two 6 steps Manual Therapy Treatment Joint Mobilizations L knee Joint L knee Direction P<->A Grade III Body Position Hooklying PT-OP-T Assessment and Plan Start: 06/28/22 11:29 Freq: Status: Active Protocol: Document 07/12/22 12:45 DCW (Rec: 07/12/22 13:33 DCW [id number]) Physical Therapy Assessment Goals Three Impairment L knee weakness results in antalgic gait pattern [employer] Goal (LTG) Pt to improve L knee MMT to at least 4/5 with both flexion and extension in order to normalize independent gait pattern without any use of assistive devices. LTG Duration 09/07/22 Two Impairment Pt does not have an appropriate home exercise program Short Term Goal (STG) Pt to be independent and compliant with an appropriate HEP STG Duration 08/08/22 One Impairment Decreased left ROM [employer] Manager Goal (LTG) Pt to display left knee active ROM 0?-120? following left TKA LTG Duration 09/07/22 Assessment Summary Assessment Pt doing very well 12 days post-op, improving ROM, still ambulating with a slight limp, pt noted she was tired after her workout today, recommended return to using walking stick when fatigued to limit antalgic gait. Physical Therapy Plan Frequency and Duration Frequency of Treatment 2x/Week Plan of Care Start Date 07/08/22 Plan of Care End Date 09/07/22 Therapeutic Interventions Therapeutic Interventions Gait Training,Home Exercise Program,Joint Mobilizations, Manual Therapy,Neuromuscular Re-education,Patient/Caregiver Education,Self-Care/Home Management,Soft Tissue Mobilization,Therapeutic Activities,Therapeutic Exercises Next Visit Focus/Plan Next Note Type Treatment Note Next Visit Plan Strengthening and ROM
--- NOTE | 2022-07-14 11:42 | PT.OTN ---
Current Diagnoses Unilateral primary osteoarthritis, left knee (07/14/22) Presence of left artificial knee joint (07/14/22) Physical Therapy Treatment Note PT-OP-A Visit Information Start: 06/28/22 11:29 Freq: Status: Active Protocol: Document 07/14/22 11:00 DCW (Rec: 07/14/22 11:42 DCW [id number]) Out-Patient Physical Therapy Visit Information Visit Information Visit Type Treatment Note Visit Start Time 11:00 Visit Stop Time 11:45 Total Visit Minutes 45 Visit Number 4 Number of ACADEMIC HOSPITALIST Visits 0 Evaluation Information Evaluation Date 06/28/22 PT-OP-B Current Condition Start: 06/28/22 11:29 Freq: Status: Active Protocol: Document 07/08/22 11:00 DCW (Rec: 07/08/22 11:44 DCW [id number]) Current Condition History of Current Condition Onset Date 06/30/22 Current Complaints L TKA (06/30/22) History of Current Condition Pt arrived for pre-op evaluation two days prior to left TKA on 06/30/22. Pt has previously undergone R TKA ~6 months ago, and is overall doing very well, although does note some continuing numbness and tingling, as well as occasional fatigue and soreness. Feels very comfortable with her current knowledge of likely recovery process and her HEP post-op. Pt planning to attend her post -op PT appointment two days after surgery. ADDEMDUM 07/08/22: Pt returns folllowing L TKA, ambulating with FWW, although admits she mostly gets around without it . Pt notes that she is off most of her post-op meds, except ones to control muscle spasms. Prior Treatments and Tests R TKA 02/17/22 PT-OP-C Subjective Start: 06/28/22 11:29 Freq: Status: Active Protocol: Document 07/14/22 11:00 DCW (Rec: 07/14/22 11:42 DCW [id number]) OP-PT Subjective Patient Comments Patient Comments My knee is still kind of itchy/burny, and it's just sore and I'm pretty tired. PT-OP-E Functional Tests Start: 06/28/22 11:29 Freq: Status: Active Protocol: Document 07/08/22 11:00 DCW (Rec: 07/08/22 11:44 DCW [id number]) Functional Tests 6 Minute Walk Test Distance 1007' Device Used FWW Comments 2.8 ft/sec Timed Up and Go (TUG) Comments Three-trial average (11.37, 11 .51, 11.38 PT-OP-J Posture/Palpation/Skin Start: 07/08/22 11:16 Freq: Status: Active Protocol: Document 07/08/22 11:00 DCW (Rec: 07/08/22 11:46 DCW [id number]) Skin Assessment Incisional Assessment Incision Appearance/Comments Silver dollar-sized area of greenish drainage visible on post-op bandage, as well as small area of bright red, warm skin along medial bandage. PT-OP-K Range of Motion Start: 06/28/22 11:29 Freq: Status: Active Protocol: Document 07/08/22 11:00 DCW (Rec: 07/08/22 11:44 DCW [id number]) Knee Goniometric Range of Motion Knee Left Patient Position Supine Flexion Active (degrees) 79 Extension Active (degrees) 6 PT-OP-L Special Tests Start: 06/28/22 11:29 Freq: Status: Active Protocol: Document 07/08/22 11:00 DCW (Rec: 07/08/22 11:44 DCW [id number]) Special Tests Knee Special Tests Posterior Draw Test Results Negative Patella Tap Test Results Positive L Anterior Draw Test Results Negative PT-OP-M Strength Start: 06/28/22 11:29 Freq: Status: Active Protocol: Document 07/08/22 11:00 DCW (Rec: 07/08/22 11:44 DCW [id number]) Knee Strength Knee Manual Muscle Testing Right Flexion (S2) 5 Normal Extension (L3) 5 Normal Left Flexion (S2) 3 Fair Extension (L3) 3 Fair PT-OP-Q Treatments Start: 06/28/22 11:29 Freq: Status: Active Protocol: Document 07/14/22 11:00 DCW (Rec: 07/14/22 11:42 DCW [id number]) Cardio Equipment Recumbent Bicycle Duration (Minutes) 6 Resistance 0 Seat Position 2 Other partial rotations Gym Equipment Shuttle Recovery Bilateral Squats Resistance 50# Shuttle Recovery Platform Stable Therapeutic Ball 1 Exercise Details Knee flexion stretch /c strap Ball Size/Color Blue - 45 cm Body Position Supine Comments Measured at 107? flexion Therapeutic Exercises Standing Exercises Tandem Standing Exercise Name Tandem Stance SLS Standing Exercise Name SLS Side bilateral Calf Stretch Standing Exercise Name Calf stretch Side bilateral Equipment Used DUANE Step-up Standing Exercise Name Step-up Side bilateral Equipment Used 6 step Knee flexion Standing Exercise Name Knee flexion stretch Side bilateral Equipment Used two 6 steps Manual Therapy Treatment Joint Mobilizations L knee Joint L knee Direction P<->A Grade III Body Position Hooklying PT-OP-T Assessment and Plan Start: 06/28/22 11:29 Freq: Status: Active Protocol: Document 07/14/22 11:00 DCW (Rec: 07/14/22 11:42 DCW [id number]) Physical Therapy Assessment Goals Three Impairment L knee weakness results in antalgic gait pattern Detention Goal (LTG) Pt to improve L knee MMT to at least 4/5 with both flexion and extension in order to normalize independent gait pattern without any use of assistive devices. LTG Duration 09/07/22 Two Impairment Pt does not have an appropriate home exercise program Short Term Goal (STG) Pt to be independent and compliant with an appropriate HEP STG Duration 08/08/22 One Impairment Decreased left ROM Senior Policy Analyst Goal (LTG) Pt to display left knee active ROM 0?-120? following left TKA LTG Duration 09/07/22 Assessment Summary Assessment Pt continues to improve quickly, PROM measuring at 4?- 107? today, pt noting less pain. Pt did use one trekking pole for ambulation today, therefore walking with much less of a limp. Follow-up appointment with surgeon later today. Physical Therapy Plan Frequency and Duration Frequency of Treatment 2x/Week Plan of Care Start Date 07/08/22 Plan of Care End Date 09/07/22 Therapeutic Interventions Therapeutic Interventions Gait Training,Home Exercise Program,Joint Mobilizations, Manual Therapy,Neuromuscular Re-education,Patient/Caregiver Education,Self-Care/Home Management,Soft Tissue Mobilization,Therapeutic Activities,Therapeutic Exercises Next Visit Focus/Plan Next Note Type Treatment Note Next Visit Plan Strengthening and ROM
--- NOTE | 2022-07-20 16:41 | PT.OTN ---
Current Diagnoses Unilateral primary osteoarthritis, left knee (07/20/22) Presence of left artificial knee joint (07/20/22) Physical Therapy Treatment Note PT-OP-A Visit Information Start: 06/28/22 11:29 Freq: Status: Active Protocol: Document 07/20/22 11:32 NBM (Rec: 07/20/22 12:15 NBM [id number]) Out-Patient Physical Therapy Visit Information Visit Information Visit Type Treatment Note Visit Start Time 11:33 Visit Stop Time 12:13 Total Visit Minutes 40 Visit Number 5 Number of MOLD CHECKER Visits 1 Evaluation Information Evaluation Date 06/28/22 PT-OP-B Current Condition Start: 06/28/22 11:29 Freq: Status: Active Protocol: Document 07/08/22 11:00 DCW (Rec: 07/08/22 11:44 DCW [id number]) Current Condition History of Current Condition Onset Date 06/30/22 Current Complaints L TKA (06/30/22) History of Current Condition Pt arrived for pre-op evaluation two days prior to left TKA on 06/30/22. Pt has previously undergone R TKA ~6 months ago, and is overall doing very well, although does note some continuing numbness and tingling, as well as occasional fatigue and soreness. Feels very comfortable with her current knowledge of likely recovery process and her HEP post-op. Pt planning to attend her post -op PT appointment two days after surgery. ADDEMDUM 07/08/22: Pt returns folllowing L TKA, ambulating with FWW, although admits she mostly gets around without it . Pt notes that she is off most of her post-op meds, except ones to control muscle spasms. Prior Treatments and Tests R TKA 02/17/22 PT-OP-C Subjective Start: 06/28/22 11:29 Freq: Status: Active Protocol: Document 07/20/22 11:32 NBM (Rec: 07/20/22 12:15 NBM [id number]) OP-PT Subjective Patient Comments Patient Comments Pt reports she saw ortho PA and was declared to be making good progress. Her knee is improving from the reaction to the adhesive but still peeling. She reports a hard time sleeping on her back. She started working with her personal financial counselor almost two weeks ago. She reports she uses walking stick if going for a walk for support and balance. She sees neurologist in two weeks for balance issues. Stairs are painful. No new falls or near falls since surgery. Pt's boyfriend has severe anemia and undergoing diagnostic tests. Pt took pain meds 6am today but not before this visit. PT-OP-E Functional Tests Start: 06/28/22 11:29 Freq: Status: Active Protocol: Document 07/08/22 11:00 DCW (Rec: 07/08/22 11:44 DCW [id number]) Functional Tests 6 Minute Walk Test Distance 1007' Device Used FWW Comments 2.8 ft/sec Timed Up and Go (TUG) Comments Three-trial average (11.37, 11 .51, 11.38 PT-OP-J Posture/Palpation/Skin Start: 07/08/22 11:16 Freq: Status: Active Protocol: Document 07/08/22 11:00 DCW (Rec: 07/08/22 11:46 DCW [id number]) Skin Assessment Incisional Assessment Incision Appearance/Comments Silver dollar-sized area of greenish drainage visible on post-op bandage, as well as small area of bright red, warm skin along medial bandage. PT-OP-K Range of Motion Start: 06/28/22 11:29 Freq: Status: Active Protocol: Document 07/08/22 11:00 DCW (Rec: 07/08/22 11:44 DCW [id number]) Knee Goniometric Range of Motion Knee Left Patient Position Supine Flexion Active (degrees) 79 Extension Active (degrees) 6 PT-OP-L Special Tests Start: 06/28/22 11:29 Freq: Status: Active Protocol: Document 07/08/22 11:00 DCW (Rec: 07/08/22 11:44 DCW [id number]) Special Tests Knee Special Tests Posterior Draw Test Results Negative Patella Tap Test Results Positive L Anterior Draw Test Results Negative PT-OP-M Strength Start: 06/28/22 11:29 Freq: Status: Active Protocol: Document 07/08/22 11:00 DCW (Rec: 07/08/22 11:44 DCW [id number]) Knee Strength Knee Manual Muscle Testing Right Flexion (S2) 5 Normal Extension (L3) 5 Normal Left Flexion (S2) 3 Fair Extension (L3) 3 Fair PT-OP-Q Treatments Start: 06/28/22 11:29 Freq: Status: Active Protocol: Document 07/20/22 11:32 NBM (Rec: 07/20/22 12:15 [facility] [id number]) Cardio Equipment Recumbent Bicycle Duration (Minutes) 6 Resistance 0 Seat Position 2 Other fwd/bwd partial rotations>full rotations Therapeutic Exercises Standing Exercises Tandem Standing Exercise Name Tandem Stance SLS Standing Exercise Name SLS Side bilateral Comments R stance leg more challenged than L. Calf Stretch Standing Exercise Name Calf stretch Side bilateral Equipment Used DUANE Step-up Standing Exercise Name Step-up Side bilateral Equipment Used 6 step TKE Standing Exercise Name TKE Side left Resistance Green Reps/Minutes x10, 10x3SH Knee flexion Standing Exercise Name Knee flexion stretch Side bilateral Equipment Used two 6 steps Gait Training Gait Activity Stairs Description moon rails Level of Assistance SBA Surface 6 steps Distance/Duration 2 x 4 steps Neuro Re-Education Treatment Coordination Activities Tandem walking Details fwd/bwd Equipment red/black squares Reps/Duration 10ft Comments challenging; excessive hip ER backwards. PT-OP-R Modalities Start: 07/20/22 16:31 Freq: Status: Active Protocol: Document 07/20/22 11:32 NB (Rec: 07/20/22 16:32 [facility] [id number]) Hot Pack/Cold Pack Treatment Cold Pack Location B knee Patient Position Hooklying Treatment Duration (minutes) 10 Patient Tolerance Good PT-OP-T Assessment and Plan Start: 06/28/22 11:29 Freq: Status: Active Protocol: Document 07/20/22 11:32 [facility] (Rec: 07/20/22 12:15 [facility] [id number]) Physical Therapy Assessment Goals Three Impairment L knee weakness results in antalgic gait pattern Skilled Nursing Goal (LTG) Pt to improve L knee MMT to at least 4/5 with both flexion and extension in order to normalize independent gait pattern without any use of assistive devices. LTG Duration 09/07/22 Two Impairment Pt does not have an appropriate home exercise program Short Term Goal (STG) Pt to be independent and compliant with an appropriate HEP STG Duration 08/08/22 One Impairment Decreased left ROM Skilled Nursing Goal (LTG) Pt to display left knee active ROM 0?-120? following left TKA LTG Duration 09/07/22 Assessment Summary Assessment Pt arrives without AD. She is able to complete full rotations today on recumbant bicycle both forward and backward. She requires cues for neutral foot positioning ascending and descending stairs to reduce medial stress at knee joint due to excessive hip external rotation and reports reduced knee pain with cues. She is challenged with tandem walking forward and backward and has a neurology appointment in two weeks regarding balance. Physical Therapy Plan Frequency and Duration Frequency of Treatment 2x/Week Plan of Care Start Date 07/08/22 Plan of Care End Date 09/07/22 Therapeutic Interventions Therapeutic Interventions Gait Training,Home Exercise Program,Joint Mobilizations, Manual Therapy,Neuromuscular Re-education,Patient/Caregiver Education,Self-Care/Home Management,Soft Tissue Mobilization,Therapeutic Activities,Therapeutic Exercises Next Visit Focus/Plan Next Note Type Treatment Note Next Visit Plan Strengthening and ROM
--- NOTE | 2022-07-22 11:43 | PT.OTN ---
Current Diagnoses Unilateral primary osteoarthritis, left knee (07/22/22) Presence of left artificial knee joint (07/22/22) Physical Therapy Treatment Note PT-OP-A Visit Information Start: 06/28/22 11:29 Freq: Status: Active Protocol: Document 07/22/22 11:00 DCW (Rec: 07/22/22 11:43 DCW [id number]) Out-Patient Physical Therapy Visit Information Visit Information Visit Type Treatment Note Visit Start Time 11:00 Visit Stop Time 11:45 Total Visit Minutes 45 Visit Number 6 Number of MANAGER COMMISSION Visits 0 Evaluation Information Evaluation Date 06/28/22 PT-OP-B Current Condition Start: 06/28/22 11:29 Freq: Status: Active Protocol: Document 07/08/22 11:00 DCW (Rec: 07/08/22 11:44 DCW [id number]) Current Condition History of Current Condition Onset Date 06/30/22 Current Complaints L TKA (06/30/22) History of Current Condition Pt arrived for pre-op evaluation two days prior to left TKA on 06/30/22. Pt has previously undergone R TKA ~6 months ago, and is overall doing very well, although does note some continuing numbness and tingling, as well as occasional fatigue and soreness. Feels very comfortable with her current knowledge of likely recovery process and her HEP post-op. Pt planning to attend her post -op PT appointment two days after surgery. ADDEMDUM 07/08/22: Pt returns folllowing L TKA, ambulating with FWW, although admits she mostly gets around without it . Pt notes that she is off most of her post-op meds, except ones to control muscle spasms. Prior Treatments and Tests R TKA 02/17/22 PT-OP-C Subjective Start: 06/28/22 11:29 Freq: Status: Active Protocol: Document 07/22/22 11:00 DCW (Rec: 07/22/22 11:43 DCW [id number]) OP-PT Subjective Patient Comments Patient Comments I'm pretty tired of pain. PT-OP-E Functional Tests Start: 06/28/22 11:29 Freq: Status: Active Protocol: Document 07/08/22 11:00 DCW (Rec: 07/08/22 11:44 DCW [id number]) Functional Tests 6 Minute Walk Test Distance 1007' Device Used FWW Comments 2.8 ft/sec Timed Up and Go (TUG) Comments Three-trial average (11.37, 11 .51, 11.38 PT-OP-J Posture/Palpation/Skin Start: 07/08/22 11:16 Freq: Status: Active Protocol: Document 07/08/22 11:00 DCW (Rec: 07/08/22 11:46 DCW [id number]) Skin Assessment Incisional Assessment Incision Appearance/Comments Silver dollar-sized area of greenish drainage visible on post-op bandage, as well as small area of bright red, warm skin along medial bandage. PT-OP-K Range of Motion Start: 06/28/22 11:29 Freq: Status: Active Protocol: Document 07/08/22 11:00 DCW (Rec: 07/08/22 11:44 DCW [id number]) Knee Goniometric Range of Motion Knee Left Patient Position Supine Flexion Active (degrees) 79 Extension Active (degrees) 6 PT-OP-L Special Tests Start: 06/28/22 11:29 Freq: Status: Active Protocol: Document 07/08/22 11:00 DCW (Rec: 07/08/22 11:44 DCW [id number]) Special Tests Knee Special Tests Posterior Draw Test Results Negative Patella Tap Test Results Positive L Anterior Draw Test Results Negative PT-OP-M Strength Start: 06/28/22 11:29 Freq: Status: Active Protocol: Document 07/08/22 11:00 DCW (Rec: 07/08/22 11:44 DCW [id number]) Knee Strength Knee Manual Muscle Testing Right Flexion (S2) 5 Normal Extension (L3) 5 Normal Left Flexion (S2) 3 Fair Extension (L3) 3 Fair PT-OP-Q Treatments Start: 06/28/22 11:29 Freq: Status: Active Protocol: Document 07/22/22 11:00 DCW (Rec: 07/22/22 11:43 DCW [id number]) Cardio Equipment Recumbent Bicycle Duration (Minutes) 6 Resistance 1 Seat Position 2 Other full rotations Gym Equipment Shuttle Recovery Bilateral Squats Resistance 50# Shuttle Recovery Platform Stable Therapeutic Exercises Standing Exercises Tandem Standing Exercise Name Tandem Stance SLS Standing Exercise Name SLS Side bilateral Calf Stretch Standing Exercise Name Calf stretch Side bilateral Equipment Used DUANE Step-up Standing Exercise Name Step-ups/downs Side bilateral Equipment Used 6 step Manual Therapy Treatment Joint Mobilizations L knee Joint L knee Direction P<->A Grade III Body Position Hooklying PT-OP-R Modalities Start: 07/20/22 16:31 Freq: Status: Active Protocol: Document 07/20/22 11:32 NBM (Rec: 07/20/22 16:32 NBM [id number]) Hot Pack/Cold Pack Treatment Cold Pack Location B knee Patient Position Hooklying Treatment Duration (minutes) 10 Patient Tolerance Good PT-OP-T Assessment and Plan Start: 06/28/22 11:29 Freq: Status: Active Protocol: Document 07/22/22 11:00 DCW (Rec: 07/22/22 11:43 DCW [id number]) Physical Therapy Assessment Goals Three Impairment L knee weakness results in antalgic gait pattern Usp Goal (LTG) Pt to improve L knee MMT to at least 4/5 with both flexion and extension in order to normalize independent gait pattern without any use of assistive devices. LTG Duration 09/07/22 Two Impairment Pt does not have an appropriate home exercise program Short Term Goal (STG) Pt to be independent and compliant with an appropriate HEP STG Duration 08/08/22 One Impairment Decreased left ROM Qc Analyst Goal (LTG) Pt to display left knee active ROM 0?-120? following left TKA LTG Duration 09/07/22 Assessment Summary Assessment Pt feeling better overall, notes she want to get out walking more around her house. Surgical incision looking much improved, minimal redness in surrounding area. Physical Therapy Plan Frequency and Duration Frequency of Treatment 2x/Week Plan of Care Start Date 07/08/22 Plan of Care End Date 09/07/22 Therapeutic Interventions Therapeutic Interventions Gait Training,Home Exercise Program,Joint Mobilizations, Manual Therapy,Neuromuscular Re-education,Patient/Caregiver Education,Self-Care/Home Management,Soft Tissue Mobilization,Therapeutic Activities,Therapeutic Exercises Next Visit Focus/Plan Next Note Type Treatment Note Next Visit Plan Strengthening and ROM
--- NOTE | 2022-07-26 15:06 | PT.OTN ---
Current Diagnoses Unilateral primary osteoarthritis, left knee (07/26/22) Presence of left artificial knee joint (07/26/22) Physical Therapy Treatment Note PT-OP-A Visit Information Start: 06/28/22 11:29 Freq: Status: Active Protocol: Document 07/26/22 11:20 NBM (Rec: 07/26/22 12:25 NBM [id number]) Out-Patient Physical Therapy Visit Information Visit Information Visit Type Treatment Note Visit Start Time 11:30 Visit Stop Time 12:15 Total Visit Minutes 45 Visit Number 7 Number of TEST FIXTURE ASSEMBLER Visits 1 Evaluation Information Evaluation Date 06/28/22 PT-OP-B Current Condition Start: 06/28/22 11:29 Freq: Status: Active Protocol: Document 07/08/22 11:00 DCW (Rec: 07/08/22 11:44 DCW [id number]) Current Condition History of Current Condition Onset Date 06/30/22 Current Complaints L TKA (06/30/22) History of Current Condition Pt arrived for pre-op evaluation two days prior to left TKA on 06/30/22. Pt has previously undergone R TKA ~6 months ago, and is overall doing very well, although does note some continuing numbness and tingling, as well as occasional fatigue and soreness. Feels very comfortable with her current knowledge of likely recovery process and her HEP post-op. Pt planning to attend her post -op PT appointment two days after surgery. ADDEMDUM 07/08/22: Pt returns folllowing L TKA, ambulating with FWW, although admits she mostly gets around without it . Pt notes that she is off most of her post-op meds, except ones to control muscle spasms. Prior Treatments and Tests R TKA 02/17/22 PT-OP-C Subjective Start: 06/28/22 11:29 Freq: Status: Active Protocol: Document 07/26/22 11:20 NBM (Rec: 07/26/22 12:25 NBM [id number]) OP-PT Subjective Patient Comments Patient Comments Pt reports L knee has been sore since last PT visit with pain going down inside of L khan to inside L ankle - she thinks it's her new shoes. She has been using the orthotics and has a f/u w/ crop production advisor next month. Standing for a long time kills me. She modified her ex's with fitness trainer this morning to sitting ex's. She has rescheduled her neuro appt due to combined medical appts for her and her partner. She's been mindful of going up/down stairs with toes forward. PT-OP-E Functional Tests Start: 06/28/22 11:29 Freq: Status: Active Protocol: Document 07/08/22 11:00 DCW (Rec: 07/08/22 11:44 DCW [id number]) Functional Tests 6 Minute Walk Test Distance 1007' Device Used FWW Comments 2.8 ft/sec Timed Up and Go (TUG) Comments Three-trial average (11.37, 11 .51, 11.38 PT-OP-J Posture/Palpation/Skin Start: 07/08/22 11:16 Freq: Status: Active Protocol: Document 07/08/22 11:00 DCW (Rec: 07/08/22 11:46 DCW [id number]) Skin Assessment Incisional Assessment Incision Appearance/Comments Silver dollar-sized area of greenish drainage visible on post-op bandage, as well as small area of bright red, warm skin along medial bandage. PT-OP-K Range of Motion Start: 06/28/22 11:29 Freq: Status: Active Protocol: Document 07/26/22 11:20 NBM (Rec: 07/26/22 12:25 NBM [id number]) Knee Goniometric Range of Motion Knee Left Patient Position Supine Flexion Active (degrees) 115 Flexion Passive (degrees) 122 Extension Active (degrees) 1 Extension Passive (degrees) 0 PT-OP-L Special Tests Start: 06/28/22 11:29 Freq: Status: Active Protocol: Document 07/08/22 11:00 DCW (Rec: 07/08/22 11:44 DCW [id number]) Special Tests Knee Special Tests Posterior Draw Test Results Negative Patella Tap Test Results Positive L Anterior Draw Test Results Negative PT-OP-M Strength Start: 06/28/22 11:29 Freq: Status: Active Protocol: Document 07/08/22 11:00 DCW (Rec: 07/08/22 11:44 DCW [id number]) Knee Strength Knee Manual Muscle Testing Right Flexion (S2) 5 Normal Extension (L3) 5 Normal Left Flexion (S2) 3 Fair Extension (L3) 3 Fair PT-OP-Q Treatments Start: 06/28/22 11:29 Freq: Status: Active Protocol: Document 07/26/22 11:20 NBM (Rec: 07/26/22 12:25 [facility] [id number]) Cardio Equipment Recumbent Bicycle Duration (Minutes) 6 Resistance 1>3 Seat Position 2 Other full rotations fwd/bwd; Gym Equipment Shuttle Recovery Unilateral Squats Details Bilateral, shoes doffed Resistance 25# Shuttle Recovery Platform Stable Reps/Time x10 ea Bilateral Squats Details shoes doffed d/t ankle pain. Resistance 50#>62# Shuttle Recovery Platform Stable Therapeutic Exercises Supine Exercises Heel slides Side left Reps/Minutes x5 Comments for ROM measurements end of session. Sitting Exercises HS stretch Sitting Exercise Name seated hamstring stretch Side bilateral Equipment Used mesh chair Reps/Minutes 2x30s Standing Exercises Calf Stretch Standing Exercise Name Calf stretch Side bilateral Equipment Used DUANE Comments decreased burning sensation in L khan TKE Standing Exercise Name TKE Side left Resistance Green Equipment Used folded towel behind knee Reps/Minutes x10, 10x5SH Comments cues for square hips Knee flexion Standing Exercise Name Knee flexion stretch Side bilateral Equipment Used two 6 steps Comments pain increase to burning in L khan Gait Training Gait Activity Stairs Description moon rails ascend/descend Level of Assistance SBA Surface 6 steps Distance/Duration 2 x 4 steps Self-Care/Home Management Treatment Education Patient Education Home Exercise Program Other Education Added s/l saqib Mohr Tb - TB and HO given. PT-OP-R Modalities Start: 07/20/22 16:31 Freq: Status: Active Protocol: Document 07/26/22 11:20 NB (Rec: 07/26/22 14:57 [facility] [id number]) Hot Pack/Cold Pack Treatment Cold Pack Location B knee Patient Position Hooklying Treatment Duration (minutes) 10 Patient Tolerance Good PT-OP-T Assessment and Plan Start: 06/28/22 11:29 Freq: Status: Active Protocol: Document 07/26/22 11:20 NB (Rec: 07/26/22 12:25 [facility] [id number]) Physical Therapy Assessment Goals Three Impairment L knee weakness results in antalgic gait pattern Kayak Maker Goal (LTG) Pt to improve L knee MMT to at least 4/5 with both flexion and extension in order to normalize independent gait pattern without any use of assistive devices. LTG Duration 09/07/22 Two Impairment Pt does not have an appropriate home exercise program Short Term Goal (STG) Pt to be independent and compliant with an appropriate HEP STG Duration 08/08/22 One Impairment Decreased left ROM Fpc Goal (LTG) Pt to display left knee active ROM 0?-120? following left TKA LTG Duration 09/07/22 Assessment Summary Assessment Latonia continues to progress as with increased resistance from 1>3 on recumbent elliptical with full rotations forward and backwards. She presents today with L knee, khan and ankle soreness which she attributes to her newer shoes - she is to see crop production advisor next month for new orthotics. She tolerates increased weight on Shuttle Recovery for bilateral squats from 50# to 75# and introduction of unilateral squats at 25# with initial cue for LE alignment. She demonstrates improved neutral foot positioning with stairs but upon descending stairs shows excessive knee valgus - Added to HEP s/l clamshell Harding Tb - TB and HO given. Surgical incision healing and appearance continues to improve. End of session L knee flexion AROM improves from 79 deg post/op to 115 deg today. Physical Therapy Plan Frequency and Duration Frequency of Treatment 2x/Week Plan of Care Start Date 07/08/22 Plan of Care End Date 09/07/22 Therapeutic Interventions Therapeutic Interventions Gait Training,Home Exercise Program,Joint Mobilizations, Manual Therapy,Neuromuscular Re-education,Patient/Caregiver Education,Self-Care/Home Management,Soft Tissue Mobilization,Therapeutic Activities,Therapeutic Exercises Next Visit Focus/Plan Next Note Type Treatment Note Next Visit Plan Strengthening and ROM
--- NOTE | 2022-07-29 11:47 | PT.OTN ---
Current Diagnoses Unilateral primary osteoarthritis, left knee (07/29/22) Presence of left artificial knee joint (07/29/22) Physical Therapy Treatment Note PT-OP-A Visit Information Start: 06/28/22 11:29 Freq: Status: Active Protocol: Document 07/29/22 11:00 DCW (Rec: 07/29/22 11:47 DCW [id number]) Out-Patient Physical Therapy Visit Information Visit Information Visit Type Treatment Note Visit Start Time 11:00 Visit Stop Time 11:45 Total Visit Minutes 45 Visit Number 8 Number of ESTIMATOR PAPERBOARD BOXES Visits 0 Evaluation Information Evaluation Date 06/28/22 PT-OP-B Current Condition Start: 06/28/22 11:29 Freq: Status: Active Protocol: Document 07/08/22 11:00 DCW (Rec: 07/08/22 11:44 DCW [id number]) Current Condition History of Current Condition Onset Date 06/30/22 Current Complaints L TKA (06/30/22) History of Current Condition Pt arrived for pre-op evaluation two days prior to left TKA on 06/30/22. Pt has previously undergone R TKA ~6 months ago, and is overall doing very well, although does note some continuing numbness and tingling, as well as occasional fatigue and soreness. Feels very comfortable with her current knowledge of likely recovery process and her HEP post-op. Pt planning to attend her post -op PT appointment two days after surgery. ADDEMDUM 07/08/22: Pt returns folllowing L TKA, ambulating with FWW, although admits she mostly gets around without it . Pt notes that she is off most of her post-op meds, except ones to control muscle spasms. Prior Treatments and Tests R TKA 02/17/22 PT-OP-C Subjective Start: 06/28/22 11:29 Freq: Status: Active Protocol: Document 07/29/22 11:00 DCW (Rec: 07/29/22 11:47 DCW [id number]) OP-PT Subjective Patient Comments Patient Comments Pt seeing Dr Dos Santos's PA next week, feeling better than she was on Tuesday, but still having medial lower leg/ankle pain PT-OP-E Functional Tests Start: 06/28/22 11:29 Freq: Status: Active Protocol: Document 07/08/22 11:00 DCW (Rec: 07/08/22 11:44 DCW [id number]) Functional Tests 6 Minute Walk Test Distance 1007' Device Used FWW Comments 2.8 ft/sec Timed Up and Go (TUG) Comments Three-trial average (11.37, 11 .51, 11.38 PT-OP-J Posture/Palpation/Skin Start: 07/08/22 11:16 Freq: Status: Active Protocol: Document 07/08/22 11:00 DCW (Rec: 07/08/22 11:46 DCW [id number]) Skin Assessment Incisional Assessment Incision Appearance/Comments Silver dollar-sized area of greenish drainage visible on post-op bandage, as well as small area of bright red, warm skin along medial bandage. PT-OP-K Range of Motion Start: 06/28/22 11:29 Freq: Status: Active Protocol: Document 07/26/22 11:20 NBM (Rec: 07/26/22 12:25 NBM [id number]) Knee Goniometric Range of Motion Knee Left Patient Position Supine Flexion Active (degrees) 115 Flexion Passive (degrees) 122 Extension Active (degrees) 1 Extension Passive (degrees) 0 PT-OP-L Special Tests Start: 06/28/22 11:29 Freq: Status: Active Protocol: Document 07/08/22 11:00 DCW (Rec: 07/08/22 11:44 DCW [id number]) Special Tests Knee Special Tests Posterior Draw Test Results Negative Patella Tap Test Results Positive L Anterior Draw Test Results Negative PT-OP-M Strength Start: 06/28/22 11:29 Freq: Status: Active Protocol: Document 07/08/22 11:00 DCW (Rec: 07/08/22 11:44 DCW [id number]) Knee Strength Knee Manual Muscle Testing Right Flexion (S2) 5 Normal Extension (L3) 5 Normal Left Flexion (S2) 3 Fair Extension (L3) 3 Fair PT-OP-Q Treatments Start: 06/28/22 11:29 Freq: Status: Active Protocol: Document 07/29/22 11:00 DCW (Rec: 07/29/22 11:47 DCW [id number]) Cardio Equipment Recumbent Bicycle Duration (Minutes) 6 Resistance 3 Seat Position 2 Other full rotations fwd/bwd; Gym Equipment Shuttle Recovery Unilateral Squats Resistance 37# Shuttle Recovery Platform Stable Reps/Time x10 ea Bilateral Squats Resistance 75# Shuttle Recovery Platform Stable Therapeutic Exercises Standing Exercises Lunge Standing Exercise Name ROXIE ferrari Side bilateral Manual Therapy Treatment Soft Tissue Mobilization Incision Body Location L surgical incision Comments Scar mobilization Joint Mobilizations L knee Joint L knee Direction P<->A Grade III Body Position Hooklying PT-OP-R Modalities Start: 07/20/22 16:31 Freq: Status: Active Protocol: Document 07/26/22 11:20 NBM (Rec: 07/26/22 14:57 NBM [id number]) Hot Pack/Cold Pack Treatment Cold Pack Location B knee Patient Position Hooklying Treatment Duration (minutes) 10 Patient Tolerance Good PT-OP-T Assessment and Plan Start: 06/28/22 11:29 Freq: Status: Active Protocol: Document 07/29/22 11:00 DCW (Rec: 07/29/22 11:47 DCW [id number]) Physical Therapy Assessment Goals Three Impairment L knee weakness results in antalgic gait pattern Fdc Goal (LTG) Pt to improve L knee MMT to at least 4/5 with both flexion and extension in order to normalize independent gait pattern without any use of assistive devices. LTG Duration 09/07/22 Two Impairment Pt does not have an appropriate home exercise program Short Term Goal (STG) Pt to be independent and compliant with an appropriate HEP STG Duration 08/08/22 One Impairment Decreased left ROM Fdc Goal (LTG) Pt to display left knee active ROM 0?-120? following left TKA LTG Duration 09/07/22 Assessment Summary Assessment Pt having increased calf pain with palpation today, discussed importance of keeping eye open for increased tenderness, swelling, warmth, and red/flakey skin. Pt tolerated further increase in resistance on leg press. Began scar mobilizations on lower half of surgical incision Physical Therapy Plan Frequency and Duration Frequency of Treatment 2x/Week Plan of Care Start Date 07/08/22 Plan of Care End Date 09/07/22 Therapeutic Interventions Therapeutic Interventions Gait Training,Home Exercise Program,Joint Mobilizations, Manual Therapy,Neuromuscular Re-education,Patient/Caregiver Education,Self-Care/Home Management,Soft Tissue Mobilization,Therapeutic Activities,Therapeutic Exercises Next Visit Focus/Plan Next Note Type Treatment Note Next Visit Plan Strengthening and ROM
--- NOTE | 2022-08-02 13:49 | PT.OTN ---
Current Diagnoses Unilateral primary osteoarthritis, left knee (08/02/22) Presence of left artificial knee joint (08/02/22) Physical Therapy Treatment Note PT-OP-A Visit Information Start: 06/28/22 11:29 Freq: Status: Active Protocol: Document 08/02/22 11:28 NBM (Rec: 08/02/22 12:19 NBM [id number]) Out-Patient Physical Therapy Visit Information Visit Information Visit Type Treatment Note Visit Start Time 11:31 Visit Stop Time 12:15 Total Visit Minutes 44 Visit Number 9 Number of DECK OFFICER Visits 1 Evaluation Information Evaluation Date 06/28/22 PT-OP-B Current Condition Start: 06/28/22 11:29 Freq: Status: Active Protocol: Document 07/08/22 11:00 DCW (Rec: 07/08/22 11:44 DCW [id number]) Current Condition History of Current Condition Onset Date 06/30/22 Current Complaints L TKA (06/30/22) History of Current Condition Pt arrived for pre-op evaluation two days prior to left TKA on 06/30/22. Pt has previously undergone R TKA ~6 months ago, and is overall doing very well, although does note some continuing numbness and tingling, as well as occasional fatigue and soreness. Feels very comfortable with her current knowledge of likely recovery process and her HEP post-op. Pt planning to attend her post -op PT appointment two days after surgery. ADDEMDUM 07/08/22: Pt returns folllowing L TKA, ambulating with FWW, although admits she mostly gets around without it . Pt notes that she is off most of her post-op meds, except ones to control muscle spasms. Prior Treatments and Tests R TKA 02/17/22 PT-OP-C Subjective Start: 06/28/22 11:29 Freq: Status: Active Protocol: Document 08/02/22 11:28 NBM (Rec: 08/02/22 12:19 NBM [id number]) OP-PT Subjective Patient Comments Patient Comments Pt reports she is still having symptoms of numbness and sometimes burning down her L leg into her inside ankle which she suspects new shoes and older orthotics are causing - she sees mechanic industrial truck next month. She may have overdone it today because she met with her service dog trainer and then cleaned out her car. She iced once this morning and will ice after PT. She reports a small area of incision is seeping and is slightly red color but no smell. She has been watching L calf pain for signs of pulmonary embolism provided last PT visit but symptoms have not worsened, so she plans to ask ortho PA next week. She has been doing scar tissue mobilization to bottom and top of incision. PT-OP-E Functional Tests Start: 06/28/22 11:29 Freq: Status: Active Protocol: Document 07/08/22 11:00 DCW (Rec: 07/08/22 11:44 DCW [id number]) Functional Tests 6 Minute Walk Test Distance 1007' Device Used FWW Comments 2.8 ft/sec Timed Up and Go (TUG) Comments Three-trial average (11.37, 11 .51, 11.38 PT-OP-J Posture/Palpation/Skin Start: 07/08/22 11:16 Freq: Status: Active Protocol: Document 07/08/22 11:00 DCW (Rec: 07/08/22 11:46 DCW [id number]) Skin Assessment Incisional Assessment Incision Appearance/Comments Silver dollar-sized area of greenish drainage visible on post-op bandage, as well as small area of bright red, warm skin along medial bandage. PT-OP-K Range of Motion Start: 06/28/22 11:29 Freq: Status: Active Protocol: Document 07/26/22 11:20 NBM (Rec: 07/26/22 12:25 NBM [id number]) Knee Goniometric Range of Motion Knee Left Patient Position Supine Flexion Active (degrees) 115 Flexion Passive (degrees) 122 Extension Active (degrees) 1 Extension Passive (degrees) 0 PT-OP-L Special Tests Start: 06/28/22 11:29 Freq: Status: Active Protocol: Document 07/08/22 11:00 DCW (Rec: 07/08/22 11:44 DCW [id number]) Special Tests Knee Special Tests Posterior Draw Test Results Negative Patella Tap Test Results Positive L Anterior Draw Test Results Negative PT-OP-M Strength Start: 06/28/22 11:29 Freq: Status: Active Protocol: Document 07/08/22 11:00 DCW (Rec: 07/08/22 11:44 DCW [id number]) Knee Strength Knee Manual Muscle Testing Right Flexion (S2) 5 Normal Extension (L3) 5 Normal Left Flexion (S2) 3 Fair Extension (L3) 3 Fair PT-OP-Q Treatments Start: 06/28/22 11:29 Freq: Status: Active Protocol: Document 08/02/22 11:28 NBM (Rec: 08/02/22 12:19 NBM [id number]) Cardio Equipment Recumbent Bicycle Duration (Minutes) 8 Resistance 3 Seat Position 2 Other full rotations fwd 6'/bwd 2'; Gym Equipment Shuttle Recovery Unilateral Squats Details shoes w/ orthotics donned Resistance 37# Shuttle Recovery Platform Stable Reps/Time x10 ea Bilateral Squats Details shoes w/ orthotics donned Resistance 87>75# Shuttle Recovery Platform Stable Reps/Time 87# attempted Therapeutic Exercises Sitting Exercises STS Sitting Exercise Name Sit to Stand, UE support Side bilateral Equipment Used peach Tb above knees, mesh chair Reps/Minutes x6 Comments moon knee valgus improves w/ Tb ; no UE support attempted- dc' d d/t knee pain HS stretch Sitting Exercise Name seated hamstring stretch Side bilateral Equipment Used on shuttle recovery today Reps/Minutes 2x30s ea Standing Exercises Lunge Standing Exercise Name BOSU lunge Side bilateral Equipment Used dome side Reps/Minutes 2x10 ea Comments cues for excessive L supination Calf Stretch Standing Exercise Name 1. Duane 2.Lunge stretch Side bilateral Equipment Used DUANE Comments no burning sensation in L khan TKE Standing Exercise Name TKE Side left Resistance Green Equipment Used folded towel behind knee Reps/Minutes 10x3SH Comments cues for slow eccentric Knee flexion Standing Exercise Name Knee flexion stretch Side bilateral Equipment Used two 6 steps Comments tactile cues for square hips Manual Therapy Treatment Soft Tissue Mobilization Incision Body Location L surgical incision distal focus Comments Scar mobilization -Pt replaces band-aid over small area of seeping mid- incision which is noted to be light yellow on band-aid. No smell noted. Pt to contact ortho surgeon office today to report seeping and color prior to PA visit . Self-Care/Home Management Treatment Education Patient Education Home Exercise Program,Joint Protection,Safety Other Education Scar mobilization Pt replaces band-aid over small area of seeping mid- incision which is noted to be light yellow on band-aid. No smell or other indicators of possible infection noted. Pt i /s to contact ortho surgeon office today to report seeping and color prior to PA visit . PT-OP-R Modalities Start: 07/20/22 16:31 Freq: Status: Active Protocol: Document 08/02/22 11:28 NBM (Rec: 08/02/22 12:19 [facility] [id number]) Hot Pack/Cold Pack Treatment Cold Pack Location B knee Patient Position Hooklying Treatment Duration (minutes) 10 Patient Tolerance Good PT-OP-T Assessment and Plan Start: 06/28/22 11:29 Freq: Status: Active Protocol: Document 08/02/22 11:28 NBM (Rec: 08/02/22 12:19 [facility] [id number]) Physical Therapy Assessment Goals Three Impairment L knee weakness results in antalgic gait pattern Longterm Goal (LTG) Pt to improve L knee MMT to at least 4/5 with both flexion and extension in order to normalize independent gait pattern without any use of assistive devices. LTG Duration 09/07/22 Two Impairment Pt does not have an appropriate home exercise program Short Term Goal (STG) Pt to be independent and compliant with an appropriate HEP STG Duration 08/08/22 One Impairment Decreased left ROM Longterm Goal (LTG) Pt to display left knee active ROM 0?-120? following left TKA LTG Duration 09/07/22 Assessment Summary Assessment Pt presents w/ bilateral orthotic inserts in newer shoes and noticeable ataxic gait due to pain in LLE which she attributes to shoes and orthotics and overdoing it today. She is able to perform ex's without increase in baseline symptoms until end of session when sit to stand without UE support is attempted and discontinued after two repetitiosn due to increase in bilateral knee pain. She requires cues for excessive L supination with lunge on BOSU, and initial cues for LE alignment with squats on Shuttle Recovery. Pt replaces band-aid over small area of seeping mid- incision which is noted to be light yellow on band-aid. No smell or other indicators of possible infection noted. Pt instructed to contact ortho surgeon office today to report seeping and color prior to PA visit . Physical Therapy Plan Frequency and Duration Frequency of Treatment 2x/Week Plan of Care Start Date 07/08/22 Plan of Care End Date 09/07/22 Therapeutic Interventions Therapeutic Interventions Gait Training,Home Exercise Program,Joint Mobilizations, Manual Therapy,Neuromuscular Re-education,Patient/Caregiver Education,Self-Care/Home Management,Soft Tissue Mobilization,Therapeutic Activities,Therapeutic Exercises Next Visit Focus/Plan Next Note Type Treatment Note Next Visit Plan Strengthening and ROM
--- NOTE | 2022-08-09 12:53 | PT.OTN ---
Current Diagnoses Unilateral primary osteoarthritis, left knee (08/09/22) Presence of left artificial knee joint (08/09/22) Physical Therapy Treatment Note PT-OP-A Visit Information Start: 06/28/22 11:29 Freq: Status: Active Protocol: Document 08/09/22 11:30 NBM (Rec: 08/09/22 12:45 NBM [id number]) Out-Patient Physical Therapy Visit Information Visit Information Visit Type Treatment Note Visit Start Time 11:31 Visit Stop Time 12:17 Total Visit Minutes 46 Visit Number 10 Number of LEAD QUALITY TECHNICIAN Visits 2 Evaluation Information Evaluation Date 06/28/22 PT-OP-B Current Condition Start: 06/28/22 11:29 Freq: Status: Active Protocol: Document 07/08/22 11:00 DCW (Rec: 07/08/22 11:44 DCW [id number]) Current Condition History of Current Condition Onset Date 06/30/22 Current Complaints L TKA (06/30/22) History of Current Condition Pt arrived for pre-op evaluation two days prior to left TKA on 06/30/22. Pt has previously undergone R TKA ~6 months ago, and is overall doing very well, although does note some continuing numbness and tingling, as well as occasional fatigue and soreness. Feels very comfortable with her current knowledge of likely recovery process and her HEP post-op. Pt planning to attend her post -op PT appointment two days after surgery. ADDEMDUM 07/08/22: Pt returns folllowing L TKA, ambulating with FWW, although admits she mostly gets around without it . Pt notes that she is off most of her post-op meds, except ones to control muscle spasms. Prior Treatments and Tests R TKA 02/17/22 PT-OP-C Subjective Start: 06/28/22 11:29 Freq: Status: Active Protocol: Document 08/09/22 11:30 NBM (Rec: 08/09/22 12:45 NBM [id number]) OP-PT Subjective Patient Comments Patient Comments Pt reports she didn't call ortho about wound seepage but saw him on and he advised her the seepage in the incision was from allergic reaction to stitches and her body not absorbing them - he gave her anitbiotics and antihistamine and she thinks it's healing. They sent her to check for DVT on Tuesday morning due to L calf pain and they did an ultrasound up to her abdomen which was negative . Tuesday afternoon she took a suitcase downstairs and missed a step towards the bottom and fell down the stairs: Everything is sore. A lot of bruised ego. My knee seems just fine. She's been icing and elevating. She worked with hop trainer this morning on upper body and gait. She did some gardening this morning. I'm tired. Her L groin continues to be a little sore. She is frustrated with length of recovery for L knee versus R. Ortho and hop trainer told her with gait to slow down her steps and watch posture. PT-OP-E Functional Tests Start: 06/28/22 11:29 Freq: Status: Active Protocol: Document 07/08/22 11:00 DCW (Rec: 07/08/22 11:44 DCW [id number]) Functional Tests 6 Minute Walk Test Distance 1007' Device Used FWW Comments 2.8 ft/sec Timed Up and Go (TUG) Comments Three-trial average (11.37, 11 .51, 11.38 PT-OP-J Posture/Palpation/Skin Start: 07/08/22 11:16 Freq: Status: Active Protocol: Document 07/08/22 11:00 DCW (Rec: 07/08/22 11:46 DCW [id number]) Skin Assessment Incisional Assessment Incision Appearance/Comments Silver dollar-sized area of greenish drainage visible on post-op bandage, as well as small area of bright red, warm skin along medial bandage. PT-OP-K Range of Motion Start: 06/28/22 11:29 Freq: Status: Active Protocol: Document 07/26/22 11:20 NBM (Rec: 07/26/22 12:25 NBM [id number]) Knee Goniometric Range of Motion Knee Left Patient Position Supine Flexion Active (degrees) 115 Flexion Passive (degrees) 122 Extension Active (degrees) 1 Extension Passive (degrees) 0 PT-OP-L Special Tests Start: 06/28/22 11:29 Freq: Status: Active Protocol: Document 07/08/22 11:00 DCW (Rec: 07/08/22 11:44 DCW [id number]) Special Tests Knee Special Tests Posterior Draw Test Results Negative Patella Tap Test Results Positive L Anterior Draw Test Results Negative PT-OP-M Strength Start: 06/28/22 11:29 Freq: Status: Active Protocol: Document 07/08/22 11:00 DCW (Rec: 07/08/22 11:44 DCW [id number]) Knee Strength Knee Manual Muscle Testing Right Flexion (S2) 5 Normal Extension (L3) 5 Normal Left Flexion (S2) 3 Fair Extension (L3) 3 Fair PT-OP-Q Treatments Start: 06/28/22 11:29 Freq: Status: Active Protocol: Document 08/09/22 11:30 NBM (Rec: 08/09/22 12:45 NBM [id number]) Cardio Equipment Recumbent Bicycle Duration (Minutes) 7 Resistance 4 Seat Position 2 Other full rotations fwd Gym Equipment Shuttle Recovery Unilateral Squats Details Qamar, shoes w/ orthotics donned Resistance 37# Shuttle Recovery Platform Stable Reps/Time x10 ea Bilateral Squats Details shoes w/ orthotics donned Resistance 87>75# Shuttle Recovery Platform Stable Reps/Time pain-free ROM d/t L knee soreness today Therapeutic Exercises Supine Exercises Striaght Leg Raise Side bilateral Reps/Minutes x10 ea Heel slides Side left Reps/Minutes x5 Comments for ROM measurements end of session. Sitting Exercises STS Sitting Exercise Name Sit to Stand, No UEx6>UE supportx4 Side bilateral Equipment Used mesh chair Reps/Minutes x10 Comments improved self-awareness of LE alignment HS stretch Sitting Exercise Name seated hamstring stretch Side bilateral Equipment Used on shuttle recovery today Reps/Minutes x30s ea Manual Therapy Treatment Joint Mobilizations L patella Joint L patella Direction sup<>inf, med<>lat Grade II Body Position Supine Comments medial knee tenderness to palpation noted. Self-Care/Home Management Treatment Education Patient Education Home Exercise Program,Joint Protection,Safety Other Education -Discussed to hold scar mobilization until incision healing is complete. -Reviewed use of ice and elevation for L knee swelling and pain management. -Educated pt in use of tennis ball for self-STM to L hip. PT-OP-R Modalities Start: 07/20/22 16:31 Freq: Status: Active Protocol: Document 08/09/22 11:30 NBM (Rec: 08/09/22 12:45 NBM [id number]) Hot Pack/Cold Pack Treatment Cold Pack Location B knee Patient Position Hooklying Treatment Duration (minutes) 10 Patient Tolerance Good Comments anterior, posterior PT-OP-T Assessment and Plan Start: 06/28/22 11:29 Freq: Status: Active Protocol: Document 08/09/22 11:30 NBM (Rec: 08/09/22 12:45 NBM [id number]) Physical Therapy Assessment Goals Three Impairment L knee weakness results in antalgic gait pattern Retirement Goal (LTG) Pt to improve L knee MMT to at least 4/5 with both flexion and extension in order to normalize independent gait pattern without any use of assistive devices. LTG Duration 09/07/22 Two Impairment Pt does not have an appropriate home exercise program Short Term Goal (STG) Pt to be independent and compliant with an appropriate HEP STG Duration 08/08/22 One Impairment Decreased left ROM [place] Goal (LTG) Pt to display left knee active ROM 0?-120? following left TKA LTG Duration 09/07/22 Assessment Summary Assessment Pt presents today with increased L knee soreness likely related to fall last Tuesday, and with gauze and bandaid over L incision since ortho visit last . Pt taking antiobiotics and antihistamine due to allergic reaction to stitches- incision appears to be healing with smaller wound size and no visible seeping. DVT has been ruled out for L calf pain. She has a decreased pain-free ROM on the shuttle recovery today d/t L knee soreness. She is able to perform 4 more sit to stands without upper extremity support than last visit but is still challenged with eccentric control. Pt tolerates L knee patellar mobilizations without increased pain, but medial L knee tenderness to palpation noted. L knee AROM flexion is 124 deg and PROM 126 deg. Physical Therapy Plan Frequency and Duration Frequency of Treatment 2x/Week Plan of Care Start Date 07/08/22 Plan of Care End Date 09/07/22 Therapeutic Interventions Therapeutic Interventions Gait Training,Home Exercise Program,Joint Mobilizations, Manual Therapy,Neuromuscular Re-education,Patient/Caregiver Education,Self-Care/Home Management,Soft Tissue Mobilization,Therapeutic Activities,Therapeutic Exercises Next Visit Focus/Plan Next Note Type Treatment Note Next Visit Plan Reassess L calf pain, incision healing. Consider bridging, gait/stairs, shuttle balance. POC: Strengthening and ROM
--- NOTE | 2022-08-16 16:29 | PT.OTN ---
Current Diagnoses Unilateral primary osteoarthritis, left knee (08/16/22) Presence of left artificial knee joint (08/16/22) Physical Therapy Treatment Note PT-OP-A Visit Information Start: 06/28/22 11:29 Freq: Status: Active Protocol: Document 08/16/22 13:35 NBM (Rec: 08/16/22 14:18 NBM [id number]) Out-Patient Physical Therapy Visit Information Visit Information Visit Type Treatment Note Visit Start Time 13:35 Visit Stop Time 14:17 Total Visit Minutes 42 Visit Number 11 Number of STATISTICAL MACHINE MECHANIC Visits 3 PT-OP-B Current Condition Start: 06/28/22 11:29 Freq: Status: Active Protocol: Document 07/08/22 11:00 DCW (Rec: 07/08/22 11:44 DCW [id number]) Current Condition History of Current Condition Onset Date 06/30/22 Current Complaints L TKA (06/30/22) History of Current Condition Pt arrived for pre-op evaluation two days prior to left TKA on 06/30/22. Pt has previously undergone R TKA ~6 months ago, and is overall doing very well, although does note some continuing numbness and tingling, as well as occasional fatigue and soreness. Feels very comfortable with her current knowledge of likely recovery process and her HEP post-op. Pt planning to attend her post -op PT appointment two days after surgery. ADDEMDUM 07/08/22: Pt returns folllowing L TKA, ambulating with FWW, although admits she mostly gets around without it . Pt notes that she is off most of her post-op meds, except ones to control muscle spasms. Prior Treatments and Tests R TKA 02/17/22 PT-OP-C Subjective Start: 06/28/22 11:29 Freq: Status: Active Protocol: Document 08/16/22 13:35 NBM (Rec: 08/16/22 14:18 NBM [id number]) OP-PT Subjective Patient Comments Patient Comments Pt states regarding her progress I am about to turn the corner to improving more quickly. She reports her L leg is insulation board back tender and sore and she had a rough pedicure this morning and noticed her L instep was chafed and L outside heel was sore - she thinks related to her orthotics and she has a senior storage administrator appt 08/31. Today is her last day on antiobiotics. She accidentally opened the same spots on her incision by scrubbing scab off after shower but there is no seepage and they are healing. She will contact ortho about when to stop antihistamine. She has not been doing leg lifts because her L hip has still been bothering her. She did some shallow [id number] squats carefully with green jobs trainer this morning. She has been hanging leg off bed to stretch hip. She's been working on posture, shorter stride and slowing down. PT-OP-E Functional Tests Start: 06/28/22 11:29 Freq: Status: Active Protocol: Document 07/08/22 11:00 DCW (Rec: 07/08/22 11:44 DCW [id number]) Functional Tests 6 Minute Walk Test Distance 1007' Device Used FWW Comments 2.8 ft/sec Timed Up and Go (TUG) Comments Three-trial average (11.37, 11 .51, 11.38 PT-OP-J Posture/Palpation/Skin Start: 07/08/22 11:16 Freq: Status: Active Protocol: Document 07/08/22 11:00 DCW (Rec: 07/08/22 11:46 DCW [id number]) Skin Assessment Incisional Assessment Incision Appearance/Comments Silver dollar-sized area of greenish drainage visible on post-op bandage, as well as small area of bright red, warm skin along medial bandage. PT-OP-K Range of Motion Start: 06/28/22 11:29 Freq: Status: Active Protocol: Document 08/16/22 13:35 NBM (Rec: 08/16/22 16:25 NBM [id number]) Knee Goniometric Range of Motion Knee Left Patient Position Supine Flexion Active (degrees) 122 Flexion Passive (degrees) 126 Extension Active (degrees) 0 PT-OP-L Special Tests Start: 06/28/22 11:29 Freq: Status: Active Protocol: Document 07/08/22 11:00 DCW (Rec: 07/08/22 11:44 DCW [id number]) Special Tests Knee Special Tests Posterior Draw Test Results Negative Patella Tap Test Results Positive L Anterior Draw Test Results Negative PT-OP-M Strength Start: 06/28/22 11:29 Freq: Status: Active Protocol: Document 07/08/22 11:00 DCW (Rec: 07/08/22 11:44 DCW [id number]) Knee Strength Knee Manual Muscle Testing Right Flexion (S2) 5 Normal Extension (L3) 5 Normal Left Flexion (S2) 3 Fair Extension (L3) 3 Fair PT-OP-Q Treatments Start: 06/28/22 11:29 Freq: Status: Active Protocol: Document 08/16/22 13:35 NBM (Rec: 08/16/22 14:18 NBM [id number]) Cardio Equipment Recumbent Bicycle Duration (Minutes) 8 Resistance 4 Seat Position 2 Other full rotations fwd Gym Equipment Shuttle Recovery Unilateral Squats Details Qamar, shoes w/ orthotics donned Resistance 37#>50# Shuttle Recovery Platform Stable Reps/Time x10 ea Bilateral Squats Details shoes w/ orthotics donned Resistance 87# Shuttle Recovery Platform Stable Reps/Time 2x10 Therapeutic Exercises Supine Exercises Heel slides Side left Reps/Minutes x5 Comments for ROM measurements end of session. Sitting Exercises HS stretch Sitting Exercise Name seated hamstring stretch Side bilateral Equipment Used on shuttle recovery today Reps/Minutes 2x30s ea Standing Exercises Lunge Standing Exercise Name BOSU lunge Side bilateral Equipment Used dome side Reps/Minutes x10 ea Comments cues for excessive L supination Tandem Standing Exercise Name Tandem Stance Side bilateral Equipment Used minimum RIM ROLLER SETTER prn Reps/Minutes 30s ea SLS Standing Exercise Name SLS Side bilateral Equipment Used RIM ROLLER SETTER prn Reps/Minutes 30s ea Calf Stretch Standing Exercise Name 1. Duane 2.Lunge stretch> hip flexor focus Side bilateral Equipment Used DUANE, wall Reps/Minutes 30s ea Comments cues for PPT w/ hip flexor stretch Step-up Standing Exercise Name Step-ups/downs Side bilateral Equipment Used 6 step Neuro Re-Education Treatment Coordination Activities Tandem walking Details fwd Equipment RIM ROLLER SETTER prn Reps/Duration 4x10ft Comments RIM ROLLER SETTER prn but improved from 07/20 visit. PT-OP-R Modalities Start: 07/20/22 16:31 Freq: Status: Active Protocol: Document 08/16/22 13:35 NBM (Rec: 08/16/22 16:25 NBM [id number]) Hot Pack/Cold Pack Treatment Cold Pack Location B knee Patient Position Hooklying Treatment Duration (minutes) 10 Patient Tolerance Good Comments anterior, posterior PT-OP-T Assessment and Plan Start: 06/28/22 11:29 Freq: Status: Active Protocol: Document 08/16/22 13:35 [facility] (Rec: 08/16/22 14:18 [facility] [id number]) Physical Therapy Assessment Goals Three Impairment L knee weakness results in antalgic gait pattern Dynamite Cartridge Crimper Goal (LTG) Pt to improve L knee MMT to at least 4/5 with both flexion and extension in order to normalize independent gait pattern without any use of assistive devices. LTG Duration 09/07/22 Two Impairment Pt does not have an appropriate home exercise program Short Term Goal (STG) Pt to be independent and compliant with an appropriate HEP STG Duration 08/08/22 Correction Goal (LTG) 08/16/22: Pt has appropriate HEP in addition to working with retail personal banker - she is unable to perform supine leg lifts due to L hip anterior pain. One Impairment Decreased left ROM Correction Goal (LTG) Pt to display left knee active ROM 0?-120? following left TKA 08/16/22: MET: L knee AROM 0 deg -122 deg; PROM 126 deg. LTG Duration 09/07/22 Progress Towards Goals Progress Towards Goals Progressing Toward Goals Progress Comments L knee AROM 0 deg -122 deg; PROM 126 deg. Assessment Summary Assessment Latonia demonstrates overall progress. She presents with improving antalgic gait and states her orthotic inserts continue to aggravate her L foot - she sees senior storage administrator . She accidentally removed scab from incision but it appears to be healing well with no further signs of seepage or infection. Pt meets Goal One with L knee AROM 0 deg -122 deg; PROM 126 deg. She tolerates increased resistance on shuttle recovery with bilateral squats from 75 # to 87# and unilateral squats from 37# to 50#. Pt requires RIM ROLLER SETTER prn for tandem walking but is improved from 07/20 visit. Physical Therapy Plan Frequency and Duration Frequency of Treatment 2x/Week Plan of Care Start Date 07/08/22 Plan of Care End Date 09/07/22 Therapeutic Interventions Therapeutic Interventions Gait Training,Home Exercise Program,Joint Mobilizations, Manual Therapy,Neuromuscular Re-education,Patient/Caregiver Education,Self-Care/Home Management,Soft Tissue Mobilization,Therapeutic Activities,Therapeutic Exercises Next Visit Focus/Plan Next Note Type Treatment Note Next Visit Plan Tennis for self-STM. Reassess L calf pain, incision healing. Consider bridging, gait/ stairs, shuttle balance. POC: Strengthening and ROM
--- NOTE | 2022-08-18 17:21 | PT.OTN ---
Current Diagnoses Unilateral primary osteoarthritis, left knee (08/18/22) Presence of left artificial knee joint (08/18/22) Physical Therapy Treatment Note PT-OP-A Visit Information Start: 06/28/22 11:29 Freq: Status: Active Protocol: Document 08/18/22 16:30 DCW (Rec: 08/18/22 17:21 DCW [id number]) Out-Patient Physical Therapy Visit Information Visit Information Visit Type Treatment Note Visit Start Time 16:30 Visit Stop Time 17:15 Total Visit Minutes 45 Visit Number 12 Number of ENGINEERING MANAGER Visits 0 Evaluation Information Evaluation Date 06/28/22 PT-OP-B Current Condition Start: 06/28/22 11:29 Freq: Status: Active Protocol: Document 07/08/22 11:00 DCW (Rec: 07/08/22 11:44 DCW [id number]) Current Condition History of Current Condition Onset Date 06/30/22 Current Complaints L TKA (06/30/22) History of Current Condition Pt arrived for pre-op evaluation two days prior to left TKA on 06/30/22. Pt has previously undergone R TKA ~6 months ago, and is overall doing very well, although does note some continuing numbness and tingling, as well as occasional fatigue and soreness. Feels very comfortable with her current knowledge of likely recovery process and her HEP post-op. Pt planning to attend her post -op PT appointment two days after surgery. ADDEMDUM 07/08/22: Pt returns folllowing L TKA, ambulating with FWW, although admits she mostly gets around without it . Pt notes that she is off most of her post-op meds, except ones to control muscle spasms. Prior Treatments and Tests R TKA 02/17/22 PT-OP-C Subjective Start: 06/28/22 11:29 Freq: Status: Active Protocol: Document 08/18/22 16:30 DCW (Rec: 08/18/22 17:21 DCW [id number]) OP-PT Subjective Patient Comments Patient Comments Pt reports she is still experiencing some mild seeping from her incision. PT-OP-E Functional Tests Start: 06/28/22 11:29 Freq: Status: Active Protocol: Document 07/08/22 11:00 DCW (Rec: 07/08/22 11:44 DCW [id number]) Functional Tests 6 Minute Walk Test Distance 1007' Device Used FWW Comments 2.8 ft/sec Timed Up and Go (TUG) Comments Three-trial average (11.37, 11 .51, 11.38 PT-OP-J Posture/Palpation/Skin Start: 07/08/22 11:16 Freq: Status: Active Protocol: Document 07/08/22 11:00 DCW (Rec: 07/08/22 11:46 DCW [id number]) Skin Assessment Incisional Assessment Incision Appearance/Comments Silver dollar-sized area of greenish drainage visible on post-op bandage, as well as small area of bright red, warm skin along medial bandage. PT-OP-K Range of Motion Start: 06/28/22 11:29 Freq: Status: Active Protocol: Document 08/16/22 13:35 NBM (Rec: 08/16/22 16:25 NBM [id number]) Knee Goniometric Range of Motion Knee Left Patient Position Supine Flexion Active (degrees) 122 Flexion Passive (degrees) 126 Extension Active (degrees) 0 PT-OP-L Special Tests Start: 06/28/22 11:29 Freq: Status: Active Protocol: Document 07/08/22 11:00 DCW (Rec: 07/08/22 11:44 DCW [id number]) Special Tests Knee Special Tests Posterior Draw Test Results Negative Patella Tap Test Results Positive L Anterior Draw Test Results Negative PT-OP-M Strength Start: 06/28/22 11:29 Freq: Status: Active Protocol: Document 07/08/22 11:00 DCW (Rec: 07/08/22 11:44 DCW [id number]) Knee Strength Knee Manual Muscle Testing Right Flexion (S2) 5 Normal Extension (L3) 5 Normal Left Flexion (S2) 3 Fair Extension (L3) 3 Fair PT-OP-Q Treatments Start: 06/28/22 11:29 Freq: Status: Active Protocol: Document 08/18/22 16:30 DCW (Rec: 08/18/22 17:21 DCW [id number]) Cardio Equipment Elliptical Duration (Minutes) 2 Resistance 4 Other Fwd/Bkwd Recumbent Bicycle Duration (Minutes) 7 Resistance 6 Seat Position 2 Other full rotations fwd Gym Equipment Shuttle Recovery Unilateral Squats Details Qamar, shoes w/ orthotics donned Resistance 50# Shuttle Recovery Platform Stable Bilateral Squats Details shoes w/ orthotics donned Resistance 87# Shuttle Recovery Platform Stable Therapeutic Exercises Standing Exercises Lunge Standing Exercise Name BOSU lunge Side bilateral Equipment Used dome side Reps/Minutes x10 ea Manual Therapy Treatment Joint Mobilizations L patella Joint L patella Direction sup<>inf, med<>lat Grade II Body Position Supine Comments medial knee tenderness to palpation noted. PT-OP-R Modalities Start: 07/20/22 16:31 Freq: Status: Active Protocol: Document 08/18/22 16:30 DCW (Rec: 08/18/22 17:21 DCW [id number]) Hot Pack/Cold Pack Treatment Cold Pack Location B knee Patient Position Hooklying Treatment Duration (minutes) 10 Patient Tolerance Good Comments anterior, posterior PT-OP-T Assessment and Plan Start: 06/28/22 11:29 Freq: Status: Active Protocol: Document 08/18/22 16:30 DCW (Rec: 08/18/22 17:21 DCW [id number]) Physical Therapy Assessment Goals Three Impairment L knee weakness results in antalgic gait pattern Talent Specialist Goal (LTG) Pt to improve L knee MMT to at least 4/5 with both flexion and extension in order to normalize independent gait pattern without any use of assistive devices. LTG Duration 09/07/22 Two Impairment Pt does not have an appropriate home exercise program Short Term Goal (STG) Pt to be independent and compliant with an appropriate HEP STG Duration 08/08/22 Talent Specialist Goal (LTG) 08/16/22: Pt has appropriate HEP in addition to working with personal clothing laundry aide - she is unable to perform supine leg lifts due to L hip anterior pain. One Impairment Decreased left ROM Mcc Goal (LTG) Pt to display left knee active ROM 0?-120? following left TKA 08/16/22: MET: L knee AROM 0 deg -122 deg; PROM 126 deg. LTG Duration 09/07/22 Assessment Summary Assessment Pt continues to progress well, still having increased pain with walking for longer periods of time or on stairs, but has returned to doing most of her prior activities without difficulty. Physical Therapy Plan Frequency and Duration Frequency of Treatment 2x/Week Plan of Care Start Date 07/08/22 Plan of Care End Date 09/07/22 Therapeutic Interventions Therapeutic Interventions Gait Training,Home Exercise Program,Joint Mobilizations, Manual Therapy,Neuromuscular Re-education,Patient/Caregiver Education,Self-Care/Home Management,Soft Tissue Mobilization,Therapeutic Activities,Therapeutic Exercises Next Visit Focus/Plan Next Note Type Treatment Note Next Visit Plan Tennis for self-STM. Reassess L calf pain, incision healing. Consider bridging, gait/ stairs, shuttle balance. POC: Strengthening and ROM
--- NOTE | 2022-08-25 10:58 | PT.OTN ---
Current Diagnoses Unilateral primary osteoarthritis, left knee (08/25/22) Presence of left artificial knee joint (08/25/22) Physical Therapy Treatment Note PT-OP-A Visit Information Start: 06/28/22 11:29 Freq: Status: Active Protocol: Document 08/25/22 10:15 DCW (Rec: 08/25/22 10:58 DCW [id number]) Out-Patient Physical Therapy Visit Information Visit Information Visit Type Treatment Note Visit Start Time 10:15 Visit Stop Time 11:05 Total Visit Minutes 50 Visit Number 13 Number of SOFTWARE SUPPORT ANALYST Visits 0 Evaluation Information Evaluation Date 06/28/22 PT-OP-B Current Condition Start: 06/28/22 11:29 Freq: Status: Active Protocol: Document 07/08/22 11:00 DCW (Rec: 07/08/22 11:44 DCW [id number]) Current Condition History of Current Condition Onset Date 06/30/22 Current Complaints L TKA (06/30/22) History of Current Condition Pt arrived for pre-op evaluation two days prior to left TKA on 06/30/22. Pt has previously undergone R TKA ~6 months ago, and is overall doing very well, although does note some continuing numbness and tingling, as well as occasional fatigue and soreness. Feels very comfortable with her current knowledge of likely recovery process and her HEP post-op. Pt planning to attend her post -op PT appointment two days after surgery. ADDEMDUM 07/08/22: Pt returns folllowing L TKA, ambulating with FWW, although admits she mostly gets around without it . Pt notes that she is off most of her post-op meds, except ones to control muscle spasms. Prior Treatments and Tests R TKA 02/17/22 PT-OP-C Subjective Start: 06/28/22 11:29 Freq: Status: Active Protocol: Document 08/25/22 10:15 DCW (Rec: 08/25/22 10:58 DCW [id number]) OP-PT Subjective Patient Comments Patient Comments Pt reports she went to the gym at the pool last week, was able to do 10 minutes on the bicycle and 5 minutes on the elliptical. PT-OP-E Functional Tests Start: 06/28/22 11:29 Freq: Status: Active Protocol: Document 07/08/22 11:00 DCW (Rec: 07/08/22 11:44 DCW [id number]) Functional Tests 6 Minute Walk Test Distance 1007' Device Used FWW Comments 2.8 ft/sec Timed Up and Go (TUG) Comments Three-trial average (11.37, 11 .51, 11.38 PT-OP-J Posture/Palpation/Skin Start: 07/08/22 11:16 Freq: Status: Active Protocol: Document 07/08/22 11:00 DCW (Rec: 07/08/22 11:46 DCW [id number]) Skin Assessment Incisional Assessment Incision Appearance/Comments Silver dollar-sized area of greenish drainage visible on post-op bandage, as well as small area of bright red, warm skin along medial bandage. PT-OP-K Range of Motion Start: 06/28/22 11:29 Freq: Status: Active Protocol: Document 08/16/22 13:35 NBM (Rec: 08/16/22 16:25 NBM [id number]) Knee Goniometric Range of Motion Knee Left Patient Position Supine Flexion Active (degrees) 122 Flexion Passive (degrees) 126 Extension Active (degrees) 0 PT-OP-L Special Tests Start: 06/28/22 11:29 Freq: Status: Active Protocol: Document 07/08/22 11:00 DCW (Rec: 07/08/22 11:44 DCW [id number]) Special Tests Knee Special Tests Posterior Draw Test Results Negative Patella Tap Test Results Positive L Anterior Draw Test Results Negative PT-OP-M Strength Start: 06/28/22 11:29 Freq: Status: Active Protocol: Document 07/08/22 11:00 DCW (Rec: 07/08/22 11:44 DCW [id number]) Knee Strength Knee Manual Muscle Testing Right Flexion (S2) 5 Normal Extension (L3) 5 Normal Left Flexion (S2) 3 Fair Extension (L3) 3 Fair PT-OP-Q Treatments Start: 06/28/22 11:29 Freq: Status: Active Protocol: Document 08/25/22 10:15 DCW (Rec: 08/25/22 10:58 DCW [id number]) Cardio Equipment Elliptical Duration (Minutes) 5 Resistance 4 Other Fwd/Bkwd Gym Equipment Shuttle Recovery Unilateral Squats Details Qamar, shoes w/ orthotics donned Resistance 62# Shuttle Recovery Platform Stable Bilateral Squats Details shoes w/ orthotics donned Resistance 100# Shuttle Recovery Platform Stable Manual Therapy Treatment Joint Mobilizations L patella Joint L patella Direction sup<>inf, med<>lat Grade II Body Position Supine Comments medial knee tenderness to palpation noted. L knee Joint L knee Direction P<->A Grade III Body Position Hooklying PT-OP-R Modalities Start: 07/20/22 16:31 Freq: Status: Active Protocol: Document 08/25/22 10:15 DCW (Rec: 08/25/22 10:58 DCW [id number]) Hot Pack/Cold Pack Treatment Cold Pack Location B knee Patient Position Hooklying Treatment Duration (minutes) 10 Patient Tolerance Good Comments anterior, posterior PT-OP-T Assessment and Plan Start: 06/28/22 11:29 Freq: Status: Active Protocol: Document 08/25/22 10:15 DCW (Rec: 08/25/22 10:58 DCW [id number]) Physical Therapy Assessment Goals Three Impairment L knee weakness results in antalgic gait pattern Iuss Master Analyst Goal (LTG) Pt to improve L knee MMT to at least 4/5 with both flexion and extension in order to normalize independent gait pattern without any use of assistive devices. LTG Duration 09/07/22 Two Impairment Pt does not have an appropriate home exercise program Short Term Goal (STG) Pt to be independent and compliant with an appropriate HEP STG Duration 08/08/22 Skilled Nursing Goal (LTG) 08/16/22: Pt has appropriate HEP in addition to working with certified personal trainer - she is unable to perform supine leg lifts due to L hip anterior pain. One Impairment Decreased left ROM Iuss Master Analyst Goal (LTG) Pt to display left knee active ROM 0?-120? following left TKA 08/16/22: MET: L knee AROM 0 deg -122 deg; PROM 126 deg. LTG Duration 09/07/22 Assessment Summary Assessment Pt doing very well with functional mobility and ROM, will reassess next visit, with goal of likely discharge. Physical Therapy Plan Frequency and Duration Frequency of Treatment 2x/Week Plan of Care Start Date 07/08/22 Plan of Care End Date 09/07/22 Therapeutic Interventions Therapeutic Interventions Gait Training,Home Exercise Program,Joint Mobilizations, Manual Therapy,Neuromuscular Re-education,Patient/Caregiver Education,Self-Care/Home Management,Soft Tissue Mobilization,Therapeutic Activities,Therapeutic Exercises Next Visit Focus/Plan Next Note Type Treatment Note Next Visit Plan Tennis for self-STM. Reassess L calf pain, incision healing. Consider bridging, gait/ stairs, shuttle balance. POC: Strengthening and ROM
--- NOTE | 2022-08-27 16:38 | PT.OTN ---
Current Diagnoses Unilateral primary osteoarthritis, left knee (08/27/22) Presence of left artificial knee joint (08/27/22) Physical Therapy Treatment Note PT-OP-A Visit Information Start: 06/28/22 11:29 Freq: Status: Active Protocol: Document 08/27/22 16:00 DCW (Rec: 08/27/22 16:38 DCW [id number]) Out-Patient Physical Therapy Visit Information Visit Information Visit Type Discharge Summary Visit Start Time 16:00 Visit Stop Time 16:30 Total Visit Minutes 30 Visit Number 14 Number of INSIDE SALES PROFESSIONAL Visits 0 Evaluation Information Evaluation Date 06/28/22 PT-OP-B Current Condition Start: 06/28/22 11:29 Freq: Status: Active Protocol: Document 07/08/22 11:00 DCW (Rec: 07/08/22 11:44 DCW [id number]) Current Condition History of Current Condition Onset Date 06/30/22 Current Complaints L TKA (06/30/22) History of Current Condition Pt arrived for pre-op evaluation two days prior to left TKA on 06/30/22. Pt has previously undergone R TKA ~6 months ago, and is overall doing very well, although does note some continuing numbness and tingling, as well as occasional fatigue and soreness. Feels very comfortable with her current knowledge of likely recovery process and her HEP post-op. Pt planning to attend her post -op PT appointment two days after surgery. ADDEMDUM 07/08/22: Pt returns folllowing L TKA, ambulating with FWW, although admits she mostly gets around without it . Pt notes that she is off most of her post-op meds, except ones to control muscle spasms. Prior Treatments and Tests R TKA 02/17/22 PT-OP-C Subjective Start: 06/28/22 11:29 Freq: Status: Active Protocol: Document 08/27/22 16:00 DCW (Rec: 08/27/22 16:38 DCW [id number]) OP-PT Subjective Patient Comments Patient Comments Pt feels things are going well , happy to note she has an appointment with her ruby on rails engineer tomorrow. PT-OP-E Functional Tests Start: 06/28/22 11:29 Freq: Status: Active Protocol: Document 08/27/22 16:00 DCW (Rec: 08/27/22 16:18 DCW [id number]) Functional Tests 6 Minute Walk Test Distance 1391' Device Used FWW Comments 3.9 ft/sec Timed Up and Go (TUG) Score 8.21 Comments Three-trial average (8.46, 7. 98, 8.29) PT-OP-J Posture/Palpation/Skin Start: 07/08/22 11:16 Freq: Status: Active Protocol: Document 08/27/22 16:00 DCW (Rec: 08/27/22 16:18 DCW [id number]) Skin Assessment Incisional Assessment Incision Appearance/Comments Small ~2mm area 7 cm from superior incision starting point that is still slightly scabbed over, otherwise surgical incision is fully healed. PT-OP-K Range of Motion Start: 06/28/22 11:29 Freq: Status: Active Protocol: Document 08/27/22 16:00 DCW (Rec: 08/27/22 16:18 DCW [id number]) Knee Goniometric Range of Motion Knee Left Knee ROM WFL Yes Patient Position Supine Flexion Active (degrees) 123 Flexion Passive (degrees) 126 Extension Active (degrees) 0 PT-OP-L Special Tests Start: 06/28/22 11:29 Freq: Status: Active Protocol: Document 08/27/22 16:00 DCW (Rec: 08/27/22 16:18 DCW [id number]) Special Tests Knee Special Tests Posterior Draw Test Results Negative Patella Tap Test Results Negative Anterior Draw Test Results Negative PT-OP-M Strength Start: 06/28/22 11:29 Freq: Status: Active Protocol: Document 08/27/22 16:00 DCW (Rec: 08/27/22 16:18 DCW [id number]) Knee Strength Knee Manual Muscle Testing Right Flexion (S2) 5 Normal Extension (L3) 5 Normal Left Flexion (S2) 5 Normal Extension (L3) 4+ Good+ PT-OP-Q Treatments Start: 06/28/22 11:29 Freq: Status: Active Protocol: Document 08/25/22 10:15 DCW (Rec: 08/25/22 10:58 DCW [id number]) Cardio Equipment Elliptical Duration (Minutes) 5 Resistance 4 Other Fwd/Bkwd Gym Equipment Shuttle Recovery Unilateral Squats Details Qamar, shoes w/ orthotics donned Resistance 62# Shuttle Recovery Platform Stable Bilateral Squats Details shoes w/ orthotics donned Resistance 100# Shuttle Recovery Platform Stable Manual Therapy Treatment Joint Mobilizations L patella Joint L patella Direction sup<>inf, med<>lat Grade II Body Position Supine Comments medial knee tenderness to palpation noted. L knee Joint L knee Direction P<->A Grade III Body Position Hooklying PT-OP-R Modalities Start: 07/20/22 16:31 Freq: Status: Active Protocol: Document 08/25/22 10:15 DCW (Rec: 08/25/22 10:58 DCW [id number]) Hot Pack/Cold Pack Treatment Cold Pack Location B knee Patient Position Hooklying Treatment Duration (minutes) 10 Patient Tolerance Good Comments anterior, posterior PT-OP-T Assessment and Plan Start: 06/28/22 11:29 Freq: Status: Active Protocol: Document 08/27/22 16:00 DCW (Rec: 08/27/22 16:38 DCW [id number]) Physical Therapy Assessment Goals Three Impairment L knee weakness results in antalgic gait pattern Usp Goal (LTG) Pt to improve L knee MMT to at least 4/5 with both flexion and extension in order to normalize independent gait pattern without any use of assistive devices. LTG Duration Met Two Impairment Pt does not have an appropriate home exercise program Short Term Goal (STG) Pt to be independent and compliant with an appropriate HEP STG Duration Met One Impairment Decreased left ROM Failure Analysis Engineer Goal (LTG) Pt to display left knee active ROM 0?-120? following left TKA LTG Duration Met Assessment Summary Assessment Pt has met all goals, is doing very well post-op TKA. Pt is very compliant with HEP, and works hard with a skills trainer. Pt is appropriate for discharge from skilled PT at this time. Physical Therapy Plan Frequency and Duration Frequency of Treatment 2x/Week Plan of Care Start Date 07/08/22 Plan of Care End Date 09/07/22 Therapeutic Interventions Therapeutic Interventions Gait Training,Home Exercise Program,Joint Mobilizations, Manual Therapy,Neuromuscular Re-education,Patient/Caregiver Education,Self-Care/Home Management,Soft Tissue Mobilization,Therapeutic Activities,Therapeutic Exercises Discharge Physical Therapy Discharge Reasons Goals Met Next Visit Focus/Plan Next Note Type Discharge Summary
== END 2022-12-27 10:44 | disposition home or self-care (01) ==
LOC: PHYS 16:00
PROVIDERS: Absent Provider Internal Medicine; Family Provider Internal Medicine; PCP Internal Medicine; Referring Provider Orthopaedic Surgery; Visit Provider Orthopaedic Surgery
DX: M17.12 Unilateral primary osteoarthritis, left knee (principal); Z96.652 Presence of left artificial knee joint
CPT/HCPCS: 97110; 97112; 97140; 97161; 97164; 97530

== ENCOUNTER 2023-03-04 09:00 | Outpatient (RCR) | payer MEDICARE, SELFPAY ==
--- NOTE | 2023-01-04 18:05 | PT.OIE ---
Current Diagnoses Other chronic pain (01/04/23) Other intervertebral disc degeneration, lumbar region (01/04/23) Lumbago with sciatica, left side (01/04/23) Trochanteric bursitis, right hip (01/04/23) Trochanteric bursitis, left hip (01/04/23) Unsteadiness on feet (01/04/23) Other abnormalities of gait and mobility (01/04/23) Presence of artificial knee joint, bilateral (01/04/23) Visit Care Team Role Provider Type Pati Tsai MD Family Provider Non-Staff Primary Care Provider Specialty: Internal Medicine Address: [address] [place] [address] Email: Sushant Montero MD Attending Provider Non-Staff Referring Provider Specialty: Physical Medicine and Rehab Address: [address] [place] [address] Email: Physical Therapy Initial Evaluation PT-OP-A Visit Information Start: 01/04/23 17:36 Freq: Status: Active Protocol: Document 01/04/23 16:45 DCW (Rec: 01/04/23 18:04 DCW [id number]) Out-Patient Physical Therapy Visit Information Visit Information Visit Type Initial Evaluation Visit Start Time 16:45 Visit Stop Time 17:30 Total Visit Minutes 45 Visit Number 1 Number of NUCLEAR WORKER TECHNICIAN Visits 0 Evaluation Information Evaluation Date 01/04/23 PT-OP-B Current Condition Start: 01/04/23 17:36 Freq: Status: Active Protocol: Document 01/04/23 16:45 DCW (Rec: 01/04/23 18:04 DCW [id number]) Current Condition History of Current Condition Current Complaints Recent worsening of balance/ stability History of Current Condition Pt is a 77 year old female very well known to this clinic , returning today due to increasing concerns about her balance. Pt was previously treated for her balance at this clinic multiple years ago , and pt reports she has continued with her exercises, and works with a medical management trainer multiple times a week, however still feels like her balance continues to decline, much more quickly recently. Notes there is no rotational vertigo, she is just off balance. Has increased sway and jerky movements, moreso with static stance. Reports her neurologist did a preliminary work up for potential Parkinson's, however was able to likely rule it out. Report of recent brain MRI noted some common age- related changes, but unremarkable in regards to her symptoms. Has a referral in January to a Movement Disorder specialist. PT-OP-C Subjective Start: 01/04/23 17:36 Freq: Status: Active Protocol: Document 01/04/23 16:45 DCW (Rec: 01/04/23 18:04 DCW [id number]) OP-PT Subjective Patient Comments Patient Comments I don't feel like things are moving, I feel like I'm moving . Patient Questionnaires ABC- Activity Specific Balance Confidence Scale ABC Score 60.63% Dizziness Handicap Inventory DHI Score 44% PT-OP-D Balance Start: 01/04/23 17:36 Freq: Status: Active Protocol: Document 01/04/23 16:45 DCW (Rec: 01/04/23 18:04 DCW [id number]) Balance Tests De [place] Balance Test [place] Balance Test Score 42/56 [place] Impairment Rating 20 to 39% Impaired (Score 34- 44) [place] Balance Assessment Evaluation Sitting to Standing Ability Independent w/out Hands Unsupported Stance 30 seconds Sitting Unsupported, Feet on Floor Safely- 2 minutes Standing to Sitting Ability Assist, Control w/Hands Transfer Ability Safely, Hand Use Unsupported Stance- Eyes Closed Supervision, 10 seconds Unsupported Stance- Eyes Open Supervision to maintain Reaching Forward Standing Safely, 5 inches Pick- Up Object From Floor Supervision Look Behind Shoulder - Standing Shifts Weight Unilateral Turning 360 Degrees Turns slowly, but safely Unsupported Stance, Alternating Feet on (I)- 8 Steps in 20 secs Stair Unsupported Tandem Stance Holds Tandem- 30 seconds Unilateral Leg Stance Lifts Leg/Holds > 3 secs Total Score [place] Total Score (out of 56 points) 42 PT-OP-H Neuro Start: 01/04/23 18:04 Freq: Status: Active Protocol: Document 01/04/23 16:45 DCW (Rec: 01/04/23 18:05 DCW [id number]) Coordination Evaluation Upper Extremity Tests Right Finger to Nose Test Minimal Impairment Finger to Therapist's Finger Test Normal Performance Pronation/Supination Test Normal Performance Left Finger to Nose Test Minimal Impairment Finger to Therapist's Finger Test Normal Performance Pronation/Supination Test Normal Performance PT-OP-O Vestibular Start: 01/04/23 17:36 Freq: Status: Active Protocol: Document 01/04/23 16:45 DCW (Rec: 01/04/23 18:04 DCW [id number]) Vestibular Assessment Visual Testing Smooth Pursuits Horizontal WNL Smooth Pursuits Vertical WNL Saccades Horizontal WNL Saccades Vertical WNL Heave Test Negative Thrust Head Negative Convergence Test 10 cm Spontaneous Nystagmus Negative PT-OP-T Assessment and Plan Start: 01/04/23 17:36 Freq: Status: Active Protocol: Document 01/04/23 16:45 DCW (Rec: 01/04/23 18:04 DCW [id number]) Physical Therapy Assessment Rehab Potential Rehabilitation Potential Fair Evaluation Complexity Number of Personal Factors/Comorbidities 3 or More Number of Body Systems Impaired 4 or More Clinical Presentation at Evaluation Unstable Impairments Impairments Balance,Functional Activities, Functional Mobility,Gait Goals Two Impairment Pt scores a 42/56 on the [place] Balance scale Senior Living Goal (LTG) Pt to improve [place] score by at least 6 points to 48/56 to demonstrate decrease in falls risk. LTG Duration 03/06/23 One Impairment Pt does not have an appropriate home exercise program Short Term Goal (STG) Pt to be independent and compliant with an appropriate HEP STG Duration 02/03/23 Assessment Summary Assessment Pt presents today for a highly -complex evaluation. No DDx at this time, general decline in balance with increased falls risk, per 42/56 [place] Score, however many of pt's movements , including increased sway with just static standing, as well as jerky, disconnected stepping when turning in a [place], could be a potential sign of underlying neurological symptoms. Pt did have increased difficulty today touching her fingers to her nose with eyes closed, but no other coordination testing positive today. Plan to perform further inner ear, neuro, and balance testing next visit to try to narrow down pt's symptoms. Physical Therapy Plan Frequency and Duration Frequency of Treatment 2x/Week Plan of Care Start Date 01/04/23 Plan of Care End Date 03/06/23
--- NOTE | 2023-01-04 18:06 | PT.OPPOC ---
Physical, Occupational & Speech Therapy At [facility] Current Diagnoses Other chronic pain (01/04/23) Other intervertebral disc degeneration, lumbar region (01/04/23) Lumbago with sciatica, left side (01/04/23) Trochanteric bursitis, right hip (01/04/23) Trochanteric bursitis, left hip (01/04/23) Unsteadiness on feet (01/04/23) Other abnormalities of gait and mobility (01/04/23) Presence of artificial knee joint, bilateral (01/04/23) Visit Care Team Role Provider Type Pati Tsai MD Family Provider Non-Staff Primary Care Provider Specialty: Internal Medicine Address: [address] [place] [address], [id number] Email: Sushant Montero MD Attending Provider Non-Staff Referring Provider Specialty: Physical Medicine and Rehab Address: [address] [place] [address] Email: Plan Of Care PT-OP-T Assessment and Plan Start: 01/04/23 17:36 Freq: Status: Active Protocol: Document 01/04/23 16:45 DCW (Rec: 01/04/23 18:04 DCW [id number]) Physical Therapy Assessment Rehab Potential Rehabilitation Potential Fair Evaluation Complexity Number of Personal Factors/Comorbidities 3 or More Number of Body Systems Impaired 4 or More Clinical Presentation at Evaluation Unstable Impairments Impairments Balance,Functional Activities, Functional Mobility,Gait Goals Two Impairment Pt scores a 42/56 on the [place] Balance scale Usp Goal (LTG) Pt to improve [place] score by at least 6 points to 48/56 to demonstrate decrease in falls risk. LTG Duration 03/06/23 One Impairment Pt does not have an appropriate home exercise program Short Term Goal (STG) Pt to be independent and compliant with an appropriate HEP STG Duration 02/03/23 Assessment Summary Assessment Pt presents today for a highly -complex evaluation. No DDx at this time, general decline in balance with increased falls risk, per 42/56 [place] Score, however many of pt's movements , including increased sway with just static standing, as well as jerky, disconnected stepping when turning in a [place] could be a potential sign of underlying neurological symptoms. Pt did have increased difficulty today touching her fingers to her nose with eyes closed, but no other coordination testing positive today. Plan to perform further inner ear, neuro, and balance testing next visit to try to narrow down pt's symptoms. Physical Therapy Plan Frequency and Duration Frequency of Treatment 2x/Week Plan of Care Start Date 01/04/23 Plan of Care End Date 03/06/23 Plan of Care Dates Plan of Care Start Date 01/04/23 Plan of Care End Date 03/06/23 Electronically Signed by: Anibal Barker, PT 01/04/23 5033 If you are in agreement with this Plan of Care, please return a signed and dated copy. I have reviewed this Plan of Care and certify that the skilled therapy services above are required to meet the patient?s needs. Physician Signature Date Printed Name and Credentials Clinical Instructor Signature Printed Name and Credentials
--- NOTE | 2023-01-07 16:03 | PT.OTN ---
Current Diagnoses Other chronic pain (01/07/23) Other intervertebral disc degeneration, lumbar region (01/07/23) Lumbago with sciatica, left side (01/07/23) Trochanteric bursitis, right hip (01/07/23) Trochanteric bursitis, left hip (01/07/23) Unsteadiness on feet (01/07/23) Other abnormalities of gait and mobility (01/07/23) Presence of artificial knee joint, bilateral (01/07/23) Physical Therapy Treatment Note PT-OP-A Visit Information Start: 01/04/23 17:36 Freq: Status: Active Protocol: Document 01/07/23 15:15 DCW (Rec: 01/07/23 16:02 DCW [id number]) Out-Patient Physical Therapy Visit Information Visit Information Visit Type Treatment Note Visit Start Time 15:15 Visit Stop Time 16:00 Total Visit Minutes 45 Visit Number 2 Number of HOME DELIVERY DRIVER Visits 0 Evaluation Information Evaluation Date 01/04/23 PT-OP-B Current Condition Start: 01/04/23 17:36 Freq: Status: Active Protocol: Document 01/04/23 16:45 DCW (Rec: 01/04/23 18:04 DCW [id number]) Current Condition History of Current Condition Current Complaints Recent worsening of balance/ stability History of Current Condition Pt is a 77 year old female very well known to this clinic , returning today due to increasing concerns about her balance. Pt was previously treated for her balance at this clinic multiple years ago , and pt reports she has continued with her exercises, and works with a sports medicine trainer multiple times a week, however still feels like her balance continues to decline, much more quickly recently. Notes there is no rotational vertigo, she is just off balance. Has increased sway and jerky movements, moreso with static stance. Reports her neurologist did a preliminary work up for potential Parkinson's, however was able to likely rule it out. Report of recent brain MRI noted some common age- related changes, but unremarkable in regards to her symptoms. Has a referral in January to a Movement Disorder specialist. PT-OP-C Subjective Start: 01/04/23 17:36 Freq: Status: Active Protocol: Document 01/07/23 15:15 DCW (Rec: 01/07/23 16:02 DCW [id number]) OP-PT Subjective Patient Comments Patient Comments Pt notes she is feeling a bit better today, unsure why. PT-OP-D Balance Start: 01/04/23 17:36 Freq: Status: Active Protocol: Document 01/07/23 15:15 DCW (Rec: 01/07/23 16:02 DCW [id number]) Balance Tests Single Limb Standing Single Limb- Right 8 Single Limb- Left 11 Tandem Tandem Standing R: 8, L: 16 PT-OP-H Neuro Start: 01/04/23 18:04 Freq: Status: Active Protocol: Document 01/04/23 16:45 DCW (Rec: 01/04/23 18:05 DCW [id number]) Coordination Evaluation Upper Extremity Tests Right Finger to Nose Test Minimal Impairment Finger to Therapist's Finger Test Normal Performance Pronation/Supination Test Normal Performance Left Finger to Nose Test Minimal Impairment Finger to Therapist's Finger Test Normal Performance Pronation/Supination Test Normal Performance PT-OP-O Vestibular Start: 01/04/23 17:36 Freq: Status: Active Protocol: Document 01/07/23 15:15 DCW (Rec: 01/07/23 16:02 DCW [id number]) Vestibular Assessment Vestibular Function Tests Fukuda Test WNL CTSIB Position 1 30 CTSIB Position 2 30 CTSIB Position 3 30 CTSIB Position 4 30 CTSIB Position 5 6 - fall reaction CTSIB Position 6 13 - fall reaction PT-OP-Q Treatments Start: 01/04/23 17:36 Freq: Status: Active Protocol: Document 01/07/23 15:15 DCW (Rec: 01/07/23 16:02 DCW [id number]) Neuro Re-Education Treatment Vestibular Rehabilitation Corrective Saccades Details Eyes, then head to target Distance From Target Arm's length Speed As tolerated Position Seated X2 Viewing Details Head and target moving in opposite directions Distance From Target Arm's length Speed As tolerated Position Seated X1 Viewing Details Static target with head turns Distance From Target Arm's length Speed As tolerated Position Seated VOR Retraining Details Target and head moving together Distance From Target Arm's length Speed As tolerated Position Seated PT-OP-T Assessment and Plan Start: 01/04/23 17:36 Freq: Status: Active Protocol: Document 01/07/23 15:15 DCW (Rec: 01/07/23 16:02 DCW [id number]) Physical Therapy Assessment Impairments Impairments Balance,Functional Activities, Functional Mobility,Gait Goals Two Impairment Pt scores a 42/56 on the De [place] Santos Balance scale Fpc Goal (LTG) Pt to improve [place] score by at least 6 points to 48/56 to demonstrate decrease in falls risk. LTG Duration 03/06/23 One Impairment Pt does not have an appropriate home exercise program Short Term Goal (STG) Pt to be independent and compliant with an appropriate HEP STG Duration 02/03/23 Assessment Summary Assessment Pt had fairly significant symptomatic response during VOR/X1-2 exercises, may benefit from continued practice at home, added to HEP . Fall reaction in positions V and during CTSIB. Still no clear answer to cause of pt's complaints, but does appear to have difficulty with VOR/ VSR challenges. Physical Therapy Plan Frequency and Duration Frequency of Treatment 2x/Week Plan of Care Start Date 01/04/23 Plan of Care End Date 03/06/23 Therapeutic Interventions Therapeutic Interventions Balance Training,Coordination Training,Home Exercise Program ,Neuromuscular Re-education, Patient/Caregiver Education, Self-Care/Home Management, Therapeutic Activities, Therapeutic Exercises, Vestibular Rehabilitation Next Visit Focus/Plan Next Note Type Treatment Note Next Visit Plan Vestibular rehab, habituation/ adaptation exercises, VOR training
--- NOTE | 2023-01-25 17:34 | PT.OTN ---
Current Diagnoses Other chronic pain (01/25/23) Other intervertebral disc degeneration, lumbar region (01/25/23) Lumbago with sciatica, left side (01/25/23) Trochanteric bursitis, right hip (01/25/23) Trochanteric bursitis, left hip (01/25/23) Unsteadiness on feet (01/25/23) Other abnormalities of gait and mobility (01/25/23) Presence of artificial knee joint, bilateral (01/25/23) Physical Therapy Treatment Note PT-OP-A Visit Information Start: 01/04/23 17:36 Freq: Status: Active Protocol: Document 01/25/23 16:45 DCW (Rec: 01/25/23 17:34 DCW [id number]) Out-Patient Physical Therapy Visit Information Visit Information Visit Type Treatment Note Visit Start Time 16:45 Visit Stop Time 17:30 Total Visit Minutes 45 Visit Number 3 Number of DEOILING MACHINE OPERATOR Visits 0 Evaluation Information Evaluation Date 01/04/23 PT-OP-B Current Condition Start: 01/04/23 17:36 Freq: Status: Active Protocol: Document 01/04/23 16:45 DCW (Rec: 01/04/23 18:04 DCW [id number]) Current Condition History of Current Condition Current Complaints Recent worsening of balance/ stability History of Current Condition Pt is a 77 year old female very well known to this clinic , returning today due to increasing concerns about her balance. Pt was previously treated for her balance at this clinic multiple years ago , and pt reports she has continued with her exercises, and works with a personal secretary multiple times a week, however still feels like her balance continues to decline, much more quickly recently. Notes there is no rotational vertigo, she is just off balance. Has increased sway and jerky movements, moreso with static stance. Reports her neurologist did a preliminary work up for potential Parkinson's, however was able to likely rule it out. Report of recent brain MRI noted some common age- related changes, but unremarkable in regards to her symptoms. Has a referral in January to a Movement Disorder specialist. PT-OP-C Subjective Start: 01/04/23 17:36 Freq: Status: Active Protocol: Document 01/25/23 16:45 DCW (Rec: 01/25/23 17:34 DCW [id number]) OP-PT Subjective Patient Comments Patient Comments Pt notes she finally has an appointment with a Movement Disorder Specialist, but not until May. PT-OP-D Balance Start: 01/04/23 17:36 Freq: Status: Active Protocol: Document 01/07/23 15:15 DCW (Rec: 01/07/23 16:02 DCW [id number]) Balance Tests Single Limb Standing Single Limb- Right 8 Single Limb- Left 11 Tandem Tandem Standing R: 8, L: 16 PT-OP-H Neuro Start: 01/04/23 18:04 Freq: Status: Active Protocol: Document 01/04/23 16:45 DCW (Rec: 01/04/23 18:05 DCW [id number]) Coordination Evaluation Upper Extremity Tests Right Finger to Nose Test Minimal Impairment Finger to Therapist's Finger Test Normal Performance Pronation/Supination Test Normal Performance Left Finger to Nose Test Minimal Impairment Finger to Therapist's Finger Test Normal Performance Pronation/Supination Test Normal Performance PT-OP-O Vestibular Start: 01/04/23 17:36 Freq: Status: Active Protocol: Document 01/07/23 15:15 DCW (Rec: 01/07/23 16:02 DCW [id number]) Vestibular Assessment Vestibular Function Tests Fukuda Test WNL CTSIB Position 1 30 CTSIB Position 2 30 CTSIB Position 3 30 CTSIB Position 4 30 CTSIB Position 5 6 - fall reaction CTSIB Position 6 13 - fall reaction PT-OP-Q Treatments Start: 01/04/23 17:36 Freq: Status: Active Protocol: Document 01/25/23 16:45 DCW (Rec: 01/25/23 17:34 DCW [id number]) Neuro Re-Education Treatment Balance Activities Laser Details Laser signature Surface Blue Foam Equipment [place] Board Dynamic Gait Details Hendrickson ambulation Comments -Horizontal/Vertical head turns /c Metronome 90 bpm -Tandem Gait -Retro Gait -3-step bow with head turn Disco Ball Details Disco Ball Surface Blue Foam Vestibular Rehabilitation Pencil Push-ups Details Pencil Push-ups X2 Viewing Details Head and target moving in opposite directions Distance From Target Arm's length Speed As tolerated Position Seated X1 Viewing Details Static target with head turns Distance From Target Arm's length Speed As tolerated Position Seated VOR Retraining Details Target and head moving together Distance From Target Arm's length Speed As tolerated Position Seated PT-OP-T Assessment and Plan Start: 01/04/23 17:36 Freq: Status: Active Protocol: Document 01/25/23 16:45 DCW (Rec: 01/25/23 17:34 DCW [id number]) Physical Therapy Assessment Impairments Impairments Balance,Functional Activities, Functional Mobility,Gait Goals Two Impairment Pt scores a 42/56 on the De Los Santos Balance scale [facility] Goal (LTG) Pt to improve De Los Santos score by at least 6 points to 48/56 to demonstrate decrease in falls risk. LTG Duration 03/06/23 One Impairment Pt does not have an appropriate home exercise program Short Term Goal (STG) Pt to be independent and compliant with an appropriate HEP STG Duration 02/03/23 Assessment Summary Assessment Pt continues to demonstrate increased difficulty with similar exercises that she has performed during previous PT sessions, much more easily LOB and experiences increased hip and trunk strategies Physical Therapy Plan Frequency and Duration Frequency of Treatment 2x/Week Plan of Care Start Date 01/04/23 Plan of Care End Date 03/06/23 Therapeutic Interventions Therapeutic Interventions Balance Training,Coordination Training,Home Exercise Program ,Neuromuscular Re-education, Patient/Caregiver Education, Self-Care/Home Management, Therapeutic Activities, Therapeutic Exercises, Vestibular Rehabilitation Next Visit Focus/Plan Next Note Type Treatment Note Next Visit Plan Vestibular rehab, habituation/ adaptation exercises, VOR training
--- NOTE | 2023-02-07 15:17 | PT.OTN ---
Current Diagnoses Other chronic pain (02/07/23) Other intervertebral disc degeneration, lumbar region (02/07/23) Lumbago with sciatica, left side (02/07/23) Trochanteric bursitis, right hip (02/07/23) Trochanteric bursitis, left hip (02/07/23) Unsteadiness on feet (02/07/23) Other abnormalities of gait and mobility (02/07/23) Presence of artificial knee joint, bilateral (02/07/23) Physical Therapy Treatment Note PT-OP-A Visit Information Start: 01/04/23 17:36 Freq: Status: Active Protocol: Document 02/07/23 14:34 DCW (Rec: 02/07/23 15:17 DCW [id number]) Out-Patient Physical Therapy Visit Information Visit Information Visit Type Treatment Note Visit Start Time 14:34 Visit Stop Time 15:15 Total Visit Minutes 41 Visit Number 4 Number of FAMILY EDUCATOR Visits 0 Evaluation Information Evaluation Date 01/04/23 PT-OP-B Current Condition Start: 01/04/23 17:36 Freq: Status: Active Protocol: Document 01/04/23 16:45 DCW (Rec: 01/04/23 18:04 DCW [id number]) Current Condition History of Current Condition Current Complaints Recent worsening of balance/ stability History of Current Condition Pt is a 77 year old female very well known to this clinic , returning today due to increasing concerns about her balance. Pt was previously treated for her balance at this clinic multiple years ago , and pt reports she has continued with her exercises, and works with a personal assistant multiple times a week, however still feels like her balance continues to decline, much more quickly recently. Notes there is no rotational vertigo, she is just off balance. Has increased sway and jerky movements, moreso with static stance. Reports her neurologist did a preliminary work up for potential Parkinson's, however was able to likely rule it out. Report of recent brain MRI noted some common age- related changes, but unremarkable in regards to her symptoms. Has a referral in January to a Movement Disorder specialist. PT-OP-C Subjective Start: 01/04/23 17:36 Freq: Status: Active Protocol: Document 02/07/23 14:34 DCW (Rec: 02/07/23 15:17 DCW [id number]) OP-PT Subjective Patient Comments Patient Comments Pt notes she had a cold last week, but is feeling better. As far as imbalance goes, she isn't feeling any worse, it might be better, who knows. PT-OP-D Balance Start: 01/04/23 17:36 Freq: Status: Active Protocol: Document 01/07/23 15:15 DCW (Rec: 01/07/23 16:02 DCW [id number]) Balance Tests Single Limb Standing Single Limb- Right 8 Single Limb- Left 11 Tandem Tandem Standing R: 8, L: 16 PT-OP-H Neuro Start: 01/04/23 18:04 Freq: Status: Active Protocol: Document 01/04/23 16:45 DCW (Rec: 01/04/23 18:05 DCW [id number]) Coordination Evaluation Upper Extremity Tests Right Finger to Nose Test Minimal Impairment Finger to Therapist's Finger Test Normal Performance Pronation/Supination Test Normal Performance Left Finger to Nose Test Minimal Impairment Finger to Therapist's Finger Test Normal Performance Pronation/Supination Test Normal Performance PT-OP-O Vestibular Start: 01/04/23 17:36 Freq: Status: Active Protocol: Document 01/07/23 15:15 DCW (Rec: 01/07/23 16:02 DCW [id number]) Vestibular Assessment Vestibular Function Tests Fukuda Test WNL CTSIB Position 1 30 CTSIB Position 2 30 CTSIB Position 3 30 CTSIB Position 4 30 CTSIB Position 5 6 - fall reaction CTSIB Position 6 13 - fall reaction PT-OP-Q Treatments Start: 01/04/23 17:36 Freq: Status: Active Protocol: Document 02/07/23 14:34 DCW (Rec: 02/07/23 15:17 DCW [id number]) Gym Equipment Shuttle Balance chains red Comments WBOS (EO/EC), Staggered, Lateral Neuro Re-Education Treatment Balance Activities Dynamic Gait Details Hendrickson ambulation Comments -Horizontal/Vertical head turns /c Metronome (90 bpm) -Tandem Gait -Retro Gait -3-step bow with head turn Disco Ball Details Disco Ball Surface Blue Foam Vestibular Rehabilitation Pencil Push-ups Details Pencil Push-ups PT-OP-T Assessment and Plan Start: 01/04/23 17:36 Freq: Status: Active Protocol: Document 02/07/23 14:34 DCW (Rec: 02/07/23 15:17 DCW [id number]) Physical Therapy Assessment Impairments Impairments Balance,Functional Activities, Functional Mobility,Gait Goals Two Impairment Pt scores a 42/56 on the De Los Santos Balance scale Mcfp Goal (LTG) Pt to improve De [place] Santos score by at least 6 points to 48/56 to demonstrate decrease in falls risk. LTG Duration 03/06/23 One Impairment Pt does not have an appropriate home exercise program Short Term Goal (STG) Pt to be independent and compliant with an appropriate HEP STG Duration 02/03/23 Assessment Summary Assessment Pt tolerating treatment well today, improved stability with disco ball. Continue to focus on vestibular challenges and dynamic balance. Physical Therapy Plan Frequency and Duration Frequency of Treatment 2x/Week Plan of Care Start Date 01/04/23 Plan of Care End Date 03/06/23 Therapeutic Interventions Therapeutic Interventions Balance Training,Coordination Training,Home Exercise Program ,Neuromuscular Re-education, Patient/Caregiver Education, Self-Care/Home Management, Therapeutic Activities, Therapeutic Exercises, Vestibular Rehabilitation Next Visit Focus/Plan Next Note Type Treatment Note Next Visit Plan Vestibular rehab, habituation/ adaptation exercises, VOR training
--- NOTE | 2023-02-09 17:27 | PT.OTN ---
Current Diagnoses Other chronic pain (02/09/23) Other intervertebral disc degeneration, lumbar region (02/09/23) Lumbago with sciatica, left side (02/09/23) Trochanteric bursitis, right hip (02/09/23) Trochanteric bursitis, left hip (02/09/23) Unsteadiness on feet (02/09/23) Other abnormalities of gait and mobility (02/09/23) Presence of artificial knee joint, bilateral (02/09/23) Physical Therapy Treatment Note PT-OP-A Visit Information Start: 01/04/23 17:36 Freq: Status: Active Protocol: Document 02/09/23 16:45 DCW (Rec: 02/09/23 17:27 DCW [id number]) Out-Patient Physical Therapy Visit Information Visit Information Visit Type Treatment Note Visit Start Time 16:45 Visit Stop Time 17:30 Total Visit Minutes 45 Visit Number 5 Number of RN CARDIOLOGY Visits 0 Evaluation Information Evaluation Date 01/04/23 PT-OP-B Current Condition Start: 01/04/23 17:36 Freq: Status: Active Protocol: Document 01/04/23 16:45 DCW (Rec: 01/04/23 18:04 DCW [id number]) Current Condition History of Current Condition Current Complaints Recent worsening of balance/ stability History of Current Condition Pt is a 77 year old female very well known to this clinic , returning today due to increasing concerns about her balance. Pt was previously treated for her balance at this clinic multiple years ago , and pt reports she has continued with her exercises, and works with a show dog trainer multiple times a week, however still feels like her balance continues to decline, much more quickly recently. Notes there is no rotational vertigo, she is just off balance. Has increased sway and jerky movements, moreso with static stance. Reports her neurologist did a preliminary work up for potential Parkinson's, however was able to likely rule it out. Report of recent brain MRI noted some common age- related changes, but unremarkable in regards to her symptoms. Has a referral in January to a Movement Disorder specialist. PT-OP-C Subjective Start: 01/04/23 17:36 Freq: Status: Active Protocol: Document 02/09/23 16:45 DCW (Rec: 02/09/23 17:27 DCW [id number]) OP-PT Subjective Patient Comments Patient Comments Not really much of a difference. PT-OP-D Balance Start: 01/04/23 17:36 Freq: Status: Active Protocol: Document 01/07/23 15:15 DCW (Rec: 01/07/23 16:02 DCW [id number]) Balance Tests Single Limb Standing Single Limb- Right 8 Single Limb- Left 11 Tandem Tandem Standing R: 8, L: 16 PT-OP-H Neuro Start: 01/04/23 18:04 Freq: Status: Active Protocol: Document 01/04/23 16:45 DCW (Rec: 01/04/23 18:05 DCW [id number]) Coordination Evaluation Upper Extremity Tests Right Finger to Nose Test Minimal Impairment Finger to Therapist's Finger Test Normal Performance Pronation/Supination Test Normal Performance Left Finger to Nose Test Minimal Impairment Finger to Therapist's Finger Test Normal Performance Pronation/Supination Test Normal Performance PT-OP-O Vestibular Start: 01/04/23 17:36 Freq: Status: Active Protocol: Document 01/07/23 15:15 DCW (Rec: 01/07/23 16:02 DCW [id number]) Vestibular Assessment Vestibular Function Tests Fukuda Test WNL CTSIB Position 1 30 CTSIB Position 2 30 CTSIB Position 3 30 CTSIB Position 4 30 CTSIB Position 5 6 - fall reaction CTSIB Position 6 13 - fall reaction PT-OP-Q Treatments Start: 01/04/23 17:36 Freq: Status: Active Protocol: Document 02/09/23 16:45 DCW (Rec: 02/09/23 17:27 DCW [id number]) Gym Equipment Shuttle Balance chains red Comments WBOS (EO/EC), Staggered, Lateral Neuro Re-Education Treatment Balance Activities SLS Details SLS Surface // bars Dynamic Gait Details Hendrickson ambulation Comments -Horizontal/Vertical/Diagonal head turns /c Metronome (100 bpm) -Tandem/Retro Tandem Gait -3-step bow with head turn Disco Ball Details Disco Ball Surface Blue Foam Comments DLS, SLS, increased symptoms with lights moving right to left PT-OP-T Assessment and Plan Start: 01/04/23 17:36 Freq: Status: Active Protocol: Document 02/09/23 16:45 DCW (Rec: 02/09/23 17:27 DCW [id number]) Physical Therapy Assessment Impairments Impairments Balance,Functional Activities, Functional Mobility,Gait Goals Two Impairment Pt scores a 42/56 on the De Los Santos Balance scale Prison Goal (LTG) Pt to improve De [place] Santos score by at least 6 points to 48/56 to demonstrate decrease in falls risk. LTG Duration 03/06/23 One Impairment Pt does not have an appropriate home exercise program Short Term Goal (STG) Pt to be independent and compliant with an appropriate HEP STG Duration 02/03/23 Assessment Summary Assessment Increased symptoms of instability/nausea today when using Disco Ball, pt struggled more with SLS and foam balance, and especially with diagnoal head turns. Continue to challenge balance. Physical Therapy Plan Frequency and Duration Frequency of Treatment 2x/Week Plan of Care Start Date 01/04/23 Plan of Care End Date 03/06/23 Therapeutic Interventions Therapeutic Interventions Balance Training,Coordination Training,Home Exercise Program ,Neuromuscular Re-education, Patient/Caregiver Education, Self-Care/Home Management, Therapeutic Activities, Therapeutic Exercises, Vestibular Rehabilitation Next Visit Focus/Plan Next Note Type Treatment Note Next Visit Plan Vestibular rehab, habituation/ adaptation exercises, VOR training
--- NOTE | 2023-02-16 11:55 | PT.OTN ---
Current Diagnoses Other chronic pain (02/16/23) Other intervertebral disc degeneration, lumbar region (02/16/23) Lumbago with sciatica, left side (02/16/23) Trochanteric bursitis, right hip (02/16/23) Trochanteric bursitis, left hip (02/16/23) Unsteadiness on feet (02/16/23) Other abnormalities of gait and mobility (02/16/23) Presence of artificial knee joint, bilateral (02/16/23) Physical Therapy Treatment Note PT-OP-A Visit Information Start: 01/04/23 17:36 Freq: Status: Active Protocol: Document 02/16/23 11:15 DCW (Rec: 02/16/23 11:55 DCW [id number]) Out-Patient Physical Therapy Visit Information Visit Information Visit Type Treatment Note Visit Start Time 11:15 Visit Stop Time 12:00 Total Visit Minutes 45 Visit Number 6 Number of GYROSCOPE TECHNICIAN Visits 0 Evaluation Information Evaluation Date 01/04/23 PT-OP-B Current Condition Start: 01/04/23 17:36 Freq: Status: Active Protocol: Document 01/04/23 16:45 DCW (Rec: 01/04/23 18:04 DCW [id number]) Current Condition History of Current Condition Current Complaints Recent worsening of balance/ stability History of Current Condition Pt is a 77 year old female very well known to this clinic , returning today due to increasing concerns about her balance. Pt was previously treated for her balance at this clinic multiple years ago , and pt reports she has continued with her exercises, and works with a personal property assessor multiple times a week, however still feels like her balance continues to decline, much more quickly recently. Notes there is no rotational vertigo, she is just off balance. Has increased sway and jerky movements, moreso with static stance. Reports her neurologist did a preliminary work up for potential Parkinson's, however was able to likely rule it out. Report of recent brain MRI noted some common age- related changes, but unremarkable in regards to her symptoms. Has a referral in January to a Movement Disorder specialist. PT-OP-C Subjective Start: 01/04/23 17:36 Freq: Status: Active Protocol: Document 02/16/23 11:15 DCW (Rec: 02/16/23 11:55 DCW [id number]) OP-PT Subjective Patient Comments Patient Comments Pt doing well today. PT-OP-D Balance Start: 01/04/23 17:36 Freq: Status: Active Protocol: Document 01/07/23 15:15 DCW (Rec: 01/07/23 16:02 DCW [id number]) Balance Tests Single Limb Standing Single Limb- Right 8 Single Limb- Left 11 Tandem Tandem Standing R: 8, L: 16 PT-OP-H Neuro Start: 01/04/23 18:04 Freq: Status: Active Protocol: Document 01/04/23 16:45 DCW (Rec: 01/04/23 18:05 DCW [id number]) Coordination Evaluation Upper Extremity Tests Right Finger to Nose Test Minimal Impairment Finger to Therapist's Finger Test Normal Performance Pronation/Supination Test Normal Performance Left Finger to Nose Test Minimal Impairment Finger to Therapist's Finger Test Normal Performance Pronation/Supination Test Normal Performance PT-OP-O Vestibular Start: 01/04/23 17:36 Freq: Status: Active Protocol: Document 01/07/23 15:15 DCW (Rec: 01/07/23 16:02 DCW [id number]) Vestibular Assessment Vestibular Function Tests Fukuda Test WNL CTSIB Position 1 30 CTSIB Position 2 30 CTSIB Position 3 30 CTSIB Position 4 30 CTSIB Position 5 6 - fall reaction CTSIB Position 6 13 - fall reaction PT-OP-Q Treatments Start: 01/04/23 17:36 Freq: Status: Active Protocol: Document 02/16/23 11:15 DCW (Rec: 02/16/23 11:55 DCW [id number]) Gym Equipment Shuttle Balance chains red Comments WBOS (EO/EC), Staggered, Lateral Neuro Re-Education Treatment Balance Activities Dynamic Gait Details Hendrickson ambulation Comments -Horizontal/Vertical/Diagonal head turns /c Metronome (100 bpm) -Tandem/Retro Tandem Gait -3-step bow with head turn Disco Ball Details Disco Ball Surface Blue Foam Comments DLS (foam), SLS (floor) PT-OP-T Assessment and Plan Start: 01/04/23 17:36 Freq: Status: Active Protocol: Document 02/16/23 11:15 DCW (Rec: 02/16/23 11:55 DCW [id number]) Physical Therapy Assessment Impairments Impairments Balance,Functional Activities, Functional Mobility,Gait Goals Two Impairment Pt scores a 42/56 on the De Los Santos Balance scale Leather Stitcher Goal (LTG) Pt to improve [place] score by at least 6 points to 48/56 to demonstrate decrease in falls risk. LTG Duration 03/06/23 One Impairment Pt does not have an appropriate home exercise program Short Term Goal (STG) Pt to be independent and compliant with an appropriate HEP STG Duration 02/03/23 Assessment Summary Assessment Pt showing some good improvements with balance and stability, less severe symptoms than prior reports, and with a decreased frequency . Physical Therapy Plan Frequency and Duration Frequency of Treatment 2x/Week Plan of Care Start Date 01/04/23 Plan of Care End Date 03/06/23 Therapeutic Interventions Therapeutic Interventions Balance Training,Coordination Training,Home Exercise Program ,Neuromuscular Re-education, Patient/Caregiver Education, Self-Care/Home Management, Therapeutic Activities, Therapeutic Exercises, Vestibular Rehabilitation Next Visit Focus/Plan Next Note Type Treatment Note Next Visit Plan Vestibular rehab, habituation/ adaptation exercises, VOR training
--- NOTE | 2023-02-24 12:04 | PT.OTN ---
Current Diagnoses Other chronic pain (02/24/23) Other intervertebral disc degeneration, lumbar region (02/24/23) Lumbago with sciatica, left side (02/24/23) Trochanteric bursitis, right hip (02/24/23) Trochanteric bursitis, left hip (02/24/23) Unsteadiness on feet (02/24/23) Other abnormalities of gait and mobility (02/24/23) Presence of artificial knee joint, bilateral (02/24/23) Physical Therapy Treatment Note PT-OP-A Visit Information Start: 01/04/23 17:36 Freq: Status: Active Protocol: Document 02/24/23 11:15 DCW (Rec: 02/24/23 12:03 DCW [id number]) Out-Patient Physical Therapy Visit Information Visit Information Visit Type Treatment Note Visit Start Time 11:15 Visit Stop Time 12:00 Total Visit Minutes 45 Visit Number 7 Number of MACHINE STONE POLISHER Visits 0 Evaluation Information Evaluation Date 01/04/23 PT-OP-B Current Condition Start: 01/04/23 17:36 Freq: Status: Active Protocol: Document 01/04/23 16:45 DCW (Rec: 01/04/23 18:04 DCW [id number]) Current Condition History of Current Condition Current Complaints Recent worsening of balance/ stability History of Current Condition Pt is a 77 year old female very well known to this clinic , returning today due to increasing concerns about her balance. Pt was previously treated for her balance at this clinic multiple years ago , and pt reports she has continued with her exercises, and works with a personal security specialist multiple times a week, however still feels like her balance continues to decline, much more quickly recently. Notes there is no rotational vertigo, she is just off balance. Has increased sway and jerky movements, moreso with static stance. Reports her neurologist did a preliminary work up for potential Parkinson's, however was able to likely rule it out. Report of recent brain MRI noted some common age- related changes, but unremarkable in regards to her symptoms. Has a referral in January to a Movement Disorder specialist. PT-OP-C Subjective Start: 01/04/23 17:36 Freq: Status: Active Protocol: Document 02/24/23 11:15 DCW (Rec: 02/24/23 12:04 DCW [id number]) OP-PT Subjective Patient Comments Patient Comments Feels much more comfortable with stability up moving around in her kitchen. PT-OP-D Balance Start: 01/04/23 17:36 Freq: Status: Active Protocol: Document 01/07/23 15:15 DCW (Rec: 01/07/23 16:02 DCW [id number]) Balance Tests Single Limb Standing Single Limb- Right 8 Single Limb- Left 11 Tandem Tandem Standing R: 8, L: 16 PT-OP-H Neuro Start: 01/04/23 18:04 Freq: Status: Active Protocol: Document 01/04/23 16:45 DCW (Rec: 01/04/23 18:05 DCW [id number]) Coordination Evaluation Upper Extremity Tests Right Finger to Nose Test Minimal Impairment Finger to Therapist's Finger Test Normal Performance Pronation/Supination Test Normal Performance Left Finger to Nose Test Minimal Impairment Finger to Therapist's Finger Test Normal Performance Pronation/Supination Test Normal Performance PT-OP-O Vestibular Start: 01/04/23 17:36 Freq: Status: Active Protocol: Document 01/07/23 15:15 DCW (Rec: 01/07/23 16:02 DCW [id number]) Vestibular Assessment Vestibular Function Tests Fukuda Test WNL CTSIB Position 1 30 CTSIB Position 2 30 CTSIB Position 3 30 CTSIB Position 4 30 CTSIB Position 5 6 - fall reaction CTSIB Position 6 13 - fall reaction PT-OP-Q Treatments Start: 01/04/23 17:36 Freq: Status: Active Protocol: Document 02/24/23 11:15 DCW (Rec: 02/24/23 12:03 DCW [id number]) Gym Equipment Shuttle Balance chains red Comments WBOS (EO/EC), Staggered, Lateral Neuro Re-Education Treatment Balance Activities Hurdles Details Foam/Hurdles over uneven blue pad Comments Fwd, Tandem, Side-stepping SLS Details SLS Surface Blue Foam Dynamic Gait Details Hendrickson ambulation Comments -Horizontal/Vertical/Diagonal head turns /c Metronome (100 bpm) -Tandem/Retro Tandem Gait -3-step bow with head turn Disco Ball Details Disco Ball Surface Blue Foam PT-OP-T Assessment and Plan Start: 01/04/23 17:36 Freq: Status: Active Protocol: Document 02/24/23 11:15 DCW (Rec: 02/24/23 12:03 DCW [id number]) Physical Therapy Assessment Impairments Impairments Balance,Functional Activities, Functional Mobility,Gait Goals Two Impairment Pt scores a 42/56 on the [place] Balance scale R[employer]erry Driver Goal (LTG) Pt to improve [place] score by at least 6 points to 48/56 to demonstrate decrease in falls risk. LTG Duration 03/06/23 One Impairment Pt does not have an appropriate home exercise program Short Term Goal (STG) Pt to be independent and compliant with an appropriate HEP STG Duration 02/03/23 Assessment Summary Assessment Continues to do very well, will likely plan to retest next visit with potential discharge to independent HEP. Pt has appointment with Movement disorder specialist in May, understands she may return in the future. Physical Therapy Plan Frequency and Duration Frequency of Treatment 2x/Week Plan of Care Start Date 01/04/23 Plan of Care End Date 03/06/23 Therapeutic Interventions Therapeutic Interventions Balance Training,Coordination Training,Home Exercise Program ,Neuromuscular Re-education, Patient/Caregiver Education, Self-Care/Home Management, Therapeutic Activities, Therapeutic Exercises, Vestibular Rehabilitation Next Visit Focus/Plan Next Note Type Discharge Summary Next Visit Plan Retesting, likely discharge
--- NOTE | 2023-03-04 09:30 | PT.OTN ---
Current Diagnoses Other chronic pain (03/04/23) Other intervertebral disc degeneration, lumbar region (03/04/23) Lumbago with sciatica, left side (03/04/23) Trochanteric bursitis, right hip (03/04/23) Trochanteric bursitis, left hip (03/04/23) Unsteadiness on feet (03/04/23) Other abnormalities of gait and mobility (03/04/23) Presence of artificial knee joint, bilateral (03/04/23) Physical Therapy Treatment Note PT-OP-A Visit Information Start: 01/04/23 17:36 Freq: Status: Active Protocol: Document 03/04/23 09:00 DCW (Rec: 03/04/23 09:30 DCW [id number]) Out-Patient Physical Therapy Visit Information Visit Information Visit Type Discharge Summary Visit Start Time 09:00 Visit Stop Time 09:30 Total Visit Minutes 30 Visit Number 8 Number of SALESPERSON NEW CARS Visits 0 Evaluation Information Evaluation Date 01/04/23 PT-OP-B Current Condition Start: 01/04/23 17:36 Freq: Status: Active Protocol: Document 01/04/23 16:45 DCW (Rec: 01/04/23 18:04 DCW [id number]) Current Condition History of Current Condition Current Complaints Recent worsening of balance/ stability History of Current Condition Pt is a 77 year old female very well known to this clinic , returning today due to increasing concerns about her balance. Pt was previously treated for her balance at this clinic multiple years ago , and pt reports she has continued with her exercises, and works with a personal development educator multiple times a week, however still feels like her balance continues to decline, much more quickly recently. Notes there is no rotational vertigo, she is just off balance. Has increased sway and jerky movements, moreso with static stance. Reports her neurologist did a preliminary work up for potential Parkinson's, however was able to likely rule it out. Report of recent brain MRI noted some common age- related changes, but unremarkable in regards to her symptoms. Has a referral in January to a Movement Disorder specialist. PT-OP-C Subjective Start: 01/04/23 17:36 Freq: Status: Active Protocol: Document 03/04/23 09:00 DCW (Rec: 03/04/23 09:30 DCW [id number]) OP-PT Subjective Patient Comments Patient Comments Feeling pretty good today. PT-OP-D Balance Start: 01/04/23 17:36 Freq: Status: Active Protocol: Document 03/04/23 09:00 DCW (Rec: 03/04/23 09:23 DCW [id number]) Balance Tests [place] Balance Test [place] Balance Test Score 54/56 [place] Impairment Rating 20 to 39% Impaired (Score 34- 44) [place] Balance Assessment Evaluation Sitting to Standing Ability Independent w/out Hands Unsupported Stance Safely- 2 minutes Sitting Unsupported, Feet on Floor Safely- 2 minutes Standing to Sitting Ability Safely, Minimal Hand Use Transfer Ability Safely, Minimal Hand Use Unsupported Stance- Eyes Closed Safely, 10 seconds Unsupported Stance- Eyes Open Independent, 1 minute Reaching Forward Standing Confidently, 10 inches Pick- Up Object From Floor Independent/Safe Look Behind Shoulder - Standing Shifts Weight Well Turning 360 Degrees Turns Bilateral, < 4 secs Unsupported Stance, Alternating Feet on (I)- 8 Steps in 20 secs Stair Unsupported Tandem Stance Achieves Tandem Unilateral Leg Stance Lifts Leg/Holds > 3 secs Total Score [place] Total Score (out of 56 points) 54 PT-OP-H Neuro Start: 01/04/23 18:04 Freq: Status: Active Protocol: Document 03/04/23 09:00 DCW (Rec: 03/04/23 09:23 DCW [id number]) Coordination Evaluation Upper Extremity Tests Right Finger to Nose Test Normal Performance Finger to Therapist's Finger Test Normal Performance Pronation/Supination Test Normal Performance Left Finger to Nose Test Normal Performance Finger to Therapist's Finger Test Normal Performance Pronation/Supination Test Normal Performance PT-OP-O Vestibular Start: 01/04/23 17:36 Freq: Status: Active Protocol: Document 03/04/23 09:00 DCW (Rec: 03/04/23 09:23 DCW [id number]) Vestibular Assessment Vestibular Function Tests CTSIB Position 1 30 CTSIB Position 2 30 CTSIB Position 3 30 CTSIB Position 4 30 CTSIB Position 5 30 CTSIB Position 6 26 - uncrossed arms PT-OP-Q Treatments Start: 01/04/23 17:36 Freq: Status: Active Protocol: Document 03/04/23 09:00 DCW (Rec: 03/04/23 09:30 DCW [id number]) Gym Equipment Shuttle Balance chains red Comments WBOS (EO/EC), Staggered, Lateral PT-OP-T Assessment and Plan Start: 01/04/23 17:36 Freq: Status: Active Protocol: Document 03/04/23 09:00 DCW (Rec: 03/04/23 09:30 DCW [id number]) Physical Therapy Assessment Impairments Impairments Balance,Functional Activities, Functional Mobility,Gait Goals Two Impairment Pt scores a 42/56 on the [place] Balance scale Shelter Goal (LTG) Pt to improve [place] score by at least 6 points to 48/56 to demonstrate decrease in falls risk. LTG Duration Met One Impairment Pt does not have an appropriate home exercise program Short Term Goal (STG) Pt to be independent and compliant with an appropriate HEP STG Duration Met Progress Towards Goals Progress Towards Goals Goals Met Assessment Summary Assessment Pt showing substantial improvement in all areas, no longer demonstrating any concerning imbalance or uncoordinated movements. Unclear what initial underlying cause was, pt plans to keep her appt with movement disorder specalist in May. [place] score improved from 42/54, CTSIB positions V and both improved. Pt appropriate for discharge at this time. Physical Therapy Plan Frequency and Duration Frequency of Treatment 2x/Week Plan of Care Start Date 01/04/23 Plan of Care End Date 03/06/23 Therapeutic Interventions Therapeutic Interventions Balance Training,Coordination Training,Home Exercise Program ,Neuromuscular Re-education, Patient/Caregiver Education, Self-Care/Home Management, Therapeutic Activities, Therapeutic Exercises, Vestibular Rehabilitation Discharge Physical Therapy Discharge Reasons Goals Met Next Visit Focus/Plan Next Note Type Discharge Summary
== END 2023-03-07 14:48 | disposition home or self-care (01) ==
LOC: PHYS 09:00
PROVIDERS: Family Provider Internal Medicine; PCP Internal Medicine; Referring Provider Physical Medicine & Rehabilitation Pain Medicine; Visit Provider Physical Medicine & Rehabilitation Pain Medicine
DX: R26.89 Other abnormalities of gait and mobility (principal); M54.42 Lumbago with sciatica, left side; G89.29 Other chronic pain; M51.36 Other intervertebral disc degeneration, lumbar region; M70.61 Trochanteric bursitis, right hip; M70.62 Trochanteric bursitis, left hip; Z96.653 Presence of artificial knee joint, bilateral; R26.81 Unsteadiness on feet
CPT/HCPCS: 97112; 97163